=== PATIENT | male | born 1955 ===

== ENCOUNTER 2016-12-21 03:11 | Inpatient (IN) | payer MEDICARE, MEDICAID ==
[2016-12-21 03:12] VITALS: BMI 35.9
[2016-12-21] MEDS ORDERED: Aspirin 325 mg EC Tablets PO STA (03:47)
--- NOTE | 2016-12-21 03:47 | C.PDOC ---
History Of Present Illness Patient presents to the ED with complaints of left shoulder pain that radiates to his chest. Patient notes an ulcer to the left heel and denies any fever or chills. Time Seen by Provider: 12/21/16 03:46 Chief Complaint (Nursing): Chest Pain History Per: Patient History/Exam Limitations: no limitations Onset/Duration Of Symptoms: Hrs Current Symptoms Are (Timing): Still Present Severity: Moderate Pain Scale Rating Of: 4 Quality: "Pain" Associated Symptoms: denies: Nausea, Dyspnea, Diaphoresis, Syncope Modifying Factors: None Exacerbating Factors: None Alleviating Factors: None Recent travel outside of the [place]: No Additional History Per: Patient Past Medical History Reviewed: Historical Data, Nursing Documentation, Vital Signs Vital Signs: Last Vital Signs Temp 98.9 F 12/21/16 03:31 Pulse 85 12/21/16 04:08 Resp 20 12/21/16 03:31 BP 111/77 12/21/16 03:31 Pulse Ox 96 12/21/16 04:55 - Medical History PMH: Asthma, CHF, Diabetes, HTN, Hypercholesterolemia, Peripheral Edema Surgical History: CABG (08/30/12) - [facility] Procedures CONTRAST AORTOGRAM (11/16/13) CORONAR ARTERIOGR-2 CATH (11/16/13) LT HEART ANGIOCARDIOGRAM (11/16/13) RT/LEFT HEART CARD CATH (11/16/13) Family History: States: Unknown Family Hx - Social History Hx Tobacco Use: No Hx Alcohol Use: Yes Hx Substance Use: No - Immunization History Hx Tetanus Toxoid Vaccination: No Hx Influenza Vaccination: Yes Hx Pneumococcal Vaccination: No Review Of Systems Constitutional: Negative for: Fever, Chills Cardiovascular: Positive for: Chest Pain. Negative for: Palpitations Respiratory: Negative for: Cough, Shortness of Breath Gastrointestinal: Negative for: Nausea, Vomiting, Abdominal Pain, Diarrhea Musculoskeletal: Positive for: Shoulder Pain (left shoulder pain that radiates to chest) Physical Exam - Physical Exam Appears: Non-toxic, No Acute Distress Skin: Warm, Dry, Other (diffuse vitiligo ) Eye(s): bilateral: Normal Inspection Oral Mucosa: Moist Neck: Supple Chest: Symmetrical, No Deformity Cardiovascular: Rhythm Regular Respiratory: No Rales, No Rhonchi, No Wheezing Gastrointestinal/Abdominal: Soft, No Tenderness, No Distention, No Guarding, No Rebound Extremity: Normal ROM, No Tenderness, Other (left heel ulcer; 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 ) Extremity: Left: Other (healing ulcer), Bilateral: Atraumatic Pulses: Left Dorsalis Pedis: Normal, Right Dorsalis Pedis: Normal Neurological/Psych: Oriented x3, Other (patient speaking in complete sentences ) Gait: With Assistance ED Course And Treatment - Laboratory Results Result Diagrams: 12/21/16 03:54 12/21/16 04:35 ECG: Interpreted By Me, Viewed By Me ECG Rhythm: Sinus Rhythm (85), Nonspecific Changes O2 Sat by Pulse Oximetry: 96 (room air ) Pulse Ox Interpretation: Normal - Radiology CXR: Interpreted by Me, Viewed By Me Disposition Discussed With Dr.: Sukumar Ann Comment: accepted the pt on his service and took over the care at 6:15 AM Doctor Will See Patient In The: Hospital Counseled Patient/Family Regarding: Studies Performed, Diagnosis - Disposition Disposition: HOME/ ROUTINE Disposition Time: 03:46 Condition: FAIR - POA Present On Arrival: Poor Glycemic Control, Pressure Ulcer - Clinical Impression Clinical Impression: Diabetic ulcer of foot associated with type 1 diabetes mellitus, limited to breakdown of skin, Chest pain - Scribe Statement The provider has reviewed the documentation as recorded by the Scribe Justyna Lam All medical record entries made by the Scribe were at my direction and personally dictated by me. I have reviewed the chart and agree that the record accurately reflects my personal performance of the history, physical exam, medical decision making, and the department course for this patient. I have also personally directed, reviewed, and agree with the discharge instructions and disposition. Decision To Admit - Pt Status Changed To: Hospital Disposition Of: Observation - . Bed Request Type: Telemetry Admitting Physician: Sukumar Ann Patient Diagnosis: Diabetic ulcer of foot associated with type 1 diabetes mellitus, limited to breakdown of skin, Chest pain
[2016-12-21 03:58] LABS: BASO # 0.1 K/uL (0.0-0.2); BASO % 1.1 % (0.0-2.0); EOS # 0.4 K/uL (0.0-0.7); HEMOGLOBIN 10.9 g/dL (12.0-18.0); LYMPH # 2.1 K/uL (1.0-4.3); LYMPH % 20.4 % (20.0-40.0); MEAN CELL VOLUME 83.2 fL (80.0-94.0); MEAN CORPUSCULAR HEMOGLOBIN 27.1 pg (27.0-31.0); MEAN CORPUSCULAR HGB CONC 32.5 g/dL (33.0-37.0); MEAN PLATELET VOLUME 8.3 fL (7.2-11.7); MONO # 0.8 K/uL (0.0-0.8); MONO % 8.1 % (0.0-10.0); NEUT # 6.7 K/uL (1.8-7.0); NEUT % 66.4 % (50.0-75.0); RBC 4.03 Mil/uL (4.40-5.90); RED CELL DISTRIBUTION WIDTH 15.1 % (11.5-14.5); WHITE BLOOD COUNT 10.1 K/uL (4.8-10.8)
[2016-12-21 04:08] LABS: INR 0.9; PROTHROMBIN TIME 10.5 SECONDS (9.7-12.2)
[2016-12-21 04:49] LABS: ALBUMIN 3.1 g/dL (3.5-5.0)
[2016-12-21 04:52] LABS: AST/SGOT 17 U/L (17-59); GFR AFRICAN-AMERICAN > 60; GFR NON-AFRICAN AMERICAN > 60
[2016-12-21 04:53] LABS: ALT/SGPT 27 U/L (21-72); BLOOD UREA NITROGEN 19 mg/dL (9-20); CALCIUM 8.1 mg/dl (8.6-10.4); LIPASE 109 U/L (23-300)
[2016-12-21] MEDS ORDERED: Home Med 1 UNIT (Ventolin Hfa 90 Mcg/Actuation (8 G) 1 PUFF) INH PRN (06:26)
[2016-12-21 06:57] LABS: HDL CHOLESTEROL 31.9 mg/dL (30-70)
[2016-12-21] MEDS ORDERED: Albuterol HFA 90 mcg/actuation (8 g) INH PRN (07:29)
[2016-12-21] MEDS ORDERED: (Novolog) Insulin Aspart, Recombinant 100 u/ml 10 ml vial SC SCH (07:30)
[2016-12-21] MEDS ORDERED: Metoprolol Succinate 50 mg XL Tab PO SCH (10:00)
[2016-12-21] MEDS ORDERED: Multivitamin With Minerals Tab PO SCH (10:00)
[2016-12-21] MEDS ORDERED: (Lantus) Insulin Glargine, Recombinant SC SCH ×2 (10:00→22:00)
--- NOTE | 2016-12-21 10:17 | RAD ---
PROCEDURE: CHEST RADIOGRAPH, 1 VIEW HISTORY: chest pain COMPARISON: Comparison chest 05/19/15 FINDINGS: LUNGS: At PLEURA: No pneumothorax or pleural fluid seen. CARDIOVASCULAR: Sternotomy wires and CABG clips. . Cardiomegaly. OSSEOUS STRUCTURES: No significant abnormalities. VISUALIZED UPPER ABDOMEN: Normal. OTHER FINDINGS: None. IMPRESSION: Poor inspiration with low lung volumes, crowded bronchovascular markings and mild bibasilar atelectasis. .
[2016-12-21] MEDS: (Lantus) Insulin Glargine, Recombinant SC SCH ×2 (11:27→22:17)
[2016-12-21] MEDS: Multivitamin With Minerals Tab PO SCH (11:29)
[2016-12-21 12:07] LABS: CK-MB 1.29 ng/mL (0.0-3.38)
[2016-12-21] MEDS: (Novolog) Insulin Aspart, Recombinant 100 u/ml 10 ml vial SC SCH ×3 (12:34→22:04)
[2016-12-21] MEDS: cefTRIAXone IV 1 gm in Dextros 50 ML IVPB SCH (12:36)
--- NOTE | 2016-12-21 14:21 | CP.PCM.CON ---
History of Present Illness - History of Present Illness History of Present Illness: chest pains.leg ians,ulcer on lt foot for few months,non heaing.pains are precordial non exertional.sob +. Review of Systems - Constitutional Constitutional: absent: Chills, Fever - EENT Eyes: Blurred Vision Ears: absent: Decreased Hearing - Cardiovascular Cardiovascular: Chest Pain, Lightheadedness. absent: Pedal Edema - Respiratory Respiratory: absent: Cough - Gastrointestinal Gastrointestinal: absent: Abdominal Pain - Genitourinary Genitourinary: Urinary Frequency - Musculoskeletal Musculoskeletal: Arthralgias - Neurological Neurological: Dizziness (frequent fall) Past Patient History - Infectious Disease Hx of Infectious Diseases: None (cad,cabg 4 yrs ago,st promise,?re cath in 3 yrs ago.) - Tetanus Immunizations Tetanus Immunization: Unknown - Past Medical History & Family History Past Medical History?: Yes - Past Social History Smoking Status: Never Smoked - CARDIAC Hx Congestive Heart Failure: Yes Hx Hypercholesterolemia: Yes Hx Hypertension: Yes Hx Peripheral Edema: Yes - PULMONARY Hx Asthma: Yes - NEUROLOGICAL Hx Transient Ischemic Attacks (TIA): No - HEENT Hx HEENT Problems: No - RENAL Hx Chronic Kidney Disease: No - ENDOCRINE/METABOLIC Hx Endocrine Disorders: Yes Hx Diabetes Mellitus Type 1: Yes - HEMATOLOGICAL/ONCOLOGICAL Hx Blood Transfusions: No Hx Blood Transfusion Reaction: No - INTEGUMENTARY Hx Dermatological Problems: No - MUSCULOSKELETAL/RHEUMATOLOGICAL Hx Falls: No - GASTROINTESTINAL Hx Gastrointestinal Disorders: No - GENITOURINARY/GYNECOLOGICAL Hx Genitourinary Disorders: Yes Hx Prostate Problems: Yes - PSYCHIATRIC Hx Substance Use: No - SURGICAL HISTORY Hx Coronary Artery Bypass Graft: Yes (08/30/12) - ANESTHESIA Hx Anesthesia: Yes Hx Anesthesia Reactions: No Hx Malignant Hyperthermia: No Meds Allergies/Adverse Reactions: Allergies Allergy/AdvReac Type Severity Reaction Status Date / Time No Known Allergies Allergy Verified 08/02/16 11:33 - Medications Medications: Current Medications Albuterol (Ventolin Hfa 90 Mcg/Actuation (8 G)) 1 puff INH RQ4 PRN PRN Reason: Shortness of Breath Aspirin (Ecotrin) 81 mg PO DAILY [facility] Last Admin: 12/21/16 11:26 Dose: Not Given Enalapril Maleate (Vasotec) 5 mg PO DAILY [facility] Last Admin: 12/21/16 11:29 Dose: Not Given Furosemide (Lasix) 40 mg PO BID [facility] Ceftriaxone Sodium (Rocephin Iv 1 Gm Duplex) 50 mls @ 100 mls/hr IVPB DAILY [facility] Last Admin: 12/21/16 12:36 Dose: 100 mls/hr Insulin Aspart (Novolog) 0 unit SC ACHS [facility] PRN Reason: Protocol Last Admin: 12/21/16 12:34 Dose: 5 unit Insulin Glargine (Lantus) 20 unit SC HS [facility] Insulin Glargine (Lantus) 40 unit SC QAM [facility] Last Admin: 12/21/16 11:27 Dose: Not Given Metoprolol Succinate (Toprol Xl) 100 mg PO DAILY [facility] Multivitamins/Minerals (Therapeutic-M Tab) 1 tab PO DAILY [facility] Last Admin: 12/21/16 11:29 Dose: Not Given Rosuvastatin Calcium (Crestor) 10 mg PO HS [facility] Tamsulosin HCl (Flomax) 0.4 mg PO BID [facility] Last Admin: 12/21/16 11:27 Dose: Not Given Thiamine HCl (Vitamin B1 Tab) 100 mg PO DAILY [facility] Last Admin: 12/21/16 11:30 Dose: Not Given Physical Exam - Constitutional Appears: No Acute Distress - Eye Exam Eye Exam: Normal appearance - ENT Exam ENT Exam: Mucous Membranes Moist - Neck Exam Neck exam: Positive for: Normal Inspection - Respiratory Exam Respiratory Exam: Clear to Auscultation Bilateral - Cardiovascular Exam Cardiovascular Exam: REGULAR RHYTHM, Systolic Murmur - GI/Abdominal Exam GI & Abdominal Exam: Soft - Extremities Exam Extremities exam: Negative for: pedal edema - Neurological Exam Neurological exam: Alert, Oriented x3 Results - Vital Signs Recent Vital Signs: Last Vital Signs Temp 97.4 F L 12/21/16 11:31 Pulse 101 H 12/21/16 11:31 Resp 18 12/21/16 11:31 BP 151/76 H 12/21/16 11:31 Pulse Ox 97 12/21/16 11:31 - Labs Result Diagrams: 12/21/16 03:54 12/21/16 04:35 Labs: Laboratory Results - last 24 hr 12/21/16 12/21/16 12/21/16 06:40 06:45 07:17 POC Glucose (mg/dL) 358 H Hemoglobin A1c 11.0 H D Total Creatine Kinase CK-MB (Mass) Troponin I, Quant Triglycerides 174.6 H Cholesterol 181.1 LDL Cholesterol Direct 119 HDL Cholesterol 31.9 12/21/16 12/21/16 11:28 11:41 POC Glucose (mg/dL) 387 H Hemoglobin A1c Total Creatine Kinase 45 L CK-MB (Mass) 1.29 Troponin I, Quant < 0.0120 Triglycerides Cholesterol LDL Cholesterol Direct HDL Cholesterol Assessment & Plan - Assessment and Plan (Free Text) Assessment: atypical chest pains in pt with dm,cad,cabg.hba1c is 11.0. needs medical rx,control of risk factors. [facility] echo.pl get previous record. thanks labs,ht,wt vital all noted.
[2016-12-21 16:48] VITALS: RESP 20
[2016-12-21 17:58] LABS: CK-MB 1.34 ng/mL (0.0-3.38)
--- NOTE | 2016-12-21 21:53 | CP.PCM.HP ---
History of Present Illness - History of Present Illness History of Present Illness: CC: chest pains.leg Pains,ulcer on lt foot for few months,non heaing.pains are precordial non exertional.sob +. HPI: Elderly hispaic male with h/o CAD few years ago, complaint with dirt medication and follow up came in with non healing ulcer on left foot and chest pain in left upper chest wall radiating to left shoulder area worse with movement, denies any diaphoresis Present on Admission - Present on Admission Any Indicators Present on Admission: Yes Review of Systems - Review of Systems Systems not reviewed;Unavailable: Unstable Vital Signs - Constitutional Constitutional: Fatigue, Lethargy - EENT Ears: absent: As Per HPI, Decreased Hearing, Ear Discharge, Ear Pain, Tinnitus, Abnormal Hearing, Disequilibrium, Dizziness, Other Nose/Mouth/Throat: absent: As Per HPI, Epistaxis, Nasal Congestion, Nasal Discharge, Nasal Obstruction, Nasal Trauma, Nose Pain, Post Nasal Drip, Sinus Pain, Sinus Pressure, Bleeding Gums, Change in Voice, Dental Pain, Dry Mouth, Dysphagia, Halitosis, Hoarsness, Lip Swelling, Mouth Lesions, Mouth Pain, Odynophagia, Sore Throat, Throat Swelling, Tongue Swelling, Facial Pain, Neck Pain, Neck Mass, Other - Cardiovascular Cardiovascular: Chest Pain, Pain Radiating to Arm/Neck/Jaw, Leg Ulcers - Respiratory Respiratory: absent: As Per HPI, Cough, Dyspnea, Hemoptysis, Dyspnea on Exertion , Wheezing, Snoring, Stridor, Pain on Inspiration, Chest Congestion, Excessive Mucous Production, Change in Mucous Color, Pain with Coughing, Other - Gastrointestinal Gastrointestinal: absent: As Per HPI, Abdominal Pain, Belching, Bloating, Change in Bowel Habits, Change in Stool Character, Coffee Ground Emesis, Constipation, Cramping, Diarrhea, Dyspepsia, Dysphagia, Early Satiety, Excessive Flatus, Fecal Incontinence, Heartburn, Hematemesis, Hematochezia, Loose Stools, Melena, Nausea, Odynophagia, Temesmus, Vomiting, Other - Genitourinary Genitourinary: absent: As Per HPI, Change in Urinary Stream, Difficulty Urinating, Dysuria, Flank Pain, Hematuria, Pyuria, Nocturia, Urinary Incontinence, Urinary Frequency, Urinary Hesitance, Urinary Urgency, Voiding Freq/Small Amts, Freq UTI, Hx Renal/Bladder Calculi, Hx /Renal Surgery, Bladder Distension, Other - Musculoskeletal Musculoskeletal: absent: As Per HPI, Abnormal Gait, Arthralgias, Atrophy, Back Pain, Deformity, Joint Swelling, Limited Range of Motion, Loss of Height, Muscle Cramps, Muscle Weakness, Myalgias, Neck Pain, Numbness, Radiating Pain into Limb, Stiffness, Tingling, Other - Integumentary Integumentary: absent: As Per HPI, Acne, Alopecia, Bleeding Lesions, Change in Hair, Change in Nails, Change in Pigmentation, Changing Lesions, Dry Skin, Erythema, Furuncle, Hirsutism, Lesions, New Lesions, Non-Healing Lesions, Photosensitivity, Pruritus, Rash, Skin Pain, Skin Ulcer, Sores, Striae, Swelling , Unusual Bruising, Wounds, Jaundice, Other Past Patient History - Infectious Disease Hx of Infectious Diseases: None (cad,cabg 4 yrs ago,st promise,?re cath in 3 yrs ago.) - Tetanus Immunizations Tetanus Immunization: Unknown - Past Medical History & Family History Past Medical History?: Yes - Past Social History Smoking Status: Never Smoked - CARDIAC Hx Congestive Heart Failure: Yes Hx Hypercholesterolemia: Yes Hx Hypertension: Yes Hx Peripheral Edema: Yes - PULMONARY Hx Asthma: Yes - NEUROLOGICAL Hx Transient Ischemic Attacks (TIA): No - HEENT Hx HEENT Problems: No - RENAL Hx Chronic Kidney Disease: No - ENDOCRINE/METABOLIC Hx Endocrine Disorders: Yes Hx Diabetes Mellitus Type 1: Yes - HEMATOLOGICAL/ONCOLOGICAL Hx Blood Transfusions: No Hx Blood Transfusion Reaction: No - INTEGUMENTARY Hx Dermatological Problems: No - MUSCULOSKELETAL/RHEUMATOLOGICAL Hx Falls: No - GASTROINTESTINAL Hx Gastrointestinal Disorders: No - GENITOURINARY/GYNECOLOGICAL Hx Genitourinary Disorders: Yes Hx Prostate Problems: Yes - PSYCHIATRIC Hx Substance Use: No - SURGICAL HISTORY Hx Coronary Artery Bypass Graft: Yes (08/30/12) - ANESTHESIA Hx Anesthesia: Yes Hx Anesthesia Reactions: No Hx Malignant Hyperthermia: No Meds Allergies/Adverse Reactions: Allergies Allergy/AdvReac Type Severity Reaction Status Date / Time No Known Allergies Allergy Verified 08/02/16 11:33 Physical Exam - Constitutional Appears: No Acute Distress, Chronically Ill - Head Exam Head Exam: ATRAUMATIC, NORMAL INSPECTION, NORMOCEPHALIC - Eye Exam Eye Exam: EOMI, Normal appearance, PERRL Pupil Exam: NORMAL ACCOMODATION, PERRL - ENT Exam ENT Exam: Mucous Membranes Moist, Normal Exam - Cardiovascular Exam Cardiovascular Exam: REGULAR RHYTHM - GI/Abdominal Exam GI & Abdominal Exam: Normal Bowel Sounds, Soft. absent: Tenderness - Rectal Exam Rectal Exam: Deferred Results - Vital Signs Recent Vital Signs: Last Vital Signs Temp 97.8 F 12/21/16 16:00 Pulse 79 12/21/16 16:00 Resp 20 12/21/16 16:00 BP 123/76 12/21/16 18:24 Pulse Ox 98 12/21/16 16:00 - Labs Result Diagrams: 12/21/16 03:54 12/21/16 04:35 Labs: Laboratory Results - last 24 hr 12/21/16 12/21/16 12/21/16 06:40 06:45 07:17 POC Glucose (mg/dL) 358 H Hemoglobin A1c 11.0 H D Total Creatine Kinase CK-MB (Mass) Troponin I, Quant Triglycerides 174.6 H Cholesterol 181.1 LDL Cholesterol Direct 119 HDL Cholesterol 31.9 12/21/16 12/21/16 12/21/16 11:28 11:41 17:03 POC Glucose (mg/dL) 387 H 232 H Hemoglobin A1c Total Creatine Kinase 45 L CK-MB (Mass) 1.29 Troponin I, Quant < 0.0120 Triglycerides Cholesterol LDL Cholesterol Direct HDL Cholesterol 12/21/16 12/21/16 17:33 21:29 POC Glucose (mg/dL) 277 H Hemoglobin A1c Total Creatine Kinase 46 L CK-MB (Mass) 1.34 Troponin I, Quant < 0.0120 Triglycerides Cholesterol LDL Cholesterol Direct HDL Cholesterol Assessment & Plan (1) Chest pain Status: Acute (2) Diabetic ulcer of foot associated with type 1 diabetes mellitus, limited to breakdown of skin Status: Acute
[2016-12-22 00:38] LABS: CK-MB 1.38 ng/mL (0.0-3.38)
[2016-12-22] MEDS: (Novolog) Insulin Aspart, Recombinant 100 u/ml 10 ml vial SC SCH ×4 (08:37→22:08)
[2016-12-22] MEDS: cefTRIAXone IV 1 gm in Dextros 50 ML IVPB SCH (09:46)
[2016-12-22] MEDS: Multivitamin With Minerals Tab PO SCH (09:49)
[2016-12-22] MEDS: Metoprolol Succinate 100 mg XL Tab PO SCH (09:49)
[2016-12-22] MEDS: (Lantus) Insulin Glargine, Recombinant SC SCH ×2 (11:21→22:13)
[2016-12-22] MEDS: Acetaminophen-Codeine 300/30 mg Tab PO PRN (16:40)
--- NOTE | 2016-12-22 21:35 | CARD ---
APPROVED REPORT EKG Measurement Heart [id number] <Conclusion> Normal sinus rhythm T wave abnormality, consider lateral ischemia Abnormal ECG
--- NOTE | 2016-12-22 22:51 | CP.PCM.PN ---
Subjective - Date & Time of Evaluation Date of Evaluation: 12/22/16 Time of Evaluation: 19:20 - Subjective Subjective: Today he got complicated by rapid atrial fibbrillation, placed on cardizem drip , now pt is back in sinus rythm denies any chest pain Objective - Vital Signs/Intake and Output Vital Signs (last 24 hours): Temp Pulse Resp BP Pulse Ox 98.1 F 78 20 105/53 L 99 12/22/16 16:00 12/22/16 22:17 12/22/16 22:17 12/22/16 22:17 12/22/16 16:00 Intake and Output: 12/22/16 12/23/16 18:59 06:59 Intake Total 500 320 Output Total 250 Balance 500 70 - Medications Medications: Current Medications Acetaminophen (Tylenol 325mg Tab) 650 mg PO Q6 PRN PRN Reason: Pain, moderate (4-7) Acetaminophen/Codeine Phosphate (Tylenol/Codeine 300 Mg/30 Mg) 2 ea PO Q4 PRN PRN Reason: Pain, severe (8-10) Last Admin: 12/22/16 16:40 Dose: 2 ea Albuterol (Ventolin Hfa 90 Mcg/Actuation (8 G)) 1 puff INH RQ4 PRN PRN Reason: Shortness of Breath Aspirin (Ecotrin) 81 mg PO DAILY [facility] Last Admin: 12/22/16 09:47 Dose: 81 mg Enalapril Maleate (Vasotec) 5 mg PO DAILY [facility] Last Admin: 12/22/16 09:49 Dose: 5 mg Furosemide (Lasix) 40 mg PO DAILY [facility] Ceftriaxone Sodium (Rocephin Iv 1 Gm Duplex) 50 mls @ 100 mls/hr IVPB DAILY [facility] Last Admin: 12/22/16 09:46 Dose: 100 mls/hr Insulin Aspart (Novolog) 0 unit SC ACHS [facility] PRN Reason: Protocol Last Admin: 12/22/16 22:08 Dose: Not Given Insulin Glargine (Lantus) 20 unit SC HS [facility] Last Admin: 12/22/16 22:13 Dose: 20 u Insulin Glargine (Lantus) 40 unit SC QAM [facility] Last Admin: 12/22/16 11:21 Dose: 40 unit Metoprolol Succinate (Toprol Xl) 100 mg PO DAILY [facility] Last Admin: 12/22/16 09:49 Dose: 100 mg Multivitamins/Minerals (Therapeutic-M Tab) 1 tab PO DAILY [facility] Last Admin: 12/22/16 09:49 Dose: 1 tab Rosuvastatin Calcium (Crestor) 10 mg PO HS [facility] Last Admin: 12/22/16 22:13 Dose: 10 mg Tamsulosin HCl (Flomax) 0.4 mg PO BID [facility] Last Admin: 12/22/16 17:52 Dose: 0.4 mg Thiamine HCl (Vitamin B1 Tab) 100 mg PO DAILY [facility] Last Admin: 12/22/16 09:49 Dose: 100 mg Tramadol HCl (Ultram) 50 mg PO TID PRN PRN Reason: Pain, severe (8-10) - Labs Labs: PT 10.5 SECONDS (9.7-12.2) 12/21/16 03:54 INR 0.9 12/21/16 03:54 APTT 34 SECONDS (21-34) 12/21/16 03:54 - Constitutional Appears: No Acute Distress - Head Exam Head Exam: ATRAUMATIC, NORMAL INSPECTION, NORMOCEPHALIC - Eye Exam Eye Exam: EOMI, Normal appearance, PERRL Pupil Exam: NORMAL ACCOMODATION, PERRL - ENT Exam ENT Exam: Mucous Membranes Moist - Respiratory Exam Respiratory Exam: Clear to Ausculation Bilateral, NORMAL BREATHING PATTERN - Cardiovascular Exam Cardiovascular Exam: Irregular Rhythm, +S1, +S2, Murmur Additional comments: 2/6 ESM - GI/Abdominal Exam GI & Abdominal Exam: Soft, Normal Bowel Sounds. absent: Tenderness Assessment and Plan (1) Chest pain Status: Acute (2) Diabetic ulcer of foot associated with type 1 diabetes mellitus, limited to breakdown of skin Status: Acute (3) Atrial fibrillation Status: Acute
--- NOTE | 2016-12-22 23:38 | CARD ---
APPROVED REPORT EXAM: Two-dimensional and M-mode echocardiogram with Doppler and color Doppler. Other Information Quality : Technically LimitedRhythm : NSR INDICATION Chest Pain RISK FACTORS Hyperlipidemia Diabetes M-Mode DIMENSIONS RVDd1.67 (2.1-3.2cm)Left Atrium (MM)3.47 (2.5-4.0cm) IVSd1.46 (0.7-1.1cm)Aortic Root2.98 (2.2-3.7cm) LVDd4.16 (4.0-5.6cm)Aortic Cusp Exc.2.01 (1.5-2.0cm) PWd1.18 (0.7-1.1cm)FS (%) 42 % LVDs2.43 (2.0-3.8cm)LVEF (%)73 (>50%) Mitral Valve MV E Urhkbncz19.1cm/sMV A Vcrcofcm296.9cm/sE/A ratio0.7 TDI E/Lateral E'0.0E/Medial E'0.0 LEFT VENTRICLE There is mild asymmetric left ventricular hypertrophy. Left ventricle systolic function is normal with Ejection Fraction of >70%. There is normal LV segmental wall motion. Transmitral Doppler flow pattern is abnormal.Grade I-abnormal relaxation pattern. No left ventricle thrombus noted on this study. RIGHT VENTRICLE The right ventricle is normal size. The right ventricular systolic function is normal. ATRIA The left atrium size is normal. The right atrium size is normal. AORTIC VALVE The aortic valve is mildly sclerotic. The aortic valve is trileaflet. No aortic regurgitation is present. There is no aortic valvular stenosis. There is no aortic valvular vegetation. MITRAL VALVE Mitral annular calcification is mild to moderate. There is no evidence of mitral valve prolapse. There is no mitral valve stenosis. Mitral regurgitation is mild. TRICUSPID VALVE The tricuspid valve is normal in structure. No tricuspid regurgitation. There is no tricuspid valve prolapse or vegetation. There is no tricuspid valve stenosis. PULMONIC VALVE The pulmonic valve is not well visualized. There is no pulmonic valvular regurgitation. GREAT VESSELS The aortic root is normal in size. Due to poor image quality, the IVC could not be assessed. PERICARDIAL EFFUSION There is no pericardial effusion. There is no pleural effusion. <Conclusion> There is mild asymmetric left ventricular hypertrophy. Left ventricle systolic function is normal with Ejection Fraction of >70%. Transmitral Doppler flow pattern is abnormal.Grade I-abnormal relaxation pattern. The right ventricle is normal size. The right ventricular systolic function is normal. The left atrium size is normal. The right atrium size is normal. Mitral regurgitation is mild.
[2016-12-23] MEDS: Acetaminophen-Codeine 300/30 mg Tab PO PRN ×2 (04:55→18:06)
[2016-12-23] MEDS: (Novolog) Insulin Aspart, Recombinant 100 u/ml 10 ml vial SC SCH ×4 (08:38→21:11)
[2016-12-23] MEDS: cefTRIAXone IV 1 gm in Dextros 50 ML IVPB SCH (09:16)
[2016-12-23] MEDS: Multivitamin With Minerals Tab PO SCH (09:17)
[2016-12-23] MEDS: (Lantus) Insulin Glargine, Recombinant SC SCH ×2 (09:18→21:19)
[2016-12-23] MEDS: Metoprolol Succinate 100 mg XL Tab PO SCH (09:18)
--- NOTE | 2016-12-23 13:33 | CP.PCM.PN ---
Subjective - Date & Time of Evaluation Date of Evaluation: 12/23/16 Time of Evaluation: 08:15 - Subjective Subjective: Pt is having intractable shoulder pain, neck pain, h/o bypass in past, difficulty lifting left arm Objective - Vital Signs/Intake and Output Vital Signs (last 24 hours): Temp Pulse Resp BP Pulse Ox 98.3 F 79 20 103/62 96 12/23/16 09:15 12/23/16 09:15 12/23/16 09:15 12/23/16 09:15 12/23/16 09:15 - Medications Medications: Current Medications Acetaminophen (Tylenol 325mg Tab) 650 mg PO Q6 PRN PRN Reason: Pain, moderate (4-7) Acetaminophen/Codeine Phosphate (Tylenol/Codeine 300 Mg/30 Mg) 2 ea PO Q4 PRN PRN Reason: Pain, severe (8-10) Last Admin: 12/23/16 04:55 Dose: 2 ea Albuterol (Ventolin Hfa 90 Mcg/Actuation (8 G)) 1 puff INH RQ4 PRN PRN Reason: Shortness of Breath Aspirin (Ecotrin) 81 mg PO DAILY [facility] Last Admin: 12/23/16 09:17 Dose: 81 mg Enalapril Maleate (Vasotec) 5 mg PO DAILY [facility] Last Admin: 12/23/16 09:17 Dose: Not Given Furosemide (Lasix) 40 mg PO DAILY [facility] Last Admin: 12/23/16 09:18 Dose: Not Given Ceftriaxone Sodium (Rocephin Iv 1 Gm Duplex) 50 mls @ 100 mls/hr IVPB DAILY [facility] Last Admin: 12/23/16 09:16 Dose: 100 mls/hr Insulin Aspart (Novolog) 0 unit SC ACHS [facility] PRN Reason: Protocol Last Admin: 12/23/16 13:02 Dose: 4 unit Insulin Glargine (Lantus) 20 unit SC HS [facility] Last Admin: 12/22/16 22:13 Dose: 20 u Insulin Glargine (Lantus) 40 unit SC QAM [facility] Last Admin: 12/23/16 09:18 Dose: 40 unit Metoprolol Succinate (Toprol Xl) 100 mg PO DAILY [facility] Last Admin: 12/23/16 09:18 Dose: Not Given Multivitamins/Minerals (Therapeutic-M Tab) 1 tab PO DAILY [facility] Last Admin: 12/23/16 09:17 Dose: 1 tab Rosuvastatin Calcium (Crestor) 10 mg PO HS [facility] Last Admin: 12/22/16 22:13 Dose: 10 mg Tamsulosin HCl (Flomax) 0.4 mg PO BID [facility] Last Admin: 12/23/16 09:16 Dose: 0.4 mg Thiamine HCl (Vitamin B1 Tab) 100 mg PO DAILY [facility] Last Admin: 12/23/16 09:17 Dose: 100 mg Tramadol HCl (Ultram) 50 mg PO TID PRN PRN Reason: Pain, severe (8-10) - Labs Labs: PT 10.5 SECONDS (9.7-12.2) 12/21/16 03:54 INR 0.9 12/21/16 03:54 APTT 34 SECONDS (21-34) 12/21/16 03:54 - Constitutional Appears: No Acute Distress - Head Exam Head Exam: ATRAUMATIC, NORMAL INSPECTION, NORMOCEPHALIC - Eye Exam Eye Exam: EOMI, Normal appearance, PERRL Pupil Exam: NORMAL ACCOMODATION, PERRL - Respiratory Exam Respiratory Exam: Clear to Ausculation Bilateral, NORMAL BREATHING PATTERN - Cardiovascular Exam Cardiovascular Exam: REGULAR RHYTHM, +S1, +S2. absent: Murmur - Extremities Exam Extremities Exam: Joint Swelling, Tenderness. absent: Calf Tenderness, Full ROM , Normal Capillary Refill, Normal Inspection, Pedal Edema Assessment and Plan (1) Chest pain Status: Acute (2) Diabetic ulcer of foot associated with type 1 diabetes mellitus, limited to breakdown of skin Status: Acute (3) Atrial fibrillation Status: Acute
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
--- NOTE | 2016-12-23 14:55 | CP.PCM.PN ---
Subjective - Date & Time of Evaluation Date of Evaluation: 12/23/16 Time of Evaluation: 10:20 - Subjective Subjective: Pt seen by orthopedic too, still c/o shoulder pain and neck pain Objective - Vital Signs/Intake and Output Vital Signs (last 24 hours): Temp Pulse Resp BP Pulse Ox 98.3 F 79 20 103/62 96 12/23/16 09:15 12/23/16 09:15 12/23/16 09:15 12/23/16 09:15 12/23/16 09:15 - Medications Medications: Current Medications Acetaminophen (Tylenol 325mg Tab) 650 mg PO Q6 PRN PRN Reason: Pain, moderate (4-7) Acetaminophen/Codeine Phosphate (Tylenol/Codeine 300 Mg/30 Mg) 2 ea PO Q4 PRN PRN Reason: Pain, severe (8-10) Last Admin: 12/23/16 04:55 Dose: 2 ea Albuterol (Ventolin Hfa 90 Mcg/Actuation (8 G)) 1 puff INH RQ4 PRN PRN Reason: Shortness of Breath Aspirin (Ecotrin) 81 mg PO DAILY [facility] Last Admin: 12/23/16 09:17 Dose: 81 mg Enalapril Maleate (Vasotec) 5 mg PO DAILY [facility] Last Admin: 12/23/16 09:17 Dose: Not Given Furosemide (Lasix) 40 mg PO DAILY [facility] Last Admin: 12/23/16 09:18 Dose: Not Given Ceftriaxone Sodium (Rocephin Iv 1 Gm Duplex) 50 mls @ 100 mls/hr IVPB DAILY [facility] Last Admin: 12/23/16 09:16 Dose: 100 mls/hr Insulin Aspart (Novolog) 0 unit SC ACHS [facility] PRN Reason: Protocol Last Admin: 12/23/16 13:02 Dose: 4 unit Insulin Glargine (Lantus) 20 unit SC HS [facility] Last Admin: 12/22/16 22:13 Dose: 20 u Insulin Glargine (Lantus) 40 unit SC QAM [facility] Last Admin: 12/23/16 09:18 Dose: 40 unit Metoprolol Succinate (Toprol Xl) 100 mg PO DAILY [facility] Last Admin: 12/23/16 09:18 Dose: Not Given Multivitamins/Minerals (Therapeutic-M Tab) 1 tab PO DAILY [facility] Last Admin: 12/23/16 09:17 Dose: 1 tab Rosuvastatin Calcium (Crestor) 10 mg PO HS [facility] Last Admin: 12/22/16 22:13 Dose: 10 mg Tamsulosin HCl (Flomax) 0.4 mg PO BID [facility] Last Admin: 12/23/16 09:16 Dose: 0.4 mg Thiamine HCl (Vitamin B1 Tab) 100 mg PO DAILY [facility] Last Admin: 12/23/16 09:17 Dose: 100 mg Tramadol HCl (Ultram) 50 mg PO TID PRN PRN Reason: Pain, severe (8-10) - Labs Labs: PT 10.5 SECONDS (9.7-12.2) 12/21/16 03:54 INR 0.9 12/21/16 03:54 APTT 34 SECONDS (21-34) 12/21/16 03:54 - Constitutional Appears: Well - Neck Exam Additional comments: Generalized TTP over spinous processes and left upper trapezius Full ROM of neck, but complains of left sided neck pain with full forward and especially lateral flexion - Extremities Exam Additional comments: Shoulder exam: swelling (? mild swelling), tenderness (to lateral shoulder to elbow, generalized, not limited to shoulder joint, tenderness to posterior shoulder up to neck). absent: abrasion, crepitus, deformity, dislocation, ecchymosis, erythema, full ROM (no active ROM left shoulder, guards and does not allow passive ROM ), laceration, tenderness over AC joint, normal inspection Assessment and Plan (1) Chest pain Status: Acute (2) Diabetic ulcer of foot associated with type 1 diabetes mellitus, limited to breakdown of skin Status: Acute (3) Atrial fibrillation Status: Acute
--- NOTE | 2016-12-23 15:21 | RAD ---
PROCEDURE: Cervical Spine Radiographs. HISTORY: Pain. COMPARISON: None. FINDINGS: BONES: Pickle spine straightening noted. No fracture. Dens Intact. DISC SPACES: Normal. SOFT TISSUES: Normal. No prevertebral soft tissue swelling. OTHER FINDINGS: None IMPRESSION: Cervical spine straightening. Otherwise unremarkable
--- NOTE | 2016-12-23 15:23 | RAD ---
PROCEDURE: Radiographs of the Left Shoulder HISTORY: left shoulder pain COMPARISON: No prior. FINDINGS: BONES: No fracture JOINTS: Glenohumeral and acromioclavicular minimal osteoarthritis. SOFT TISSUES: Left very few moral soft tissue calcification consistent with calcific tendinopathy and/or calcific bursitis -the largest calcification here is 6 mm OTHER FINDINGS: None. IMPRESSION: Left calcific bursitis and/or calcific rotator cuff tendinopathy. No fracture dislocation.
[2016-12-24] MEDS: (Novolog) Insulin Aspart, Recombinant 100 u/ml 10 ml vial SC SCH ×3 (07:30→16:42)
[2016-12-24] MEDS: Multivitamin With Minerals Tab PO SCH (09:13)
[2016-12-24] MEDS: Metoprolol Succinate 100 mg XL Tab PO SCH (09:13)
--- NOTE | 2016-12-24 09:31 | CP.PCM.PN ---
Subjective - Date & Time of Evaluation Date of Evaluation: 12/24/16 Time of Evaluation: 09:43 - Subjective Subjective: Patient refusing tests. States he had MRI last month, advised patient this is a different MRI, and that his symptoms have only been present for 6 days and that he needs new tests now. Agrees to doppler and MRI. No change in left arm pain. Still unable to lift his arm. No new complaints of pain today. Denies numbness/tingling. Denies CP/SOB/dizziness/n/v/fever/chills. Review of Systems - Review of Systems All systems: reviewed and no additional remarkable complaints except - Constitutional Additional comments: denies - Cardiovascular Cardiovascular: As Per HPI - Respiratory Respiratory: As Per HPI - Gastrointestinal Gastrointestinal: As Per HPI - Genitourinary Genitourinary: UNREMARKABLE - Musculoskeletal Musculoskeletal: As Par HPI - Integumentary Additional comments: no change, impetigo - Neurological Neurological: As Per HPI - Hematologic/Lymphatic Hematologic: UNREMARKABLE Objective - Vital Signs/Intake and Output Vital Signs (last 24 hours): Temp Pulse Resp BP Pulse Ox 98.1 F 98 H 20 120/70 96 12/24/16 07:00 12/24/16 07:00 12/24/16 07:00 12/24/16 09:13 12/24/16 07:00 Intake and Output: 12/24/16 12/24/16 06:59 18:59 Intake Total 400 Balance 400 - Medications Medications: Current Medications Acetaminophen (Tylenol 325mg Tab) 650 mg PO Q6 PRN PRN Reason: Pain, moderate (4-7) Acetaminophen/Codeine Phosphate (Tylenol/Codeine 300 Mg/30 Mg) 2 ea PO Q4 PRN PRN Reason: Pain, severe (8-10) Last Admin: 12/23/16 18:06 Dose: 2 ea Albuterol (Ventolin Hfa 90 Mcg/Actuation (8 G)) 1 puff INH RQ4 PRN PRN Reason: Shortness of Breath Aspirin (Ecotrin) 81 mg PO DAILY [facility] Last Admin: 12/24/16 09:13 Dose: 81 mg Enalapril Maleate (Vasotec) 5 mg PO DAILY [facility] Last Admin: 12/24/16 09:13 Dose: 5 mg Furosemide (Lasix) 40 mg PO DAILY [facility] Last Admin: 12/24/16 09:12 Dose: 40 mg Ceftriaxone Sodium (Rocephin Iv 1 Gm Duplex) 50 mls @ 100 mls/hr IVPB DAILY [facility] Last Admin: 12/23/16 09:16 Dose: 100 mls/hr Insulin Aspart (Novolog) 0 unit SC ACHS [facility] PRN Reason: Protocol Last Admin: 12/23/16 21:11 Dose: Not Given Insulin Glargine (Lantus) 20 unit SC HS [facility] Last Admin: 12/23/16 21:19 Dose: 20 u Insulin Glargine (Lantus) 40 unit SC QAM [facility] Last Admin: 12/23/16 09:18 Dose: 40 unit Metoprolol Succinate (Toprol Xl) 100 mg PO DAILY [facility] Last Admin: 12/24/16 09:13 Dose: 100 mg Multivitamins/Minerals (Therapeutic-M Tab) 1 tab PO DAILY [facility] Last Admin: 12/24/16 09:13 Dose: 1 tab Rosuvastatin Calcium (Crestor) 10 mg PO HS [facility] Last Admin: 12/23/16 21:19 Dose: 10 mg Tamsulosin HCl (Flomax) 0.4 mg PO BID [facility] Last Admin: 12/24/16 09:13 Dose: 0.4 mg Thiamine HCl (Vitamin B1 Tab) 100 mg PO DAILY [facility] Last Admin: 12/24/16 09:13 Dose: 100 mg Tramadol HCl (Ultram) 50 mg PO TID PRN PRN Reason: Pain, severe (8-10) Last Admin: 12/24/16 03:19 Dose: 50 mg - Labs Labs: PT 10.5 SECONDS (9.7-12.2) 12/21/16 03:54 INR 0.9 12/21/16 03:54 APTT 34 SECONDS (21-34) 12/21/16 03:54 - Constitutional Appears: Well, No Acute Distress - Head Exam Head Exam: ATRAUMATIC Additional comments: sitting on EOB in NAD - Neck Exam Neck Exam: Full ROM, Normal Inspection, Tenderness Additional comments: pain with full flexion, lateral flexion to left increased pain - Respiratory Exam Respiratory Exam: NORMAL BREATHING PATTERN - Cardiovascular Exam Additional comments: +radial pulse - Extremities Exam Extremities Exam: Normal Inspection, Tenderness Additional comments: sensation intact to LUE C5-T2, rad/ulnar/ med, ax Generalized TTP to left upper arm - Back Exam Back Exam: NORMAL INSPECTION, paraspinal tenderness Additional comments: generalized paraspinal tenderness. 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 Jose, agrees with above Status: Acute (2) Shoulder pain, left Assessment & Plan: xrays show calcific tendinitis vs bursitis, no dislocation consider atraumatic RC tear will f/u MRI C spine and consider MRI shoulder dopplers r/o DVT d/w Dr. Jose, agrees with above Status: Acute Radiology Interpretation - Radiology Interpretation #2 Interpretation: Patient Name / ID : SRUTHI Jacome / [id number] Exam Date : 12/23/2016 14:24:44 ( Approved ) Study Comment : Sex / Age : M / 61Y Creator : Paula Williamson V. Dictator : Paula Williamson V. Computer Analyst : Rehab Therapy Manager : Paula Williamson V. Approver2 : Report Date : 12/23/2016 15:15:43 My Comment : PROCEDURE: Cervical Spine Radiographs. HISTORY: Pain. COMPARISON: None. FINDINGS: BONES: Pickle spine straightening noted. No fracture. Dens Intact. DISC SPACES: Normal. SOFT TISSUES: Normal. No prevertebral soft tissue swelling. OTHER FINDINGS: None IMPRESSION: Cervical spine straightening. Otherwise unremarkable - Radiology Interpretation #3 Interpretation: atient Name / ID : SRUTHI Jacome / [id number] Exam Date : 12/23/2016 14:24:44 ( Addendum_Approved ) Study Comment : Sex / Age : M / 61Y Creator : Paula Williamson V. Dictator : Paula Williamson V. Computer Analyst : Rehab Therapy Manager : Paula Williamson V. Approver2 : Report Date : 12/23/2016 15:17:18 My Comment : ADDENDUM: Additional views were requested by the referring physician. No dislocation is suggested on these views. The other findings still hold. No history of trauma provided [ Addendum Report Added by Paula Williamson V. at 12/23/2016 16: 08:22 ] PROCEDURE: Radiographs of the Left Shoulder HISTORY: left shoulder pain COMPARISON: No prior. FINDINGS: BONES: No fracture JOINTS: Glenohumeral and acromioclavicular minimal osteoarthritis. SOFT TISSUES: Left very few moral soft tissue calcification consistent with calcific tendinopathy and/or calcific bursitis -the largest calcification here is 6 mm OTHER FINDINGS: None. IMPRESSION: Left calcific bursitis and/or calcific rotator cuff tendinopathy. No fracture dislocation.
[2016-12-24] MEDS: (Lantus) Insulin Glargine, Recombinant SC SCH (10:00)
[2016-12-24] MEDS: cefTRIAXone IV 1 gm in Dextros 50 ML IVPB SCH (10:03)
--- NOTE | 2016-12-24 14:26 | MRI ---
PROCEDURE: MRI of the cervical spine dated 12/24/2026 HISTORY: Neck pain. Left shoulder pain and weakness COMPARISON: No prior TECHNIQUE: Multiecho multiplanar sequences were performed through the cervical spine without the use of intravenous contrast. . FINDINGS: Current study reveals no acute compression fractures no retropulsed fragments. Vertebral bodies exhibit normal stature. There is mild straightening of the normal cervical lordosis however vertebral bodies otherwise exhibit normal alignment. Facets normally aligned. . At the C2-C3 level, there is disc desiccation. Disc space height maintained. No disc herniation nor significant disc bulge. The overall central bony canal and exit foramina are adequate. At the C3-C4 level, there is also disc desiccation. Disc space height maintained. Small central and bilateral disc bulge indents the ventral surface of the thecal sac nearly reaching but not significantly deform the ventral surface of cord. Central canal and exit foramina are also adequate. Note is made of a small linear shaped focus of increased T2 signal transversely crossing the spinal cord on axial 3D Fiesta weighted sequence likely representing artifact. . Facets are slightly prominent. Minimal degenerative squaring of the uncovertebral joints. Central canal and exit foramina are adequate. At the C4-C5 level, there is minor disc space narrowing. Disc desiccation. Small broad-based asymmetric disc bulge slightly larger on the left than right and contiguous with mildly overgrown uncovertebral joints. Changes result in mild flattening of the ventral surface of thecal sac and minimal flattening the cord more so on the left side. Overall central canal does appear quite the flow. Exit foramina are also adequate. At the C5-C6 level, there is disc desiccation. Small central and bilateral disc bulge indents the ventral surface of thecal sac and spinal cord is well. Central canal appears adequate. Minor degenerative squaring of the uncovertebral joints. Facets slightly hypertrophic. Exit foramina are adequate on the right and marginal to adequate on the left. At the C6-C7 level, there is mild age related disc desiccation. Disc space height maintained. No disc herniations with the the the joints of the mild degenerative squaring. Facets are slightly overgrown. Central canal and exit foramina adequate. At the C7-T1 level, there is mild left parasagittal focal disc bulge ridge complex that does result in mild flattening of the left anterolateral border of thecal sac with questionable minor flattening of the left anterolateral border of the cord. Central canal appears adequate measured at midline. . At least T1-T2 level, there is a small left parasagittal disc ridge complex that indents the ventral surface of the thecal sac without canal compromise and cord compression. . No definitive intrinsic signal changes seen within the visualized spinal cord. Cervicomedullary junction unremarkable. Impression: No evidence of acute fractures. Minor multilevel degenerative spondylosis most notably affecting C4-C5 and C5-C6 levels as described.
[2016-12-24 16:50] VITALS: BP 117/76; PULSE 76; TEMP 98; O2SAT 97
--- NOTE | 2016-12-24 17:47 | CP.PCM.PN ---
Subjective - Date & Time of Evaluation Date of Evaluation: 12/24/16 Time of Evaluation: 13:00 - Subjective Subjective: Pt seen and examine dtoday, still c/o left shoulder pain, denies any chest pain , palpitations, dizzines No overnight events reported by RN Objective - Vital Signs/Intake and Output Vital Signs (last 24 hours): Temp Pulse Resp BP Pulse Ox 98.0 F 76 20 117/76 97 12/24/16 15:14 12/24/16 15:14 12/24/16 15:14 12/24/16 15:14 12/24/16 15:14 Intake and Output: 12/24/16 12/24/16 06:59 18:59 Intake Total 400 650 Balance 400 650 - Labs Labs: PT 10.5 SECONDS (9.7-12.2) 12/21/16 03:54 INR 0.9 12/21/16 03:54 APTT 34 SECONDS (21-34) 12/21/16 03:54 - Constitutional Appears: No Acute Distress - ENT Exam ENT Exam: Mucous Membranes Moist - Respiratory Exam Respiratory Exam: Clear to Ausculation Bilateral, NORMAL BREATHING PATTERN - Neurological Exam Neurological Exam: Alert, Awake, Oriented x3 Assessment and Plan - Assessment and Plan (Free Text) Assessment: A/P 61 YR OLD MALE ADMITTED FOR CHEST PAIN CARDIAC ENZYME - NEGATIVE , SEEN BY DR. ALB[facility]- No evidence of acute fractures. Minor multilevel degenerative spondylosis most notably affecting C4-C5 and C5-C6 levels as described. shoulder x- ray -Left calcific bursitis and/or calcific rotator cuff tendinopathy. No fracture dislocation. D/W with Dr. ann, stable for discharge home today and f/u with Dr. Ann office in next week discharge plan discussed with patient , who understands and agrees with plan Pt instructed to returns to ED if symptoms returns or any concerning symptoms
--- NOTE | 2016-12-25 00:31 | CP.PCM.DIS ---
Provider - Provider Date of Admission: 12/23/16 10:08 Attending physician: Sukumar Ann MD Time Spent in preparation of Discharge (in minutes): 43 Diagnosis - Discharge Diagnosis (1) Chest pain Status: Acute (2) Diabetic ulcer of foot associated with type 1 diabetes mellitus, limited to breakdown of skin Status: Acute (3) Atrial fibrillation Status: Acute Hospital Course - Lab Results Lab Results: Most Recent Lab Values WBC 10.1 K/uL (4.8-10.8) 12/21/16 03:54 RBC 4.03 Mil/uL (4.40-5.90) L 12/21/16 03:54 Hgb 10.9 g/dL (12.0-18.0) L 12/21/16 03:54 Hct 33.5 % (35.0-51.0) L 12/21/16 03:54 MCV 83.2 fL (80.0-94.0) 12/21/16 03:54 MCH 27.1 pg (27.0-31.0) 12/21/16 03:54 MCHC 32.5 g/dL (33.0-37.0) L 12/21/16 03:54 RDW 15.1 % (11.5-14.5) H 12/21/16 03:54 Plt Count 301 K/uL (130-400) 12/21/16 03:54 MPV 8.3 fL (7.2-11.7) 12/21/16 03:54 Neut % (Auto) 66.4 % (50.0-75.0) 12/21/16 03:54 Lymph % (Auto) 20.4 % (20.0-40.0) 12/21/16 03:54 Pacific % (Auto) 8.1 % (0.0-10.0) 12/21/16 03:54 Eos % (Auto) 4.0 % (0.0-4.0) 12/21/16 03:54 Baso % (Auto) 1.1 % (0.0-2.0) 12/21/16 03:54 Neut # 6.7 K/uL (1.8-7.0) 12/21/16 03:54 Lymph # 2.1 K/uL (1.0-4.3) 12/21/16 03:54 Pacific # 0.8 K/uL (0.0-0.8) 12/21/16 03:54 Eos # 0.4 K/uL (0.0-0.7) 12/21/16 03:54 Baso # 0.1 K/uL (0.0-0.2) 12/21/16 03:54 PT 10.5 SECONDS (9.7-12.2) 12/21/16 03:54 INR 0.9 12/21/16 03:54 APTT 34 SECONDS (21-34) 12/21/16 03:54 Sodium 132 mmol/L (132-148) 12/21/16 04:35 Potassium 5.2 mmol/L (3.6-5.2) 12/21/16 04:35 Chloride 99 mmol/L (98-107) 12/21/16 04:35 Carbon Dioxide 26 mmol/L (22-30) 12/21/16 04:35 Anion Gap 12 (10-20) 12/21/16 04:35 BUN 19 mg/dL (9-20) 12/21/16 04:35 Creatinine 1.0 MG/DL (0.8-1.5) 12/21/16 04:35 Est GFR ( Amer) > 60 12/21/16 04:35 Est GFR (Non-Af Amer) > 60 12/21/16 04:35 POC Glucose (mg/dL) 267 mg/dL (65-110) H 12/24/16 16:17 Random Glucose 379 mg/dL (75-110) H 12/21/16 04:35 Hemoglobin A1c 11.0 % (4.2-6.5) H D 12/21/16 06:45 Calcium 8.1 mg/dl (8.6-10.4) L 12/21/16 04:35 Total Bilirubin 0.4 mg/dL (0.2-1.3) 12/21/16 04:35 AST 17 U/L (17-59) 12/21/16 04:35 ALT 27 U/L (21-72) 12/21/16 04:35 Alkaline Phosphatase 155 U/L (38-126) H D 12/21/16 04:35 Total Creatine Kinase 46 U/L (55-170) L 12/22/16 00:01 CK-MB (Mass) 1.38 ng/mL (0.0-3.38) 12/22/16 00:01 Troponin I < 0.0120 ng/mL (0.00-0.120) 12/21/16 04:35 Troponin I, Quant < 0.0120 ng/mL (0.00-0.120) 12/22/16 00:01 Total Protein 6.3 g/dL (6.3-8.3) 12/21/16 04:35 Albumin 3.1 g/dL (3.5-5.0) L 12/21/16 04:35 Globulin 3.2 gm/dL (2.2-3.9) 12/21/16 04:35 Albumin/Globulin Ratio 1.0 (1.0-2.1) 12/21/16 04:35 Triglycerides 174.6 mg/dL (0-149) H 12/21/16 06:40 Cholesterol 181.1 mg/dL (0-199) 12/21/16 06:40 LDL Cholesterol Direct 119 mg/dL (0-129) 12/21/16 06:40 HDL Cholesterol 31.9 mg/dL (30-70) 12/21/16 06:40 Lipase 109 U/L (23-300) 12/21/16 04:35 - Hospital Course Hospital Course: pt seen and examined, left shoulder pain decreased MRI NEG xrays show calcific tendinitis vs bursitis, no dislocation consider atraumatic RC tear Discharge pt home\ out pateint follow up Discharge Exam - Head Exam Head Exam: ATRAUMATIC - Eye Exam Eye Exam: EOMI, Normal appearance, PERRL Pupil Exam: NORMAL ACCOMODATION, PERRL - ENT Exam ENT Exam: Mucous Membranes Moist - Respiratory Exam Respiratory Exam: Clear to PA & Lateral, NORMAL BREATHING PATTERN - Cardiovascular Exam Cardiovascular Exam: REGULAR RHYTHM, +S2 - GI/Abdominal Exam GI & Abdominal Exam: Normal Bowel Sounds - Rectal Exam Rectal Exam: Deferred Discharge Plan - Discharge Medications Prescriptions: Lidocaine 5% [Lidoderm] 1 ea TD DAILY #10 patch traMADol [Ultram] 50 mg PO TID PRN #15 tab PRN Reason: Pain, Severe (8-10) - Follow Up Plan Condition: FAIR Disposition: HOME/ ROUTINE Instructions: Lidocaine (On the skin), Tramadol (By mouth), Heart Failure (DC) , Chest Pain (DC), Heart Healthy Diet (DC), Diabetic Foot Care (DC), Basic Carbohydrate Counting (DC), Meal Planning with the Plate Method (DC), Meal Planning with Diabetes Exchanges (DC) Additional Instructions: f/u with Dr. Ann office next tue.- Continue medication as per Med. REc. Referrals: Sukumar Ann MD [Staff Provider] -
--- NOTE | 2016-12-27 10:49 | VASCLAB ---
PROCEDURE: Lower Extremity Venous Duplex Exam. HISTORY: left shoulder pain, swelling PRIORS: None. TECHNIQUE: Bilateral common femoral, femoral, popliteal and posterior tibial, peroneal and great saphenous veins were evaluated. Flow was assessed with color Doppler, compressibility, assessment of phasic flow and augmentation response. Report prepared by Armando Olivo, JAN, RVT FINDINGS: RIGHT: 1. Common Femoral Vein: 1.1. Compressibility - Fully compressible: Thrombus - None : Flow - Phasic: Augmentation -Normal: Reflux - None. 2. Femoral Vein: 2.1. Compressibility - Fully compressible: Thrombus - None : Flow - Phasic: Augmentation -Normal: Reflux - None. 3. Popliteal Vein: 3.1. Compressibility - Fully compressible: Thrombus - None : Flow - Phasic: Augmentation -Normal: Reflux - None. 4. Posterior Tibial Vein: 4.1. Compressibility - Fully compressible: Thrombus - None: Flow - Phasic: Augmentation -Normal: Reflux - None. 5. Peroneal Vein: 5.1. Compressibility - Fully compressible: Thrombus - None: Flow - Phasic: Augmentation -Normal: Reflux - None. 6. Great Saphenous Vein: 6.1. Compressibility - Fully compressible: Thrombus - None: Flow - Phasic: Augmentation - Normal: Reflux - None. LEFT: 1. Common Femoral Vein: 1.1. Compressibility - Fully compressible: Thrombus - None: Flow - Phasic: Augmentation -Normal: Reflux - None. 2. Femoral Vein: 2.1. Compressibility - Fully compressible: Thrombus - None: Flow - Phasic: Augmentation -Normal: Reflux - None. 3. Popliteal Vein: 3.1. Compressibility - Fully compressible: Thrombus - None : Flow - Phasic: Augmentation -Normal: Reflux - None. 4. Posterior Tibial Vein: 4.1. Compressibility - Fully compressible: Thrombus - None: Flow - Phasic: Augmentation -Normal: Reflux - None. 5. Peroneal Vein: 5.1. Compressibility - Fully compressible: Thrombus - None: Flow - Phasic: Augmentation -Normal: Reflux - None. 6. Great Saphenous Vein: 6.1. Compressibility - Fully compressible: Thrombus - None: Flow - Phasic: Augmentation - Normal: Reflux - None. OTHER FINDINGS: Right: Anechoic non vascularlized mass noted behind right knee. Left: None significant. IMPRESSION: Right: No evidence of deep or superficial vein thrombosis of the right lower extremity. Normal valve function noted of the right side. Left: No evidence of deep or superficial vein thrombosis of the left lower extremity. Normal valve function noted of the left side.
--- NOTE | 2016-12-27 12:55 | CARD ---
APPROVED REPORT EKG Measurement Heart [id number] <Conclusion> Normal sinus rhythm T wave abnormality, consider lateral ischemia Abnormal ECG
== END 2016-12-24 17:35 | disposition home or self-care (01) | DRG 313 ==
LOC: C.ER 03:11 → C.9E 06:13 → UNDOADMIN 06:34 → C.9E 06:34 → C.6T 08:19 → OBSVTOIN 12-23 10:08 → C.6T 12-23 12:49
PROVIDERS: ADMIT Internal Medicine; ATTEND Internal Medicine
DX: R07.2 Precordial pain (principal); I25.10 Atherosclerotic heart disease of native coronary artery without angina pectoris; I11.0 Hypertensive heart disease with heart failure; E10.621 Type 1 diabetes mellitus with foot ulcer; Z95.1 Presence of aortocoronary bypass graft; E78.00 Pure hypercholesterolemia, unspecified; J45.909 Unspecified asthma, uncomplicated; M25.512 Pain in left shoulder; L01.00 Impetigo, unspecified; M54.2 Cervicalgia

== ENCOUNTER 2017-10-06 09:41 | Emergency (ER) | payer MEDICARE, MEDICAID ==
[2017-10-06 09:42] VITALS: BMI 35.9
[2017-10-06 10:34] LABS: BASO # 0.1 K/uL (0.0-0.2); BASO % 0.4 % (0.0-2.0); EOS # 0.4 K/uL (0.0-0.7); EOS % 3.1 % (0.0-4.0); HEMOGLOBIN 9.3 g/dL (12.0-18.0); LYMPH # 1.7 K/uL (1.0-4.3); LYMPH % 12.3 % (20.0-40.0); MEAN CORPUSCULAR HEMOGLOBIN 24.1 pg (27.0-31.0); MEAN CORPUSCULAR HGB CONC 32.5 g/dL (33.0-37.0); MEAN PLATELET VOLUME 8.2 fL (7.2-11.7); MONO # 1.4 K/uL (0.0-0.8); MONO % 9.8 % (0.0-10.0); NEUT # 10.3 K/uL (1.8-7.0); NEUT % 74.4 % (50.0-75.0); RBC 3.86 Mil/uL (4.40-5.90); RED CELL DISTRIBUTION WIDTH 18.4 % (11.5-14.5); WHITE BLOOD COUNT 13.9 K/uL (4.8-10.8)
[2017-10-06 10:41] LABS: INR 1.1; PROTHROMBIN TIME 12.6 SECONDS (9.7-12.2)
[2017-10-06] MEDS ORDERED: Albuterol-Ipratrop 3 mg / 0.5 (3 ml) UD INH STA (10:41)
[2017-10-06] MEDS ORDERED: Albuterol-Ipratrop 3 mg / 0.5 (3 ml) UD ONE (10:59)
[2017-10-06 11:02] LABS: ALB/GLOB RATIO 0.9 (1.0-2.1); ALBUMIN 3.3 g/dL (3.5-5.0); ALT/SGPT 11 U/L (21-72); AST/SGOT 17 U/L (17-59); BLOOD UREA NITROGEN 36 mg/dL (9-20); CALCIUM 8.4 mg/dl (8.6-10.4); GFR AFRICAN-AMERICAN > 60; GFR NON-AFRICAN AMERICAN 52
[2017-10-06 11:11] LABS: B-TYPE NATRIURETIC PEPTIDE 92.2 pg/mL (0-900); CK-MB 1.16 ng/mL (0.0-3.38)
[2017-10-06] MEDS ORDERED: Iodixanol 320 MG/ML 100 ML BOTTLE IV ONE (12:23)
--- NOTE | 2017-10-06 12:25 | C.PDOC ---
History Of Present Illness 62 y/o male with history of Asthma and HTN presents to ED with c/o sob and non productive persistent cough. Patient states that he coughs so much becomes lightheaded and "passes out". Patient denies chest pain, fever, abdominal pain, n/v/d or any other complaints at this time. Time Seen by Provider: 10/06/17 09:55 Chief Complaint (Nursing): Shortness Of Breath History Per: Patient History/Exam Limitations: no limitations Onset/Duration Of Symptoms: Days Current Symptoms Are (Timing): Still Present Initiating Event: Upper Respiratory Illness Past Medical History Reviewed: Historical Data, Nursing Documentation, Vital Signs Vital Signs: Last Vital Signs Temp 99.3 F 10/06/17 13:40 Pulse 94 H 10/06/17 13:40 Resp 20 10/06/17 13:40 BP 111/60 10/06/17 13:40 Pulse Ox 96 10/06/17 14:30 - Medical History PMH: Asthma, CHF, Diabetes, HTN, Hypercholesterolemia, Peripheral Edema Surgical History: CABG (08/30/12) - [facility] Procedures CONTRAST AORTOGRAM (11/16/13) CORONAR ARTERIOGR-2 CATH (11/16/13) LT HEART ANGIOCARDIOGRAM (11/16/13) RT/LEFT HEART CARD CATH (11/16/13) Family History: States: No Known Family Hx - Social History Hx Tobacco Use: No Hx Alcohol Use: Yes Hx Substance Use: No - Immunization History Hx Tetanus Toxoid Vaccination: No Hx Influenza Vaccination: Yes Hx Pneumococcal Vaccination: No Review Of Systems Except As Marked, All Systems Reviewed And Found Negative. Respiratory: Positive for: Cough, Shortness of Breath Physical Exam - Physical Exam Appears: Non-toxic, Other (Anxious, speaking in full sentences) Skin: Warm, Dry, No Rash Head: Atraumatic, Normacephalic Eye(s): bilateral: Normal Inspection Oral Mucosa: Moist Neck: Normal ROM, Supple Cardiovascular: Rhythm Regular, Other (Tachycardic ) Respiratory: Normal Breath Sounds, No Rales, No Rhonchi, No Wheezing Gastrointestinal/Abdominal: Soft, No Tenderness, No Guarding, No Rebound Extremity: Capillary Refill (<2 seconds), No Deformity, Other (Trace pitting edema) Pulses: Left Dorsalis Pedis: Normal, Right Dorsalis Pedis: Normal ED Course And Treatment - Laboratory Results Result Diagrams: 10/06/17 10:30 10/06/17 10:30 O2 Sat by Pulse Oximetry: 96 (RA) Pulse Ox Interpretation: Normal - CT Scan/US CTA CHEST Other Rad Studies (CT/US): Read By Radiologist, Radiology Report Reviewed CT/US Interpretation: Accession No. : [id number]. Patient Name / ID : SRUTHI FAUST / [id number]. Exam Date : 10/06/2017 12:52:51 ( Approved ). Study Comment : Sex / Age : M / 62Y. Creator : Francois Tamayo. Dictator : Looper Fixer : Car Painter : Murtaza Tobias MD. Approver2 : Report Date : 10/06/2017 13:01:07. My Comment : . PROCEDURE: CTA chest with contrast (Pulmonary Angiogram). HISTORY: SOB, R.O PE. COMPARISON: Comparison made with chest radiograph obtained earlier same day. TECHNIQUE: Axial computed tomography images were obtained of the chest in the pulmonary arterial phase of enhancement. Coronal and sagittal reformatted images were created and reviewed. Intravenous contrast dose: 100 cc Visipaque 320. Radiation dose: Total exam DLP = 556.94 mGy-cm. This CT exam was performed using one or more of the following dose reduction techniques: Automated exposure control, adjustment of the mA and/or kV according to patient size, and/ or use of iterative reconstruction technique. FINDINGS: PULMONARY ARTERIES: The visualized pulmonary trunk, right and left main, lobar, segmental and proximal subsegmental branches of the pulmonary arteries are relatively well opacified with no definitive filling defects seen to suggest acute central pulmonary embolus. Pulmonary trunk measures approximately 2.2 cm. Heart size is within. AORTA: Three-vessel arch. Ascending thoracic aorta measures approximately 2.8 cm. Descending thoracic aorta measures approximately 2.2 cm. No evidence of aortic aneurysm or dissection. Mild atherosclerotic plaque seen along the thoracic aorta. LUNGS: No focal consolidation. Mild ground-glass hazy ground-glass appearance seen in the lower lung darden possibly representing air trapping. Clinical correlation recommended. . No evidence of parenchymal masses however note made of a small approximately 3 mm subpleural nodule superior aspect right lower lobe bordering the fissure. Small linear/ nodular area of scarring posterior superior segment right lower lobe extending to the pleural surface. There is an approximately 6 mm nodular opacity posterior segment left upper lobe bordering the fissure. PLEURAL SPACES: Unremarkable. No effusion or pneumothorax. HEART: Status post sternotomy and CABG surgery. Heart size is within range of normal. No significant pericardial effusion. LYMPH NODES: There is mildly enlarged right paratracheal lymph node measures approximately 2.2 cm in greatest dimension however contains an eccentric focus of fat and is therefore nonspecific. Several additional small nonspecific mediastinal lymph nodes are also present. Small of right hilar lymph node measuring approximately 9 mm. There is also a small 11.3 mm left hilar lymph node. BONES, CHEST WALL: Minor multilevel degenerative spondylosis of the thoracic spine. No acute compression fractures no retropulsed fragments. OTHER FINDINGS: There is a small hiatal hernia. The pancreas appears slightly atrophic and fatty replaced. IMPRESSION: No evidence of acute central pulmonary embolus. Mildly enlarged right paratracheal lymph node. Small 3 mm subpleural nodule right lower lobe bordering the major fissure Progress Note: Blood work, CXR, ECG, CTA ordered. Neb treatment administered Disposition Counseled Patient/Family Regarding: Studies Performed, Diagnosis, Need For Followup, Rx Given - Disposition Referrals: Flo Wheeler, SEBASTIAN, EMPLOYEE PLACEMENT SPECIALIST [Advanced Practice Nurse] - Disposition: HOME/ ROUTINE Disposition Time: 14:35 Condition: STABLE Additional Instructions: FOLLOW UP WITH YOUR DOCTOR/CLINIC IN 1-2 DAYS USE MEDICATIONS DIRECTED RETURN TO EMERGENCY ROOM IF SYMPTOMS WORSEN SEGUIMIENTO CON VILLA MDICO / CLNICA EN 1-2 MODI USE MEDICAMENTOS SEGN LO INDICADO REGRESE AL MELI DE EMERGENCIA SI LOS SNTOMAS EMPEORAN Prescriptions: Albuterol HFA [Ventolin HFA 90 mcg/actuation (8 g)] 0.09 mg IH Q4 PRN #1 puff PRN Reason: Wheezing Bacitracin OINT 1 applic TOP BID #1 tube Benzonatate [Tessalon Perles] 100 mg PO BID PRN #15 sgl PRN Reason: Cough predniSONE [predniSONE Tab] 40 mg PO DAILY #6 tab Instructions: Asthma, Adult (DC) Forms: [facility] (Mauritian) Print Language: PALESTINIAN - Clinical Impression Clinical Impression: Asthma, Dermatitis, Upper respiratory disease - Scribe Statement The provider has reviewed the documentation as recorded by the Daryaibnevin Carrero All medical record entries made by the Daryaibnevin were at my direction and personally dictated by me. I have reviewed the chart and agree that the record accurately reflects my personal performance of the history, physical exam, medical decision making, and the department course for this patient. I have also personally directed, reviewed, and agree with the discharge instructions and disposition.
--- NOTE | 2017-10-06 12:45 | RAD ---
Chest x-ray single frontal view History: Shortness of breath. Comparison: 12/21/2016 Findings: Mild venous congestion. Patchy increased markings at the left lung base. Nodular opacities at the lung bases may represent confluence of shadows with ribs and vessels. Status post median sternotomy and CABG. Enlarged ectatic aorta. Cardiomegaly. Degenerative changes in the spine and shoulders. Calcific tendinopathy of the bilateral proximal humeri. Impression: Mild venous congestion. Patchy increased markings at the left lung base. Nodular opacities at the lung bases may represent confluence of shadows with ribs and vessels. Status post median sternotomy and CABG. Enlarged ectatic aorta. Cardiomegaly. Degenerative changes in the spine and shoulders. Calcific tendinopathy of the bilateral proximal humeri.
--- NOTE | 2017-10-06 13:39 | CT ---
PROCEDURE: CTA chest with contrast (Pulmonary Angiogram) HISTORY: SOB, R.O PE. COMPARISON: Comparison made with chest radiograph obtained earlier same day. TECHNIQUE: Axial computed tomography images were obtained of the chest in the pulmonary arterial phase of enhancement. Coronal and sagittal reformatted images were created and reviewed. Intravenous contrast dose: 100 cc Visipaque 320. Radiation dose: Total exam DLP = 556.94 mGy-cm. This CT exam was performed using one or more of the following dose reduction techniques: Automated exposure control, adjustment of the mA and/or kV according to patient size, and/or use of iterative reconstruction technique. FINDINGS: PULMONARY ARTERIES: The visualized pulmonary trunk, right and left main, lobar, segmental and proximal subsegmental branches of the pulmonary arteries are relatively well opacified with no definitive filling defects seen to suggest acute central pulmonary embolus. Pulmonary trunk measures approximately 2.2 cm. Heart size is within. AORTA: Three-vessel arch. Ascending thoracic aorta measures approximately 2.8 cm. Descending thoracic aorta measures approximately 2.2 cm. No evidence of aortic aneurysm or dissection. Mild atherosclerotic plaque seen along the thoracic aorta. LUNGS: No focal consolidation. Mild ground-glass hazy ground-glass appearance seen in the lower lung darden possibly representing air trapping. Clinical correlation recommended. . No evidence of parenchymal masses however note made of a small approximately 3 mm subpleural nodule superior aspect right lower lobe bordering the fissure. Small linear/ nodular area of scarring posterior superior segment right lower lobe extending to the pleural surface. There is an approximately 6 mm nodular opacity posterior segment left upper lobe bordering the fissure. PLEURAL SPACES: Unremarkable. No effusion or pneumothorax. HEART: Status post sternotomy and CABG surgery. Heart size is within range of normal. No significant pericardial effusion. LYMPH NODES: There is mildly enlarged right paratracheal lymph node measures approximately 2.2 cm in greatest dimension however contains an eccentric focus of fat and is therefore nonspecific. Several additional small nonspecific mediastinal lymph nodes are also present. Small of right hilar lymph node measuring approximately 9 mm. There is also a small 11.3 mm left hilar lymph node BONES, CHEST WALL: Minor multilevel degenerative spondylosis of the thoracic spine. No acute compression fractures no retropulsed fragments. OTHER FINDINGS: There is a small hiatal hernia. The pancreas appears slightly atrophic and fatty replaced. IMPRESSION: No evidence of acute central pulmonary embolus. Mildly enlarged right paratracheal lymph node. Small 3 mm subpleural nodule right lower lobe bordering the major fissure
[2017-10-06 13:40] VITALS: BP 111/60; PULSE 94; RESP 20; TEMP 99.3
[2017-10-06 14:30] VITALS: O2SAT 96
== END 2017-10-06 15:06 | disposition home or self-care (01) ==
LOC: C.ER 09:41
DX: J45.909 Unspecified asthma, uncomplicated (principal); L30.9 Dermatitis, unspecified; J39.9 Disease of upper respiratory tract, unspecified; E11.9 Type 2 diabetes mellitus without complications; E78.00 Pure hypercholesterolemia, unspecified; I50.9 Heart failure, unspecified; I10 Essential (primary) hypertension
CPT/HCPCS: 71045; 71275; 80053; 82550; 82553; 83880; 84484; 85025; 85610; 85730; 99285; Q9967

== ENCOUNTER 2018-05-28 03:43 | Emergency (ER) | payer MEDICARE, MEDICAID ==
[2018-05-28 03:44] VITALS: BMI 35.9
[2018-05-28 04:21] VITALS: BP 150/79; PULSE 88; RESP 18; TEMP 98; O2SAT 100
--- NOTE | 2018-05-28 04:56 | C.PDOC ---
History Of Present Illness 63 year old male with PMHx of chronic foot pain, ulcer presents to the ED c/o right foot pain. Patient states he is seen by podiatry twice a week, patient states he ran out of percocet. Patient states Remote Sensing Analyst will not refill his prescription patient was told to follow up with PMD for pain management. Patient states pain tonight worsened. Patient denies fever, rash, redness to extremity, injury, fall, trauma, weakness, numbness. Time Seen by Provider: 05/28/18 04:22 Chief Complaint (Nursing): Lower Extremity Problem/Injury History Per: Patient History/Exam Limitations: no limitations Onset/Duration Of Symptoms: Days Current Symptoms Are (Timing): Still Present Severity: Mild Recent travel outside of the [place]: No Additional History Per: Patient - Ankle/Foot Description Of Injury: Other Past Medical History Reviewed: Historical Data, Nursing Documentation, Vital Signs Vital Signs: Last Vital Signs Temp 98.0 F 05/28/18 04:16 Pulse 88 05/28/18 04:16 Resp 18 05/28/18 04:16 BP 150/79 05/28/18 04:16 Pulse Ox 100 05/28/18 04:16 - Medical History PMH: Asthma, CHF, Diabetes, HTN, Hypercholesterolemia, Peripheral Edema Denies: Chronic Kidney Disease, TIA Surgical History: CABG (08/30/12) - [facility] Procedures CONTRAST AORTOGRAM (11/16/13) CORONAR ARTERIOGR-2 CATH (11/16/13) LT HEART ANGIOCARDIOGRAM (11/16/13) RT/LEFT HEART CARD CATH (11/16/13) Family History: States: Unknown Family Hx - Social History Hx Tobacco Use: No Hx Alcohol Use: Yes Hx Substance Use: No - Immunization History Hx Tetanus Toxoid Vaccination: No Hx Influenza Vaccination: No Hx Pneumococcal Vaccination: No Review Of Systems Constitutional: Negative for: Fever, Chills Cardiovascular: Negative for: Chest Pain, Palpitations Respiratory: Negative for: Shortness of Breath Gastrointestinal: Negative for: Nausea, Vomiting, Abdominal Pain Musculoskeletal: Positive for: Foot Pain Skin: Negative for: Rash Neurological: Negative for: Weakness, Numbness, Headache Physical Exam - Physical Exam Appears: Non-toxic, No Acute Distress Skin: Normal Color, Warm, Dry Head: Atraumatic, Normacephalic Eye(s): bilateral: Normal Inspection Oral Mucosa: Moist Neck: Normal ROM, Supple Chest: Symmetrical Cardiovascular: Rhythm Regular Respiratory: Normal Breath Sounds, No Rales, No Rhonchi, No Wheezing Gastrointestinal/Abdominal: Soft, No Tenderness, No Guarding, No Rebound Extremity: Normal ROM, No Tenderness, Capillary Refill (< 2 seconds), Swelling (chronic swelling right foot, no erythema. Compression stockings in place no discoloration of toes) Extremity: Bilateral: Normal Color And Temperature Neurological/Psych: Oriented x3, Normal Speech, Normal Cognition, Normal Sensation (both feet) Gait: With Assistance (cane) ED Course And Treatment O2 Sat by Pulse Oximetry: 100 (ON RA) Pulse Ox Interpretation: Normal Progress Note: Plan: - Tylenol 975 mg PO. Patient was informed that percocet cannot be refilled in the ED. Patient refused tramadol, was advised to follow up with PMD for pain management and tylenol PO advised. Disposition Counseled Patient/Family Regarding: Diagnosis, Need For Followup - Disposition Referrals: Lyndon Wheeler DPM [Staff Provider] - Disposition: HOME/ ROUTINE Disposition Time: 04:53 Condition: STABLE Additional Instructions: Keep leg elevated Take tylenol as directed' Follwo up with tobacco roller or PMD Return to ER if worse Prescriptions: Acetaminophen [Tylenol] 650 mg PO Q4 #60 capsule Instructions: Chronic Pain (DC) Forms: [facility] (Yoruba) Print Language: WOLOF - Clinical Impression Clinical Impression: Chronic pain in left foot - PA / MEDICAL RECORD LIBRARIAN / Resident Statement MD/DO has reviewed & agrees with the documentation as recorded. - Scribe Statement The provider has reviewed the documentation as recorded by the Scribnevin Jones All medical record entries made by the Daryaibnevin were at my direction and personally dictated by me. I have reviewed the chart and agree that the record accurately reflects my personal performance of the history, physical exam, medical decision making, and the department course for this patient. I have also personally directed, reviewed, and agree with the discharge instructions and disposition.
== END 2018-05-28 05:06 | disposition home or self-care (01) ==
LOC: C.ER 03:43
DX: G89.29 Other chronic pain (principal); M79.671 Pain in right foot

== ENCOUNTER 2018-09-25 00:21 | Inpatient (IN) | payer MEDICARE, MEDICAID ==
[~2018-09-25 00:21] MED LIST: Calcium Gluconate 4.65 mEq/10 ml Inj ONE; Sodium Bicarbonate (8.4%) 50 Meq Syringe ONE
[2018-09-25 00:22] VITALS: BMI 35.9
[2018-09-25] MEDS ORDERED: EPINEPHrine 1 mg/ml (1:1000) Inj IV ONE ×5 (00:23→01:20)
[2018-09-25] MEDS ORDERED: Sodium Chloride 0.9% 1,000 ML IV ONE ×3 (00:25→01:30)
[2018-09-25] MEDS ORDERED: Sodium Bicarbonate (8.4%) 50 Meq Syringe IVP ONE (00:51)
[2018-09-25] MEDS ORDERED: Calcium Gluconate 4.65 mEq/10 ml Inj IVP ONE ×3 (00:52→08:00)
[2018-09-25] MEDS ORDERED: (Novolin R) Insulin Human Regular 100 units/ml vial IVP ONE (00:57)
[2018-09-25 01:00] LABS: VENOUS BLOOD GAS PCO2 84 mmHg (40-60); VENOUS BLOOD GAS PO2 82 mm/Hg (30-55); VENOUS BLOOD PH < 6.80 (7.32-7.43)
[2018-09-25] MEDS ORDERED: (Novolin R) Insulin Human Regular 100 units/ml vial ONE (01:01)
[2018-09-25 01:04] LABS: ARTERIAL BLOOD GAS HCO3 21.1 mmol/L (21-28); ARTERIAL BLOOD GAS HEMOGLOBIN 8.3 g/dL (11.7-17.4); ARTERIAL BLOOD GAS O2 SAT 99.4 % (95-98); ARTERIAL BLOOD GAS PCO2 86 mm/Hg (35-45); ARTERIAL BLOOD GAS PH 7.08 (7.35-7.45); ARTERIAL BLOOD GAS PO2 206 mm/Hg (80-100); ARTERIAL BLOOD GAS TCO2 28.1 mmol/L (22-28)
[2018-09-25 01:12] LABS: BASO % 0.2 % (0.0-2.0); EOS # 0.1 K/uL (0.0-0.7); EOS % 0.3 % (0.0-4.0); LYMPH # 2.5 K/uL (1.0-4.3); LYMPH % 11.8 % (20.0-40.0); MEAN CORPUSCULAR HEMOGLOBIN 26.6 pg (27.0-31.0); MEAN CORPUSCULAR HGB CONC 29.3 g/dL (33.0-37.0); MEAN PLATELET VOLUME 8.3 fL (7.2-11.7); MONO # 0.6 K/uL (0.0-0.8); MONO % 2.6 % (0.0-10.0); NEUT # 18.1 K/uL (1.8-7.0); NEUT % 85.1 % (50.0-75.0); RBC 3.48 Mil/uL (4.40-5.90); RED CELL DISTRIBUTION WIDTH 15.9 % (11.5-14.5); WHITE BLOOD COUNT 21.3 K/uL (4.8-10.8)
[2018-09-25 01:14] LABS: HEMOGLOBIN 9.3 g/dL (12.0-18.0)
[2018-09-25 01:15] LABS: ALB/GLOB RATIO 1.2 (1.0-2.1); ALBUMIN 3.1 g/dL (3.5-5.0); CALCIUM 7.8 mg/dl (8.6-10.4)
[2018-09-25 01:18] LABS: TROPONIN I 2.26 ng/mL (0.00-0.120)
[2018-09-25] MEDS ORDERED: Piperacillin/Tazobact 3.375 gm 100 ML IVPB STA (01:24)
--- NOTE | 2018-09-25 01:36 | CP.PCM.CON ---
History of Present Illness - History of Present Illness History of Present Illness: CCM 63 yo male with hx HTN /DM /CKD /NH /CAD /CABG/Asthma /HLD/ foot Ulcer?Peripheral Edema had cardiac arrest at home. Pt found asystolic by EMS and intubated. CPR /ACLS on and off until ED where CPR continued. Pt started on levophed in ED. Treated for hyperkalemia. Pt unresponisve and unable to give hx. ROS- as noted All- NKDA Social- no tob/ etoh/ drugs meds- reviewed FH- Unknown Intubated, Unresponisve Pupils sluggish Neck- no jvd Lungs- bilat coarse bs. few scattered crackles Heart-rr abd- Obese, distended, bs+, no tenderness elicited Ext- bilat LE edema Neuro- unresponsive Labs,ekg-reviewed A&P s/p Cardiac Arrest Encephalopathy Shock +trop DANUTA on ?CKD Hyperkalemia CAD /CABG Hx HTN DM Hx A-fib Foot Ulcer HLD Admit to ICU Optimize vent support titrate pressors Maintain optimal lytes f/u labs /CE/lactate Emperic Ab Targeted Temperature management DVT & GI prophylaxis Cardiology eval ECHO Past Patient History - Infectious Disease Hx of Infectious Diseases: None - Tetanus Immunizations Tetanus Immunization: Unknown - Past Medical History & Family History Past Medical History?: Yes - Past Social History Smoking Status: Never Smoked - CARDIAC Hx Congestive Heart Failure: Yes Hx Hypercholesterolemia: Yes Hx Hypertension: Yes Hx Peripheral Edema: Yes - PULMONARY Hx Asthma: Yes - NEUROLOGICAL Hx Transient Ischemic Attacks (TIA): No - HEENT Hx HEENT Problems: No - RENAL Hx Chronic Kidney Disease: No - ENDOCRINE/METABOLIC Hx Diabetes Mellitus Type 2: Yes - HEMATOLOGICAL/ONCOLOGICAL Hx Blood Transfusions: No Hx Blood Transfusion Reaction: No - INTEGUMENTARY Hx Dermatological Problems: Yes Other/Comment: left foot ulcer - MUSCULOSKELETAL/RHEUMATOLOGICAL Hx Falls: No - GASTROINTESTINAL Hx Gastrointestinal Disorders: No - GENITOURINARY/GYNECOLOGICAL Hx Genitourinary Disorders: Yes Hx Prostate Problems: Yes - PSYCHIATRIC Hx Psychophysiologic Disorder: No Hx Substance Use: No - SURGICAL HISTORY Hx Surgeries: Yes Hx Coronary Artery Bypass Graft: Yes (08/30/12) - ANESTHESIA Hx Anesthesia: Yes Hx Anesthesia Reactions: No Hx Malignant Hyperthermia: No Meds Allergies/Adverse Reactions: Allergies Allergy/AdvReac Type Severity Reaction Status Date / Time No Known Allergies Allergy Verified 09/25/18 00:37 - Medications Medications: Current Medications Piperacillin Sod/Tazobactam Sod (Zosyn 3.375 In Ns 100ml) 100 mls @ 200 mls/hr IVPB STAT STA; Protocol Stop: 09/25/18 01:53 Vancomycin HCl 1 gm/ Sodium (Chloride) 250 mls @ 166.7 mls/hr IVPB Q24H FIORDALIZA; Protocol Results - Labs Result Diagrams: 09/25/18 00:47 09/25/18 00:47 Labs: Laboratory Results - last 24 hr 09/25/18 09/25/18 09/25/18 00:47 00:47 00:47 WBC 21.3 H D RBC 3.48 L Hgb 9.3 L Hct 31.7 L MCV 91.0 D MCH 26.6 L MCHC 29.3 L RDW 15.9 H Plt Count 306 MPV 8.3 Neut % (Auto) 85.1 H Lymph % (Auto) 11.8 L [place] % (Auto) 2.6 Eos % (Auto) 0.3 Baso % (Auto) 0.2 Neut # (Auto) 18.1 H Lymph # (Auto) 2.5 [place] # (Auto) 0.6 Eos # (Auto) 0.1 Baso # (Auto) 0.0 APTT 59 H Puncture Site pCO2 pO2 HCO3 ABG pH ABG Total CO2 ABG O2 Saturation ABG Base Excess ABG Hemoglobin ABG Carboxyhemoglobin POC ABG HHb (Measured) ABG Methemoglobin Seth Test VBG pH VBG pCO2 VBG O2 Sat (Calc) VBG Potassium Hgb O2 Saturation Glucose Lactate Crit Value Called To Crit Value Called By Crit Value Read Back Blood Gas Notified Time Sodium 134 Potassium 6.2 H* D Chloride 104 Carbon Dioxide 10 L* D Anion Gap 26 H BUN 41 H Creatinine 2.6 H Est GFR ( Amer) 30 Est GFR (Non-Af Amer) 25 Random Glucose 617 H* D Calcium 7.8 L Total Bilirubin 0.3 AST 1218 H ALT 1214 H Alkaline Phosphatase 126 D Troponin I 2.2600 H* NT-Pro-B Natriuret Pep 2630 H Total Protein 5.6 L Albumin 3.1 L Globulin 2.5 Albumin/Globulin Ratio 1.2 Venous Blood Potassium 09/25/18 09/25/18 00:50 00:55 WBC RBC Hgb Hct MCV MCH MCHC RDW Plt Count MPV Neut % (Auto) Lymph % (Auto) [place] % (Auto) Eos % (Auto) Baso % (Auto) Neut # (Auto) Lymph # (Auto) [place] # (Auto) Eos # (Auto) Baso # (Auto) APTT Puncture Site Na pCO2 86 H* pO2 82 H 206 H HCO3 21.1 ABG pH 7.08 L* ABG Total CO2 28.1 H ABG O2 Saturation 99.4 H ABG Base Excess -4.9 L ABG Hemoglobin 8.3 L ABG Carboxyhemoglobin 2.3 H POC ABG HHb (Measured) 0.6 ABG Methemoglobin 1.2 Seth Test Na VBG pH < 6.80 L* VBG pCO2 84 H* VBG O2 Sat (Calc) 89.5 H VBG Potassium 5.8 H Hgb O2 Saturation 95.9 Glucose 615 H* Lactate 11.8 H* Crit Value Called To Dr. selena walters Crit Value Called By cayden Johnson rcp Crit Value Read Back Y Y Blood Gas Notified Time 100 105 Sodium 135.0 Potassium Chloride 100.0 Carbon Dioxide Anion Gap BUN Creatinine Est GFR ( Amer) Est GFR (Non-Af Amer) Random Glucose Calcium Total Bilirubin AST ALT Alkaline Phosphatase Troponin I NT-Pro-B Natriuret Pep Total Protein Albumin Globulin Albumin/Globulin Ratio Venous Blood Potassium 5.8 H Assessment & Plan (1) Cardiac arrest Status: Acute (2) Encephalopathy Status: Acute (3) Shock Status: Acute (4) Acute renal insufficiency Status: Acute
[2018-09-25] MEDS ORDERED: Piperacillin/Tazobact 3.375 gm 100 ML IVPB ONE (01:52)
[2018-09-25 02:06] LABS: SPERM URINE RARE /hpf; SQUAMOUS EPITHIAL < 1 /hpf (0-5); URINE BILIRUBIN NEGATIVE (NEGATIVE); URINE BLOOD NEGATIVE (NEGATIVE); URINE CLARITY Hazy (Clear); URINE COLOR Yellow (YELLOW); URINE GLUCOSE (UA) 3+ mg/dL (Normal); URINE LEUKOCYTE ESTERASE NEG Leu/uL (Negative); URINE PROTEIN 2+ mg/dL (NEGATIVE); URINE UROBILINOGEN NORMAL mg/dL (0.2-1.0)
[2018-09-25 02:14] LABS: BARBITURATES, UR NEGATIVE (NEGATIVE); BENZODIAZEPINES, UR NEGATIVE (NEGATIVE); PHENCYCLIDINE, UR NEGATIVE (NEGATIVE)
[2018-09-25 02:41] LABS: OPIATES, UR POSITIVE (NEGATIVE)
[2018-09-25] MEDS ORDERED: Insulin Human Regular 100 UNIT in Sodium Chloride 0.9% 99 ML IV SCH (03:15)
--- NOTE | 2018-09-25 03:15 | CP.PCM.HP ---
<Tika Sinclair - Last Filed: 09/25/18 05:35> History of Present Illness - History of Present Illness History of Present Illness: cc: "AMS" Mr. Rikki Malik is a morbidly obese 63yo male with a PMH of CAD s/p CABG, HTN, DM, CKD, HLD, asthma was BIBA for witnessed cardiac arrest at home. He was discharged from the [facility] ED earlier today for neck pain and SOB. Within 1 hour of arriving home, his and son-in-law noticed an abrupt change in mental status and saw the patient go apneic. Patient was found asystolic by EMS and intubated. CPR/ACLS multiple times en route to ED where it was continued. Patient started on Levophed and treated for hyperkalemia in ED. Patient remains unresponsive and is unable to give history. PMH: CAD s/p CABG, HTN, HLD, DM, CKD, asthma Med: per MAR All: NKDA PSxHx: CABG in 2012 s/p AL in 2011, L toe amputation 2/2 diabetic foot ulcer FamHx: unknown SocHx: denies ever tobacco, illicit drug use. Quit alcohol after AL 6+ year ago PMD: Dr. Wheeler Cardio: Dr. Robbie Lubin Full Code Present on Admission - Present on Admission Any Indicators Present on Admission: No Review of Systems - Review of Systems Systems not reviewed;Unavailable: Intubated Past Patient History - Infectious Disease Hx of Infectious Diseases: None - Tetanus Immunizations Tetanus Immunization: Unknown - Past Medical History & Family History Past Medical History?: Yes - Past Social History Smoking Status: Never Smoked Alcohol: None Drugs: Denies Home Situation {Lives}: With Family - CARDIAC Hx Congestive Heart Failure: Yes Hx Hypercholesterolemia: Yes Hx Hypertension: Yes Hx Peripheral Edema: Yes - PULMONARY Hx Asthma: Yes - NEUROLOGICAL Hx Transient Ischemic Attacks (TIA): No - HEENT Hx HEENT Problems: No - RENAL Hx Chronic Kidney Disease: No - ENDOCRINE/METABOLIC Hx Diabetes Mellitus Type 2: Yes - HEMATOLOGICAL/ONCOLOGICAL Hx Blood Transfusions: No Hx Blood Transfusion Reaction: No - INTEGUMENTARY Hx Dermatological Problems: Yes Other/Comment: left foot ulcer - MUSCULOSKELETAL/RHEUMATOLOGICAL Hx Falls: No - GASTROINTESTINAL Hx Gastrointestinal Disorders: No - GENITOURINARY/GYNECOLOGICAL Hx Genitourinary Disorders: Yes Hx Prostate Problems: Yes - PSYCHIATRIC Hx Psychophysiologic Disorder: No Hx Substance Use: No - SURGICAL HISTORY Hx Surgeries: Yes Hx Coronary Artery Bypass Graft: Yes (08/30/12) - ANESTHESIA Hx Anesthesia: Yes Hx Anesthesia Reactions: No Hx Malignant Hyperthermia: No Meds Allergies/Adverse Reactions: Allergies Allergy/AdvReac Type Severity Reaction Status Date / Time No Known Allergies Allergy Verified 09/25/18 00:37 Physical Exam - Constitutional Appears: In Acute Distress - Head Exam Head Exam: ATRAUMATIC, NORMOCEPHALIC - Eye Exam Eye Exam: PERRL Additional comments: sluggish - ENT Exam ENT Exam: Mucous Membranes Dry Additional comments: OG tube in place for decompression - Respiratory Exam Additional comments: intubated - Cardiovascular Exam Cardiovascular Exam: Tachycardia, +S1, +S2. absent: JVD - GI/Abdominal Exam GI & Abdominal Exam: Distended, Normal Bowel Sounds Additional comments: morbidly obese - Extremities Exam Extremities exam: Positive for: pedal edema Additional comments: L 5th toe amputated - Neurological Exam Additional comments: intubated and unresponsive - Skin Skin Exam: Dry Additional comments: cool to touch Results - Vital Signs Recent Vital Signs: Last Vital Signs Temp Pulse 91 H 09/25/18 01:59 Resp 24 09/25/18 01:59 BP 95/50 L 09/25/18 01:59 Pulse Ox 99 09/25/18 01:59 - Labs Result Diagrams: 09/25/18 00:47 09/25/18 00:47 Labs: Laboratory Results - last 24 hr 09/25/18 09/25/18 09/25/18 00:47 00:47 00:47 WBC 21.3 H D RBC 3.48 L Hgb 9.3 L Hct 31.7 L MCV 91.0 D MCH 26.6 L MCHC 29.3 L RDW 15.9 H Plt Count 306 MPV 8.3 Neut % (Auto) 85.1 H Lymph % (Auto) 11.8 L Branch % (Auto) 2.6 Eos % (Auto) 0.3 Baso % (Auto) 0.2 Neut # (Auto) 18.1 H Lymph # (Auto) 2.5 Branch # (Auto) 0.6 Eos # (Auto) 0.1 Baso # (Auto) 0.0 APTT 59 H Puncture Site pCO2 pO2 HCO3 ABG pH ABG Total CO2 ABG O2 Saturation ABG Base Excess ABG Hemoglobin ABG Carboxyhemoglobin POC ABG HHb (Measured) ABG Methemoglobin Seth Test VBG pH VBG pCO2 VBG O2 Sat (Calc) VBG Potassium Hgb O2 Saturation Glucose Lactate Crit Value Called To Crit Value Called By Crit Value Read Back Blood Gas Notified Time Sodium 134 Potassium 6.2 H* D Chloride 104 Carbon Dioxide 10 L* D Anion Gap 26 H BUN 41 H Creatinine 2.6 H Est GFR ( Amer) 30 Est GFR (Non-Af Amer) 25 POC Glucose (mg/dL) Random Glucose 617 H* D Calcium 7.8 L Total Bilirubin 0.3 AST 1218 H ALT 1214 H Alkaline Phosphatase 126 D Troponin I 2.2600 H* NT-Pro-B Natriuret Pep 2630 H Total Protein 5.6 L Albumin 3.1 L Globulin 2.5 Albumin/Globulin Ratio 1.2 Venous Blood Potassium Urine Color Urine Clarity Urine pH Ur Specific [place] Urine Protein Urine Glucose (UA) Urine Ketones Urine Blood Urine Nitrate Urine Bilirubin Urine Urobilinogen Ur Leukocyte Esterase Urine WBC (Auto) Urine RBC (Auto) Ur Squamous Epith Cells Urine Sperm (Auto) Urine Opiates Screen Urine Methadone Screen Ur Barbiturates Screen Ur Phencyclidine Scrn Ur Amphetamines Screen U Benzodiazepines Scrn U Oth Cocaine Metabols U Cannabinoids Screen 09/25/18 09/25/18 09/25/18 00:50 00:55 01:47 WBC RBC Hgb Hct MCV MCH MCHC RDW Plt Count MPV Neut % (Auto) Lymph % (Auto) Branch % (Auto) Eos % (Auto) Baso % (Auto) Neut # (Auto) Lymph # (Auto) Branch # (Auto) Eos # (Auto) Baso # (Auto) APTT Puncture Site Na pCO2 86 H* pO2 82 H 206 H HCO3 21.1 ABG pH 7.08 L* ABG Total CO2 28.1 H ABG O2 Saturation 99.4 H ABG Base Excess -4.9 L ABG Hemoglobin 8.3 L ABG Carboxyhemoglobin 2.3 H POC ABG HHb (Measured) 0.6 ABG Methemoglobin 1.2 Seth Test Na VBG pH < 6.80 L* VBG pCO2 84 H* VBG O2 Sat (Calc) 89.5 H VBG Potassium 5.8 H Hgb O2 Saturation 95.9 Glucose 615 H* Lactate 11.8 H* Crit Value Called To Dr. rené merritt Crit Value Called By cayden Johnson rcp Crit Value Read Back Y Y Blood Gas Notified Time 100 105 Sodium 135.0 Potassium Chloride 100.0 Carbon Dioxide Anion Gap BUN Creatinine Est GFR ( Amer) Est GFR (Non-Af Amer) POC Glucose (mg/dL) Random Glucose Calcium Total Bilirubin AST ALT Alkaline Phosphatase Troponin I NT-Pro-B Natriuret Pep Total Protein Albumin Globulin Albumin/Globulin Ratio Venous Blood Potassium 5.8 H Urine Color Yellow Urine Clarity Hazy Urine pH 5.0 Ur Specific [place] 1.012 Urine Protein 2+ H Urine Glucose (UA) 3+ H Urine Ketones Negative Urine Blood Negative Urine Nitrate Negative Urine Bilirubin Negative Urine Urobilinogen Normal Ur Leukocyte Esterase Neg Urine WBC (Auto) 1 Urine RBC (Auto) 1 Ur Squamous Epith Cells < 1 Urine Sperm (Auto) Rare H Urine Opiates Screen Urine Methadone Screen Ur Barbiturates Screen Ur Phencyclidine Scrn Ur Amphetamines Screen U Benzodiazepines Scrn U Oth Cocaine Metabols U Cannabinoids Screen 09/25/18 09/25/18 01:47 01:56 WBC RBC Hgb Hct MCV MCH MCHC RDW Plt Count MPV Neut % (Auto) Lymph % (Auto) Branch % (Auto) Eos % (Auto) Baso % (Auto) Neut # (Auto) Lymph # (Auto) Branch # (Auto) Eos # (Auto) Baso # (Auto) APTT Puncture Site pCO2 pO2 HCO3 ABG pH ABG Total CO2 ABG O2 Saturation ABG Base Excess ABG Hemoglobin ABG Carboxyhemoglobin POC ABG HHb (Measured) ABG Methemoglobin Seth Test VBG pH VBG pCO2 VBG O2 Sat (Calc) VBG Potassium Hgb O2 Saturation Glucose Lactate Crit Value Called To Crit Value Called By Crit Value Read Back Blood Gas Notified Time Sodium Potassium Chloride Carbon Dioxide Anion Gap BUN Creatinine Est GFR ( Amer) Est GFR (Non-Af Amer) POC Glucose (mg/dL) > 500 H* Random Glucose Calcium Total Bilirubin AST ALT Alkaline Phosphatase Troponin I NT-Pro-B Natriuret Pep Total Protein Albumin Globulin Albumin/Globulin Ratio Venous Blood Potassium Urine Color Urine Clarity Urine pH Ur Specific [place] Urine Protein Urine Glucose (UA) Urine Ketones Urine Blood Urine Nitrate Urine Bilirubin Urine Urobilinogen Ur Leukocyte Esterase Urine WBC (Auto) Urine RBC (Auto) Ur Squamous Epith Cells Urine Sperm (Auto) Urine Opiates Screen Positive H Urine Methadone Screen Negative Ur Barbiturates Screen Negative Ur Phencyclidine Scrn Negative Ur Amphetamines Screen Negative U Benzodiazepines Scrn Negative U Oth Cocaine Metabols Negative U Cannabinoids Screen Negative Assessment & Plan - Assessment and Plan (Free Text) Assessment: 63yo M PMH CAD s/p CABG, HTN, HLD, DM, asthma s/p cardiac arrest admitted to the ICU for hyperkalemia and shock. Plan: s/p Cardiac Arrest Patient remains unresponsive after ROSC CT Head without contrast (09/25): pending read. prelim - diffuse brain edema and loss of grady-white matter differentiation, probable diffuse hypoxic/ischemic brain insult CXR, repeat CXR - optimize vent support - titrate pressors - replete electrolytes prn d/w Dr. René Sinclair PGY-1 - Date & Time Date: 09/25/18 Time: 01:15 <Bryan Merritt P - Last Filed: 09/25/18 07:07> Results - Vital Signs Recent Vital Signs: Last Vital Signs Temp Pulse 91 H 09/25/18 01:59 Resp 24 09/25/18 01:59 BP 95/50 L 09/25/18 01:59 Pulse Ox 100 09/25/18 03:16 - Labs Result Diagrams: 09/25/18 05:44 09/25/18 05:44 Labs: Laboratory Results - last 24 hr 09/25/18 09/25/18 09/25/18 00:47 00:47 00:47 WBC 21.3 H D RBC 3.48 L Hgb 9.3 L Hct 31.7 L MCV 91.0 D MCH 26.6 L MCHC 29.3 L RDW 15.9 H Plt Count 306 MPV 8.3 Neut % (Auto) 85.1 H Lymph % (Auto) 11.8 L Branch % (Auto) 2.6 Eos % (Auto) 0.3 Baso % (Auto) 0.2 Neut # (Auto) 18.1 H Lymph # (Auto) 2.5 Branch # (Auto) 0.6 Eos # (Auto) 0.1 Baso # (Auto) 0.0 APTT 59 H Puncture Site pCO2 pO2 HCO3 ABG pH ABG Total CO2 ABG O2 Saturation ABG Base Excess ABG Hemoglobin ABG Carboxyhemoglobin POC ABG HHb (Measured) ABG Methemoglobin Seth Test ABG Potassium VBG pH VBG pCO2 VBG O2 Sat (Calc) VBG Potassium A-a O2 Difference Respiratory Index Hgb O2 Saturation Glucose Lactate Vent Mode Mechanical Rate FiO2 Tidal Volume PEEP Crit Value Called To Crit Value Called By Crit Value Read Back Blood Gas Notified Time Sodium 134 Potassium 6.2 H* D Chloride 104 Carbon Dioxide 10 L* D Anion Gap 26 H BUN 41 H Creatinine 2.6 H Est GFR ( Amer) 30 Est GFR (Non-Af Amer) 25 POC Glucose (mg/dL) Random Glucose 617 H* D Lactic Acid Calcium 7.8 L Phosphorus Magnesium Total Bilirubin 0.3 Direct Bilirubin AST 1218 H ALT 1214 H Alkaline Phosphatase 126 D Total Creatine Kinase CK-MB (Mass) Troponin I 2.2600 H* NT-Pro-B Natriuret Pep 2630 H Total Protein 5.6 L Albumin 3.1 L Globulin 2.5 Albumin/Globulin Ratio 1.2 Arterial Blood Potassium Venous Blood Potassium Urine Color Urine Clarity Urine pH Ur Specific [place] Urine Protein Urine Glucose (UA) Urine Ketones Urine Blood Urine Nitrate Urine Bilirubin Urine Urobilinogen Ur Leukocyte Esterase Urine WBC (Auto) Urine RBC (Auto) Ur Squamous Epith Cells Urine Sperm (Auto) Urine Opiates Screen Urine Methadone Screen Ur Barbiturates Screen Ur Phencyclidine Scrn Ur Amphetamines Screen U Benzodiazepines Scrn U Oth Cocaine Metabols U Cannabinoids Screen 09/25/18 09/25/18 09/25/18 00:50 00:55 01:47 WBC RBC Hgb Hct MCV MCH MCHC RDW Plt Count MPV Neut % (Auto) Lymph % (Auto) Branch % (Auto) Eos % (Auto) Baso % (Auto) Neut # (Auto) Lymph # (Auto) Branch # (Auto) Eos # (Auto) Baso # (Auto) APTT Puncture Site Na pCO2 86 H* pO2 82 H 206 H HCO3 21.1 ABG pH 7.08 L* ABG Total CO2 28.1 H ABG O2 Saturation 99.4 H ABG Base Excess -4.9 L ABG Hemoglobin 8.3 L ABG Carboxyhemoglobin 2.3 H POC ABG HHb (Measured) 0.6 ABG Methemoglobin 1.2 Seth Test Na ABG Potassium VBG pH < 6.80 L* VBG pCO2 84 H* VBG O2 Sat (Calc) 89.5 H VBG Potassium 5.8 H A-a O2 Difference Respiratory Index Hgb O2 Saturation 95.9 Glucose 615 H* Lactate 11.8 H* Vent Mode Mechanical Rate FiO2 Tidal Volume PEEP Crit Value Called To Dr. rené merritt Crit Value Called By cayden Johnson rcp Crit Value Read Back Y Y Blood Gas Notified Time 100 105 Sodium 135.0 Potassium Chloride 100.0 Carbon Dioxide Anion Gap BUN Creatinine Est GFR ( Amer) Est GFR (Non-Af Amer) POC Glucose (mg/dL) Random Glucose Lactic Acid Calcium Phosphorus Magnesium Total Bilirubin Direct Bilirubin AST ALT Alkaline Phosphatase Total Creatine Kinase CK-MB (Mass) Troponin I NT-Pro-B Natriuret Pep Total Protein Albumin Globulin Albumin/Globulin Ratio Arterial Blood Potassium Venous Blood Potassium 5.8 H Urine Color Yellow Urine Clarity Hazy Urine pH 5.0 Ur Specific [place] 1.012 Urine Protein 2+ H Urine Glucose (UA) 3+ H Urine Ketones Negative Urine Blood Negative Urine Nitrate Negative Urine Bilirubin Negative Urine Urobilinogen Normal Ur Leukocyte Esterase Neg Urine WBC (Auto) 1 Urine RBC (Auto) 1 Ur Squamous Epith Cells < 1 Urine Sperm (Auto) Rare H Urine Opiates Screen Urine Methadone Screen Ur Barbiturates Screen Ur Phencyclidine Scrn Ur Amphetamines Screen U Benzodiazepines Scrn U Oth Cocaine Metabols U Cannabinoids Screen 09/25/18 09/25/18 09/25/18 01:47 01:56 05:44 WBC 17.9 H RBC 3.36 L Hgb 9.1 L Hct 29.2 L MCV 86.8 D MCH 27.0 MCHC 31.1 L RDW 15.7 H Plt Count 291 MPV 8.3 Neut % (Auto) 95.8 H Lymph % (Auto) 2.4 L Branch % (Auto) 1.6 Eos % (Auto) 0.1 Baso % (Auto) 0.1 Neut # (Auto) 17.2 H Lymph # (Auto) 0.4 L Branch # (Auto) 0.3 Eos # (Auto) 0.0 Baso # (Auto) 0.0 APTT Puncture Site pCO2 pO2 HCO3 ABG pH ABG Total CO2 ABG O2 Saturation ABG Base Excess ABG Hemoglobin ABG Carboxyhemoglobin POC ABG HHb (Measured) ABG Methemoglobin Seth Test ABG Potassium VBG pH VBG pCO2 VBG O2 Sat (Calc) VBG Potassium A-a O2 Difference Respiratory Index Hgb O2 Saturation Glucose Lactate Vent Mode Mechanical Rate FiO2 Tidal Volume PEEP Crit Value Called To Crit Value Called By Crit Value Read Back Blood Gas Notified Time Sodium Potassium Chloride Carbon Dioxide Anion Gap BUN Creatinine Est GFR ( Amer) Est GFR (Non-Af Amer) POC Glucose (mg/dL) > 500 H* Random Glucose Lactic Acid Calcium Phosphorus Magnesium Total Bilirubin Direct Bilirubin AST ALT Alkaline Phosphatase Total Creatine Kinase CK-MB (Mass) Troponin I NT-Pro-B Natriuret Pep Total Protein Albumin Globulin Albumin/Globulin Ratio Arterial Blood Potassium Venous Blood Potassium Urine Color Urine Clarity Urine pH Ur Specific [place] Urine Protein Urine Glucose (UA) Urine Ketones Urine Blood Urine Nitrate Urine Bilirubin Urine Urobilinogen Ur Leukocyte Esterase Urine WBC (Auto) Urine RBC (Auto) Ur Squamous Epith Cells Urine Sperm (Auto) Urine Opiates Screen Positive H Urine Methadone Screen Negative Ur Barbiturates Screen Negative Ur Phencyclidine Scrn Negative Ur Amphetamines Screen Negative U Benzodiazepines Scrn Negative U Oth Cocaine Metabols Negative U Cannabinoids Screen Negative 09/25/18 09/25/18 09/25/18 05:44 05:49 05:49 WBC RBC Hgb Hct MCV MCH MCHC RDW Plt Count MPV Neut % (Auto) Lymph % (Auto) Branch % (Auto) Eos % (Auto) Baso % (Auto) Neut # (Auto) Lymph # (Auto) Branch # (Auto) Eos # (Auto) Baso # (Auto) APTT Puncture Site pCO2 pO2 HCO3 ABG pH ABG Total CO2 ABG O2 Saturation ABG Base Excess ABG Hemoglobin ABG Carboxyhemoglobin POC ABG HHb (Measured) ABG Methemoglobin Seth Test ABG Potassium VBG pH VBG pCO2 VBG O2 Sat (Calc) VBG Potassium A-a O2 Difference Respiratory Index Hgb O2 Saturation Glucose Lactate Vent Mode Mechanical Rate FiO2 Tidal Volume PEEP Crit Value Called To Crit Value Called By Crit Value Read Back Blood Gas Notified Time Sodium 132 Potassium 7.2 H* Chloride 105 Carbon Dioxide 16 L Anion Gap 18 BUN 47 H Creatinine 2.7 H Est GFR ( Amer) 29 Est GFR (Non-Af Amer) 24 POC Glucose (mg/dL) Random Glucose 592 H* Lactic Acid 6.2 H* Calcium 7.2 L Phosphorus 5.1 H Magnesium 1.9 Total Bilirubin 0.7 Direct Bilirubin 0.7 H AST 1579 H ALT 1552 H Alkaline Phosphatase 198 H D Total Creatine Kinase 739 H CK-MB (Mass) 49.9 H Troponin I 64.7000 H* NT-Pro-B Natriuret Pep Total Protein 5.2 L Albumin 2.8 L Globulin 2.3 Albumin/Globulin Ratio 1.2 Arterial Blood Potassium Venous Blood Potassium Urine Color Urine Clarity Urine pH Ur Specific [place] Urine Protein Urine Glucose (UA) Urine Ketones Urine Blood Urine Nitrate Urine Bilirubin Urine Urobilinogen Ur Leukocyte Esterase Urine WBC (Auto) Urine RBC (Auto) Ur Squamous Epith Cells Urine Sperm (Auto) Urine Opiates Screen Urine Methadone Screen Ur Barbiturates Screen Ur Phencyclidine Scrn Ur Amphetamines Screen U Benzodiazepines Scrn U Oth Cocaine Metabols U Cannabinoids Screen 09/25/18 05:55 WBC RBC Hgb Hct MCV MCH MCHC RDW Plt Count MPV Neut % (Auto) Lymph % (Auto) Branch % (Auto) Eos % (Auto) Baso % (Auto) Neut # (Auto) Lymph # (Auto) Branch # (Auto) Eos # (Auto) Baso # (Auto) APTT Puncture Site Rr pCO2 28 L pO2 221 H HCO3 14.5 L ABG pH 7.25 L ABG Total CO2 13.2 L ABG O2 Saturation 98.9 H ABG Base Excess -13.4 L ABG Hemoglobin ABG Carboxyhemoglobin POC ABG HHb (Measured) ABG Methemoglobin Seth Test Pos ABG Potassium 6.5 H* VBG pH VBG pCO2 VBG O2 Sat (Calc) VBG Potassium A-a O2 Difference 457.0 Respiratory Index 2.1 Hgb O2 Saturation Glucose 591 H* Lactate 5.3 H* Vent Mode Prvc Mechanical Rate 26 FiO2 100.0 Tidal Volume 500 PEEP 5 Crit Value Called To Johanna coats/rn Crit Value Called By Kevin barnes/rt Crit Value Read Back Y Blood Gas Notified Time 610 Sodium 133.0 Potassium Chloride 103.0 Carbon Dioxide Anion Gap BUN Creatinine Est GFR ( Amer) Est GFR (Non-Af Amer) POC Glucose (mg/dL) Random Glucose Lactic Acid Calcium Phosphorus Magnesium Total Bilirubin Direct Bilirubin AST ALT Alkaline Phosphatase Total Creatine Kinase CK-MB (Mass) Troponin I NT-Pro-B Natriuret Pep Total Protein Albumin Globulin Albumin/Globulin Ratio Arterial Blood Potassium 6.5 H* Venous Blood Potassium Urine Color Urine Clarity Urine pH Ur Specific [place] Urine Protein Urine Glucose (UA) Urine Ketones Urine Blood Urine Nitrate Urine Bilirubin Urine Urobilinogen Ur Leukocyte Esterase Urine WBC (Auto) Urine RBC (Auto) Ur Squamous Epith Cells Urine Sperm (Auto) Urine Opiates Screen Urine Methadone Screen Ur Barbiturates Screen Ur Phencyclidine Scrn Ur Amphetamines Screen U Benzodiazepines Scrn U Oth Cocaine Metabols U Cannabinoids Screen Attending/Attestation - Attestation I have personally seen and examined this patient.: Yes I have fully participated in the care of the patient.: Yes I have reviewed all pertinent clinical information: Yes Notes (Text): 09/25/18 07:04 Witnessed cardiac arrest, multiple arrest in ER, early signs of anoxic brain injury on the head CT H/o CABG H/o DM, uncontrolled glucose Acidosis form cardiac arrest morbidly obese Plan Therapeutic hypothermia Supportive care poor prognosis as anoxic changes noticed on the CT Admitted to ICU, see orders for detail.
[2018-09-25 05:53] LABS: BASO % 0.1 % (0.0-2.0); EOS % 0.1 % (0.0-4.0); HEMOGLOBIN 9.1 g/dL (12.0-18.0); LYMPH # 0.4 K/uL (1.0-4.3); LYMPH % 2.4 % (20.0-40.0); MEAN CELL VOLUME 86.8 fL (80.0-94.0); MEAN CORPUSCULAR HGB CONC 31.1 g/dL (33.0-37.0); MEAN PLATELET VOLUME 8.3 fL (7.2-11.7); MONO # 0.3 K/uL (0.0-0.8); MONO % 1.6 % (0.0-10.0); NEUT # 17.2 K/uL (1.8-7.0); NEUT % 95.8 % (50.0-75.0); PLATELET COUNT 291 K/uL (130-400); RBC 3.36 Mil/uL (4.40-5.90); RED CELL DISTRIBUTION WIDTH 15.7 % (11.5-14.5); WHITE BLOOD COUNT 17.9 K/uL (4.8-10.8)
[2018-09-25 06:05] LABS: ABG ALLEN TEST POS; ARTERIAL BLOOD GAS HCO3 14.5 mmol/L (21-28); ARTERIAL BLOOD GAS O2 SAT 98.9 % (95-98); ARTERIAL BLOOD GAS PCO2 28 mm/Hg (35-45); ARTERIAL BLOOD GAS PH 7.25 (7.35-7.45); ARTERIAL BLOOD GAS PO2 221 mm/Hg (80-100); ARTERIAL BLOOD GAS TCO2 13.2 mmol/L (22-28)
[2018-09-25 06:22] LABS: TROPONIN I 64.7 ng/mL (0.00-0.120)
[2018-09-25 06:23] LABS: ALB/GLOB RATIO 1.2 (1.0-2.1); ALBUMIN 2.8 g/dL (3.5-5.0); CALCIUM 7.2 mg/dl (8.6-10.4); CK-MB 49.9 ng/mL (0.0-3.38)
[2018-09-25] MEDS ORDERED: Albuterol 0.083% Inhal Sol (2.5 mg/3 mL) UD INH STA (06:37)
--- NOTE | 2018-09-25 06:42 | PCM.PROC ---
Procedures Attestation:: I certify that I have explained the specified Operation(s) or Procedure(s), risks, benefits and reasonable alternatives to the Patient and/or other person responsible. The opportunity was given to ask questions and all questions answered - Central Line Placement Triple Lumen Catheter Aseptic technique was employed throughout the procedure: Full sterile barriers (mask, hair cover, sterile gown, sterile gloves), Chloraprep Antiseptic: 30 second prep for IJ or SC sites CVP Time Out Performed: Yes Pt. Placed on Pulse Ox Monitor: Yes Central Line Prep: Chlorhexidine-Alcohol Combination Central Line Lumen Inserted: triple Central Line Length: 20 cm Post Procedure: Sutured in Place Secured by: Suture Post procedure dressing: Clear vapor permeable, Chlorhexidine disc (Biopatch) Post Procedure X-Ray: Yes Patient Tolerated Procedure: Well, No Complications Immediate Complications: None
--- NOTE | 2018-09-25 07:49 | C.PDOC ---
History Of Present Illness 63-year-old male is brought to the ED by EMS with family for evaluation s/p cardiac arrest. As per EMS, the cardiac arrest was witnessed by patient's family, who stated that he "wasn't feeling well." Upon EMS arrival, patient was found to be in PEA and ALS protocol was initiated by paramedics. ROSC was obtained in field. Upon ED arrival, patient went back into cardiac arrest. ACS protocol initiated, ROSC obtained. Post-resuscitative care initiated. Additional information limited secondary to patient's critical condition. Chief Complaint (Nursing): Cardiac Arrest History Per: EMS, Family Arrest Witnessed By: Family Treatment Initiated Prior To MD Arrival: Yes: ACLS Medication Initiation - Initial Findings Mentation: Unresponsive Past Medical History Reviewed: Historical Data, Nursing Documentation, Vital Signs Vital Signs: Last Vital Signs Temp Pulse 91 H 09/25/18 01:59 Resp 24 09/25/18 01:59 BP 95/50 L 09/25/18 01:59 Pulse Ox 100 09/25/18 03:16 - Medical History PMH: Asthma, CHF, Diabetes, HTN, Hypercholesterolemia, Peripheral Edema Denies: Chronic Kidney Disease, TIA Surgical History: CABG (08/30/12) - [facility] CONTRAST AORTOGRAM (11/16/13) CORONAR ARTERIOGR-2 CATH (11/16/13) LT HEART ANGIOCARDIOGRAM (11/16/13) RT/LEFT HEART CARD CATH (11/16/13) Family History: States: Unknown Family Hx - Social History Hx Tobacco Use: No Hx Alcohol Use: No Hx Substance Use: No - Immunization History Hx Tetanus Toxoid Vaccination: No Hx Influenza Vaccination: No Hx Pneumococcal Vaccination: No Review Of Systems Review Of Systems: ROS cannot be obtained secondary to pt's inabilty to answer questions. Physical Exam - Physical Exam Appears: Non-toxic, In Acute Distress, Other (unresponsive, ET tube in place ) Skin: Warm, Dry, Cyanotic Head: Atraumatic, Normacephalic Oral Mucosa: Moist Neck: Supple Chest: Symmetrical, No Deformity Cardiovascular: Rhythm Regular, No Murmur Respiratory: Other (coarse breath sounds bilaterally with mechanical ventilation) Gastrointestinal/Abdominal: Distention Neurological/Psych: Other (unresponsive ) ED Course And Treatment - Laboratory Results Result Diagrams: 09/27/18 05:54 09/27/18 05:52 Lab Results: Puncture Site Rr 09/25/18 05:55 pCO2 28 mm/Hg (35-45) L 09/25/18 05:55 pO2 221 mm/Hg (80-100) H 09/25/18 05:55 HCO3 14.5 mmol/L (21-28) L 09/25/18 05:55 ABG pH 7.25 (7.35-7.45) L 09/25/18 05:55 ABG Total CO2 13.2 mmol/L (22-28) L 09/25/18 05:55 ABG O2 Saturation 98.9 % (95-98) H 09/25/18 05:55 ABG Base Excess -13.4 mmol/L (-2.0-3.0) L 09/25/18 05:55 ABG Hemoglobin 8.3 g/dL (11.7-17.4) L 09/25/18 00:55 ABG Carboxyhemoglobin 2.3 % (0.5-1.5) H 09/25/18 00:55 POC ABG HHb (Measured) 0.6 % (0.0-5.0) 09/25/18 00:55 ABG Methemoglobin 1.2 % (0.0-3.0) 09/25/18 00:55 Seth Test Pos 09/25/18 05:55 ABG Potassium 6.5 mmol/L (3.6-5.2) H* 09/25/18 05:55 VBG pH < 6.80 (7.32-7.43) L* 09/25/18 00:50 VBG pCO2 84 mmHg (40-60) H* 09/25/18 00:50 VBG O2 Sat (Calc) 89.5 % (40-65) H 09/25/18 00:50 VBG Potassium 5.8 mmol/L (3.6-5.2) H 09/25/18 00:50 A-a O2 Difference 457.0 mm/Hg 09/25/18 05:55 Respiratory Index 2.1 09/25/18 05:55 Hgb O2 Saturation 95.9 % (95.0-98.0) 09/25/18 00:55 Sodium 133.0 mmol/l (132-148) 09/25/18 05:55 Chloride 103.0 mmol/L (98-107) 09/25/18 05:55 Glucose 591 mg/dl (75-110) H* 09/25/18 05:55 Lactate 5.3 mmol/L (0.7-2.1) H* 09/25/18 05:55 Vent Mode Prvc 09/25/18 05:55 Mechanical Rate 26 09/25/18 05:55 FiO2 100.0 % 09/25/18 05:55 Tidal Volume 500 09/25/18 05:55 PEEP 5 09/25/18 05:55 Crit Value Called To Johanna coats/rn 09/25/18 05:55 Crit Value Called By Kevin barnes/rt 09/25/18 05:55 Crit Value Read Back Y 09/25/18 05:55 Blood Gas Notified Time 610 09/25/18 05:55 APTT 59 SECONDS (21-34) H 09/25/18 00:47 Troponin I 64.7000 ng/mL (0.00-0.120) H* 09/25/18 05:44 NT-Pro-B Natriuret Pep 2630 pg/mL (0-900) H 09/25/18 00:47 Total Bilirubin 0.7 mg/dL (0.2-1.3) 09/25/18 05:44 Direct Bilirubin 0.7 mg/dL (0.0-0.4) H 09/25/18 05:49 AST 1579 U/L (17-59) H 09/25/18 05:44 ALT 1552 U/L (21-72) H 09/25/18 05:44 Alkaline Phosphatase 198 U/L (38-126) H D 09/25/18 05:44 Total Protein 5.2 g/dL (6.3-8.3) L 09/25/18 05:44 Albumin 2.8 g/dL (3.5-5.0) L 09/25/18 05:44 Globulin 2.3 gm/dL (2.2-3.9) 09/25/18 05:44 Albumin/Globulin Ratio 1.2 (1.0-2.1) 09/25/18 05:44 Urine Color Yellow (YELLOW) 09/25/18 01:47 Urine Clarity Hazy (Clear) 09/25/18 01:47 Urine pH 5.0 (5.0-8.0) 09/25/18 01:47 Ur Specific [place] 1.012 (1.003-1.030) 09/25/18 01:47 Urine Protein 2+ mg/dL (NEGATIVE) H 09/25/18 01:47 Urine Glucose (UA) 3+ mg/dL (Normal) H 09/25/18 01:47 Urine Ketones Negative mg/dL (NEGATIVE) 09/25/18 01:47 Urine Blood Negative (NEGATIVE) 09/25/18 01:47 Urine Nitrate Negative (NEGATIVE) 09/25/18 01:47 Urine Bilirubin Negative (NEGATIVE) 09/25/18 01:47 Urine Urobilinogen Normal mg/dL (0.2-1.0) 09/25/18 01:47 Ur Leukocyte Esterase Neg Neymar/uL (Negative) 09/25/18 01:47 Urine WBC (Auto) 1 /hpf (0-5) 09/25/18 01:47 Urine RBC (Auto) 1 /hpf (0-3) 09/25/18 01:47 Ur Squamous Epith Cells < 1 /hpf (0-5) 09/25/18 01:47 Urine Sperm (Auto) Rare /hpf (NONE) H 09/25/18 01:47 O2 Sat by Pulse Oximetry: 100 Medical Decision Making Medical Decision Making: Bloodwork, urinalysis, EKG, CXR ordered. Epinephrine IV, Novolin IV, Sodium Bicarbonate IV, Kayexalate PO, and IV Fluids ordered. Case discussed with Dr. Cancino (ICU), who accepts the patient. Case discussed with Dr. Merritt (Hospitalist), who accepts the patient. Disposition - Disposition Disposition: HOSPITALIZED Disposition Time: 01:15 Condition: CRITICAL - Clinical Impression Clinical Impression: Cardiac arrest Critical Care Time - Critical Care Note Total Time (in mins): 120 Documented critical care: time excludes all time spent performing seperately billable procedures. - Scribe Statement The provider has reviewed the documentation as recorded by the Scribe (Jess Lubin) Provider Attestation: All medical record entries made by the Scribe were at my direction and personall y dictated by me. I have reviewed the chart and agree that the record accurately reflects my personal performance of the history, physical exam, medical decision making, and the department course for this patient. I have also personally directed, reviewed, and agree with the discharge instructions and disposition.
[2018-09-25] MEDS: Piperacillin/Tazobact 3.375 GM in Sodium Chloride 100 ML IVPB SCH ×3 (07:59→23:14)
[2018-09-25 08:18] LABS: BANDS 5 % (0-2); LYMPHOCYTE 3 % (20-40); NEUTROPHIL 92 % (50-75); TOTAL CELLS COUNTED 100
[2018-09-25 08:19] LABS: ANISOCYTOSIS SLIGHT; BURR CELLS SLIGHT; HYPOCHROMIC SLIGHT; LARGE PLATELETS PRESENT; PLATELET ESTIMATE NORMAL (NORMAL); POIKILOCYTOSIS SLIGHT
[2018-09-25] MEDS ORDERED: Glucagon Recombinant 1 mg Inj IM PRN (09:13)
[2018-09-25] MEDS ORDERED: Dextrose 50% SYRINGE Inj (50 ml) IV PRN (09:13)
[2018-09-25] MEDS ORDERED: Sodium Chloride 0.9% 1,000 ML IV SCH (09:15)
[2018-09-25] MEDS: Insulin Human Regular 100 UNIT in Sodium Chloride 0.9% 99 ML IV SCH ×2 (09:30→17:15)
--- NOTE | 2018-09-25 10:31 | CP.PCM.CON ---
History of Present Illness - History of Present Illness History of Present Illness: Mr. Rikki Malik is a morbidly obese 63yo male with a PMH of CAD s/p CABG, HTN, DM, CKD, HLD, asthma whose family called EMS for witnessed cardiac arrest at home. He was discharged from the [place] ED earlier today for neck pain and SOB. Within 1 hour of arriving home, his and son-in-law noticed an abrupt change in mental status and saw the patient go apneic. Patient was found asystolic by EMS and intubated. CPR/ACLS multiple times en route to ED where it was continued. Patient started on Levophed and treated for hyperkalemia in ED. Patient remains unresponsive and is unable to give history. s/p recent LE angiogram for left LE PVD last week. PMH: CAD s/p CABG, HTN, HLD, DM, CKD, asthma Med: per AUG All: NKDA PSxHx: CABG in 2012 s/p TN in 2011, L toe amputation 2/2 diabetic foot ulcer FamHx: unknown, no CKD SocHx: denies ever tobacco, illicit drug use. Quit alcohol after TN 6+ year ago PMD: Dr. Wheeler Cardio: Dr. Robbie Lubin Full Code Review of Systems - Review of Systems Systems not reviewed;Unavailable: Altered Mental Status, Intubated Past Patient History - Infectious Disease Hx of Infectious Diseases: None - Tetanus Immunizations Tetanus Immunization: Unknown - Past Medical History & Family History Past Medical History?: Yes Past Family History: Reviewed and not pertinent - Past Social History Smoking Status: Never Smoked Chewing Tobacco Use: No Cigar Use: No Alcohol: None Drugs: Denies Home Situation {Lives}: With Family - CARDIAC Hx Congestive Heart Failure: Yes Hx Hypercholesterolemia: Yes Hx Hypertension: Yes Hx Peripheral Edema: Yes - PULMONARY Hx Asthma: Yes - NEUROLOGICAL Hx Transient Ischemic Attacks (TIA): No - HEENT Hx HEENT Problems: No - RENAL Hx Chronic Kidney Disease: No - ENDOCRINE/METABOLIC Hx Diabetes Mellitus Type 2: Yes - HEMATOLOGICAL/ONCOLOGICAL Hx Blood Transfusions: No Hx Blood Transfusion Reaction: No - INTEGUMENTARY Hx Dermatological Problems: Yes Other/Comment: left foot ulcer - MUSCULOSKELETAL/RHEUMATOLOGICAL Hx Falls: No - GASTROINTESTINAL Hx Gastrointestinal Disorders: No - GENITOURINARY/GYNECOLOGICAL Hx Genitourinary Disorders: Yes Hx Prostate Problems: Yes - PSYCHIATRIC Hx Substance Use: No - SURGICAL HISTORY Hx Coronary Artery Bypass Graft: Yes (08/30/12) - ANESTHESIA Hx Anesthesia: Yes Hx Anesthesia Reactions: No Hx Malignant Hyperthermia: No Meds Allergies/Adverse Reactions: Allergies Allergy/AdvReac Type Severity Reaction Status Date / Time No Known Allergies Allergy Verified 09/25/18 00:37 - Medications Medications: Current Medications Albuterol Sulfate (Albuterol 0.083% Inhal Alicia (2.5 Mg/3 Ml) Ud) 2.5 mg INH RQ6 FIORDALIZA Dextrose (Dextrose 50% Inj) 0 ml IV STAT PRN; Protocol PRN Reason: Hypoglycemia Protocol Dextrose (Glutose 15) 0 gm PO ONCE PRN; Protocol PRN Reason: Hypoglycemia Protocol Famotidine (Pepcid) 20 mg IVP DAILY [facility] Last Admin: 09/25/18 09:48 Dose: 20 mg Glucagon (Glucagen Diagnostic Kit) 0 mg IM STAT PRN; Protocol PRN Reason: Hypoglycemia Protocol Heparin Sodium (Porcine) (Heparin) 5,000 units SC Q8 FIORDALIZA Last Admin: 09/25/18 06:08 Dose: 5,000 units Vancomycin HCl 1 gm/ Sodium (Chloride) 250 mls @ 166.7 mls/hr IVPB Q24H FIORDALIZA; Protocol Last Admin: 09/25/18 04:00 Dose: 166.7 mls/hr Norepinephrine Bitartrate 8 mg (/ Sodium Chloride) 258 mls @ 7.74 mls/hr IV .Q24H PRN; Protocol PRN Reason: TITRATE PER MD ORDER Last Titration: 09/25/18 07:00 Dose: 0 mcg/min, 0 mls/hr Piperacillin Sod/Tazobactam (Sod 3.375 gm/ Sodium Chloride) 100 mls @ 200 mls/hr IVPB Q8H FIORDALIZA; Protocol Last Admin: 09/25/18 07:59 Dose: 200 mls/hr Insulin Human Regular 100 unit (/ Sodium Chloride) 100 mls @ 5 mls/hr IV .Q20H FIORDALIZA; Protocol Sodium Chloride (Sodium Chloride 0.9%) 1,000 mls @ 200 mls/hr IV .Q5H FIORDALIZA Stop: 09/25/18 14:14 Last Admin: 09/25/18 09:15 Dose: 200 mls/hr Sodium Chloride 1,000 ml/ IV (SUPPLIES) 1,000 mls @ 9,695.55 mls/hr IV ONCE ONE Stop: 09/25/18 13:21 Dextrose (Dextrose 5% In Water 1000 Ml) 1,000 mls @ 0 mls/hr IV .Q0M PRN; Protocol PRN Reason: Hypoglycemia Protocol Heparin Sodium/Sodium Chloride (Heparin 96568 Units/250ml 1/2 Normal Saline) 25,000 units in 250 mls @ 15.513 mls/hr IV .Q16H7M PRN; Protocol PRN Reason: PROTOCOL Insulin Human Regular (Novolin R) 0 unit SC Q4 FIORDALIZA; Protocol Rosuvastatin Calcium (Crestor) 20 mg PO HS FIORDALIZA Physical Exam - Constitutional Appears: In Acute Distress, Chronically Ill - Head Exam Head Exam: ATRAUMATIC, NORMAL INSPECTION - Neck Exam Neck exam: Positive for: Normal Inspection. Negative for: Tenderness - Respiratory Exam Respiratory Exam: Rhonchi, Respiratory Distress - Cardiovascular Exam Cardiovascular Exam: REGULAR RHYTHM, +S1 - GI/Abdominal Exam GI & Abdominal Exam: Distended, Soft - Extremities Exam Extremities exam: Positive for: pedal edema - Neurological Exam Neurological exam: Altered - Skin Skin Exam: Dry, Warm Results - Vital Signs Recent Vital Signs: Last Vital Signs Temp 90.0 F L 09/25/18 09:30 Pulse 75 09/25/18 09:30 Resp 7 L 09/25/18 09:30 BP 155/85 H 09/25/18 09:27 Pulse Ox 98 09/25/18 09:30 - Labs Result Diagrams: 09/25/18 05:44 09/25/18 05:44 Labs: Laboratory Results - last 24 hr 09/25/18 09/25/18 09/25/18 00:39 00:47 00:47 WBC 21.3 H D RBC 3.48 L Hgb 9.3 L Hct 31.7 L MCV 91.0 D MCH 26.6 L MCHC 29.3 L RDW 15.9 H Plt Count 306 MPV 8.3 Neut % (Auto) 85.1 H Lymph % (Auto) 11.8 L [place] % (Auto) 2.6 Eos % (Auto) 0.3 Baso % (Auto) 0.2 Neut # (Auto) 18.1 H Lymph # (Auto) 2.5 [place] # (Auto) 0.6 Eos # (Auto) 0.1 Baso # (Auto) 0.0 Neutrophils % (Manual) Band Neutrophils % Lymphocytes % (Manual) Monocytes % (Manual) Platelet Estimate Large Platelets Hypochromasia (manual) Poikilocytosis (manual Anisocytosis (manual) [place] Cells APTT 59 H Puncture Site pCO2 pO2 HCO3 ABG pH ABG Total CO2 ABG O2 Saturation ABG Base Excess ABG Hemoglobin ABG Carboxyhemoglobin POC ABG HHb (Measured) ABG Methemoglobin Seth Test ABG Potassium VBG pH VBG pCO2 VBG O2 Sat (Calc) VBG Potassium A-a O2 Difference Respiratory Index Hgb O2 Saturation Glucose Lactate Vent Mode Mechanical Rate FiO2 Tidal Volume PEEP Crit Value Called To Crit Value Called By Crit Value Read Back Blood Gas Notified Time Sodium Potassium Chloride Carbon Dioxide Anion Gap BUN Creatinine Est GFR ( Amer) Est GFR (Non-Af Amer) POC Glucose (mg/dL) > 500 H* Random Glucose Lactic Acid Calcium Phosphorus Magnesium Total Bilirubin Direct Bilirubin AST ALT Alkaline Phosphatase Total Creatine Kinase CK-MB (Mass) Troponin I NT-Pro-B Natriuret Pep Total Protein Albumin Globulin Albumin/Globulin Ratio Arterial Blood Potassium Venous Blood Potassium Urine Color Urine Clarity Urine pH Ur Specific [place] Urine Protein Urine Glucose (UA) Urine Ketones Urine Blood Urine Nitrate Urine Bilirubin Urine Urobilinogen Ur Leukocyte Esterase Urine WBC (Auto) Urine RBC (Auto) Ur Squamous Epith Cells Urine Sperm (Auto) Urine Opiates Screen Urine Methadone Screen Ur Barbiturates Screen Ur Phencyclidine Scrn Ur Amphetamines Screen U Benzodiazepines Scrn U Oth Cocaine Metabols U Cannabinoids Screen 09/25/18 09/25/18 09/25/18 00:47 00:50 00:55 WBC RBC Hgb Hct MCV MCH MCHC RDW Plt Count MPV Neut % (Auto) Lymph % (Auto) [place] % (Auto) Eos % (Auto) Baso % (Auto) Neut # (Auto) Lymph # (Auto) [place] # (Auto) Eos # (Auto) Baso # (Auto) Neutrophils % (Manual) Band Neutrophils % Lymphocytes % (Manual) Monocytes % (Manual) Platelet Estimate Large Platelets Hypochromasia (manual) Poikilocytosis (manual Anisocytosis (manual) [place] Cells APTT Puncture Site Na pCO2 86 H* pO2 82 H 206 H HCO3 21.1 ABG pH 7.08 L* ABG Total CO2 28.1 H ABG O2 Saturation 99.4 H ABG Base Excess -4.9 L ABG Hemoglobin 8.3 L ABG Carboxyhemoglobin 2.3 H POC ABG HHb (Measured) 0.6 ABG Methemoglobin 1.2 Seth Test Na ABG Potassium VBG pH < 6.80 L* VBG pCO2 84 H* VBG O2 Sat (Calc) 89.5 H VBG Potassium 5.8 H A-a O2 Difference Respiratory Index Hgb O2 Saturation 95.9 Glucose 615 H* Lactate 11.8 H* Vent Mode Mechanical Rate FiO2 Tidal Volume PEEP Crit Value Called To Dr. selena walters Crit Value Called By cayden Johnson rcp Crit Value Read Back Y Y Blood Gas Notified Time 100 105 Sodium 134 135.0 Potassium 6.2 H* D Chloride 104 100.0 Carbon Dioxide 10 L* D Anion Gap 26 H BUN 41 H Creatinine 2.6 H Est GFR ( Amer) 30 Est GFR (Non-Af Amer) 25 POC Glucose (mg/dL) Random Glucose 617 H* D Lactic Acid Calcium 7.8 L Phosphorus Magnesium Total Bilirubin 0.3 Direct Bilirubin AST 1218 H ALT 1214 H Alkaline Phosphatase 126 D Total Creatine Kinase CK-MB (Mass) Troponin I 2.2600 H* NT-Pro-B Natriuret Pep 2630 H Total Protein 5.6 L Albumin 3.1 L Globulin 2.5 Albumin/Globulin Ratio 1.2 Arterial Blood Potassium Venous Blood Potassium 5.8 H Urine Color Urine Clarity Urine pH Ur Specific [place] Urine Protein Urine Glucose (UA) Urine Ketones Urine Blood Urine Nitrate Urine Bilirubin Urine Urobilinogen Ur Leukocyte Esterase Urine WBC (Auto) Urine RBC (Auto) Ur Squamous Epith Cells Urine Sperm (Auto) Urine Opiates Screen Urine Methadone Screen Ur Barbiturates Screen Ur Phencyclidine Scrn Ur Amphetamines Screen U Benzodiazepines Scrn U Oth Cocaine Metabols U Cannabinoids Screen 09/25/18 09/25/18 09/25/18 01:47 01:47 01:56 WBC RBC Hgb Hct MCV MCH MCHC RDW Plt Count MPV Neut % (Auto) Lymph % (Auto) [place] % (Auto) Eos % (Auto) Baso % (Auto) Neut # (Auto) Lymph # (Auto) [place] # (Auto) Eos # (Auto) Baso # (Auto) Neutrophils % (Manual) Band Neutrophils % Lymphocytes % (Manual) Monocytes % (Manual) Platelet Estimate Large Platelets Hypochromasia (manual) Poikilocytosis (manual Anisocytosis (manual) [place] Cells APTT Puncture Site pCO2 pO2 HCO3 ABG pH ABG Total CO2 ABG O2 Saturation ABG Base Excess ABG Hemoglobin ABG Carboxyhemoglobin POC ABG HHb (Measured) ABG Methemoglobin Seth Test ABG Potassium VBG pH VBG pCO2 VBG O2 Sat (Calc) VBG Potassium A-a O2 Difference Respiratory Index Hgb O2 Saturation Glucose Lactate Vent Mode Mechanical Rate FiO2 Tidal Volume PEEP Crit Value Called To Crit Value Called By Crit Value Read Back Blood Gas Notified Time Sodium Potassium Chloride Carbon Dioxide Anion Gap BUN Creatinine Est GFR ( Amer) Est GFR (Non-Af Amer) POC Glucose (mg/dL) > 500 H* Random Glucose Lactic Acid Calcium Phosphorus Magnesium Total Bilirubin Direct Bilirubin AST ALT Alkaline Phosphatase Total Creatine Kinase CK-MB (Mass) Troponin I NT-Pro-B Natriuret Pep Total Protein Albumin Globulin Albumin/Globulin Ratio Arterial Blood Potassium Venous Blood Potassium Urine Color Yellow Urine Clarity Hazy Urine pH 5.0 Ur Specific [place] 1.012 Urine Protein 2+ H Urine Glucose (UA) 3+ H Urine Ketones Negative Urine Blood Negative Urine Nitrate Negative Urine Bilirubin Negative Urine Urobilinogen Normal Ur Leukocyte Esterase Neg Urine WBC (Auto) 1 Urine RBC (Auto) 1 Ur Squamous Epith Cells < 1 Urine Sperm (Auto) Rare H Urine Opiates Screen Positive H Urine Methadone Screen Negative Ur Barbiturates Screen Negative Ur Phencyclidine Scrn Negative Ur Amphetamines Screen Negative U Benzodiazepines Scrn Negative U Oth Cocaine Metabols Negative U Cannabinoids Screen Negative 09/25/18 09/25/18 09/25/18 05:44 05:44 05:49 WBC 17.9 H RBC 3.36 L Hgb 9.1 L Hct 29.2 L MCV 86.8 D MCH 27.0 MCHC 31.1 L RDW 15.7 H Plt Count 291 MPV 8.3 Neut % (Auto) 95.8 H Lymph % (Auto) 2.4 L [place] % (Auto) 1.6 Eos % (Auto) 0.1 Baso % (Auto) 0.1 Neut # (Auto) 17.2 H Lymph # (Auto) 0.4 L [place] # (Auto) 0.3 Eos # (Auto) 0.0 Baso # (Auto) 0.0 Neutrophils % (Manual) 92 H Band Neutrophils % 5 H Lymphocytes % (Manual) 3 L Monocytes % (Manual) TEST NOT PERFORMED Platelet Estimate Normal Large Platelets Present Hypochromasia (manual) Slight Poikilocytosis (manual Slight Anisocytosis (manual) Slight [place] Cells Slight APTT Puncture Site pCO2 pO2 HCO3 ABG pH ABG Total CO2 ABG O2 Saturation ABG Base Excess ABG Hemoglobin ABG Carboxyhemoglobin POC ABG HHb (Measured) ABG Methemoglobin Seth Test ABG Potassium VBG pH VBG pCO2 VBG O2 Sat (Calc) VBG Potassium A-a O2 Difference Respiratory Index Hgb O2 Saturation Glucose Lactate Vent Mode Mechanical Rate FiO2 Tidal Volume PEEP Crit Value Called To Crit Value Called By Crit Value Read Back Blood Gas Notified Time Sodium 132 Potassium 7.2 H* Chloride 105 Carbon Dioxide 16 L Anion Gap 18 BUN 47 H Creatinine 2.7 H Est GFR ( Amer) 29 Est GFR (Non-Af Amer) 24 POC Glucose (mg/dL) Random Glucose 592 H* Lactic Acid 6.2 H* Calcium 7.2 L Phosphorus 5.1 H Magnesium 1.9 Total Bilirubin 0.7 Direct Bilirubin AST 1579 H ALT 1552 H Alkaline Phosphatase 198 H D Total Creatine Kinase 739 H CK-MB (Mass) 49.9 H Troponin I 64.7000 H* NT-Pro-B Natriuret Pep Total Protein 5.2 L Albumin 2.8 L Globulin 2.3 Albumin/Globulin Ratio 1.2 Arterial Blood Potassium Venous Blood Potassium Urine Color Urine Clarity Urine pH Ur Specific [place] Urine Protein Urine Glucose (UA) Urine Ketones Urine Blood Urine Nitrate Urine Bilirubin Urine Urobilinogen Ur Leukocyte Esterase Urine WBC (Auto) Urine RBC (Auto) Ur Squamous Epith Cells Urine Sperm (Auto) Urine Opiates Screen Urine Methadone Screen Ur Barbiturates Screen Ur Phencyclidine Scrn Ur Amphetamines Screen U Benzodiazepines Scrn U Oth Cocaine Metabols U Cannabinoids Screen 09/25/18 09/25/18 05:49 05:55 WBC RBC Hgb Hct MCV MCH MCHC RDW Plt Count MPV Neut % (Auto) Lymph % (Auto) [place] % (Auto) Eos % (Auto) Baso % (Auto) Neut # (Auto) Lymph # (Auto) [place] # (Auto) Eos # (Auto) Baso # (Auto) Neutrophils % (Manual) Band Neutrophils % Lymphocytes % (Manual) Monocytes % (Manual) Platelet Estimate Large Platelets Hypochromasia (manual) Poikilocytosis (manual Anisocytosis (manual) [place] Cells APTT Puncture Site Rr pCO2 28 L pO2 221 H HCO3 14.5 L ABG pH 7.25 L ABG Total CO2 13.2 L ABG O2 Saturation 98.9 H ABG Base Excess -13.4 L ABG Hemoglobin ABG Carboxyhemoglobin POC ABG HHb (Measured) ABG Methemoglobin Seth Test Pos ABG Potassium 6.5 H* VBG pH VBG pCO2 VBG O2 Sat (Calc) VBG Potassium A-a O2 Difference 457.0 Respiratory Index 2.1 Hgb O2 Saturation Glucose 591 H* Lactate 5.3 H* Vent Mode Prvc Mechanical Rate 26 FiO2 100.0 Tidal Volume 500 PEEP 5 Crit Value Called To Johanna coats/rn Crit Value Called By Kevin barnes/rt Crit Value Read Back Y Blood Gas Notified Time 610 Sodium 133.0 Potassium Chloride 103.0 Carbon Dioxide Anion Gap BUN Creatinine Est GFR ( Amer) Est GFR (Non-Af Amer) POC Glucose (mg/dL) Random Glucose Lactic Acid Calcium Phosphorus Magnesium Total Bilirubin Direct Bilirubin 0.7 H AST ALT Alkaline Phosphatase Total Creatine Kinase CK-MB (Mass) Troponin I NT-Pro-B Natriuret Pep Total Protein Albumin Globulin Albumin/Globulin Ratio Arterial Blood Potassium 6.5 H* Venous Blood Potassium Urine Color Urine Clarity Urine pH Ur Specific [place] Urine Protein Urine Glucose (UA) Urine Ketones Urine Blood Urine Nitrate Urine Bilirubin Urine Urobilinogen Ur Leukocyte Esterase Urine WBC (Auto) Urine RBC (Auto) Ur Squamous Epith Cells Urine Sperm (Auto) Urine Opiates Screen Urine Methadone Screen Ur Barbiturates Screen Ur Phencyclidine Scrn Ur Amphetamines Screen U Benzodiazepines Scrn U Oth Cocaine Metabols U Cannabinoids Screen Assessment & Plan (1) DANUTA (acute kidney injury) Status: Acute (2) Hyperkalemia Status: Acute (3) Metabolic acidosis Status: Acute (4) Coma Status: Acute (5) Cardiac arrest Status: Acute (6) Uncontrolled diabetes mellitus Status: Acute (7) Fluid overload Status: Acute (8) CAD (coronary artery disease) Status: Acute - Assessment and Plan (Free Text) Plan: Control hyperkalemia- BS control first with insulin Hyperkalemia protocol Add bicarb for K control on IV fluids- UO now increased - to continue as per ICU Add IV lasix if BP stable and UO decreases Discussed need for dialysis with daughter- agrees if necessary
[2018-09-25 11:06] LABS: ABG ALLEN TEST PO; ARTERIAL BLOOD GAS HCO3 18.2 mmol/L (21-28); ARTERIAL BLOOD GAS PCO2 28 mm/Hg (35-45); ARTERIAL BLOOD GAS PH 7.35 (7.35-7.45); ARTERIAL BLOOD GAS PO2 98 mm/Hg (80-100); ARTERIAL BLOOD GAS TCO2 16.4 mmol/L (22-28)
[2018-09-25 11:28] LABS: BASO % 0.2 % (0.0-2.0); EOS % 0.1 % (0.0-4.0); HEMOGLOBIN 8.8 g/dL (12.0-18.0); LYMPH # 0.4 K/uL (1.0-4.3); LYMPH % 2.4 % (20.0-40.0); MEAN CORPUSCULAR HEMOGLOBIN 26.5 pg (27.0-31.0); MEAN CORPUSCULAR HGB CONC 31.5 g/dL (33.0-37.0); MEAN PLATELET VOLUME 8.1 fL (7.2-11.7); MONO # 0.7 K/uL (0.0-0.8); MONO % 3.7 % (0.0-10.0); NEUT # 17.4 K/uL (1.8-7.0); NEUT % 93.6 % (50.0-75.0); PLATELET COUNT 262 K/uL (130-400); RBC 3.32 Mil/uL (4.40-5.90); RED CELL DISTRIBUTION WIDTH 15.8 % (11.5-14.5); WHITE BLOOD COUNT 18.6 K/uL (4.8-10.8)
[2018-09-25 11:31] LABS: MEAN CELL VOLUME 84.1 fL (80.0-94.0)
[2018-09-25] MEDS: Heparin25000 units/250ml 1/2NS 25,000 UNITS/250 ML BAG IV PRN (11:44)
[2018-09-25 11:49] LABS: ALBUMIN 2.7 g/dL (3.5-5.0); CALCIUM 7.6 mg/dl (8.6-10.4)
[2018-09-25 11:50] LABS: ALB/GLOB RATIO 1.2 (1.0-2.1)
[2018-09-25] MEDS ORDERED: (Novolin R) Insulin Human Regular 100 units/ml vial SC SCH (12:00)
--- NOTE | 2018-09-25 13:22 | RAD ---
Date of service: 09/25/2018 HISTORY: cardiac arrest COMPARISON: 10/06/2017. FINDINGS: LUNGS: No active pulmonary disease. PLEURA: No significant pleural effusion identified, no pneumothorax apparent. CARDIOVASCULAR: No atherosclerotic calcification present No radiographic findings to suggest acute or significant cardiovascular disease. Incidental Finding(s): Postoperative changes related to sternotomy. OSSEOUS STRUCTURES: No significant abnormalities. VISUALIZED UPPER ABDOMEN: Normal. OTHER FINDINGS: Stable, satisfactory position ventilatory, nasogastric apparatus. IMPRESSION: Satisfactory position support apparatus. Cardiomegaly without acute cardiopulmonary abnormalities.
--- NOTE | 2018-09-25 13:23 | RAD ---
Date of service: 09/25/2018 HISTORY: TLC INSERTION COMPARISON: Multiple serial examinations preceding the most recent study: September 25, 2018. At 01:11. FINDINGS: LUNGS: No change PLEURA: No significant pleural effusion identified, no pneumothorax apparent. CARDIOVASCULAR: No atherosclerotic calcification present Venous access catheter in satisfactory position. OSSEOUS STRUCTURES: No significant abnormalities. VISUALIZED UPPER ABDOMEN: Normal. OTHER FINDINGS: None. IMPRESSION: Satisfactory position of recently placed triple-lumen catheter. No pneumothorax following catheter placement. No interval change in endotracheal tube or nasogastric tube position.
[2018-09-25 13:34] LABS: BANDS 5 % (0-2); LYMPHOCYTE 6 % (20-40); MONOCYTE 3 % (0-10); NEUTROPHIL 86 % (50-75); PLATELET ESTIMATE NORMAL (NORMAL); TOTAL CELLS COUNTED 100
[2018-09-25 13:35] LABS: ANISOCYTOSIS SLIGHT; BURR CELLS SLIGHT; HYPOCHROMIC SLIGHT; POIKILOCYTOSIS SLIGHT; TARGET CELLS SLIGHT
--- NOTE | 2018-09-25 13:46 | CT ---
Date of service: 09/25/2018 PROCEDURE: CT HEAD WITHOUT CONTRAST. HISTORY: s/p cardiac arrest COMPARISON: Unenhanced head CT 11/17/2012. TECHNIQUE: Axial computed tomography images were obtained through the head/brain without intravenous contrast. Radiation dose: Total exam DLP = 1360.4 mGy-cm. This CT exam was performed using one or more of the following dose reduction techniques: Automated exposure control, adjustment of the mA and/or kV according to patient size, and/or use of iterative reconstruction technique. FINDINGS: HEMORRHAGE: No intracranial hemorrhage. BRAIN: There is a prominent loss of corticomedullary differentiation with lucency at the bilateral basal ganglia. Diminishing volumes of sulcation indicate diffuse cerebral edema and there is mild loss of volume throughout the ventricular system in very mildly at the cisterns, compatible with the same. 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 Other etiologies significantly less likely given clinical history of cardiac arrest. Clinically correlate further. VENTRICLES: As above. CALVARIUM: Unremarkable. PARANASAL SINUSES: Unremarkable as visualized. No significant inflammatory changes. MASTOID AIR CELLS: Unremarkable as visualized. No inflammatory changes. OTHER FINDINGS: Likely endotracheal and orogastric tubes identified within the oral cavity and pharynx. IMPRESSION: Interval pattern most compatible with an os thickened cephalopathy. Further clinical correlation advised. No intracranial hemorrhage. Basilar cisterns remain patent though slightly diminished in volume. Concordant preliminary report from Prisca, 09/25/2018, 3:33 a.m..
[2018-09-25] MEDS: Albuterol 0.083% Inhal Sol (2.5 mg/3 mL) UD INH SCH (13:58)
--- NOTE | 2018-09-25 14:33 | CP.PCM.CON ---
History of Present Illness - History of Present Illness History of Present Illness: Neurology consult dictated. Chart reviewed. In brief, Mr Brandt is a 63 yr old male who coded en route to the hospital and has been unresponsive since admission to the hospital. There has not been any clinical seizure activity noted. Neuro exam is indicative for anoxia. Dr. martina Yuen Past Patient History - Infectious Disease Hx of Infectious Diseases: None - Tetanus Immunizations Tetanus Immunization: Unknown - Past Medical History & Family History Past Medical History?: Yes Past Family History: Reviewed and not pertinent - Past Social History Smoking Status: Never Smoked Chewing Tobacco Use: No Cigar Use: No Alcohol: None Drugs: Denies Home Situation {Lives}: With Family - CARDIAC Hx Congestive Heart Failure: Yes Hx Hypercholesterolemia: Yes Hx Hypertension: Yes Hx Peripheral Edema: Yes - PULMONARY Hx Asthma: Yes - NEUROLOGICAL Hx Transient Ischemic Attacks (TIA): No - HEENT Hx HEENT Problems: No - RENAL Hx Chronic Kidney Disease: No - ENDOCRINE/METABOLIC Hx Diabetes Mellitus Type 2: Yes - HEMATOLOGICAL/ONCOLOGICAL Hx Blood Transfusions: No Hx Blood Transfusion Reaction: No - INTEGUMENTARY Hx Dermatological Problems: Yes Other/Comment: left foot ulcer - MUSCULOSKELETAL/RHEUMATOLOGICAL Hx Falls: No - GASTROINTESTINAL Hx Gastrointestinal Disorders: No - GENITOURINARY/GYNECOLOGICAL Hx Genitourinary Disorders: Yes Hx Prostate Problems: Yes - PSYCHIATRIC Hx Substance Use: No - SURGICAL HISTORY Hx Coronary Artery Bypass Graft: Yes (08/30/12) - ANESTHESIA Hx Anesthesia: Yes Hx Anesthesia Reactions: No Hx Malignant Hyperthermia: No Meds Allergies/Adverse Reactions: Allergies Allergy/AdvReac Type Severity Reaction Status Date / Time No Known Allergies Allergy Verified 09/25/18 00:37 - Medications Medications: Current Medications Albuterol Sulfate (Albuterol 0.083% Inhal Alicia (2.5 Mg/3 Ml) Ud) 2.5 mg INH RQ6 [facility] Last Admin: 09/25/18 13:58 Dose: Not Given Dextrose (Dextrose 50% Inj) 0 ml IV STAT PRN; Protocol PRN Reason: Hypoglycemia Protocol Dextrose (Glutose 15) 0 gm PO ONCE PRN; Protocol PRN Reason: Hypoglycemia Protocol Famotidine (Pepcid) 20 mg IVP DAILY [facility] Last Admin: 09/25/18 09:48 Dose: 20 mg Glucagon (Glucagen Diagnostic Kit) 0 mg IM STAT PRN; Protocol PRN Reason: Hypoglycemia Protocol Vancomycin HCl 1 gm/ Sodium (Chloride) 250 mls @ 166.7 mls/hr IVPB Q24H [facility]; Protocol Last Admin: 09/25/18 04:00 Dose: 166.7 mls/hr Norepinephrine Bitartrate 8 mg (/ Sodium Chloride) 258 mls @ 7.74 mls/hr IV .Q 24H PRN; Protocol PRN Reason: TITRATE PER MD ORDER Last Titration: 09/25/18 07:00 Dose: 0 mcg/min, 0 mls/hr Piperacillin Sod/Tazobactam (Sod 3.375 gm/ Sodium Chloride) 100 mls @ 200 mls/hr IVPB Q8H [facility]; Protocol Last Admin: 09/25/18 07:59 Dose: 200 mls/hr Insulin Human Regular 100 unit (/ Sodium Chloride) 100 mls @ 5 mls/hr IV .Q20H [facility]; Protocol Last Admin: 09/25/18 09:30 Dose: 12 units/hr, 12 mls/hr Sodium Chloride 1,000 ml/ IV (SUPPLIES) 1,000 mls @ 75 mls/hr IV ONCE ONE Stop: 09/26/18 02:34 Heparin Sodium/Sodium Chloride (Heparin 29398 Units/250ml 1/2 Normal Saline) 25,000 units in 250 mls @ 15.513 mls/hr IV .Q16H7M PRN; Protocol PRN Reason: PROTOCOL Last Admin: 09/25/18 11:44 Dose: 12 units/kg/hr, 15.513 mls/hr Rosuvastatin Calcium (Crestor) 20 mg PO HS [facility] Results - Vital Signs Recent Vital Signs: Last Vital Signs Temp 90.7 F L 09/25/18 14:00 Pulse 65 09/25/18 14:00 Resp 20 09/25/18 14:00 BP 155/83 H 09/25/18 14:01 Pulse Ox 99 09/25/18 14:00 - Labs Result Diagrams: 09/25/18 11:15 09/25/18 11:15 Labs: Laboratory Results - last 24 hr 09/25/18 09/25/18 09/25/18 00:39 00:47 00:47 WBC 21.3 H D RBC 3.48 L Hgb 9.3 L Hct 31.7 L MCV 91.0 D MCH 26.6 L MCHC 29.3 L RDW 15.9 H Plt Count 306 MPV 8.3 Neut % (Auto) 85.1 H Lymph % (Auto) 11.8 L Evangeline % (Auto) 2.6 Eos % (Auto) 0.3 Baso % (Auto) 0.2 Neut # (Auto) 18.1 H Lymph # (Auto) 2.5 Evangeline # (Auto) 0.6 Eos # (Auto) 0.1 Baso # (Auto) 0.0 Neutrophils % (Manual) Band Neutrophils % Lymphocytes % (Manual) Monocytes % (Manual) Platelet Estimate Large Platelets Hypochromasia (manual) Poikilocytosis (manual Anisocytosis (manual) Target Cells [place] Cells APTT 59 H Puncture Site pCO2 pO2 HCO3 ABG pH ABG Total CO2 ABG O2 Saturation ABG Base Excess ABG Hemoglobin ABG Carboxyhemoglobin POC ABG HHb (Measured) ABG Methemoglobin Seth Test ABG Potassium VBG pH VBG pCO2 VBG O2 Sat (Calc) VBG Potassium A-a O2 Difference Respiratory Index Hgb O2 Saturation Glucose Lactate Vent Mode Mechanical Rate FiO2 Tidal Volume PEEP Crit Value Called To Crit Value Called By Crit Value Read Back Blood Gas Notified Time Sodium Potassium Chloride Carbon Dioxide Anion Gap BUN Creatinine Est GFR ( Amer) Est GFR (Non-Af Amer) POC Glucose (mg/dL) > 500 H* Random Glucose Lactic Acid Calcium Phosphorus Magnesium Total Bilirubin Direct Bilirubin AST ALT Alkaline Phosphatase Total Creatine Kinase CK-MB (Mass) Troponin I NT-Pro-B Natriuret Pep Total Protein Albumin Globulin Albumin/Globulin Ratio Arterial Blood Potassium Venous Blood Potassium Urine Color Urine Clarity Urine pH Ur Specific [place] Urine Protein Urine Glucose (UA) Urine Ketones Urine Blood Urine Nitrate Urine Bilirubin Urine Urobilinogen Ur Leukocyte Esterase Urine WBC (Auto) Urine RBC (Auto) Ur Squamous Epith Cells Urine Sperm (Auto) Urine Osmolality Ur Random Sodium Ur Random Potassium Urine Opiates Screen Urine Methadone Screen Ur Barbiturates Screen Ur Phencyclidine Scrn Ur Amphetamines Screen U Benzodiazepines Scrn U Oth Cocaine Metabols U Cannabinoids Screen 09/25/18 09/25/18 09/25/18 00:47 00:50 00:55 WBC RBC Hgb Hct MCV MCH MCHC RDW Plt Count MPV Neut % (Auto) Lymph % (Auto) Evangeline % (Auto) Eos % (Auto) Baso % (Auto) Neut # (Auto) Lymph # (Auto) Evangeline # (Auto) Eos # (Auto) Baso # (Auto) Neutrophils % (Manual) Band Neutrophils % Lymphocytes % (Manual) Monocytes % (Manual) Platelet Estimate Large Platelets Hypochromasia (manual) Poikilocytosis (manual Anisocytosis (manual) Target Cells Victoria Cells APTT Puncture Site Na pCO2 86 H* pO2 82 H 206 H HCO3 21.1 ABG pH 7.08 L* ABG Total CO2 28.1 H ABG O2 Saturation 99.4 H ABG Base Excess -4.9 L ABG Hemoglobin 8.3 L ABG Carboxyhemoglobin 2.3 H POC ABG HHb (Measured) 0.6 ABG Methemoglobin 1.2 Seth Test Na ABG Potassium VBG pH < 6.80 L* VBG pCO2 84 H* VBG O2 Sat (Calc) 89.5 H VBG Potassium 5.8 H A-a O2 Difference Respiratory Index Hgb O2 Saturation 95.9 Glucose 615 H* Lactate 11.8 H* Vent Mode Mechanical Rate FiO2 Tidal Volume PEEP Crit Value Called To Dr. selena walters Crit Value Called By cayden Johnson rcp Crit Value Read Back Y Y Blood Gas Notified Time 100 105 Sodium 134 135.0 Potassium 6.2 H* D Chloride 104 100.0 Carbon Dioxide 10 L* D Anion Gap 26 H BUN 41 H Creatinine 2.6 H Est GFR ( Amer) 30 Est GFR (Non-Af Amer) 25 POC Glucose (mg/dL) Random Glucose 617 H* D Lactic Acid Calcium 7.8 L Phosphorus Magnesium Total Bilirubin 0.3 Direct Bilirubin AST 1218 H ALT 1214 H Alkaline Phosphatase 126 D Total Creatine Kinase CK-MB (Mass) Troponin I 2.2600 H* NT-Pro-B Natriuret Pep 2630 H Total Protein 5.6 L Albumin 3.1 L Globulin 2.5 Albumin/Globulin Ratio 1.2 Arterial Blood Potassium Venous Blood Potassium 5.8 H Urine Color Urine Clarity Urine pH Ur Specific [place] Urine Protein Urine Glucose (UA) Urine Ketones Urine Blood Urine Nitrate Urine Bilirubin Urine Urobilinogen Ur Leukocyte Esterase Urine WBC (Auto) Urine RBC (Auto) Ur Squamous Epith Cells Urine Sperm (Auto) Urine Osmolality Ur Random Sodium Ur Random Potassium Urine Opiates Screen Urine Methadone Screen Ur Barbiturates Screen Ur Phencyclidine Scrn Ur Amphetamines Screen U Benzodiazepines Scrn U Oth Cocaine Metabols U Cannabinoids Screen 09/25/18 09/25/18 09/25/18 01:47 01:47 01:56 WBC RBC Hgb Hct MCV MCH MCHC RDW Plt Count MPV Neut % (Auto) Lymph % (Auto) Evangeline % (Auto) Eos % (Auto) Baso % (Auto) Neut # (Auto) Lymph # (Auto) Evangeline # (Auto) Eos # (Auto) Baso # (Auto) Neutrophils % (Manual) Band Neutrophils % Lymphocytes % (Manual) Monocytes % (Manual) Platelet Estimate Large Platelets Hypochromasia (manual) Poikilocytosis (manual Anisocytosis (manual) Target Cells [place] Cells APTT Puncture Site pCO2 pO2 HCO3 ABG pH ABG Total CO2 ABG O2 Saturation ABG Base Excess ABG Hemoglobin ABG Carboxyhemoglobin POC ABG HHb (Measured) ABG Methemoglobin Seth Test ABG Potassium VBG pH VBG pCO2 VBG O2 Sat (Calc) VBG Potassium A-a O2 Difference Respiratory Index Hgb O2 Saturation Glucose Lactate Vent Mode Mechanical Rate FiO2 Tidal Volume PEEP Crit Value Called To Crit Value Called By Crit Value Read Back Blood Gas Notified Time Sodium Potassium Chloride Carbon Dioxide Anion Gap BUN Creatinine Est GFR ( Amer) Est GFR (Non-Af Amer) POC Glucose (mg/dL) > 500 H* Random Glucose Lactic Acid Calcium Phosphorus Magnesium Total Bilirubin Direct Bilirubin AST ALT Alkaline Phosphatase Total Creatine Kinase CK-MB (Mass) Troponin I NT-Pro-B Natriuret Pep Total Protein Albumin Globulin Albumin/Globulin Ratio Arterial Blood Potassium Venous Blood Potassium Urine Color Yellow Urine Clarity Hazy Urine pH 5.0 Ur Specific [place] 1.012 Urine Protein 2+ H Urine Glucose (UA) 3+ H Urine Ketones Negative Urine Blood Negative Urine Nitrate Negative Urine Bilirubin Negative Urine Urobilinogen Normal Ur Leukocyte Esterase Neg Urine WBC (Auto) 1 Urine RBC (Auto) 1 Ur Squamous Epith Cells < 1 Urine Sperm (Auto) Rare H Urine Osmolality Ur Random Sodium Ur Random Potassium Urine Opiates Screen Positive H Urine Methadone Screen Negative Ur Barbiturates Screen Negative Ur Phencyclidine Scrn Negative Ur Amphetamines Screen Negative U Benzodiazepines Scrn Negative U Oth Cocaine Metabols Negative U Cannabinoids Screen Negative 0409/25/18 09/25/18 05:44 05:44 05:49 WBC 17.9 H RBC 3.36 L Hgb 9.1 L Hct 29.2 L MCV 86.8 D MCH 27.0 MCHC 31.1 L RDW 15.7 H Plt Count 291 MPV 8.3 Neut % (Auto) 95.8 H Lymph % (Auto) 2.4 L Evangeline % (Auto) 1.6 Eos % (Auto) 0.1 Baso % (Auto) 0.1 Neut # (Auto) 17.2 H Lymph # (Auto) 0.4 L Evangeline # (Auto) 0.3 Eos # (Auto) 0.0 Baso # (Auto) 0.0 Neutrophils % (Manual) 92 H Band Neutrophils % 5 H Lymphocytes % (Manual) 3 L Monocytes % (Manual) TEST NOT PERFORMED Platelet Estimate Normal Large Platelets Present Hypochromasia (manual) Slight Poikilocytosis (manual Slight Anisocytosis (manual) Slight Target Cells [place] Cells Slight APTT Puncture Site pCO2 pO2 HCO3 ABG pH ABG Total CO2 ABG O2 Saturation ABG Base Excess ABG Hemoglobin ABG Carboxyhemoglobin POC ABG HHb (Measured) ABG Methemoglobin Seth Test ABG Potassium VBG pH VBG pCO2 VBG O2 Sat (Calc) VBG Potassium A-a O2 Difference Respiratory Index Hgb O2 Saturation Glucose Lactate Vent Mode Mechanical Rate FiO2 Tidal Volume PEEP Crit Value Called To Crit Value Called By Crit Value Read Back Blood Gas Notified Time Sodium 132 Potassium 7.2 H* Chloride 105 Carbon Dioxide 16 L Anion Gap 18 BUN 47 H Creatinine 2.7 H Est GFR ( Amer) 29 Est GFR (Non-Af Amer) 24 POC Glucose (mg/dL) Random Glucose 592 H* Lactic Acid 6.2 H* Calcium 7.2 L Phosphorus 5.1 H Magnesium 1.9 Total Bilirubin 0.7 Direct Bilirubin AST 1579 H ALT 1552 H Alkaline Phosphatase 198 H D Total Creatine Kinase 739 H CK-MB (Mass) 49.9 H Troponin I 64.7000 H* NT-Pro-B Natriuret Pep Total Protein 5.2 L Albumin 2.8 L Globulin 2.3 Albumin/Globulin Ratio 1.2 Arterial Blood Potassium Venous Blood Potassium Urine Color Urine Clarity Urine pH Ur Specific [place] Urine Protein Urine Glucose (UA) Urine Ketones Urine Blood Urine Nitrate Urine Bilirubin Urine Urobilinogen Ur Leukocyte Esterase Urine WBC (Auto) Urine RBC (Auto) Ur Squamous Epith Cells Urine Sperm (Auto) Urine Osmolality Ur Random Sodium Ur Random Potassium Urine Opiates Screen Urine Methadone Screen Ur Barbiturates Screen Ur Phencyclidine Scrn Ur Amphetamines Screen U Benzodiazepines Scrn U Oth Cocaine Metabols U Cannabinoids Screen 09/25/18 09/25/18 09/25/18 05:49 05:55 10:52 WBC RBC Hgb Hct MCV MCH MCHC RDW Plt Count MPV Neut % (Auto) Lymph % (Auto) Evangeline % (Auto) Eos % (Auto) Baso % (Auto) Neut # (Auto) Lymph # (Auto) Evangeline # (Auto) Eos # (Auto) Baso # (Auto) Neutrophils % (Manual) Band Neutrophils % Lymphocytes % (Manual) Monocytes % (Manual) Platelet Estimate Large Platelets Hypochromasia (manual) Poikilocytosis (manual Anisocytosis (manual) Target Cells Victoria Cells APTT Puncture Site Rr Rra pCO2 28 L 28 L pO2 221 H 98 HCO3 14.5 L 18.2 L ABG pH 7.25 L 7.35 ABG Total CO2 13.2 L 16.4 L ABG O2 Saturation 98.9 H 99.0 H ABG Base Excess -13.4 L -8.6 L ABG Hemoglobin ABG Carboxyhemoglobin POC ABG HHb (Measured) ABG Methemoglobin Seth Test Pos Po ABG Potassium 6.5 H* 4.1 VBG pH VBG pCO2 VBG O2 Sat (Calc) VBG Potassium A-a O2 Difference 457.0 366.0 Respiratory Index 2.1 3.7 Hgb O2 Saturation Glucose 591 H* 548 H* Lactate 5.3 H* 3.0 H Vent Mode Prvc Prvc Mechanical Rate 26 20 FiO2 100.0 70.0 Tidal Volume 500 500 PEEP 5 5 Crit Value Called To Johanna coats/rn Crit Value Called By Kevin barnes/rt Sebastian morrissey,brake reliner Crit Value Read Back Y Y Blood Gas Notified Time 610 1110 Sodium 133.0 135.0 Potassium Chloride 103.0 105.0 Carbon Dioxide Anion Gap BUN Creatinine Est GFR ( Amer) Est GFR (Non-Af Amer) POC Glucose (mg/dL) Random Glucose Lactic Acid Calcium Phosphorus Magnesium Total Bilirubin Direct Bilirubin 0.7 H AST ALT Alkaline Phosphatase Total Creatine Kinase CK-MB (Mass) Troponin I NT-Pro-B Natriuret Pep Total Protein Albumin Globulin Albumin/Globulin Ratio Arterial Blood Potassium 6.5 H* 4.1 Venous Blood Potassium Urine Color Urine Clarity Urine pH Ur Specific [place] Urine Protein Urine Glucose (UA) Urine Ketones Urine Blood Urine Nitrate Urine Bilirubin Urine Urobilinogen Ur Leukocyte Esterase Urine WBC (Auto) Urine RBC (Auto) Ur Squamous Epith Cells Urine Sperm (Auto) Urine Osmolality Ur Random Sodium Ur Random Potassium Urine Opiates Screen Urine Methadone Screen Ur Barbiturates Screen Ur Phencyclidine Scrn Ur Amphetamines Screen U Benzodiazepines Scrn U Oth Cocaine Metabols U Cannabinoids Screen 09/25/18 09/25/18 09/25/18 11:15 11:15 11:15 WBC 18.6 H RBC 3.32 L Hgb 8.8 L Hct 28.0 L MCV 84.1 D MCH 26.5 L MCHC 31.5 L RDW 15.8 H Plt Count 262 MPV 8.1 Neut % (Auto) 93.6 H Lymph % (Auto) 2.4 L Evangeline % (Auto) 3.7 Eos % (Auto) 0.1 Baso % (Auto) 0.2 Neut # (Auto) 17.4 H Lymph # (Auto) 0.4 L Evangeline # (Auto) 0.7 Eos # (Auto) 0.0 Baso # (Auto) 0.0 Neutrophils % (Manual) 86 H Band Neutrophils % 5 H Lymphocytes % (Manual) 6 L Monocytes % (Manual) 3 Platelet Estimate Normal Large Platelets Hypochromasia (manual) Slight Poikilocytosis (manual Slight Anisocytosis (manual) Slight Target Cells Slight [place]ma Cells Slight APTT Puncture Site pCO2 pO2 HCO3 ABG pH ABG Total CO2 ABG O2 Saturation ABG Base Excess ABG Hemoglobin ABG Carboxyhemoglobin POC ABG HHb (Measured) ABG Methemoglobin Seth Test ABG Potassium VBG pH VBG pCO2 VBG O2 Sat (Calc) VBG Potassium A-a O2 Difference Respiratory Index Hgb O2 Saturation Glucose Lactate Vent Mode Mechanical Rate FiO2 Tidal Volume PEEP Crit Value Called To Crit Value Called By Crit Value Read Back Blood Gas Notified Time Sodium 132 Potassium 4.2 Chloride 105 Carbon Dioxide 20 L Anion Gap 12 BUN 50 H Creatinine 2.8 H Est GFR ( Amer) 28 Est GFR (Non-Af Amer) 23 POC Glucose (mg/dL) Random Glucose 527 H* Lactic Acid 3.1 H Calcium 7.6 L Phosphorus 1.5 L Magnesium 1.9 Total Bilirubin 0.5 Direct Bilirubin AST 1489 H ALT 1380 H Alkaline Phosphatase 170 H Total Creatine Kinase CK-MB (Mass) Troponin I 174.0000 H* NT-Pro-B Natriuret Pep Total Protein 4.9 L Albumin 2.7 L Globulin 2.2 Albumin/Globulin Ratio 1.2 Arterial Blood Potassium Venous Blood Potassium Urine Color Urine Clarity Urine pH Ur Specific [place] Urine Protein Urine Glucose (UA) Urine Ketones Urine Blood Urine Nitrate Urine Bilirubin Urine Urobilinogen Ur Leukocyte Esterase Urine WBC (Auto) Urine RBC (Auto) Ur Squamous Epith Cells Urine Sperm (Auto) Urine Osmolality Ur Random Sodium Ur Random Potassium Urine Opiates Screen Urine Methadone Screen Ur Barbiturates Screen Ur Phencyclidine Scrn Ur Amphetamines Screen U Benzodiazepines Scrn U Oth Cocaine Metabols U Cannabinoids Screen 09/25/18 13:50 WBC RBC Hgb Hct MCV MCH MCHC RDW Plt Count MPV Neut % (Auto) Lymph % (Auto) Evangeline % (Auto) Eos % (Auto) Baso % (Auto) Neut # (Auto) Lymph # (Auto) Evangeline # (Auto) Eos # (Auto) Baso # (Auto) Neutrophils % (Manual) Band Neutrophils % Lymphocytes % (Manual) Monocytes % (Manual) Platelet Estimate Large Platelets Hypochromasia (manual) Poikilocytosis (manual Anisocytosis (manual) Target Cells [place] Cells APTT Puncture Site pCO2 pO2 HCO3 ABG pH ABG Total CO2 ABG O2 Saturation ABG Base Excess ABG Hemoglobin ABG Carboxyhemoglobin POC ABG HHb (Measured) ABG Methemoglobin Seth Test ABG Potassium VBG pH VBG pCO2 VBG O2 Sat (Calc) VBG Potassium A-a O2 Difference Respiratory Index Hgb O2 Saturation Glucose Lactate Vent Mode Mechanical Rate FiO2 Tidal Volume PEEP Crit Value Called To Crit Value Called By Crit Value Read Back Blood Gas Notified Time Sodium Potassium Chloride Carbon Dioxide Anion Gap BUN Creatinine Est GFR ( Amer) Est GFR (Non-Af Amer) POC Glucose (mg/dL) Random Glucose Lactic Acid Calcium Phosphorus Magnesium Total Bilirubin Direct Bilirubin AST ALT Alkaline Phosphatase Total Creatine Kinase CK-MB (Mass) Troponin I NT-Pro-B Natriuret Pep Total Protein Albumin Globulin Albumin/Globulin Ratio Arterial Blood Potassium Venous Blood Potassium Urine Color Urine Clarity Urine pH Ur Specific [place] Urine Protein Urine Glucose (UA) Urine Ketones Urine Blood Urine Nitrate Urine Bilirubin Urine Urobilinogen Ur Leukocyte Esterase Urine WBC (Auto) Urine RBC (Auto) Ur Squamous Epith Cells Urine Sperm (Auto) Urine Osmolality 220 L Ur Random Sodium 65 Ur Random Potassium 10.5 Urine Opiates Screen Urine Methadone Screen Ur Barbiturates Screen Ur Phencyclidine Scrn Ur Amphetamines Screen U Benzodiazepines Scrn U Oth Cocaine Metabols U Cannabinoids Screen
[2018-09-25] MEDS ORDERED: Magnesium Sulfate 1 gm in D5W 1 GM/100 ML BAG IVPB ONE (15:29)
[2018-09-25] MEDS ORDERED: Potassium Phosphate 15 MMOLE in Sodium Chloride 0.9% 250 ML IV ONE (16:30)
--- NOTE | 2018-09-25 17:45 | CARD ---
APPROVED REPORT Date of service: 09/25/2018 EXAM: Two-dimensional and M-mode echocardiogram with Doppler and color Doppler. Other Information Quality : Technically LimitedRhythm : Technically limited study due to body habitus. INDICATION Acute SD Peripheral Edema Cardiac Disease: CAD Congestive Heart Failure asthma Surgery/Intervention CABG: Date: 2012 RISK FACTORS Hypertension Hyperlipidemia Diabetes 2D DIMENSIONS IVSd1.1 (0.7-1.1cm)LVDd4.2 (3.9-5.9cm) PWd1.4 (0.7-1.1cm)LA [id number] (18-58mL) LVDs3.3 (2.5-4.0cm)FS (%) 22.4 % LVEF (%)45.5 (>50%)LVEF (Howard's)46 % M-Mode DIMENSIONS RVDd1.70 (2.1-3.2cm)Left Atrium (MM)3.29 (2.5-4.0cm) IVSd1.84 (0.7-1.1cm)Aortic Root3.10 (2.2-3.7cm) LVDd4.50 (4.0-5.6cm)Aortic Cusp Exc.1.98 (1.5-2.0cm) PWd1.48 (0.7-1.1cm)FS (%) 16 % LVDs3.80 (2.0-3.8cm)LVEF (%)40 (>50%) Mitral Valve MV E Xicpopal579.2cm/sMV A Ocotovzw188.6cm/sE/A ratio0.8 TDI Lateral E' Peak V3.77cm/sMedial E' Peak V4.16cm/sE/Lateral E'29.0 E/Medial E'26.3 Tricuspid Valve TR Peak [id number]/sTR Peak Gr.[id number] LEFT VENTRICLE The left ventricle is normal size. There is borderline to mild concentric left ventricular hypertrophy. The systolic function is mildly to moderately impaired. Septal hypokinesis Transmitral Doppler flow pattern is Grade I-abnormal relaxation pattern. No left ventricle thrombus noted on this study. RIGHT VENTRICLE The right ventricle is normal size. There is normal right ventricular wall thickness. Systolic function is mildly reduced. ATRIA The left atrium size is normal. The right atrium size is normal. AORTIC VALVE The aortic valve is normal in structure. No aortic regurgitation is present. There is no aortic valvular stenosis. MITRAL VALVE The mitral valve is normal in structure. There is no mitral valve stenosis. Mitral regurgitation is mild. TRICUSPID VALVE There is mild tricuspid regurgitation. There is mild pulmonary hypertension. PULMONIC VALVE There is trace to mild pulmonic valvular regurgitation. GREAT VESSELS The aortic root is normal in size. <Conclusion> There is borderline to mild concentric left ventricular hypertrophy. The systolic function is mildly to moderately impaired. Septal hypokinesis Transmitral Doppler flow pattern is Grade I-abnormal relaxation pattern. Mitral regurgitation is mild. There is mild tricuspid regurgitation. There is mild pulmonary hypertension.
[2018-09-25 18:39] LABS: BASO % 0.2 % (0.0-2.0); HEMOGLOBIN 9.2 g/dL (12.0-18.0); LYMPH # 0.6 K/uL (1.0-4.3); LYMPH % 3.1 % (20.0-40.0); MEAN CELL VOLUME 83.1 fL (80.0-94.0); MEAN CORPUSCULAR HEMOGLOBIN 26.7 pg (27.0-31.0); MEAN CORPUSCULAR HGB CONC 32.1 g/dL (33.0-37.0); MEAN PLATELET VOLUME 8.1 fL (7.2-11.7); MONO # 0.8 K/uL (0.0-0.8); MONO % 4.6 % (0.0-10.0); NEUT # 16.7 K/uL (1.8-7.0); NEUT % 92.1 % (50.0-75.0); PLATELET COUNT 267 K/uL (130-400); RBC 3.47 Mil/uL (4.40-5.90); RED CELL DISTRIBUTION WIDTH 15.6 % (11.5-14.5); WHITE BLOOD COUNT 18.1 K/uL (4.8-10.8)
[2018-09-25 19:03] LABS: INR 1.3; PROTHROMBIN TIME 14.7 SECONDS (9.7-12.2)
--- NOTE | 2018-09-25 19:54 | CP.CCUPN ---
CCU Subjective - Physician Review Subjective (Free Text): Pt seen and exmained this am. Intubated. Comatose. GCS3. Code Freeze in process. Critical Care Time Spent (in minutes): 35 CCU Objective - Vital Signs / Intake & Output Vital Signs (Last 4 hours): Vital Signs Temp Pulse Resp BP Pulse Ox 09/25/18 10:50 89.8 F L 69 0 L 99 09/25/18 10:42 89.8 F L 67 0 L 150/87 97 09/25/18 10:40 89.8 F L 68 19 99 09/25/18 10:30 89.8 F L 67 17 99 09/25/18 10:27 89.8 F L 67 17 152/89 H 97 09/25/18 10:20 89.8 F L 68 10 L 99 09/25/18 10:12 89.8 F L 68 20 153/90 H 97 09/25/18 10:10 89.8 F L 68 20 99 09/25/18 10:00 89.8 F L 69 20 98 09/25/18 09:57 89.8 F L 70 19 150/94 H 97 09/25/18 09:50 90.0 F L 71 20 98 09/25/18 09:42 90.0 F L 72 17 149/92 H 97 09/25/18 09:40 90.0 F L 73 20 99 09/25/18 09:30 90.0 F L 75 7 L 98 09/25/18 09:27 90.0 F L 77 20 155/85 H 97 09/25/18 09:20 89.8 F L 81 20 98 09/25/18 09:12 89.6 F L 83 26 H 160/89 H 97 09/25/18 09:10 89.4 F L 82 26 H 98 09/25/18 09:00 72.0 F L 81 7 L 98 09/25/18 08:57 71.6 F L 80 11 L 165/92 H 98 09/25/18 08:50 74.7 F L 79 17 100 09/25/18 08:42 84.4 F L 78 19 162/96 H 100 09/25/18 08:41 89.1 F L 79 22 100 09/25/18 08:40 89.1 F L 79 26 H 100 09/25/18 08:30 89.1 F L 78 26 H 100 09/25/18 08:27 89.1 F L 77 26 H 162/93 H 100 09/25/18 08:20 89.1 F L 75 26 H 100 09/25/18 08:12 88.9 F L 71 26 H 148/88 100 09/25/18 08:10 88.9 F L 71 26 H 100 09/25/18 08:00 89.1 F L 69 26 H 09/25/18 07:57 89.1 F L 69 26 H 147/88 09/25/18 07:55 100 09/25/18 07:50 89.1 F L 67 26 H 100 09/25/18 07:42 89.2 F L 67 26 H 142/86 09/25/18 07:40 89.2 F L 66 26 H 100 09/25/18 07:30 89.4 F L 65 26 H 100 09/25/18 07:27 89.6 F L 64 26 H 141/84 100 Intake and Output (Last 8hrs): Intake & Output 09/24/18 09/25/18 09/25/18 22:59 06:59 14:59 Intake Total 346.5 840 Output Total 10 200 Balance 336.5 640 Weight 285 lb Intake: IV 3.5 200 Intake, IV Amount 343 540 Right Distal Port 32 40 Internal Jugular Right Medial Port 61 0 Internal Jugular Right Proximal Port 250 500 Internal Jugular Other 100 Output: Urine 10 200 Urethral ([place]) 10 200 Other: Voiding Method Indwelling Catheter # Bowel Movements 1 - Physical Exam Physical Exam Limitations: Positive for: Altered Mental Status Pupils: Positive for: Sluggish Extroacular Muscles: Negative for: Gaze Palsy Mouth: Positive for: Dry Respiratory/Chest: Positive for: Rales (BL bases). Negative for: Accessory Muscle Use Cardiovascular: Positive for: Regular Rate and Rhythm. Negative for: Murmurs Abdomen: Positive for: Distention. Negative for: Guarding Upper Extremity: Positive for: Normal Inspection Lower Extremity: Positive for: Edema (+! BL) Neurological: Negative for: GCS=15, CN II-XII Intact Skin: Positive for: Warm Psychiatric: Negative for: Alert (GCS 3) - Medications Active Medications: Active Medications Generic Name Dose Route Start Last Admin Trade Name Freq PRN Reason Stop Dose Admin Albuterol Sulfate 2.5 mg 09/25/18 14:00 Albuterol 0.083% Inhal Alicia (2.5 Mg/3 Ml) Ud INH RQ6 FIORDALIZA Dextrose 0 ml 09/25/18 09:13 Dextrose 50% Inj IV STAT PRN Hypoglycemia Protocol Protocol Dextrose 0 gm 09/25/18 09:13 Glutose 15 PO ONCE PRN Hypoglycemia Protocol Protocol Famotidine 20 mg 09/25/18 10:00 09/25/18 09:48 Pepcid IVP 20 mg DAILY FIORDALIZA Administration Glucagon 0 mg 09/25/18 09:13 Glucagen Diagnostic Kit IM STAT PRN Hypoglycemia Protocol Protocol Vancomycin HCl 1 gm/ Sodium 250 mls @ 166.7 mls/hr 09/25/18 01:30 09/25/18 04:00 Chloride IVPB 166.7 mls/hr Q24H FIORDALIZA Administration Protocol Norepinephrine Bitartrate 8 mg 258 mls @ 7.74 mls/hr 09/25/18 01:00 09/25/18 07:00 / Sodium Chloride IV 0 mcg/min .Q24H PRN 0 mls/hr TITRATE PER MD ORDER Titration Protocol 4 MCG/MIN Piperacillin Sod/Tazobactam 100 mls @ 200 mls/hr 09/25/18 08:00 09/25/18 07:59 Sod 3.375 gm/ Sodium Chloride IVPB 200 mls/hr Q8H FIORDALIZA Administration Protocol Insulin Human Regular 100 unit 100 mls @ 5 mls/hr 09/25/18 09:08 / Sodium Chloride IV .Q20H FIORDALIZA Protocol 5 UNITS/HR Sodium Chloride 1,000 mls @ 200 mls/hr 09/25/18 09:15 09/25/18 09:15 Sodium Chloride 0.9% IV 09/25/18 14:14 200 mls/hr .Q5H FIORDALIZA Administration Sodium Chloride 1,000 ml/ IV 1,000 mls @ 75 mls/hr 09/25/18 13:15 SUPPLIES IV 09/26/18 02:34 ONCE ONE Dextrose 1,000 mls @ 0 mls/hr 09/25/18 09:13 Dextrose 5% In Water 1000 Ml IV .Q0M PRN Hypoglycemia Protocol Protocol Per Protocol Heparin Sodium/Sodium Chloride 25,000 units in 250 mls @ 15.513 mls/hr 09/25/18 09:19 Heparin 63029 Units/250ml 1/2 Normal Saline IV .Q16H7M PRN PROTOCOL Protocol 12 UNITS/KG/HR Rosuvastatin Calcium 20 mg 09/25/18 22:00 Crestor PO HS FIORDALIZA - Patient Studies Lab Studies: Lab Studies 09/25/18 09/25/18 09/25/18 Range/Units 10:52 05:55 05:49 WBC (4.8-10.8) K/uL RBC (4.40-5.90) Mil/uL Hgb (12.0-18.0) g/dL Hct (35.0-51.0) % MCV (80.0-94.0) fL MCH (27.0-31.0) pg MCHC (33.0-37.0) g/dL RDW (11.5-14.5) % Plt Count (130-400) K/uL MPV (7.2-11.7) fL Neut % (Auto) (50.0-75.0) % Lymph % (Auto) (20.0-40.0) % [place] % (Auto) (0.0-10.0) % Eos % (Auto) (0.0-4.0) % Baso % (Auto) (0.0-2.0) % Neut # (Auto) (1.8-7.0) K/uL Lymph # (Auto) (1.0-4.3) K/uL [place] # (Auto) (0.0-0.8) K/uL Eos # (Auto) (0.0-0.7) K/uL Baso # (Auto) (0.0-0.2) K/uL Neutrophils % (Manual) (50-75) % Band Neutrophils % (0-2) % Lymphocytes % (Manual) (20-40) % Monocytes % (Manual) Platelet Estimate (NORMAL) Large Platelets Hypochromasia (manual) Poikilocytosis (manual Anisocytosis (manual) [place] Cells APTT (21-34) SECONDS Puncture Site Rra Rr pCO2 28 L 28 L (35-45) mm/Hg pO2 98 221 H (30-55) mm/Hg HCO3 18.2 L 14.5 L (21-28) mmol/L ABG pH 7.35 7.25 L (7.35-7.45) ABG Total CO2 16.4 L 13.2 L (22-28) mmol/L ABG O2 Saturation 99.0 H 98.9 H (95-98) % ABG Base Excess -8.6 L -13.4 L (-2.0-3.0) mmol/L ABG Hemoglobin (11.7-17.4) g/dL ABG Carboxyhemoglobin (0.5-1.5) % POC ABG HHb (Measured) (0.0-5.0) % ABG Methemoglobin (0.0-3.0) % Seth Test Po Pos ABG Potassium 4.1 6.5 H* (3.6-5.2) mmol/L VBG pH (7.32-7.43) VBG pCO2 (40-60) mmHg VBG O2 Sat (Calc) (40-65) % VBG Potassium (3.6-5.2) mmol/L A-a O2 Difference 366.0 457.0 mm/Hg Respiratory Index 3.7 2.1 Hgb O2 Saturation (95.0-98.0) % Glucose 548 H* 591 H* (75-110) mg/dl Lactate 3.0 H 5.3 H* (0.7-2.1) mmol/L Vent Mode Prvc Prvc Mechanical Rate 20 26 FiO2 70.0 100.0 % Tidal Volume 500 500 PEEP 5 5 Crit Value Called To Dr.natrajan Johanna coats/rn Crit Value Called By Sebastian morrissey,pamella barnes/rt Crit Value Read Back Y Y Blood Gas Notified Time 1110 610 Sodium 135.0 133.0 (132-148) mmol/L Potassium (3.6-5.2) mmol/L Chloride 105.0 103.0 (98-107) mmol/L Carbon Dioxide (22-30) mmol/L Anion Gap (10-20) BUN (9-20) mg/dL Creatinine (0.8-1.5) mg/dL Est GFR ( Amer) Est GFR (Non-Af Amer) POC Glucose (mg/dL) (65-110) mg/dL Random Glucose (75-110) mg/dL Lactic Acid (0.7-2.1) mmol/L Calcium (8.6-10.4) mg/dl Phosphorus (2.5-4.5) mg/dL Magnesium (1.6-2.3) mg/dL Total Bilirubin (0.2-1.3) mg/dL Direct Bilirubin 0.7 H (0.0-0.4) mg/dL AST (17-59) U/L ALT (21-72) U/L Alkaline Phosphatase (38-126) U/L Total Creatine Kinase (55-170) U/L CK-MB (Mass) (0.0-3.38) ng/mL Troponin I (0.00-0.120) ng/mL NT-Pro-B Natriuret Pep (0-900) pg/mL Total Protein (6.3-8.3) g/dL Albumin (3.5-5.0) g/dL Globulin (2.2-3.9) gm/dL Albumin/Globulin Ratio (1.0-2.1) Arterial Blood Potassium 4.1 6.5 H* (3.6-5.2) mmol/L Venous Blood Potassium (3.6-5.2) mmol/L Urine Color (YELLOW) Urine Clarity (Clear) Urine pH (5.0-8.0) Ur Specific [place] (1.003-1.030) Urine Protein (NEGATIVE) mg/dL Urine Glucose (UA) (Normal) mg/dL Urine Ketones (NEGATIVE) mg/dL Urine Blood (NEGATIVE) Urine Nitrate (NEGATIVE) Urine Bilirubin (NEGATIVE) Urine Urobilinogen (0.2-1.0) mg/dL Ur Leukocyte Esterase (Negative) Neymar/uL Urine WBC (Auto) (0-5) /hpf Urine RBC (Auto) (0-3) /hpf Ur Squamous Epith Cells (0-5) /hpf Urine Sperm (Auto) (NONE) /hpf Urine Opiates Screen (NEGATIVE) Urine Methadone Screen (NEGATIVE) Ur Barbiturates Screen (NEGATIVE) Ur Phencyclidine Scrn (NEGATIVE) Ur Amphetamines Screen (NEGATIVE) U Benzodiazepines Scrn (NEGATIVE) U Oth Cocaine Metabols (NEGATIVE) U Cannabinoids Screen (NEGATIVE) 09/25/18 09/25/18 09/25/18 Range/Units 05:49 05:44 05:44 WBC 17.9 H (4.8-10.8) K/uL RBC 3.36 L (4.40-5.90) Mil/uL Hgb 9.1 L (12.0-18.0) g/dL Hct 29.2 L (35.0-51.0) % MCV 86.8 D (80.0-94.0) fL MCH 27.0 (27.0-31.0) pg MCHC 31.1 L (33.0-37.0) g/dL RDW 15.7 H (11.5-14.5) % Plt Count 291 (130-400) K/uL MPV 8.3 (7.2-11.7) fL Neut % (Auto) 95.8 H (50.0-75.0) % Lymph % (Auto) 2.4 L (20.0-40.0) % [place] % (Auto) 1.6 (0.0-10.0) % Eos % (Auto) 0.1 (0.0-4.0) % Baso % (Auto) 0.1 (0.0-2.0) % Neut # (Auto) 17.2 H (1.8-7.0) K/uL Lymph # (Auto) 0.4 L (1.0-4.3) K/uL [place] # (Auto) 0.3 (0.0-0.8) K/uL Eos # (Auto) 0.0 (0.0-0.7) K/uL Baso # (Auto) 0.0 (0.0-0.2) K/uL Neutrophils % (Manual) 92 H (50-75) % Band Neutrophils % 5 H (0-2) % Lymphocytes % (Manual) 3 L (20-40) % Monocytes % (Manual) TEST NOT PERFORMED Platelet Estimate Normal (NORMAL) Large Platelets Present Hypochromasia (manual) Slight Poikilocytosis (manual Slight Anisocytosis (manual) Slight [place] Cells Slight APTT (21-34) SECONDS Puncture Site pCO2 (35-45) mm/Hg pO2 (30-55) mm/Hg HCO3 (21-28) mmol/L ABG pH (7.35-7.45) ABG Total CO2 (22-28) mmol/L ABG O2 Saturation (95-98) % ABG Base Excess (-2.0-3.0) mmol/L ABG Hemoglobin (11.7-17.4) g/dL ABG Carboxyhemoglobin (0.5-1.5) % POC ABG HHb (Measured) (0.0-5.0) % ABG Methemoglobin (0.0-3.0) % Seth Test ABG Potassium (3.6-5.2) mmol/L VBG pH (7.32-7.43) VBG pCO2 (40-60) mmHg VBG O2 Sat (Calc) (40-65) % VBG Potassium (3.6-5.2) mmol/L A-a O2 Difference mm/Hg Respiratory Index Hgb O2 Saturation (95.0-98.0) % Glucose (75-110) mg/dl Lactate (0.7-2.1) mmol/L Vent Mode Mechanical Rate FiO2 % Tidal Volume PEEP Crit Value Called To Crit Value Called By Crit Value Read Back Blood Gas Notified Time Sodium 132 (132-148) mmol/L Potassium 7.2 H* (3.6-5.2) mmol/L Chloride 105 (98-107) mmol/L Carbon Dioxide 16 L (22-30) mmol/L Anion Gap 18 (10-20) BUN 47 H (9-20) mg/dL Creatinine 2.7 H (0.8-1.5) mg/dL Est GFR ( Amer) 29 Est GFR (Non-Af Amer) 24 POC Glucose (mg/dL) (65-110) mg/dL Random Glucose 592 H* (75-110) mg/dL Lactic Acid 6.2 H* (0.7-2.1) mmol/L Calcium 7.2 L (8.6-10.4) mg/dl Phosphorus 5.1 H (2.5-4.5) mg/dL Magnesium 1.9 (1.6-2.3) mg/dL Total Bilirubin 0.7 (0.2-1.3) mg/dL Direct Bilirubin (0.0-0.4) mg/dL AST 1579 H (17-59) U/L ALT 1552 H (21-72) U/L Alkaline Phosphatase 198 H D (38-126) U/L Total Creatine Kinase 739 H (55-170) U/L CK-MB (Mass) 49.9 H (0.0-3.38) ng/mL Troponin I 64.7000 H* (0.00-0.120) ng/mL NT-Pro-B Natriuret Pep (0-900) pg/mL Total Protein 5.2 L (6.3-8.3) g/dL Albumin 2.8 L (3.5-5.0) g/dL Globulin 2.3 (2.2-3.9) gm/dL Albumin/Globulin Ratio 1.2 (1.0-2.1) Arterial Blood Potassium (3.6-5.2) mmol/L Venous Blood Potassium (3.6-5.2) mmol/L Urine Color (YELLOW) Urine Clarity (Clear) Urine pH (5.0-8.0) Ur Specific [place] (1.003-1.030) Urine Protein (NEGATIVE) mg/dL Urine Glucose (UA) (Normal) mg/dL Urine Ketones (NEGATIVE) mg/dL Urine Blood (NEGATIVE) Urine Nitrate (NEGATIVE) Urine Bilirubin (NEGATIVE) Urine Urobilinogen (0.2-1.0) mg/dL Ur Leukocyte Esterase (Negative) [place]ymar/uL Urine WBC (Auto) (0-5) /hpf Urine RBC (Auto) (0-3) /hpf Ur Squamous Epith Cells (0-5) /hpf Urine Sperm (Auto) (NONE) /hpf Urine Opiates Screen (NEGATIVE) Urine Methadone Screen (NEGATIVE) Ur Barbiturates Screen (NEGATIVE) Ur Phencyclidine Scrn (NEGATIVE) Ur Amphetamines Screen (NEGATIVE) U Benzodiazepines Scrn (NEGATIVE) U Oth Cocaine Metabols (NEGATIVE) U Cannabinoids Screen (NEGATIVE) 09/25/18 09/25/18 09/25/18 Range/Units 01:56 01:47 01:47 WBC (4.8-10.8) K/uL RBC (4.40-5.90) Mil/uL Hgb (12.0-18.0) g/dL Hct (35.0-51.0) % MCV (80.0-94.0) fL MCH (27.0-31.0) pg MCHC (33.0-37.0) g/dL RDW (11.5-14.5) % Plt Count (130-400) K/uL MPV (7.2-11.7) fL Neut % (Auto) (50.0-75.0) % Lymph % (Auto) (20.0-40.0) % [place] % (Auto) (0.0-10.0) % Eos % (Auto) (0.0-4.0) % Baso % (Auto) (0.0-2.0) % Neut # (Auto) (1.8-7.0) K/uL Lymph # (Auto) (1.0-4.3) K/uL [place] # (Auto) (0.0-0.8) K/uL Eos # (Auto) (0.0-0.7) K/uL Baso # (Auto) (0.0-0.2) K/uL Neutrophils % (Manual) (50-75) % Band Neutrophils % (0-2) % Lymphocytes % (Manual) (20-40) % Monocytes % (Manual) Platelet Estimate (NORMAL) Large Platelets Hypochromasia (manual) Poikilocytosis (manual Anisocytosis (manual) [place] Cells APTT (21-34) SECONDS Puncture Site pCO2 (35-45) mm/Hg pO2 (30-55) mm/Hg HCO3 (21-28) mmol/L ABG pH (7.35-7.45) ABG Total CO2 (22-28) mmol/L ABG O2 Saturation (95-98) % ABG Base Excess (-2.0-3.0) mmol/L ABG Hemoglobin (11.7-17.4) g/dL ABG Carboxyhemoglobin (0.5-1.5) % POC ABG HHb (Measured) (0.0-5.0) % ABG Methemoglobin (0.0-3.0) % Seth Test ABG Potassium (3.6-5.2) mmol/L VBG pH (7.32-7.43) VBG pCO2 (40-60) mmHg VBG O2 Sat (Calc) (40-65) % VBG Potassium (3.6-5.2) mmol/L A-a O2 Difference mm/Hg Respiratory Index Hgb O2 Saturation (95.0-98.0) % Glucose (75-110) mg/dl Lactate (0.7-2.1) mmol/L Vent Mode Mechanical Rate FiO2 % Tidal Volume PEEP Crit Value Called To Crit Value Called By Crit Value Read Back Blood Gas Notified Time Sodium (132-148) mmol/L Potassium (3.6-5.2) mmol/L Chloride (98-107) mmol/L Carbon Dioxide (22-30) mmol/L Anion Gap (10-20) BUN (9-20) mg/dL Creatinine (0.8-1.5) mg/dL Est GFR ( Amer) Est GFR (Non-Af Amer) POC Glucose (mg/dL) > 500 H* (65-110) mg/dL Random Glucose (75-110) mg/dL Lactic Acid (0.7-2.1) mmol/L Calcium (8.6-10.4) mg/dl Phosphorus (2.5-4.5) mg/dL Magnesium (1.6-2.3) mg/dL Total Bilirubin (0.2-1.3) mg/dL Direct Bilirubin (0.0-0.4) mg/dL AST (17-59) U/L ALT (21-72) U/L Alkaline Phosphatase (38-126) U/L Total Creatine Kinase (55-170) U/L CK-MB (Mass) (0.0-3.38) ng/mL Troponin I (0.00-0.120) ng/mL NT-Pro-B Natriuret Pep (0-900) pg/mL Total Protein (6.3-8.3) g/dL Albumin (3.5-5.0) g/dL Globulin (2.2-3.9) gm/dL Albumin/Globulin Ratio (1.0-2.1) Arterial Blood Potassium (3.6-5.2) mmol/L Venous Blood Potassium (3.6-5.2) mmol/L Urine Color Yellow (YELLOW) Urine Clarity Hazy (Clear) Urine pH 5.0 (5.0-8.0) Ur Specific [place] 1.012 (1.003-1.030) Urine Protein 2+ H (NEGATIVE) mg/dL Urine Glucose (UA) 3+ H (Normal) mg/dL Urine Ketones Negative (NEGATIVE) mg/dL Urine Blood Negative (NEGATIVE) Urine Nitrate Negative (NEGATIVE) Urine Bilirubin Negative (NEGATIVE) Urine Urobilinogen Normal (0.2-1.0) mg/dL Ur Leukocyte Esterase Neg (Negative) Neymar/uL Urine WBC (Auto) 1 (0-5) /hpf Urine RBC (Auto) 1 (0-3) /hpf Ur Squamous Epith Cells < 1 (0-5) /hpf Urine Sperm (Auto) Rare H (NONE) /hpf Urine Opiates Screen Positive H (NEGATIVE) Urine Methadone Screen Negative (NEGATIVE) Ur Barbiturates Screen Negative (NEGATIVE) Ur Phencyclidine Scrn Negative (NEGATIVE) Ur Amphetamines Screen Negative (NEGATIVE) U Benzodiazepines Scrn Negative (NEGATIVE) U Oth Cocaine Metabols Negative (NEGATIVE) U Cannabinoids Screen Negative (NEGATIVE) 09/25/18 09/25/18 09/25/18 Range/Units 00:55 00:50 00:47 WBC (4.8-10.8) K/uL RBC (4.40-5.90) Mil/uL Hgb (12.0-18.0) g/dL Hct (35.0-51.0) % MCV (80.0-94.0) fL MCH (27.0-31.0) pg MCHC (33.0-37.0) g/dL RDW (11.5-14.5) % Plt Count (130-400) K/uL MPV (7.2-11.7) fL Neut % (Auto) (50.0-75.0) % Lymph % (Auto) (20.0-40.0) % [place] % (Auto) (0.0-10.0) % Eos % (Auto) (0.0-4.0) % Baso % (Auto) (0.0-2.0) % Neut # (Auto) (1.8-7.0) K/uL Lymph # (Auto) (1.0-4.3) K/uL [place] # (Auto) (0.0-0.8) K/uL Eos # (Auto) (0.0-0.7) K/uL Baso # (Auto) (0.0-0.2) K/uL Neutrophils % (Manual) (50-75) % Band Neutrophils % (0-2) % Lymphocytes % (Manual) (20-40) % Monocytes % (Manual) Platelet Estimate (NORMAL) Large Platelets Hypochromasia (manual) Poikilocytosis (manual Anisocytosis (manual) [place] Cells APTT (21-34) SECONDS Puncture Site Na pCO2 86 H* (35-45) mm/Hg pO2 206 H 82 H (30-55) mm/Hg HCO3 21.1 (21-28) mmol/L ABG pH 7.08 L* (7.35-7.45) ABG Total CO2 28.1 H (22-28) mmol/L ABG O2 Saturation 99.4 H (95-98) % ABG Base Excess -4.9 L (-2.0-3.0) mmol/L ABG Hemoglobin 8.3 L (11.7-17.4) g/dL ABG Carboxyhemoglobin 2.3 H (0.5-1.5) % POC ABG HHb (Measured) 0.6 (0.0-5.0) % ABG Methemoglobin 1.2 (0.0-3.0) % Seth Test Na ABG Potassium (3.6-5.2) mmol/L VBG pH < 6.80 L* (7.32-7.43) VBG pCO2 84 H* (40-60) mmHg VBG O2 Sat (Calc) 89.5 H (40-65) % VBG Potassium 5.8 H (3.6-5.2) mmol/L A-a O2 Difference mm/Hg Respiratory Index Hgb O2 Saturation 95.9 (95.0-98.0) % Glucose 615 H* (75-110) mg/dl Lactate 11.8 H* (0.7-2.1) mmol/L Vent Mode Mechanical Rate FiO2 % Tidal Volume PEEP Crit Value Called To Randolph walters Crit Value Called By cayden Johnson rcp Crit Value Read Back Y Y Blood Gas Notified Time 105 100 Sodium 135.0 134 (132-148) mmol/L Potassium 6.2 H* D (3.6-5.2) mmol/L Chloride 100.0 104 (98-107) mmol/L Carbon Dioxide 10 L* D (22-30) mmol/L Anion Gap 26 H (10-20) BUN 41 H (9-20) mg/dL Creatinine 2.6 H (0.8-1.5) mg/dL Est GFR ( Amer) 30 Est GFR (Non-Af Amer) 25 POC Glucose (mg/dL) (65-110) mg/dL Random Glucose 617 H* D (75-110) mg/dL Lactic Acid (0.7-2.1) mmol/L Calcium 7.8 L (8.6-10.4) mg/dl Phosphorus (2.5-4.5) mg/dL Magnesium (1.6-2.3) mg/dL Total Bilirubin 0.3 (0.2-1.3) mg/dL Direct Bilirubin (0.0-0.4) mg/dL AST 1218 H (17-59) U/L ALT 1214 H (21-72) U/L Alkaline Phosphatase 126 D (38-126) U/L Total Creatine Kinase (55-170) U/L CK-MB (Mass) (0.0-3.38) ng/mL Troponin I 2.2600 H* (0.00-0.120) ng/mL NT-Pro-B Natriuret Pep 2630 H (0-900) pg/mL Total Protein 5.6 L (6.3-8.3) g/dL Albumin 3.1 L (3.5-5.0) g/dL Globulin 2.5 (2.2-3.9) gm/dL Albumin/Globulin Ratio 1.2 (1.0-2.1) Arterial Blood Potassium (3.6-5.2) mmol/L Venous Blood Potassium 5.8 H (3.6-5.2) mmol/L Urine Color (YELLOW) Urine Clarity (Clear) Urine pH (5.0-8.0) Ur Specific [place] (1.003-1.030) Urine Protein (NEGATIVE) mg/dL Urine Glucose (UA) (Normal) mg/dL Urine Ketones (NEGATIVE) mg/dL Urine Blood (NEGATIVE) Urine Nitrate (NEGATIVE) Urine Bilirubin (NEGATIVE) Urine Urobilinogen (0.2-1.0) mg/dL Ur Leukocyte Esterase (Negative) Neymar/uL Urine WBC (Auto) (0-5) /hpf Urine RBC (Auto) (0-3) /hpf Ur Squamous Epith Cells (0-5) /hpf Urine Sperm (Auto) (NONE) /hpf Urine Opiates Screen (NEGATIVE) Urine Methadone Screen (NEGATIVE) Ur Barbiturates Screen (NEGATIVE) Ur Phencyclidine Scrn (NEGATIVE) Ur Amphetamines Screen (NEGATIVE) U Benzodiazepines Scrn (NEGATIVE) U Oth Cocaine Metabols (NEGATIVE) U Cannabinoids Screen (NEGATIVE) 09/25/18 09/25/18 09/25/18 Range/Units 00:47 00:47 00:39 WBC 21.3 H D (4.8-10.8) K/uL RBC 3.48 L (4.40-5.90) Mil/uL Hgb 9.3 L (12.0-18.0) g/dL Hct 31.7 L (35.0-51.0) % MCV 91.0 D (80.0-94.0) fL MCH 26.6 L (27.0-31.0) pg MCHC 29.3 L (33.0-37.0) g/dL RDW 15.9 H (11.5-14.5) % Plt Count 306 (130-400) K/uL MPV 8.3 (7.2-11.7) fL Neut % (Auto) 85.1 H (50.0-75.0) % Lymph % (Auto) 11.8 L (20.0-40.0) % [place] % (Auto) 2.6 (0.0-10.0) % Eos % (Auto) 0.3 (0.0-4.0) % Baso % (Auto) 0.2 (0.0-2.0) % Neut # (Auto) 18.1 H (1.8-7.0) K/uL Lymph # (Auto) 2.5 (1.0-4.3) K/uL [place] # (Auto) 0.6 (0.0-0.8) K/uL Eos # (Auto) 0.1 (0.0-0.7) K/uL Baso # (Auto) 0.0 (0.0-0.2) K/uL Neutrophils % (Manual) (50-75) % Band Neutrophils % (0-2) % Lymphocytes % (Manual) (20-40) % Monocytes % (Manual) Platelet Estimate (NORMAL) Large Platelets Hypochromasia (manual) Poikilocytosis (manual Anisocytosis (manual) [place] Cells APTT 59 H (21-34) SECONDS Puncture Site pCO2 (35-45) mm/Hg pO2 (30-55) mm/Hg HCO3 (21-28) mmol/L ABG pH (7.35-7.45) ABG Total CO2 (22-28) mmol/L ABG O2 Saturation (95-98) % ABG Base Excess (-2.0-3.0) mmol/L ABG Hemoglobin (11.7-17.4) g/dL ABG Carboxyhemoglobin (0.5-1.5) % POC ABG HHb (Measured) (0.0-5.0) % ABG Methemoglobin (0.0-3.0) % Seth Test ABG Potassium (3.6-5.2) mmol/L VBG pH (7.32-7.43) VBG pCO2 (40-60) mmHg VBG O2 Sat (Calc) (40-65) % VBG Potassium (3.6-5.2) mmol/L A-a O2 Difference mm/Hg Respiratory Index Hgb O2 Saturation (95.0-98.0) % Glucose (75-110) mg/dl Lactate (0.7-2.1) mmol/L Vent Mode Mechanical Rate FiO2 % Tidal Volume PEEP Crit Value Called To Crit Value Called By Crit Value Read Back Blood Gas Notified Time Sodium (132-148) mmol/L Potassium (3.6-5.2) mmol/L Chloride (98-107) mmol/L Carbon Dioxide (22-30) mmol/L Anion Gap (10-20) BUN (9-20) mg/dL Creatinine (0.8-1.5) mg/dL Est GFR ( Amer) Est GFR (Non-Af Amer) POC Glucose (mg/dL) > 500 H* (65-110) mg/dL Random Glucose (75-110) mg/dL Lactic Acid (0.7-2.1) mmol/L Calcium (8.6-10.4) mg/dl Phosphorus (2.5-4.5) mg/dL Magnesium (1.6-2.3) mg/dL Total Bilirubin (0.2-1.3) mg/dL Direct Bilirubin (0.0-0.4) mg/dL AST (17-59) U/L ALT (21-72) U/L Alkaline Phosphatase (38-126) U/L Total Creatine Kinase (55-170) U/L CK-MB (Mass) (0.0-3.38) ng/mL Troponin I (0.00-0.120) ng/mL NT-Pro-B Natriuret Pep (0-900) pg/mL Total Protein (6.3-8.3) g/dL Albumin (3.5-5.0) g/dL Globulin (2.2-3.9) gm/dL Albumin/Globulin Ratio (1.0-2.1) Arterial Blood Potassium (3.6-5.2) mmol/L Venous Blood Potassium (3.6-5.2) mmol/L Urine Color (YELLOW) Urine Clarity (Clear) Urine pH (5.0-8.0) Ur Specific [place] (1.003-1.030) Urine Protein (NEGATIVE) mg/dL Urine Glucose (UA) (Normal) mg/dL Urine Ketones (NEGATIVE) mg/dL Urine Blood (NEGATIVE) Urine Nitrate (NEGATIVE) Urine Bilirubin (NEGATIVE) Urine Urobilinogen (0.2-1.0) mg/dL Ur Leukocyte Esterase (Negative) [place]/uL Urine WBC (Auto) (0-5) /hpf Urine RBC (Auto) (0-3) /hpf Ur Squamous Epith Cells (0-5) /hpf Urine Sperm (Auto) (NONE) /hpf Urine Opiates Screen (NEGATIVE) Urine Methadone Screen (NEGATIVE) Ur Barbiturates Screen (NEGATIVE) Ur Phencyclidine Scrn (NEGATIVE) Ur Amphetamines Screen (NEGATIVE) U Benzodiazepines Scrn (NEGATIVE) U Oth Cocaine Metabols (NEGATIVE) U Cannabinoids Screen (NEGATIVE) Laboratory Results - last 24 hr 09/25/18 09/25/18 09/25/18 00:39 00:47 00:47 WBC 21.3 H D RBC 3.48 L Hgb 9.3 L Hct 31.7 L MCV 91.0 D MCH 26.6 L MCHC 29.3 L RDW 15.9 H Plt Count 306 MPV 8.3 Neut % (Auto) 85.1 H Lymph % (Auto) 11.8 L [place] % (Auto) 2.6 Eos % (Auto) 0.3 Baso % (Auto) 0.2 Neut # (Auto) 18.1 H Lymph # (Auto) 2.5 [place] # (Auto) 0.6 Eos # (Auto) 0.1 Baso # (Auto) 0.0 Neutrophils % (Manual) Band Neutrophils % Lymphocytes % (Manual) Monocytes % (Manual) Platelet Estimate Large Platelets Hypochromasia (manual) Poikilocytosis (manual Anisocytosis (manual) [place] Cells APTT 59 H Puncture Site pCO2 pO2 HCO3 ABG pH ABG Total CO2 ABG O2 Saturation ABG Base Excess ABG Hemoglobin ABG Carboxyhemoglobin POC ABG HHb (Measured) ABG Methemoglobin Seth Test ABG Potassium VBG pH VBG pCO2 VBG O2 Sat (Calc) VBG Potassium A-a O2 Difference Respiratory Index Hgb O2 Saturation Glucose Lactate Vent Mode Mechanical Rate FiO2 Tidal Volume PEEP Crit Value Called To Crit Value Called By Crit Value Read Back Blood Gas Notified Time Sodium Potassium Chloride Carbon Dioxide Anion Gap BUN Creatinine Est GFR ( Amer) Est GFR (Non-Af Amer) POC Glucose (mg/dL) > 500 H* Random Glucose Lactic Acid Calcium Phosphorus Magnesium Total Bilirubin Direct Bilirubin AST ALT Alkaline Phosphatase Total Creatine Kinase CK-MB (Mass) Troponin I NT-Pro-B Natriuret Pep Total Protein Albumin Globulin Albumin/Globulin Ratio Arterial Blood Potassium Venous Blood Potassium Urine Color Urine Clarity Urine pH Ur Specific [place] Urine Protein Urine Glucose (UA) Urine Ketones Urine Blood Urine Nitrate Urine Bilirubin Urine Urobilinogen Ur Leukocyte Esterase Urine WBC (Auto) Urine RBC (Auto) Ur Squamous Epith Cells Urine Sperm (Auto) Urine Opiates Screen Urine Methadone Screen Ur Barbiturates Screen Ur Phencyclidine Scrn Ur Amphetamines Screen U Benzodiazepines Scrn U Oth Cocaine Metabols U Cannabinoids Screen 09/25/18 09/25/18 09/25/18 00:47 00:50 00:55 WBC RBC Hgb Hct MCV MCH MCHC RDW Plt Count MPV Neut % (Auto) Lymph % (Auto) [place] % (Auto) Eos % (Auto) Baso % (Auto) Neut # (Auto) Lymph # (Auto) [place] # (Auto) Eos # (Auto) Baso # (Auto) Neutrophils % (Manual) Band Neutrophils % Lymphocytes % (Manual) Monocytes % (Manual) Platelet Estimate Large Platelets Hypochromasia (manual) Poikilocytosis (manual Anisocytosis (manual) [place] Cells APTT Puncture Site Na pCO2 86 H* pO2 82 H 206 H HCO3 21.1 ABG pH 7.08 L* ABG Total CO2 28.1 H ABG O2 Saturation 99.4 H ABG Base Excess -4.9 L ABG Hemoglobin 8.3 L ABG Carboxyhemoglobin 2.3 H POC ABG HHb (Measured) 0.6 ABG Methemoglobin 1.2 Seth Test Na ABG Potassium VBG pH < 6.80 L* VBG pCO2 84 H* VBG O2 Sat (Calc) 89.5 H VBG Potassium 5.8 H A-a O2 Difference Respiratory Index Hgb O2 Saturation 95.9 Glucose 615 H* Lactate 11.8 H* Vent Mode Mechanical Rate FiO2 Tidal Volume PEEP Crit Value Called To Dr. selena walters Crit Value Called By cayden Johnson rcp Crit Value Read Back Y Y Blood Gas Notified Time 100 105 Sodium 134 135.0 Potassium 6.2 H* D Chloride 104 100.0 Carbon Dioxide 10 L* D Anion Gap 26 H BUN 41 H Creatinine 2.6 H Est GFR ( Amer) 30 Est GFR (Non-Af Amer) 25 POC Glucose (mg/dL) Random Glucose 617 H* D Lactic Acid Calcium 7.8 L Phosphorus Magnesium Total Bilirubin 0.3 Direct Bilirubin AST 1218 H ALT 1214 H Alkaline Phosphatase 126 D Total Creatine Kinase CK-MB (Mass) Troponin I 2.2600 H* NT-Pro-B Natriuret Pep 2630 H Total Protein 5.6 L Albumin 3.1 L Globulin 2.5 Albumin/Globulin Ratio 1.2 Arterial Blood Potassium Venous Blood Potassium 5.8 H Urine Color Urine Clarity Urine pH Ur Specific [place] Urine Protein Urine Glucose (UA) Urine Ketones Urine Blood Urine Nitrate Urine Bilirubin Urine Urobilinogen Ur Leukocyte Esterase Urine WBC (Auto) Urine RBC (Auto) Ur Squamous Epith Cells Urine Sperm (Auto) Urine Opiates Screen Urine Methadone Screen Ur Barbiturates Screen Ur Phencyclidine Scrn Ur Amphetamines Screen U Benzodiazepines Scrn U Oth Cocaine Metabols U Cannabinoids Screen 09/25/18 09/25/18 09/25/18 01:47 01:47 01:56 WBC RBC Hgb Hct MCV MCH MCHC RDW Plt Count MPV Neut % (Auto) Lymph % (Auto) [place] % (Auto) Eos % (Auto) Baso % (Auto) Neut # (Auto) Lymph # (Auto) [place] # (Auto) Eos # (Auto) Baso # (Auto) Neutrophils % (Manual) Band Neutrophils % Lymphocytes % (Manual) Monocytes % (Manual) Platelet Estimate Large Platelets Hypochromasia (manual) Poikilocytosis (manual Anisocytosis (manual) [place] Cells APTT Puncture Site pCO2 pO2 HCO3 ABG pH ABG Total CO2 ABG O2 Saturation ABG Base Excess ABG Hemoglobin ABG Carboxyhemoglobin POC ABG HHb (Measured) ABG Methemoglobin Seth Test ABG Potassium VBG pH VBG pCO2 VBG O2 Sat (Calc) VBG Potassium A-a O2 Difference Respiratory Index Hgb O2 Saturation Glucose Lactate Vent Mode Mechanical Rate FiO2 Tidal Volume PEEP Crit Value Called To Crit Value Called By Crit Value Read Back Blood Gas Notified Time Sodium Potassium Chloride Carbon Dioxide Anion Gap BUN Creatinine Est GFR ( Amer) Est GFR (Non-Af Amer) POC Glucose (mg/dL) > 500 H* Random Glucose Lactic Acid Calcium Phosphorus Magnesium Total Bilirubin Direct Bilirubin AST ALT Alkaline Phosphatase Total Creatine Kinase CK-MB (Mass) Troponin I NT-Pro-B Natriuret Pep Total Protein Albumin Globulin Albumin/Globulin Ratio Arterial Blood Potassium Venous Blood Potassium Urine Color Yellow Urine Clarity Hazy Urine pH 5.0 Ur Specific [place] 1.012 Urine Protein 2+ H Urine Glucose (UA) 3+ H Urine Ketones Negative Urine Blood Negative Urine Nitrate Negative Urine Bilirubin Negative Urine Urobilinogen Normal Ur Leukocyte Esterase Neg Urine WBC (Auto) 1 Urine RBC (Auto) 1 Ur Squamous Epith Cells < 1 Urine Sperm (Auto) Rare H Urine Opiates Screen Positive H Urine Methadone Screen Negative Ur Barbiturates Screen Negative Ur Phencyclidine Scrn Negative Ur Amphetamines Screen Negative U Benzodiazepines Scrn Negative U Oth Cocaine Metabols Negative U Cannabinoids Screen Negative 09/25/18 09/25/18 09/25/18 05:44 05:44 05:49 WBC 17.9 H RBC 3.36 L Hgb 9.1 L Hct 29.2 L MCV 86.8 D MCH 27.0 MCHC 31.1 L RDW 15.7 H Plt Count 291 MPV 8.3 Neut % (Auto) 95.8 H Lymph % (Auto) 2.4 L [place] % (Auto) 1.6 Eos % (Auto) 0.1 Baso % (Auto) 0.1 Neut # (Auto) 17.2 H Lymph # (Auto) 0.4 L [place] # (Auto) 0.3 Eos # (Auto) 0.0 Baso # (Auto) 0.0 Neutrophils % (Manual) 92 H Band Neutrophils % 5 H Lymphocytes % (Manual) 3 L Monocytes % (Manual) TEST NOT PERFORMED Platelet Estimate Normal Large Platelets Present Hypochromasia (manual) Slight Poikilocytosis (manual Slight Anisocytosis (manual) Slight [place] Cells Slight APTT Puncture Site pCO2 pO2 HCO3 ABG pH ABG Total CO2 ABG O2 Saturation ABG Base Excess ABG Hemoglobin ABG Carboxyhemoglobin POC ABG HHb (Measured) ABG Methemoglobin Seth Test ABG Potassium VBG pH VBG pCO2 VBG O2 Sat (Calc) VBG Potassium A-a O2 Difference Respiratory Index Hgb O2 Saturation Glucose Lactate Vent Mode Mechanical Rate FiO2 Tidal Volume PEEP Crit Value Called To Crit Value Called By Crit Value Read Back Blood Gas Notified Time Sodium 132 Potassium 7.2 H* Chloride 105 Carbon Dioxide 16 L Anion Gap 18 BUN 47 H Creatinine 2.7 H Est GFR ( Amer) 29 Est GFR (Non-Af Amer) 24 POC Glucose (mg/dL) Random Glucose 592 H* Lactic Acid 6.2 H* Calcium 7.2 L Phosphorus 5.1 H Magnesium 1.9 Total Bilirubin 0.7 Direct Bilirubin AST 1579 H ALT 1552 H Alkaline Phosphatase 198 H D Total Creatine Kinase 739 H CK-MB (Mass) 49.9 H Troponin I 64.7000 H* NT-Pro-B Natriuret Pep Total Protein 5.2 L Albumin 2.8 L Globulin 2.3 Albumin/Globulin Ratio 1.2 Arterial Blood Potassium Venous Blood Potassium Urine Color Urine Clarity Urine pH Ur Specific [place] Urine Protein Urine Glucose (UA) Urine Ketones Urine Blood Urine Nitrate Urine Bilirubin Urine Urobilinogen Ur Leukocyte Esterase Urine WBC (Auto) Urine RBC (Auto) Ur Squamous Epith Cells Urine Sperm (Auto) Urine Opiates Screen Urine Methadone Screen Ur Barbiturates Screen Ur Phencyclidine Scrn Ur Amphetamines Screen U Benzodiazepines Scrn U Oth Cocaine Metabols U Cannabinoids Screen 09/25/18 09/25/18 09/25/18 05:49 05:55 10:52 WBC RBC Hgb Hct MCV MCH MCHC RDW Plt Count MPV Neut % (Auto) Lymph % (Auto) [place] % (Auto) Eos % (Auto) Baso % (Auto) Neut # (Auto) Lymph # (Auto) [place] # (Auto) Eos # (Auto) Baso # (Auto) Neutrophils % (Manual) Band Neutrophils % Lymphocytes % (Manual) Monocytes % (Manual) Platelet Estimate Large Platelets Hypochromasia (manual) Poikilocytosis (manual Anisocytosis (manual) [place] Cells APTT Puncture Site Rr Rra pCO2 28 L 28 L pO2 221 H 98 HCO3 14.5 L 18.2 L ABG pH 7.25 L 7.35 ABG Total CO2 13.2 L 16.4 L ABG O2 Saturation 98.9 H 99.0 H ABG Base Excess -13.4 L -8.6 L ABG Hemoglobin ABG Carboxyhemoglobin POC ABG HHb (Measured) ABG Methemoglobin Seth Test Pos Po ABG Potassium 6.5 H* 4.1 VBG pH VBG pCO2 VBG O2 Sat (Calc) VBG Potassium A-a O2 Difference 457.0 366.0 Respiratory Index 2.1 3.7 Hgb O2 Saturation Glucose 591 H* 548 H* Lactate 5.3 H* 3.0 H Vent Mode Prvc Prvc Mechanical Rate 26 20 FiO2 100.0 70.0 Tidal Volume 500 500 PEEP 5 5 Crit Value Called To Johanna coats/rn Crit Value Called By Kevin barnes/rt Sebastian morrissey,tobacco wetter Crit Value Read Back Y Y Blood Gas Notified Time 610 1110 Sodium 133.0 135.0 Potassium Chloride 103.0 105.0 Carbon Dioxide Anion Gap BUN Creatinine Est GFR ( Amer) Est GFR (Non-Af Amer) POC Glucose (mg/dL) Random Glucose Lactic Acid Calcium Phosphorus Magnesium Total Bilirubin Direct Bilirubin 0.7 H AST ALT Alkaline Phosphatase Total Creatine Kinase CK-MB (Mass) Troponin I NT-Pro-B Natriuret Pep Total Protein Albumin Globulin Albumin/Globulin Ratio Arterial Blood Potassium 6.5 H* 4.1 Venous Blood Potassium Urine Color Urine Clarity Urine pH Ur Specific [place] Urine Protein Urine Glucose (UA) Urine Ketones Urine Blood Urine Nitrate Urine Bilirubin Urine Urobilinogen Ur Leukocyte Esterase Urine WBC (Auto) Urine RBC (Auto) Ur Squamous Epith Cells Urine Sperm (Auto) Urine Opiates Screen Urine Methadone Screen Ur Barbiturates Screen Ur Phencyclidine Scrn Ur Amphetamines Screen U Benzodiazepines Scrn U Oth Cocaine Metabols U Cannabinoids Screen EKG/Cardiology Studies: Cardiology / EKG Studies 09/25/18 00:45 EKG [ELECTROCARDIOGRAM] Stat Comment: Mode Of Transportation: Reason For Exam: cardiac arrest 09/25/18 03:30 EKG [ELECTROCARDIOGRAM] DAILY Comment: Mode Of Transportation: PORTABLE Reason For Exam: mi 09/27/18 01:45 ELECTROCARDIOGRAM DAILY Comment: Mode Of Transportation: PORTABLE Reason For Exam: mi 09/28/18 01:45 ELECTROCARDIOGRAM DAILY Comment: Mode Of Transportation: PORTABLE Reason For Exam: mi Fingerstick Blood Sugar Results: 500 Critical Care Progress Note - Nutrition Nutrition: Nutrition Category Date Time Status NPO Diet [DIET] Diets 09/25/18 Breakfast Active Assessment/Plan - Assessment and Plan (Free Text) Assessment: Pt is a 63 y/o male with hx of CAD s/p CABG in 2012, HTN, DM, HLD, and recently discharge from [place] ED for unclear reason (LE Vascular procedure/study?) admitted to ICU s/p cardiac arrest in ED. Prior to ED arrival, pt was noted to be unresponsive by family and he was found by EMS to be in PEA. Resuscitation via ACLS protocol was initiated and pt was intubated on the field. ROSC was achieved but on arrival to ED, pt had cardiac arrest for which CPR was initiated and he received 5 xEpi, Calcium Gluconate x3, Kayexalate x1, Bicarb x1, and 3L of NS. ROSC was achieved and pt is now on admitted to the ICU, on mechanical ventilation and currently undergoing therapeutic hypothermia. Latest Head CT shows anoxic changes. Neuro: - Unresponsive - GCS 3 - Head CT: Diffuse Caba matter, loss of caba-white matter, hypoxic/ischemic insult - Neurology, Dr. Callaway - F/u Video EEG Cardio: - S/P Cardiac Arrest - Code Freeze; Therapeutic Hypothermia, Target temp 32-34C, Labs q4 hours - Hemodynamically stable; levophed discontinued - Troponinemia 2>64>174. EKG ST Depression V5-V6. NSTEMI vs sequel post cardiac arrest/CPR - CXray; Cardiomegaly - Cardiology Consulted - ASA 325mg, Heparin ggt - F/U Echo Pulm: - Intubated on mechanical ventilation on 09/24; PRVC mode, FIO2 70 - AM ABG shows improvement in Acid- Base status; Primary Metabolic Acidosis w/ compensatory - pH7.35, pCO2 28, HCO3 18.2 GI: - NPO - Consider tube feeds if pt remains intubated Renal - DANUTA, etiology unknown. - Crea 2.8, BUN 50 - Renal US ordered - Ulytes and Urine osmols sent - Net I/O: 110cc - Maintain UO >0.55cc/kg/hr - K: 6.3 >7.2 >4.2 - Mag 1.9 - Phos 1.5 Endocrine - DKA on presentation: BG 617, HCO3 10, AG 22 - Insulin ggt - BMP q4hr - Monitor K. Now normal but as per hypothermia protocol, will only replete if <3 during cooling phase due to potential rebound during rewarming phase - Accucheck q4 hours - F/U Serum B-OH. Ketones negative in urine ID - Afberile on presentation - WBC trending down 21>17> 18.6, Bands 5 - Lactic acidosis resolved 11.8>5>3 - Vanco and Zosyn initiated for empiric coverage - Vanco currently held, pending random vanco tomorrow in light of DANUTA - F/U Bcx, Ucx Heme/Onc - Hg 8.8 - Platelets 262 - PTT 59 on Heparin drip. Will adjust as per protocol - Venous Duplex of LE BL ordered Line: Left IJ triple lumen placed on 09/25/17 Code Status: Full Next of Kin: , Phoebe Brandt, Discussed with Dr. Tacho Celeste, PGY2
[2018-09-25] MEDS ORDERED: Rosuvastatin Calcium 2.5 mg Tab PO SCH (22:00)
[2018-09-25 23:12] LABS: PLATELET ESTIMATE NORMAL (NORMAL)
[2018-09-25 23:13] LABS: BANDS 9 % (0-2); LYMPHOCYTE 4 % (20-40); MONOCYTE 5 % (0-10); NEUTROPHIL 82 % (50-75); TOTAL CELLS COUNTED 100
[2018-09-25 23:14] LABS: ANISOCYTOSIS SLIGHT; HYPERSEGMENTATION PRESENT; HYPOCHROMIC SLIGHT; POIKILOCYTOSIS SLIGHT; SMUDGE CELLS PRESENT; SPHEROCYTES SLIGHT
[2018-09-25 23:15] LABS: LARGE PLATELETS PRESENT
--- NOTE | 2018-09-26 00:52 | CON ---
DATE: 09/25/2018 Neurology consult called by Dr. Loco. HISTORY OF PRESENT ILLNESS: Mr. René Malik is a morbidly obese 63-year-old male who was discharged [place] ED earlier today for neck pain and shortness of breath. Within one hour arriving at home, his noticed an abrupt change in mental status and saw the patient go apneic and unresponsive. EMS was called. He was immediately asystolic and intubated. He was on CPR ED was continued. The patient was started on Levophed and admitted to ICU. Review of systems is not possible due to the patient's Raegan Coma level of 3. PAST MEDICAL HISTORY: CAD status post CABG, hypertension, hyperlipidemia, diabetes, COPD, asthma. PAST SURGICAL HISTORY: CABG in 2014, status post MD 2011; left toe amputation, diabetic foot ulcer. SOCIAL HISTORY: No tobacco, illicit drug use, quit alcohol after an MD six years ago. The patient is a full code. 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 Pupils are not reactive to light. They are 2 mm. He does not withdraw to pain. He is intubated but not sedated. Reflexes are +1 in upper and lower limbs bilaterally. The patient has spontaneous movement. LABORATORY DATA: As follows: White count 18.6, hemoglobin 8.8, hematocrit 28, platelets 262. Chemistry: The only abnormal thing in the chemistry is BUN and creatinine which is 15 and 2.8, glucose 527, troponin is 174. Urine is positive for protein, glucose and osmolality. Toxicology positive for opioids. 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 I am not finding any brainstem reflex present at this point. RECOMMENDATIONS: EEG for 2 to 24 hours. Prognosis is very poor. Thank you for this interesting consultation. Billie Callaway MD
[2018-09-26] MEDS: Albuterol 0.083% Inhal Sol (2.5 mg/3 mL) UD INH SCH ×4 (02:08→20:47)
[2018-09-26 05:55] LABS: ABG ALLEN TEST POS; ARTERIAL BLOOD GAS HCO3 19.5 mmol/L (21-28); ARTERIAL BLOOD GAS HEMOGLOBIN 10.3 g/dL (11.7-17.4); ARTERIAL BLOOD GAS O2 SAT 99.2 % (95-98); ARTERIAL BLOOD GAS PCO2 24 mm/Hg (35-45); ARTERIAL BLOOD GAS PH 7.43 (7.35-7.45); ARTERIAL BLOOD GAS PO2 199 mm/Hg (80-100); ARTERIAL BLOOD GAS TCO2 16.6 mmol/L (22-28)
[2018-09-26] MEDS: Insulin Human Regular 100 UNIT in Sodium Chloride 0.9% 99 ML IV SCH ×2 (06:00→15:30)
[2018-09-26 06:03] LABS: EOS % 0.1 % (0.0-4.0); HEMOGLOBIN 9.6 g/dL (12.0-18.0); LYMPH # 1.2 K/uL (1.0-4.3); LYMPH % 6.8 % (20.0-40.0); MEAN CELL VOLUME 82.9 fL (80.0-94.0); MEAN CORPUSCULAR HEMOGLOBIN 27.5 pg (27.0-31.0); MEAN CORPUSCULAR HGB CONC 33.2 g/dL (33.0-37.0); MEAN PLATELET VOLUME 8.4 fL (7.2-11.7); MONO # 0.8 K/uL (0.0-0.8); MONO % 4.8 % (0.0-10.0); NEUT # 14.8 K/uL (1.8-7.0); NEUT % 88.3 % (50.0-75.0); PLATELET COUNT 286 K/uL (130-400); RBC 3.49 Mil/uL (4.40-5.90); RED CELL DISTRIBUTION WIDTH 15.8 % (11.5-14.5); WHITE BLOOD COUNT 16.8 K/uL (4.8-10.8)
[2018-09-26 06:57] LABS: ALB/GLOB RATIO 1.2 (1.0-2.1); ALBUMIN 2.9 g/dL (3.5-5.0); CALCIUM 7.9 mg/dl (8.6-10.4)
[2018-09-26] MEDS: Piperacillin/Tazobact 3.375 GM in Sodium Chloride 100 ML IVPB SCH (07:43)
--- NOTE | 2018-09-26 08:11 | CP.PCM.PN ---
Subjective - Date & Time of Evaluation Date of Evaluation: 09/26/18 Time of Evaluation: 08:10 - Subjective Subjective: output 2110 bp stable hypothermic bun 55,creatinine 3.3 k normal glucose better intubated on cooling blanket no response to pain no sedation ROS unable to obtain.unresponsive Objective - Vital Signs/Intake and Output Vital Signs (last 24 hours): Temp Pulse Resp BP Pulse Ox 92.5 F L 69 20 167/97 H 99 09/26/18 07:00 09/26/18 05:00 09/26/18 07:00 09/26/18 07:00 09/25/18 21:00 Intake and Output: 09/26/18 09/26/18 06:59 18:59 Intake Total 1260.1 77 Output Total 1110 60 Balance 150.1 17 - Medications Medications: Current Medications Albuterol Sulfate (Albuterol 0.083% Inhal Alicia (2.5 Mg/3 Ml) Ud) 2.5 mg INH RQ6 FIORDALIZA Last Admin: 09/26/18 02:08 Dose: 2.5 mg Aspirin (Aspirin Chewable) 81 mg PO DAILY [facility] Dextrose (Dextrose 50% Inj) 0 ml IV STAT PRN; Protocol PRN Reason: Hypoglycemia Protocol Dextrose (Glutose 15) 0 gm PO ONCE PRN; Protocol PRN Reason: Hypoglycemia Protocol Famotidine (Pepcid) 20 mg IVP DAILY [facility] Last Admin: 09/25/18 09:48 Dose: 20 mg Glucagon (Glucagen Diagnostic Kit) 0 mg IM STAT PRN; Protocol PRN Reason: Hypoglycemia Protocol Vancomycin HCl 1 gm/ Sodium (Chloride) 250 mls @ 166.7 mls/hr IVPB Q24H FIORDALIZA; Protocol Last Admin: 09/25/18 04:00 Dose: 166.7 mls/hr Norepinephrine Bitartrate 8 mg (/ Sodium Chloride) 258 mls @ 7.74 mls/hr IV .Q24H PRN; Protocol PRN Reason: TITRATE PER MD ORDER Last Titration: 09/25/18 07:00 Dose: 0 mcg/min, 0 mls/hr Insulin Human Regular 100 unit (/ Sodium Chloride) 100 mls @ 5 mls/hr IV .Q20H FIORDALIZA; Protocol Last Titration: 09/26/18 06:19 Dose: 2 units/hr, 2 mls/hr Heparin Sodium/Sodium Chloride (Heparin 73524 Units/250ml 1/2 Normal Saline) 25,000 units in 250 mls @ 15.513 mls/hr IV .Q16H7M PRN; Protocol PRN Reason: PROTOCOL Last Titration: 09/26/18 04:00 Dose: 6.03 units/kg/hr, 7.795 mls/hr Piperacillin Sod/Tazobactam Sod (Zosyn 2.25 Gm Iv Premix) 2.25 gm in 50 mls @ 100 mls/hr IVPB Q8H FIORDALIZA; Protocol Rosuvastatin Calcium (Crestor) 10 mg PO HS FIORDALIZA - Labs Labs: 09/26/18 05:52 09/26/18 05:52 PT 14.7 SECONDS (9.7-12.2) H 09/25/18 18:00 INR 1.3 09/25/18 18:00 APTT 144 SECONDS (21-34) H* 09/26/18 02:50 - Constitutional Appears: No Acute Distress - Head Exam Additional comments: obese,intubated - Respiratory Exam Respiratory Exam: Clear to Ausculation Bilateral - Cardiovascular Exam Cardiovascular Exam: REGULAR RHYTHM - GI/Abdominal Exam GI & Abdominal Exam: Soft. absent: Distended Additional comments: obese - Exam Additional comments: chu in place - Neurological Exam Additional comments: coma - Psychiatric Exam Additional comments: 1-2+ leg edema Assessment and Plan (1) DANUTA (acute kidney injury) Status: Acute (2) CAD (coronary artery disease) Status: Acute (3) Cardiac arrest Status: Acute (4) Coma Status: Acute (5) Metabolic acidosis Status: Acute (6) Uncontrolled diabetes mellitus Status: Acute (7) Acute coronary syndrome Status: Acute - Assessment and Plan (Free Text) Plan: change iv's to bicarb await renal ultrasound check urine chems case discussed with icu team
[2018-09-26] MEDS: Piperacill/Tazo 2.25gm in Dex 2.25 GM/50 ML BAG IVPB SCH ×3 (08:15→23:47)
[2018-09-26 08:21] LABS: ANISOCYTOSIS SLIGHT; BANDS 3 % (0-2); BURR CELLS SLIGHT; HYPOCHROMIC SLIGHT; LYMPHOCYTE 6 % (20-40); MONOCYTE 6 % (0-10); NEUTROPHIL 85 % (50-75); PLATELET ESTIMATE NORMAL (NORMAL); POIKILOCYTOSIS SLIGHT; TOTAL CELLS COUNTED 100
[2018-09-26] MEDS ORDERED: Sodium Bicarbonate 8.4% 75 MEQ in Sodium Chloride 0.45% 925 ML IV SCH (08:30)
[2018-09-26 10:30] LABS: CREATININE, RANDOM URINE 18.6 mg/dL
--- NOTE | 2018-09-26 10:53 | RAD ---
Date of service: 09/26/2018 HISTORY: ETT COMPARISON: 09/25/2018 TECHNIQUE: 1 view obtained. FINDINGS: LUNGS: Examination limited due to overlying cooling blanket and resulting radiopaque artifact. In addition, there is a cardiac monitoring device obscuring the left lung base. No infiltrate identified. PLEURA: No significant pleural effusion identified, no pneumothorax apparent. CARDIOVASCULAR: No aortic atherosclerotic calcification present. ETT, and left IJ central venous catheter are unchanged. Sternotomy wires noted. Status post CABG. No pulmonary vascular congestion. OSSEOUS STRUCTURES: No significant abnormalities. VISUALIZED UPPER ABDOMEN: Normal. OTHER FINDINGS: None. IMPRESSION: Limited examination. No acute infiltrate.
--- NOTE | 2018-09-26 11:04 | US ---
Date of service: 09/25/2018 PROCEDURE: Ultrasound of the Kidneys HISTORY: DANUTA COMPARISON: None available. TECHNIQUE: Sonogram of the kidneys. FINDINGS: RIGHT KIDNEY: Measures: 10.2 x 6.1 x 4.9 cm. No hydronephrosis or obstructing calculus identified. LEFT KIDNEY: Measures: 11.2 x 5.8 x 5.7 cm. No hydronephrosis or obstructing calculus identified. OTHER FINDINGS: Barreto catheter within decompressed urinary bladder. IMPRESSION: No hydronephrosis or obstructing calculus identified. Barreto catheter within decompressed urinary bladder. Preliminary impression was provided by [facility].
--- NOTE | 2018-09-26 11:37 | CP.CCUPN ---
<Marshal Gale - Last Filed: 09/26/18 11:27> CCU Subjective - Physician Review Events Since Last Encounter (Free Text): 09/26/18 11:38 Patient seen and examined at bedside. S/p cardiac arrest. Patient intubated, no acute changes from overnight. CCU Objective - Vital Signs / Intake & Output Vital Signs (Last 4 hours): Vital Signs Temp Resp BP 09/26/18 11:00 93.7 F L 20 149/83 09/26/18 10:30 93.4 F L 20 150/85 09/26/18 10:00 94 F L 20 141/79 09/26/18 09:30 93.5 F L 20 133/73 09/26/18 08:30 93 F L 20 149/90 09/26/18 08:00 93.2 F L 20 153/94 H 09/26/18 07:30 93.3 F L 20 156/90 H Intake and Output (Last 8hrs): Intake & Output 09/25/18 09/26/18 09/26/18 22:59 06:59 14:59 Intake Total 1002.7 858.4 580.7 Output Total 780 730 310 Balance 222.7 128.4 270.7 Intake: IV 175 171 2 Intake, IV Amount 827.7 687.4 578.7 Left Antecubital 23.2 46.4 0 Right Antecubital 0 0 31.2 Right Distal Port 62 16 18 Internal Jugular Right Medial Port 77.5 0 0 Internal Jugular Right Proximal Port 665 625 529.5 Internal Jugular Output: Urine 780 730 310 Urethral ([place]) 780 730 310 - Physical Exam Head: Positive for: Atraumatic, Normocephalic Pupils: Positive for: Sluggish Extroacular Muscles: Negative for: Gaze Palsy Mouth: Positive for: Dry Respiratory/Chest: Positive for: Rales (BL bases). Negative for: Accessory Muscle Use Cardiovascular: Positive for: Regular Rate and Rhythm. Negative for: Murmurs Abdomen: Positive for: Distention. Negative for: Guarding Upper Extremity: Positive for: Normal Inspection Lower Extremity: Positive for: Edema (+! BL) Neurological: Negative for: GCS=15, CN II-XII Intact Skin: Positive for: Warm Psychiatric: Negative for: Alert (GCS 3) - Medications Active Medications: Active Medications Generic Name Dose Route Start Last Admin Trade Name Freq PRN Reason Stop Dose Admin Albuterol Sulfate 2.5 mg 09/25/18 14:00 09/26/18 08:30 Albuterol 0.083% Inhal Alicia (2.5 Mg/3 Ml) Ud INH 2.5 mg RQ6 FIORDALIZA Administration Aspirin 81 mg 09/26/18 10:00 09/26/18 09:23 Aspirin Chewable PO 81 mg DAILY FIORDALIZA Administration Dextrose 0 ml 09/25/18 09:13 Dextrose 50% Inj IV STAT PRN Hypoglycemia Protocol Protocol Dextrose 0 gm 09/25/18 09:13 Glutose 15 PO ONCE PRN Hypoglycemia Protocol Protocol Famotidine 20 mg 09/25/18 10:00 09/26/18 09:23 Pepcid IVP 20 mg DAILY FIORDALIZA Administration Glucagon 0 mg 09/25/18 09:13 Glucagen Diagnostic Kit IM STAT PRN Hypoglycemia Protocol Protocol Insulin Human Regular 100 unit 100 mls @ 5 mls/hr 09/25/18 09:08 09/26/18 08:00 / Sodium Chloride IV 4 units/hr .Q20H FIORDALIZA 4 mls/hr Titration Protocol 5 UNITS/HR Heparin Sodium/Sodium Chloride 25,000 units in 250 mls @ 15.513 mls/hr 09/25/18 09:19 09/26/18 04:00 Heparin 49740 Units/250ml 1/2 Normal Saline IV 6.03 units/kg/hr .Q16H7M PRN 7.795 mls/hr PROTOCOL Titration Protocol 12 UNITS/KG/HR Piperacillin Sod/Tazobactam Sod 2.25 gm in 50 mls @ 100 mls/hr 09/26/18 08:00 09/26/18 08:15 Zosyn 2.25 Gm Iv Premix IVPB Not Given Q8H FIORDALIZA Protocol Vancomycin HCl 1 gm/ Sodium 250 mls @ 166.7 mls/hr 09/26/18 10:15 09/26/18 11:07 Chloride IVPB 09/26/18 11:44 166.7 mls/hr STAT STA Administration Protocol Sodium Chloride 1,000 mls @ 100 mls/hr 09/26/18 10:45 Sodium Chloride 0.9% IV .Q10H FIORDALIZA Rosuvastatin Calcium 10 mg 09/26/18 22:00 Crestor PO HS FIORDALIZA - Patient Studies Lab Studies: Microbiology Studies 09/25/18 06:51 MRSA Culture (Admit) - Final Nose MRSA NOT DETECTED 09/25/18 01:47 Urine Culture - Final Urine Random No Growth (<1,000 CFU/ML) 09/25/18 06:42 Blood Culture - Preliminary Blood NO GROWTH AFTER 24 HOURS 09/25/18 06:41 Blood Culture - Preliminary Blood NO GROWTH AFTER 24 HOURS Lab Studies 09/26/18 09/26/18 09/26/18 Range/Units 10:04 10:04 05:52 WBC (4.8-10.8) K/uL RBC (4.40-5.90) Mil/uL Hgb (12.0-18.0) g/dL Hct (35.0-51.0) % MCV (80.0-94.0) fL MCH (27.0-31.0) pg MCHC (33.0-37.0) g/dL RDW (11.5-14.5) % Plt Count (130-400) K/uL MPV (7.2-11.7) fL Neut % (Auto) (50.0-75.0) % Lymph % (Auto) (20.0-40.0) % Taylor % (Auto) (0.0-10.0) % Eos % (Auto) (0.0-4.0) % Baso % (Auto) (0.0-2.0) % Neut # (Auto) (1.8-7.0) K/uL Lymph # (Auto) (1.0-4.3) K/uL Taylor # (Auto) (0.0-0.8) K/uL Eos # (Auto) (0.0-0.7) K/uL Baso # (Auto) (0.0-0.2) K/uL Neutrophils % (Manual) (50-75) % Band Neutrophils % (0-2) % Lymphocytes % (Manual) (20-40) % Monocytes % (Manual) (0-10) % Hypersegmented Polys Smudge Cells Platelet Estimate (NORMAL) Large Platelets Hypochromasia (manual) Poikilocytosis (manual Anisocytosis (manual) Spherocytes Target Cells Cushing Cells PT (9.7-12.2) SECONDS INR APTT 64 H D (21-34) SECONDS Puncture Site pCO2 (35-45) mm/Hg pO2 (80-100) mm/Hg HCO3 (21-28) mmol/L ABG pH (7.35-7.45) ABG Total CO2 (22-28) mmol/L ABG O2 Saturation (95-98) % ABG Base Excess (-2.0-3.0) mmol/L ABG Hemoglobin (11.7-17.4) g/dL ABG Carboxyhemoglobin (0.5-1.5) % POC ABG HHb (Measured) (0.0-5.0) % ABG Methemoglobin (0.0-3.0) % Seth Test A-a O2 Difference mm/Hg Respiratory Index Hgb O2 Saturation (95.0-98.0) % Vent Mode Mechanical Rate FiO2 % Tidal Volume PEEP Sodium 137 (132-148) mmol/L Potassium 4.9 (3.6-5.2) mmol/L Chloride 109 H (98-107) mmol/L Carbon Dioxide 19 L (22-30) mmol/L Anion Gap 13 (10-20) BUN 55 H (9-20) mg/dL Creatinine 3.3 H (0.8-1.5) mg/dL Est GFR ( Amer) 23 Est GFR (Non-Af Amer) 19 Random Glucose 166 H D (75-110) mg/dL Lactic Acid (0.7-2.1) mmol/L Calcium 7.9 L (8.6-10.4) mg/dl Phosphorus 2.4 L (2.5-4.5) mg/dL Magnesium 2.0 (1.6-2.3) mg/dL Total Bilirubin 0.5 (0.2-1.3) mg/dL AST 953 H D (17-59) U/L ALT 1250 H (21-72) U/L Alkaline Phosphatase 163 H (38-126) U/L Total Creatine Kinase (55-170) U/L CK-MB (Mass) (0.0-3.38) ng/mL Troponin I 158.0000 H* (0.00-0.120) ng/mL Total Protein 5.4 L (6.3-8.3) g/dL Albumin 2.9 L (3.5-5.0) g/dL Globulin 2.5 (2.2-3.9) gm/dL Albumin/Globulin Ratio 1.2 (1.0-2.1) Urine Osmolality (300-1000) mosm/kg Ur Random Creatinine 18.6 mg/dL U Random Total Protein 51.0 H (0.0-12.0) mg/dL Ur Random Sodium 55 mmol/L Ur Random Potassium mmol/L Random Vancomycin ug/mL 09/26/18 09/26/18 09/26/18 Range/Units 05:52 05:52 05:21 WBC 16.8 H (4.8-10.8) K/uL RBC 3.49 L (4.40-5.90) Mil/uL Hgb 9.6 L (12.0-18.0) g/dL Hct 28.9 L (35.0-51.0) % MCV 82.9 (80.0-94.0) fL MCH 27.5 (27.0-31.0) pg MCHC 33.2 (33.0-37.0) g/dL RDW 15.8 H (11.5-14.5) % Plt Count 286 (130-400) K/uL MPV 8.4 (7.2-11.7) fL Neut % (Auto) 88.3 H (50.0-75.0) % Lymph % (Auto) 6.8 L (20.0-40.0) % Taylor % (Auto) 4.8 (0.0-10.0) % Eos % (Auto) 0.1 (0.0-4.0) % Baso % (Auto) 0.0 (0.0-2.0) % Neut # (Auto) 14.8 H (1.8-7.0) K/uL Lymph # (Auto) 1.2 (1.0-4.3) K/uL Taylor # (Auto) 0.8 (0.0-0.8) K/uL Eos # (Auto) 0.0 (0.0-0.7) K/uL Baso # (Auto) 0.0 (0.0-0.2) K/uL Neutrophils % (Manual) 85 H (50-75) % Band Neutrophils % 3 H (0-2) % Lymphocytes % (Manual) 6 L (20-40) % Monocytes % (Manual) 6 (0-10) % Hypersegmented Polys Smudge Cells Platelet Estimate Normal (NORMAL) Large Platelets Hypochromasia (manual) Slight Poikilocytosis (manual Slight Anisocytosis (manual) Slight Spherocytes Target Cells Zulema Cells Slight PT (9.7-12.2) SECONDS INR APTT (21-34) SECONDS Puncture Site Rr pCO2 24 L (35-45) mm/Hg pO2 199 H (80-100) mm/Hg HCO3 19.5 L (21-28) mmol/L ABG pH 7.43 (7.35-7.45) ABG Total CO2 16.6 L (22-28) mmol/L ABG O2 Saturation 99.2 H (95-98) % ABG Base Excess -7.0 L (-2.0-3.0) mmol/L ABG Hemoglobin 10.3 L (11.7-17.4) g/dL ABG Carboxyhemoglobin 0.9 (0.5-1.5) % POC ABG HHb (Measured) 0.8 (0.0-5.0) % ABG Methemoglobin 0.7 (0.0-3.0) % Seth Test Pos A-a O2 Difference 270.0 mm/Hg Respiratory Index 1.4 Hgb O2 Saturation 97.5 (95.0-98.0) % Vent Mode Prvc Mechanical Rate 20 FiO2 70.0 % Tidal Volume 500 PEEP 5 Sodium (132-148) mmol/L Potassium (3.6-5.2) mmol/L Chloride (98-107) mmol/L Carbon Dioxide (22-30) mmol/L Anion Gap (10-20) BUN (9-20) mg/dL Creatinine (0.8-1.5) mg/dL Est GFR ( Amer) Est GFR (Non-Af Amer) Random Glucose (75-110) mg/dL Lactic Acid (0.7-2.1) mmol/L Calcium (8.6-10.4) mg/dl Phosphorus (2.5-4.5) mg/dL Magnesium (1.6-2.3) mg/dL Total Bilirubin (0.2-1.3) mg/dL AST (17-59) U/L ALT (21-72) U/L Alkaline Phosphatase (38-126) U/L Total Creatine Kinase (55-170) U/L CK-MB (Mass) (0.0-3.38) ng/mL Troponin I (0.00-0.120) ng/mL Total Protein (6.3-8.3) g/dL Albumin (3.5-5.0) g/dL Globulin (2.2-3.9) gm/dL Albumin/Globulin Ratio (1.0-2.1) Urine Osmolality (300-1000) mosm/kg Ur Random Creatinine mg/dL U Random Total Protein (0.0-12.0) mg/dL Ur Random Sodium mmol/L Ur Random Potassium mmol/L Random Vancomycin 8.8 ug/mL 09/26/18 09/25/18 09/25/18 Range/Units 02:50 18:00 18:00 WBC 18.1 H (4.8-10.8) K/uL RBC 3.47 L (4.40-5.90) Mil/uL Hgb 9.2 L (12.0-18.0) g/dL Hct 28.8 L (35.0-51.0) % MCV 83.1 (80.0-94.0) fL MCH 26.7 L (27.0-31.0) pg MCHC 32.1 L (33.0-37.0) g/dL RDW 15.6 H (11.5-14.5) % Plt Count 267 (130-400) K/uL MPV 8.1 (7.2-11.7) fL Neut % (Auto) 92.1 H (50.0-75.0) % Lymph % (Auto) 3.1 L (20.0-40.0) % Taylor % (Auto) 4.6 (0.0-10.0) % Eos % (Auto) 0.0 (0.0-4.0) % Baso % (Auto) 0.2 (0.0-2.0) % Neut # (Auto) 16.7 H (1.8-7.0) K/uL Lymph # (Auto) 0.6 L (1.0-4.3) K/uL Taylor # (Auto) 0.8 (0.0-0.8) K/uL Eos # (Auto) 0.0 (0.0-0.7) K/uL Baso # (Auto) 0.0 (0.0-0.2) K/uL Neutrophils % (Manual) 82 H (50-75) % Band Neutrophils % 9 H (0-2) % Lymphocytes % (Manual) 4 L (20-40) % Monocytes % (Manual) 5 (0-10) % Hypersegmented Polys Present Smudge Cells Present Platelet Estimate Normal (NORMAL) Large Platelets Present Hypochromasia (manual) Slight Poikilocytosis (manual Slight Anisocytosis (manual) Slight Spherocytes Slight Target Cells Cushing Cells PT 14.7 H (9.7-12.2) SECONDS INR 1.3 APTT 144 H* 150 H* D (21-34) SECONDS Puncture Site pCO2 (35-45) mm/Hg pO2 (80-100) mm/Hg HCO3 (21-28) mmol/L ABG pH (7.35-7.45) ABG Total CO2 (22-28) mmol/L ABG O2 Saturation (95-98) % ABG Base Excess (-2.0-3.0) mmol/L ABG Hemoglobin (11.7-17.4) g/dL ABG Carboxyhemoglobin (0.5-1.5) % POC ABG HHb (Measured) (0.0-5.0) % ABG Methemoglobin (0.0-3.0) % Seth Test A-a O2 Difference mm/Hg Respiratory Index Hgb O2 Saturation (95.0-98.0) % Vent Mode Mechanical Rate FiO2 % Tidal Volume PEEP Sodium (132-148) mmol/L Potassium (3.6-5.2) mmol/L Chloride (98-107) mmol/L Carbon Dioxide (22-30) mmol/L Anion Gap (10-20) BUN (9-20) mg/dL Creatinine (0.8-1.5) mg/dL Est GFR ( Amer) Est GFR (Non-Af Amer) Random Glucose (75-110) mg/dL Lactic Acid (0.7-2.1) mmol/L Calcium (8.6-10.4) mg/dl Phosphorus (2.5-4.5) mg/dL Magnesium (1.6-2.3) mg/dL Total Bilirubin (0.2-1.3) mg/dL AST (17-59) U/L ALT (21-72) U/L Alkaline Phosphatase (38-126) U/L Total Creatine Kinase (55-170) U/L CK-MB (Mass) (0.0-3.38) ng/mL Troponin I (0.00-0.120) ng/mL Total Protein (6.3-8.3) g/dL Albumin (3.5-5.0) g/dL Globulin (2.2-3.9) gm/dL Albumin/Globulin Ratio (1.0-2.1) Urine Osmolality (300-1000) mosm/kg Ur Random Creatinine mg/dL U Random Total Protein (0.0-12.0) mg/dL Ur Random Sodium mmol/L Ur Random Potassium mmol/L Random Vancomycin ug/mL 09/25/18 09/25/18 09/25/18 Range/Units 18:00 13:50 11:15 WBC (4.8-10.8) K/uL RBC (4.40-5.90) Mil/uL Hgb (12.0-18.0) g/dL Hct (35.0-51.0) % MCV (80.0-94.0) fL MCH (27.0-31.0) pg MCHC (33.0-37.0) g/dL RDW (11.5-14.5) % Plt Count (130-400) K/uL MPV (7.2-11.7) fL Neut % (Auto) (50.0-75.0) % Lymph % (Auto) (20.0-40.0) % Taylor % (Auto) (0.0-10.0) % Eos % (Auto) (0.0-4.0) % Baso % (Auto) (0.0-2.0) % Neut # (Auto) (1.8-7.0) K/uL Lymph # (Auto) (1.0-4.3) K/uL Taylor # (Auto) (0.0-0.8) K/uL Eos # (Auto) (0.0-0.7) K/uL Baso # (Auto) (0.0-0.2) K/uL Neutrophils % (Manual) (50-75) % Band Neutrophils % (0-2) % Lymphocytes % (Manual) (20-40) % Monocytes % (Manual) (0-10) % Hypersegmented Polys Smudge Cells Platelet Estimate (NORMAL) Large Platelets Hypochromasia (manual) Poikilocytosis (manual Anisocytosis (manual) Spherocytes Target Cells Cushing Cells PT (9.7-12.2) SECONDS INR APTT (21-34) SECONDS Puncture Site pCO2 (35-45) mm/Hg pO2 (80-100) mm/Hg HCO3 (21-28) mmol/L ABG pH (7.35-7.45) ABG Total CO2 (22-28) mmol/L ABG O2 Saturation (95-98) % ABG Base Excess (-2.0-3.0) mmol/L ABG Hemoglobin (11.7-17.4) g/dL ABG Carboxyhemoglobin (0.5-1.5) % POC ABG HHb (Measured) (0.0-5.0) % ABG Methemoglobin (0.0-3.0) % Seth Test A-a O2 Difference mm/Hg Respiratory Index Hgb O2 Saturation (95.0-98.0) % Vent Mode Mechanical Rate FiO2 % Tidal Volume PEEP Sodium 135 132 (132-148) mmol/L Potassium 3.9 4.2 (3.6-5.2) mmol/L Chloride 109 H 105 (98-107) mmol/L Carbon Dioxide 19 L 20 L (22-30) mmol/L Anion Gap 11 12 (10-20) BUN 55 H 50 H (9-20) mg/dL Creatinine 3.0 H 2.8 H (0.8-1.5) mg/dL Est GFR ( Amer) 26 28 Est GFR (Non-Af Amer) 21 23 Random Glucose 336 H D 527 H* (75-110) mg/dL Lactic Acid (0.7-2.1) mmol/L Calcium 8.0 L 7.6 L (8.6-10.4) mg/dl Phosphorus 1.6 L 1.5 L (2.5-4.5) mg/dL Magnesium 2.2 1.9 (1.6-2.3) mg/dL Total Bilirubin 0.5 (0.2-1.3) mg/dL AST 1489 H (17-59) U/L ALT 1380 H (21-72) U/L Alkaline Phosphatase 170 H (38-126) U/L Total Creatine Kinase 1137 H (55-170) U/L CK-MB (Mass) 142 H (0.0-3.38) ng/mL Troponin I 221.0000 H* 174.0000 H* (0.00-0.120) ng/mL Total Protein 4.9 L (6.3-8.3) g/dL Albumin 2.7 L (3.5-5.0) g/dL Globulin 2.2 (2.2-3.9) gm/dL Albumin/Globulin Ratio 1.2 (1.0-2.1) Urine Osmolality 220 L (300-1000) mosm/kg Ur Random Creatinine mg/dL U Random Total Protein (0.0-12.0) mg/dL Ur Random Sodium 65 mmol/L Ur Random Potassium 10.5 mmol/L Random Vancomycin ug/mL 09/25/18 09/25/18 Range/Units 11:15 11:15 WBC 18.6 H (4.8-10.8) K/uL RBC 3.32 L (4.40-5.90) Mil/uL Hgb 8.8 L (12.0-18.0) g/dL Hct 28.0 L (35.0-51.0) % MCV 84.1 D (80.0-94.0) fL MCH 26.5 L (27.0-31.0) pg MCHC 31.5 L (33.0-37.0) g/dL RDW 15.8 H (11.5-14.5) % Plt Count 262 (130-400) K/uL MPV 8.1 (7.2-11.7) fL Neut % (Auto) 93.6 H (50.0-75.0) % Lymph % (Auto) 2.4 L (20.0-40.0) % Taylor % (Auto) 3.7 (0.0-10.0) % Eos % (Auto) 0.1 (0.0-4.0) % Baso % (Auto) 0.2 (0.0-2.0) % Neut # (Auto) 17.4 H (1.8-7.0) K/uL Lymph # (Auto) 0.4 L (1.0-4.3) K/uL Taylor # (Auto) 0.7 (0.0-0.8) K/uL Eos # (Auto) 0.0 (0.0-0.7) K/uL Baso # (Auto) 0.0 (0.0-0.2) K/uL Neutrophils % (Manual) 86 H (50-75) % Band Neutrophils % 5 H (0-2) % Lymphocytes % (Manual) 6 L (20-40) % Monocytes % (Manual) 3 (0-10) % Hypersegmented Polys Smudge Cells Platelet Estimate Normal (NORMAL) Large Platelets Hypochromasia (manual) Slight Poikilocytosis (manual Slight Anisocytosis (manual) Slight Spherocytes Target Cells Slight Cushing Cells Slight PT (9.7-12.2) SECONDS INR APTT (21-34) SECONDS Puncture Site pCO2 (35-45) mm/Hg pO2 (80-100) mm/Hg HCO3 (21-28) mmol/L ABG pH (7.35-7.45) ABG Total CO2 (22-28) mmol/L ABG O2 Saturation (95-98) % ABG Base Excess (-2.0-3.0) mmol/L ABG Hemoglobin (11.7-17.4) g/dL ABG Carboxyhemoglobin (0.5-1.5) % POC ABG HHb (Measured) (0.0-5.0) % ABG Methemoglobin (0.0-3.0) % Seth Test A-a O2 Difference mm/Hg Respiratory Index Hgb O2 Saturation (95.0-98.0) % Vent Mode Mechanical Rate FiO2 % Tidal Volume PEEP Sodium (132-148) mmol/L Potassium (3.6-5.2) mmol/L Chloride (98-107) mmol/L Carbon Dioxide (22-30) mmol/L Anion Gap (10-20) BUN (9-20) mg/dL Creatinine (0.8-1.5) mg/dL Est GFR ( Amer) Est GFR (Non-Af Amer) Random Glucose (75-110) mg/dL Lactic Acid 3.1 H (0.7-2.1) mmol/L Calcium (8.6-10.4) mg/dl Phosphorus (2.5-4.5) mg/dL Magnesium (1.6-2.3) mg/dL Total Bilirubin (0.2-1.3) mg/dL AST (17-59) U/L ALT (21-72) U/L Alkaline Phosphatase (38-126) U/L Total Creatine Kinase (55-170) U/L CK-MB (Mass) (0.0-3.38) ng/mL Troponin I (0.00-0.120) ng/mL Total Protein (6.3-8.3) g/dL Albumin (3.5-5.0) g/dL Globulin (2.2-3.9) gm/dL Albumin/Globulin Ratio (1.0-2.1) Urine Osmolality (300-1000) mosm/kg Ur Random Creatinine mg/dL U Random Total Protein (0.0-12.0) mg/dL Ur Random Sodium mmol/L Ur Random Potassium mmol/L Random Vancomycin ug/mL Laboratory Results - last 24 hr 09/25/18 09/25/18 09/25/18 11:15 11:15 11:15 WBC 18.6 H RBC 3.32 L Hgb 8.8 L Hct 28.0 L MCV 84.1 D MCH 26.5 L MCHC 31.5 L RDW 15.8 H Plt Count 262 MPV 8.1 Neut % (Auto) 93.6 H Lymph % (Auto) 2.4 L Taylor % (Auto) 3.7 Eos % (Auto) 0.1 Baso % (Auto) 0.2 Neut # (Auto) 17.4 H Lymph # (Auto) 0.4 L Taylor # (Auto) 0.7 Eos # (Auto) 0.0 Baso # (Auto) 0.0 Neutrophils % (Manual) 86 H Band Neutrophils % 5 H Lymphocytes % (Manual) 6 L Monocytes % (Manual) 3 Hypersegmented Polys Smudge Cells Platelet Estimate Normal Large Platelets Hypochromasia (manual) Slight Poikilocytosis (manual Slight Anisocytosis (manual) Slight Spherocytes Target Cells Slight Zulema Cells Slight PT INR APTT Puncture Site pCO2 pO2 HCO3 ABG pH ABG Total CO2 ABG O2 Saturation ABG Base Excess ABG Hemoglobin ABG Carboxyhemoglobin POC ABG HHb (Measured) ABG Methemoglobin Seth Test A-a O2 Difference Respiratory Index Hgb O2 Saturation Vent Mode Mechanical Rate FiO2 Tidal Volume PEEP Sodium 132 Potassium 4.2 Chloride 105 Carbon Dioxide 20 L Anion Gap 12 BUN 50 H Creatinine 2.8 H Est GFR ( Amer) 28 Est GFR (Non-Af Amer) 23 Random Glucose 527 H* Lactic Acid 3.1 H Calcium 7.6 L Phosphorus 1.5 L Magnesium 1.9 Total Bilirubin 0.5 AST 1489 H ALT 1380 H Alkaline Phosphatase 170 H Total Creatine Kinase CK-MB (Mass) Troponin I 174.0000 H* Total Protein 4.9 L Albumin 2.7 L Globulin 2.2 Albumin/Globulin Ratio 1.2 Urine Osmolality Ur Random Creatinine U Random Total Protein Ur Random Sodium Ur Random Potassium Random Vancomycin 09/25/18 09/25/18 09/25/18 13:50 18:00 18:00 WBC 18.1 H RBC 3.47 L Hgb 9.2 L Hct 28.8 L MCV 83.1 MCH 26.7 L MCHC 32.1 L RDW 15.6 H Plt Count 267 MPV 8.1 Neut % (Auto) 92.1 H Lymph % (Auto) 3.1 L Taylor % (Auto) 4.6 Eos % (Auto) 0.0 Baso % (Auto) 0.2 Neut # (Auto) 16.7 H Lymph # (Auto) 0.6 L Taylor # (Auto) 0.8 Eos # (Auto) 0.0 Baso # (Auto) 0.0 Neutrophils % (Manual) 82 H Band Neutrophils % 9 H Lymphocytes % (Manual) 4 L Monocytes % (Manual) 5 Hypersegmented Polys Present Smudge Cells Present Platelet Estimate Normal Large Platelets Present Hypochromasia (manual) Slight Poikilocytosis (manual Slight Anisocytosis (manual) Slight Spherocytes Slight Target Cells Cushing Cells PT INR APTT Puncture Site pCO2 pO2 HCO3 ABG pH ABG Total CO2 ABG O2 Saturation ABG Base Excess ABG Hemoglobin ABG Carboxyhemoglobin POC ABG HHb (Measured) ABG Methemoglobin Seth Test A-a O2 Difference Respiratory Index Hgb O2 Saturation Vent Mode Mechanical Rate FiO2 Tidal Volume PEEP Sodium 135 Potassium 3.9 Chloride 109 H Carbon Dioxide 19 L Anion Gap 11 BUN 55 H Creatinine 3.0 H Est GFR ( Amer) 26 Est GFR (Non-Af Amer) 21 Random Glucose 336 H D Lactic Acid Calcium 8.0 L Phosphorus 1.6 L Magnesium 2.2 Total Bilirubin AST ALT Alkaline Phosphatase Total Creatine Kinase 1137 H CK-MB (Mass) 142 H Troponin I 221.0000 H* Total Protein Albumin Globulin Albumin/Globulin Ratio Urine Osmolality 220 L Ur Random Creatinine U Random Total Protein Ur Random Sodium 65 Ur Random Potassium 10.5 Random Vancomycin 09/25/18 09/26/18 09/26/18 18:00 02:50 05:21 WBC RBC Hgb Hct MCV MCH MCHC RDW Plt Count MPV Neut % (Auto) Lymph % (Auto) Taylor % (Auto) Eos % (Auto) Baso % (Auto) Neut # (Auto) Lymph # (Auto) Taylor # (Auto) Eos # (Auto) Baso # (Auto) Neutrophils % (Manual) Band Neutrophils % Lymphocytes % (Manual) Monocytes % (Manual) Hypersegmented Polys Smudge Cells Platelet Estimate Large Platelets Hypochromasia (manual) Poikilocytosis (manual Anisocytosis (manual) Spherocytes Target Cells Cushing Cells PT 14.7 H INR 1.3 APTT 150 H* D 144 H* Puncture Site Rr pCO2 24 L pO2 199 H HCO3 19.5 L ABG pH 7.43 ABG Total CO2 16.6 L ABG O2 Saturation 99.2 H ABG Base Excess -7.0 L ABG Hemoglobin 10.3 L ABG Carboxyhemoglobin 0.9 POC ABG HHb (Measured) 0.8 ABG Methemoglobin 0.7 Seth Test Pos A-a O2 Difference 270.0 Respiratory Index 1.4 Hgb O2 Saturation 97.5 Vent Mode Prvc Mechanical Rate 20 FiO2 70.0 Tidal Volume 500 PEEP 5 Sodium Potassium Chloride Carbon Dioxide Anion Gap BUN Creatinine Est GFR ( Amer) Est GFR (Non-Af Amer) Random Glucose Lactic Acid Calcium Phosphorus Magnesium Total Bilirubin AST ALT Alkaline Phosphatase Total Creatine Kinase CK-MB (Mass) Troponin I Total Protein Albumin Globulin Albumin/Globulin Ratio Urine Osmolality Ur Random Creatinine U Random Total Protein Ur Random Sodium Ur Random Potassium Random Vancomycin 09/26/18 09/26/18 09/26/18 05:52 05:52 05:52 WBC 16.8 H RBC 3.49 L Hgb 9.6 L Hct 28.9 L MCV 82.9 MCH 27.5 MCHC 33.2 RDW 15.8 H Plt Count 286 MPV 8.4 Neut % (Auto) 88.3 H Lymph % (Auto) 6.8 L Taylor % (Auto) 4.8 Eos % (Auto) 0.1 Baso % (Auto) 0.0 Neut # (Auto) 14.8 H Lymph # (Auto) 1.2 Taylor # (Auto) 0.8 Eos # (Auto) 0.0 Baso # (Auto) 0.0 Neutrophils % (Manual) 85 H Band Neutrophils % 3 H Lymphocytes % (Manual) 6 L Monocytes % (Manual) 6 Hypersegmented Polys Smudge Cells Platelet Estimate Normal Large Platelets Hypochromasia (manual) Slight Poikilocytosis (manual Slight Anisocytosis (manual) Slight Spherocytes Target Cells Zulema Cells Slight PT INR APTT Puncture Site pCO2 pO2 HCO3 ABG pH ABG Total CO2 ABG O2 Saturation ABG Base Excess ABG Hemoglobin ABG Carboxyhemoglobin POC ABG HHb (Measured) ABG Methemoglobin Seth Test A-a O2 Difference Respiratory Index Hgb O2 Saturation Vent Mode Mechanical Rate FiO2 Tidal Volume PEEP Sodium 137 Potassium 4.9 Chloride 109 H Carbon Dioxide 19 L Anion Gap 13 BUN 55 H Creatinine 3.3 H Est GFR ( Amer) 23 Est GFR (Non-Af Amer) 19 Random Glucose 166 H D Lactic Acid Calcium 7.9 L Phosphorus 2.4 L Magnesium 2.0 Total Bilirubin 0.5 AST 953 H D ALT 1250 H Alkaline Phosphatase 163 H Total Creatine Kinase CK-MB (Mass) Troponin I 158.0000 H* Total Protein 5.4 L Albumin 2.9 L Globulin 2.5 Albumin/Globulin Ratio 1.2 Urine Osmolality Ur Random Creatinine U Random Total Protein Ur Random Sodium Ur Random Potassium Random Vancomycin 8.8 09/26/18 09/26/18 10:04 10:04 WBC RBC Hgb Hct MCV MCH MCHC RDW Plt Count MPV Neut % (Auto) Lymph % (Auto) Taylor % (Auto) Eos % (Auto) Baso % (Auto) Neut # (Auto) Lymph # (Auto) Taylor # (Auto) Eos # (Auto) Baso # (Auto) Neutrophils % (Manual) Band Neutrophils % Lymphocytes % (Manual) Monocytes % (Manual) Hypersegmented Polys Smudge Cells Platelet Estimate Large Platelets Hypochromasia (manual) Poikilocytosis (manual Anisocytosis (manual) Spherocytes Target Cells Cushing Cells PT INR APTT 64 H D Puncture Site pCO2 pO2 HCO3 ABG pH ABG Total CO2 ABG O2 Saturation ABG Base Excess ABG Hemoglobin ABG Carboxyhemoglobin POC ABG HHb (Measured) ABG Methemoglobin Seth Test A-a O2 Difference Respiratory Index Hgb O2 Saturation Vent Mode Mechanical Rate FiO2 Tidal Volume PEEP Sodium Potassium Chloride Carbon Dioxide Anion Gap BUN Creatinine Est GFR ( Amer) Est GFR (Non-Af Amer) Random Glucose Lactic Acid Calcium Phosphorus Magnesium Total Bilirubin AST ALT Alkaline Phosphatase Total Creatine Kinase CK-MB (Mass) Troponin I Total Protein Albumin Globulin Albumin/Globulin Ratio Urine Osmolality Ur Random Creatinine 18.6 U Random Total Protein 51.0 H Ur Random Sodium 55 Ur Random Potassium Random Vancomycin Radiology Impressions: Radiology Impressions Chest X-Ray 09/25/18 00:46 IMPRESSION: Satisfactory position support apparatus. Cardiomegaly without acute cardiopulmonary abnormalities. Head CT 09/25/18 01:56 IMPRESSION: Interval pattern most compatible with an os thickened cephalopathy. Further clinical correlation advised. No intracranial hemorrhage. Basilar cisterns remain patent though slightly diminished in volume. Concordant preliminary report from [facility], 09/25/2018, 3:33 a.m.. Chest X-Ray 09/25/18 03:03 IMPRESSION: Satisfactory position of recently placed triple-lumen catheter. No pneumothorax following catheter placement. No interval change in endotracheal tube or nasogastric tube position. Bladder Ultrasound 09/25/18 13:02 IMPRESSION: No hydronephrosis or obstructing calculus identified. Abrreto catheter within decompressed urinary bladder. Preliminary impression was provided by MATT Garcia. Chest X-Ray 09/26/18 06:00 IMPRESSION: Limited examination. No acute infiltrate. EKG/Cardiology Studies: Cardiology / EKG Studies 09/26/18 06:02 EKG [ELECTROCARDIOGRAM] Routine Comment: Mode Of Transportation: Reason For Exam: OR 09/27/18 01:45 ELECTROCARDIOGRAM DAILY Comment: Mode Of Transportation: PORTABLE Reason For Exam: wi 09/28/18 01:45 ELECTROCARDIOGRAM DAILY Comment: Mode Of Transportation: PORTABLE Reason For Exam: wi Fingerstick Blood Sugar Results: 202 Review of Systems - Review of Systems All systems: reviewed and no additional remarkable complaints except Critical Care Progress Note - Nutrition Nutrition: Nutrition Category Date Time Status NPO Diet [DIET] Diets 09/25/18 Breakfast Active Assessment/Plan - Assessment and Plan (Free Text) Assessment: Pt is a 63 y/o male with hx of CAD s/p CABG in 2012, HTN, DM, HLD, and recently discharge from [facility] for unclear reason (LE Vascular procedure/study?) admitted to ICU s/p cardiac arrest in ED. Prior to ED arrival, pt was noted to be unresponsive by family and he was found by EMS to be in PEA. Resuscitation via ACLS protocol was initiated and pt was intubated on the field. ROSC was achieved but on arrival to ED, pt had cardiac arrest for which CPR was initiated and he received 5 xEpi, Calcium Gluconate x3, Kayexalate x1, Bicarb x1, and 3L of NS. ROSC was achieved and pt is now on admitted to the ICU, on mechanical ventilation and currently undergoing therapeutic hypothermia. Latest Head CT shows anoxic changes. Neuro: - Unresponsive - GCS 3 - Head CT: Diffuse Caba matter, loss of caba-white matter, hypoxic/ischemic insult - Neurology, Dr. Callaway - F/u Video EEG Cardio: - S/P Cardiac Arrest - Code Freeze; Therapeutic Hypothermia, Target temp 32-34C, Labs q4 hours - Hemodynamically stable; levophed discontinued - Troponinemia 2>64>174>221>158. EKG ST Depression V5-V6. NSTEMI vs sequel post cardiac arrest/CPR - CXray; Cardiomegaly - Cardiology Consulted - ASA 325mg, Heparin ggt - Echo 09/26 - Mild to mod systolic dysfunction Pulm: - Intubated on mechanical ventilation on 09/24; PRVC mode, FIO2 70 - AM ABG shows improvement in Acid- Base status; Primary Metabolic Acidosis w/ compensatory - pH7.35, pCO2 28, HCO3 18.2 GI: - NPO - Consider tube feeds if pt remains intubated Renal - DANUTA, etiology unknown. - Crea 3.3, BUN 55 - Renal US ordered - Ulytes and Urine osmols sent - Net I/O: 110cc - Maintain UO >0.55cc/kg/hr - K: 6.3 >7.2 >4.2 - Mag 1.9 - Phos 1.5 Endocrine - DKA on presentation: BG 617, HCO3 10, AG 22 - Insulin ggt - BMP q4hr - Monitor K. Now normal but as per hypothermia protocol, will only replete if <3 during cooling phase due to potential rebound during rewarming phase - Accucheck q4 hours - F/U Serum B-OH. Ketones negative in urine ID - Afberile on presentation - WBC trending down 21>17> 18.6, Bands 5 - Lactic acidosis resolved 11.8>5>3 - Vanco and Zosyn initiated for empiric coverage - Vanco currently held, pending random vanco tomorrow in light of DANUTA - F/U Bcx, Ucx Heme/Onc - Hg 8.8 - Platelets 262 - PTT 59 on Heparin drip. Will adjust as per protocol - Venous Duplex of LE BL ordered Line: Left IJ triple lumen placed on 09/25/17 Code Status: Full Next of Kin: , Phoebe Brandt, Discussed with Dr. Tacho Gale, PGY1 <Pierre Castro S - Last Filed: 09/26/18 18:01> CCU Subjective - Physician Review Critical Care Time Spent (in minutes): 45 CCU Objective - Vital Signs / Intake & Output Vital Signs (Last 4 hours): Vital Signs Temp Pulse Resp BP 09/26/18 17:30 95.9 F L 107 H 20 123/68 09/26/18 17:00 95.3 F L 103 H 20 119/66 09/26/18 16:30 95.5 F L 101 H 20 118/64 09/26/18 16:00 95.8 F L 104 H 20 112/66 09/26/18 15:00 94.8 F L 104 H 20 126/69 09/26/18 14:30 94.9 F L 98 H 20 140/77 Intake and Output (Last 8hrs): Intake & Output 09/26/18 09/26/18 09/26/18 06:59 14:59 22:59 Intake Total 858.4 1116.1 376.4 Output Total 730 480 100 Balance 128.4 636.1 276.4 Intake: IV 171 69 35 Intake, IV Amount 687.4 947.1 341.4 Left Antecubital 46.4 0 Right Antecubital 0 54.6 23.4 Right Distal Port 16 30 18 Internal Jugular Right Medial Port 0 0 Internal Jugular Right Proximal Port 625 862.5 300 Internal Jugular Other 100 Output: Urine 730 480 100 Urethral (Barreto) 730 480 100 - Medications Active Medications: Active Medications Generic Name Dose Route Start Last Admin Trade Name Freq PRN Reason Stop Dose Admin Albuterol Sulfate 2.5 mg 09/25/18 14:00 09/26/18 13:30 Albuterol 0.083% Inhal Alicia (2.5 Mg/3 Ml) Ud INH 2.5 mg RQ6 FIORDALIZA Administration Aspirin 81 mg 09/26/18 10:00 09/26/18 09:23 Aspirin Chewable PO 81 mg DAILY FIORDALIZA Administration Clopidogrel Bisulfate 75 mg 09/27/18 10:00 Plavix PO DAILY FIORDALIZA Dextrose 0 ml 09/25/18 09:13 Dextrose 50% Inj IV STAT PRN Hypoglycemia Protocol Protocol Dextrose 0 gm 09/25/18 09:13 Glutose 15 PO ONCE PRN Hypoglycemia Protocol Protocol Famotidine 20 mg 09/25/18 10:00 09/26/18 09:23 Pepcid IVP 20 mg DAILY FIORDALIZA Administration Glucagon 0 mg 09/25/18 09:13 Glucagen Diagnostic Kit IM STAT PRN Hypoglycemia Protocol Protocol Insulin Human Regular 100 unit 100 mls @ 5 mls/hr 09/25/18 09:08 09/26/18 15:30 / Sodium Chloride IV 6 units/hr .Q20H FIORDALIZA 6 mls/hr Administration Protocol 5 UNITS/HR Heparin Sodium/Sodium Chloride 25,000 units in 250 mls @ 15.513 mls/hr 09/25/18 09:19 09/26/18 12:36 Heparin 72092 Units/250ml 1/2 Normal Saline IV 6.03 units/kg/hr .Q16H7M PRN 7.795 mls/hr PROTOCOL Administration Protocol 12 UNITS/KG/HR Piperacillin Sod/Tazobactam Sod 2.25 gm in 50 mls @ 100 mls/hr 09/26/18 08:00 09/26/18 15:27 Zosyn 2.25 Gm Iv Premix IVPB 100 mls/hr Q8H FIORDALIZA Administration Protocol Sodium Chloride 1,000 mls @ 100 mls/hr 09/26/18 10:45 09/26/18 14:16 Sodium Chloride 0.9% IV 100 mls/hr .Q10H FIORDALIZA Administration Lactic Acid 0 gm 09/26/18 18:00 09/26/18 17:27 Lac-Hydrin 12% Lotion (225 G) EXT 1 applic BID FIORDALIZA Administration Metoprolol Tartrate 12.5 mg 09/26/18 17:00 09/26/18 17:27 Lopressor PO 12.5 mg BIDCC FIORDALIZA Administration Rosuvastatin Calcium 10 mg 09/26/18 22:00 Crestor PO HS FIORDALIZA - Patient Studies Lab Studies: Microbiology Studies 09/25/18 06:51 MRSA Culture (Admit) - Final Nose MRSA NOT DETECTED 09/25/18 01:47 Urine Culture - Final Urine Random No Growth (<1,000 CFU/ML) 09/25/18 06:42 Blood Culture - Preliminary Blood NO GROWTH AFTER 24 HOURS 09/25/18 06:41 Blood Culture - Preliminary Blood NO GROWTH AFTER 24 HOURS Lab Studies 09/26/18 09/26/18 09/26/18 Range/Units 17:05 15:58 15:53 WBC (4.8-10.8) K/uL RBC (4.40-5.90) Mil/uL Hgb (12.0-18.0) g/dL Hct (35.0-51.0) % MCV (80.0-94.0) fL MCH (27.0-31.0) pg MCHC (33.0-37.0) g/dL RDW (11.5-14.5) % Plt Count (130-400) K/uL MPV (7.2-11.7) fL Neut % (Auto) (50.0-75.0) % Lymph % (Auto) (20.0-40.0) % Taylor % (Auto) (0.0-10.0) % Eos % (Auto) (0.0-4.0) % Baso % (Auto) (0.0-2.0) % Neut # (Auto) (1.8-7.0) K/uL Lymph # (Auto) (1.0-4.3) K/uL Taylor # (Auto) (0.0-0.8) K/uL Eos # (Auto) (0.0-0.7) K/uL Baso # (Auto) (0.0-0.2) K/uL Neutrophils % (Manual) (50-75) % Band Neutrophils % (0-2) % Lymphocytes % (Manual) (20-40) % Monocytes % (Manual) (0-10) % Hypersegmented Polys Smudge Cells Platelet Estimate (NORMAL) Large Platelets Hypochromasia (manual) Poikilocytosis (manual Anisocytosis (manual) Spherocytes Cushing Cells PT (9.7-12.2) SECONDS INR APTT 58 H D (21-34) SECONDS Puncture Site pCO2 (35-45) mm/Hg pO2 (80-100) mm/Hg HCO3 (21-28) mmol/L ABG pH (7.35-7.45) ABG Total CO2 (22-28) mmol/L ABG O2 Saturation (95-98) % ABG Base Excess (-2.0-3.0) mmol/L ABG Hemoglobin (11.7-17.4) g/dL ABG Carboxyhemoglobin (0.5-1.5) % POC ABG HHb (Measured) (0.0-5.0) % ABG Methemoglobin (0.0-3.0) % Seth Test A-a O2 Difference mm/Hg Respiratory Index Hgb O2 Saturation (95.0-98.0) % Vent Mode Mechanical Rate FiO2 % Tidal Volume PEEP Sodium (132-148) mmol/L Potassium (3.6-5.2) mmol/L Chloride (98-107) mmol/L Carbon Dioxide (22-30) mmol/L Anion Gap (10-20) BUN (9-20) mg/dL Creatinine (0.8-1.5) mg/dL Est GFR ( Amer) Est GFR (Non-Af Amer) POC Glucose (mg/dL) 259 H 254 H (65-110) mg/dL Random Glucose (75-110) mg/dL Calcium (8.6-10.4) mg/dl Phosphorus (2.5-4.5) mg/dL Magnesium (1.6-2.3) mg/dL Total Bilirubin (0.2-1.3) mg/dL AST (17-59) U/L ALT (21-72) U/L Alkaline Phosphatase (38-126) U/L Total Creatine Kinase (55-170) U/L CK-MB (Mass) (0.0-3.38) ng/mL Troponin I (0.00-0.120) ng/mL Total Protein (6.3-8.3) g/dL Albumin (3.5-5.0) g/dL Globulin (2.2-3.9) gm/dL Albumin/Globulin Ratio (1.0-2.1) Ur Random Creatinine mg/dL U Random Total Protein (0.0-12.0) mg/dL Ur Random Sodium mmol/L Random Vancomycin ug/mL 09/26/18 09/26/18 09/26/18 Range/Units 15:03 14:04 12:58 WBC (4.8-10.8) K/uL RBC (4.40-5.90) Mil/uL Hgb (12.0-18.0) g/dL Hct (35.0-51.0) % MCV (80.0-94.0) fL MCH (27.0-31.0) pg MCHC (33.0-37.0) g/dL RDW (11.5-14.5) % Plt Count (130-400) K/uL MPV (7.2-11.7) fL Neut % (Auto) (50.0-75.0) % Lymph % (Auto) (20.0-40.0) % Taylor % (Auto) (0.0-10.0) % Eos % (Auto) (0.0-4.0) % Baso % (Auto) (0.0-2.0) % Neut # (Auto) (1.8-7.0) K/uL Lymph # (Auto) (1.0-4.3) K/uL Taylor # (Auto) (0.0-0.8) K/uL Eos # (Auto) (0.0-0.7) K/uL Baso # (Auto) (0.0-0.2) K/uL Neutrophils % (Manual) (50-75) % Band Neutrophils % (0-2) % Lymphocytes % (Manual) (20-40) % Monocytes % (Manual) (0-10) % Hypersegmented Polys Smudge Cells Platelet Estimate (NORMAL) Large Platelets Hypochromasia (manual) Poikilocytosis (manual Anisocytosis (manual) Spherocytes Zulema Cells PT (9.7-12.2) SECONDS INR APTT (21-34) SECONDS Puncture Site pCO2 (35-45) mm/Hg pO2 (80-100) mm/Hg HCO3 (21-28) mmol/L ABG pH (7.35-7.45) ABG Total CO2 (22-28) mmol/L ABG O2 Saturation (95-98) % ABG Base Excess (-2.0-3.0) mmol/L ABG Hemoglobin (11.7-17.4) g/dL ABG Carboxyhemoglobin (0.5-1.5) % POC ABG HHb (Measured) (0.0-5.0) % ABG Methemoglobin (0.0-3.0) % Seth Test A-a O2 Difference mm/Hg Respiratory Index Hgb O2 Saturation (95.0-98.0) % Vent Mode Mechanical Rate FiO2 % Tidal Volume PEEP Sodium (132-148) mmol/L Potassium (3.6-5.2) mmol/L Chloride (98-107) mmol/L Carbon Dioxide (22-30) mmol/L Anion Gap (10-20) BUN (9-20) mg/dL Creatinine (0.8-1.5) mg/dL Est GFR ( Amer) Est GFR (Non-Af Amer) POC Glucose (mg/dL) 252 H 225 H 238 H (65-110) mg/dL Random Glucose (75-110) mg/dL Calcium (8.6-10.4) mg/dl Phosphorus (2.5-4.5) mg/dL Magnesium (1.6-2.3) mg/dL Total Bilirubin (0.2-1.3) mg/dL AST (17-59) U/L ALT (21-72) U/L Alkaline Phosphatase (38-126) U/L Total Creatine Kinase (55-170) U/L CK-MB (Mass) (0.0-3.38) ng/mL Troponin I (0.00-0.120) ng/mL Total Protein (6.3-8.3) g/dL Albumin (3.5-5.0) g/dL Globulin (2.2-3.9) gm/dL Albumin/Globulin Ratio (1.0-2.1) Ur Random Creatinine mg/dL U Random Total Protein (0.0-12.0) mg/dL Ur Random Sodium mmol/L Random Vancomycin ug/mL 09/26/18 09/26/18 09/26/18 Range/Units 11:59 11:25 11:25 WBC 19.4 H (4.8-10.8) K/uL RBC 3.31 L (4.40-5.90) Mil/uL Hgb 8.8 L (12.0-18.0) g/dL Hct 26.9 L (35.0-51.0) % MCV 81.2 (80.0-94.0) fL MCH 26.5 L (27.0-31.0) pg MCHC 32.6 L (33.0-37.0) g/dL RDW 15.8 H (11.5-14.5) % Plt Count 277 (130-400) K/uL MPV 8.0 (7.2-11.7) fL Neut % (Auto) 91.5 H (50.0-75.0) % Lymph % (Auto) 2.7 L (20.0-40.0) % Taylor % (Auto) 5.7 (0.0-10.0) % Eos % (Auto) 0.0 (0.0-4.0) % Baso % (Auto) 0.1 (0.0-2.0) % Neut # (Auto) 17.7 H (1.8-7.0) K/uL Lymph # (Auto) 0.5 L (1.0-4.3) K/uL Taylor # (Auto) 1.1 H (0.0-0.8) K/uL Eos # (Auto) 0.0 (0.0-0.7) K/uL Baso # (Auto) 0.0 (0.0-0.2) K/uL Neutrophils % (Manual) (50-75) % Band Neutrophils % (0-2) % Lymphocytes % (Manual) (20-40) % Monocytes % (Manual) (0-10) % Hypersegmented Polys Smudge Cells Platelet Estimate (NORMAL) Large Platelets Hypochromasia (manual) Poikilocytosis (manual Anisocytosis (manual) Spherocytes Zulema Cells PT (9.7-12.2) SECONDS INR APTT (21-34) SECONDS Puncture Site pCO2 (35-45) mm/Hg pO2 (80-100) mm/Hg HCO3 (21-28) mmol/L ABG pH (7.35-7.45) ABG Total CO2 (22-28) mmol/L ABG O2 Saturation (95-98) % ABG Base Excess (-2.0-3.0) mmol/L ABG Hemoglobin (11.7-17.4) g/dL ABG Carboxyhemoglobin (0.5-1.5) % POC ABG HHb (Measured) (0.0-5.0) % ABG Methemoglobin (0.0-3.0) % Seth Test A-a O2 Difference mm/Hg Respiratory Index Hgb O2 Saturation (95.0-98.0) % Vent Mode Mechanical Rate FiO2 % Tidal Volume PEEP Sodium 140 (132-148) mmol/L Potassium 4.6 (3.6-5.2) mmol/L Chloride 112 H (98-107) mmol/L Carbon Dioxide 17 L (22-30) mmol/L Anion Gap 15 (10-20) BUN 58 H (9-20) mg/dL Creatinine 3.8 H (0.8-1.5) mg/dL Est GFR ( Amer) 20 Est GFR (Non-Af Amer) 16 POC Glucose (mg/dL) 234 H (65-110) mg/dL Random Glucose 231 H D (75-110) mg/dL Calcium 7.7 L (8.6-10.4) mg/dl Phosphorus 3.7 (2.5-4.5) mg/dL Magnesium 1.8 (1.6-2.3) mg/dL Total Bilirubin (0.2-1.3) mg/dL AST (17-59) U/L ALT (21-72) U/L Alkaline Phosphatase (38-126) U/L Total Creatine Kinase (55-170) U/L CK-MB (Mass) (0.0-3.38) ng/mL Troponin I (0.00-0.120) ng/mL Total Protein (6.3-8.3) g/dL Albumin (3.5-5.0) g/dL Globulin (2.2-3.9) gm/dL Albumin/Globulin Ratio (1.0-2.1) Ur Random Creatinine mg/dL U Random Total Protein (0.0-12.0) mg/dL Ur Random Sodium mmol/L Random Vancomycin ug/mL 09/26/18 09/26/1819 Range/Units 11:13 10:04 10:04 WBC (4.8-10.8) K/uL RBC (4.40-5.90) Mil/uL Hgb (12.0-18.0) g/dL Hct (35.0-51.0) % MCV (80.0-94.0) fL MCH (27.0-31.0) pg MCHC (33.0-37.0) g/dL RDW (11.5-14.5) % Plt Count (130-400) K/uL MPV (7.2-11.7) fL Neut % (Auto) (50.0-75.0) % Lymph % (Auto) (20.0-40.0) % Taylor % (Auto) (0.0-10.0) % Eos % (Auto) (0.0-4.0) % Baso % (Auto) (0.0-2.0) % Neut # (Auto) (1.8-7.0) K/uL Lymph # (Auto) (1.0-4.3) K/uL Taylor # (Auto) (0.0-0.8) K/uL Eos # (Auto) (0.0-0.7) K/uL Baso # (Auto) (0.0-0.2) K/uL Neutrophils % (Manual) (50-75) % Band Neutrophils % (0-2) % Lymphocytes % (Manual) (20-40) % Monocytes % (Manual) (0-10) % Hypersegmented Polys Smudge Cells Platelet Estimate (NORMAL) Large Platelets Hypochromasia (manual) Poikilocytosis (manual Anisocytosis (manual) Spherocytes Zulema Cells PT (9.7-12.2) SECONDS INR APTT 64 H D (21-34) SECONDS Puncture Site pCO2 (35-45) mm/Hg pO2 (80-100) mm/Hg HCO3 (21-28) mmol/L ABG pH (7.35-7.45) ABG Total CO2 (22-28) mmol/L ABG O2 Saturation (95-98) % ABG Base Excess (-2.0-3.0) mmol/L ABG Hemoglobin (11.7-17.4) g/dL ABG Carboxyhemoglobin (0.5-1.5) % POC ABG HHb (Measured) (0.0-5.0) % ABG Methemoglobin (0.0-3.0) % Seth Test A-a O2 Difference mm/Hg Respiratory Index Hgb O2 Saturation (95.0-98.0) % Vent Mode Mechanical Rate FiO2 % Tidal Volume PEEP Sodium (132-148) mmol/L Potassium (3.6-5.2) mmol/L Chloride (98-107) mmol/L Carbon Dioxide (22-30) mmol/L Anion Gap (10-20) BUN (9-20) mg/dL Creatinine (0.8-1.5) mg/dL Est GFR ( Amer) Est GFR (Non-Af Amer) POC Glucose (mg/dL) 202 H (65-110) mg/dL Random Glucose (75-110) mg/dL Calcium (8.6-10.4) mg/dl Phosphorus (2.5-4.5) mg/dL Magnesium (1.6-2.3) mg/dL Total Bilirubin (0.2-1.3) mg/dL AST (17-59) U/L ALT (21-72) U/L Alkaline Phosphatase (38-126) U/L Total Creatine Kinase (55-170) U/L CK-MB (Mass) (0.0-3.38) ng/mL Troponin I (0.00-0.120) ng/mL Total Protein (6.3-8.3) g/dL Albumin (3.5-5.0) g/dL Globulin (2.2-3.9) gm/dL Albumin/Globulin Ratio (1.0-2.1) Ur Random Creatinine 18.6 mg/dL U Random Total Protein 51.0 H (0.0-12.0) mg/dL Ur Random Sodium 55 mmol/L Random Vancomycin ug/mL 09/26/18 09/26/18 09/26/18 Range/Units 09:58 09:07 05:52 WBC (4.8-10.8) K/uL RBC (4.40-5.90) Mil/uL Hgb (12.0-18.0) g/dL Hct (35.0-51.0) % MCV (80.0-94.0) fL MCH (27.0-31.0) pg MCHC (33.0-37.0) g/dL RDW (11.5-14.5) % Plt Count (130-400) K/uL MPV (7.2-11.7) fL Neut % (Auto) (50.0-75.0) % Lymph % (Auto) (20.0-40.0) % Taylor % (Auto) (0.0-10.0) % Eos % (Auto) (0.0-4.0) % Baso % (Auto) (0.0-2.0) % Neut # (Auto) (1.8-7.0) K/uL Lymph # (Auto) (1.0-4.3) K/uL Taylor # (Auto) (0.0-0.8) K/uL Eos # (Auto) (0.0-0.7) K/uL Baso # (Auto) (0.0-0.2) K/uL Neutrophils % (Manual) (50-75) % Band Neutrophils % (0-2) % Lymphocytes % (Manual) (20-40) % Monocytes % (Manual) (0-10) % Hypersegmented Polys Smudge Cells Platelet Estimate (NORMAL) Large Platelets Hypochromasia (manual) Poikilocytosis (manual Anisocytosis (manual) Spherocytes Zulema Cells PT (9.7-12.2) SECONDS INR APTT (21-34) SECONDS Puncture Site pCO2 (35-45) mm/Hg pO2 (80-100) mm/Hg HCO3 (21-28) mmol/L ABG pH (7.35-7.45) ABG Total CO2 (22-28) mmol/L ABG O2 Saturation (95-98) % ABG Base Excess (-2.0-3.0) mmol/L ABG Hemoglobin (11.7-17.4) g/dL ABG Carboxyhemoglobin (0.5-1.5) % POC ABG HHb (Measured) (0.0-5.0) % ABG Methemoglobin (0.0-3.0) % Seth Test A-a O2 Difference mm/Hg Respiratory Index Hgb O2 Saturation (95.0-98.0) % Vent Mode Mechanical Rate FiO2 % Tidal Volume PEEP Sodium 137 (132-148) mmol/L Potassium 4.9 (3.6-5.2) mmol/L Chloride 109 H (98-107) mmol/L Carbon Dioxide 19 L (22-30) mmol/L Anion Gap 13 (10-20) BUN 55 H (9-20) mg/dL Creatinine 3.3 H (0.8-1.5) mg/dL Est GFR ( Amer) 23 Est GFR (Non-Af Amer) 19 POC Glucose (mg/dL) 250 H 213 H (65-110) mg/dL Random Glucose 166 H D (75-110) mg/dL Calcium 7.9 L (8.6-10.4) mg/dl Phosphorus 2.4 L (2.5-4.5) mg/dL Magnesium 2.0 (1.6-2.3) mg/dL Total Bilirubin 0.5 (0.2-1.3) mg/dL AST 953 H D (17-59) U/L ALT 1250 H (21-72) U/L Alkaline Phosphatase 163 H (38-126) U/L Total Creatine Kinase (55-170) U/L CK-MB (Mass) (0.0-3.38) ng/mL Troponin I 158.0000 H* (0.00-0.120) ng/mL Total Protein 5.4 L (6.3-8.3) g/dL Albumin 2.9 L (3.5-5.0) g/dL Globulin 2.5 (2.2-3.9) gm/dL Albumin/Globulin Ratio 1.2 (1.0-2.1) Ur Random Creatinine mg/dL U Random Total Protein (0.0-12.0) mg/dL Ur Random Sodium mmol/L Random Vancomycin ug/mL 09/26/18 09/26/18 09/26/18 Range/Units 05:52 05:52 05:21 WBC 16.8 H (4.8-10.8) K/uL RBC 3.49 L (4.40-5.90) Mil/uL Hgb 9.6 L (12.0-18.0) g/dL Hct 28.9 L (35.0-51.0) % MCV 82.9 (80.0-94.0) fL MCH 27.5 (27.0-31.0) pg MCHC 33.2 (33.0-37.0) g/dL RDW 15.8 H (11.5-14.5) % Plt Count 286 (130-400) K/uL MPV 8.4 (7.2-11.7) fL Neut % (Auto) 88.3 H (50.0-75.0) % Lymph % (Auto) 6.8 L (20.0-40.0) % Taylor % (Auto) 4.8 (0.0-10.0) % Eos % (Auto) 0.1 (0.0-4.0) % Baso % (Auto) 0.0 (0.0-2.0) % Neut # (Auto) 14.8 H (1.8-7.0) K/uL Lymph # (Auto) 1.2 (1.0-4.3) K/uL Taylor # (Auto) 0.8 (0.0-0.8) K/uL Eos # (Auto) 0.0 (0.0-0.7) K/uL Baso # (Auto) 0.0 (0.0-0.2) K/uL Neutrophils % (Manual) 85 H (50-75) % Band Neutrophils % 3 H (0-2) % Lymphocytes % (Manual) 6 L (20-40) % Monocytes % (Manual) 6 (0-10) % Hypersegmented Polys Smudge Cells Platelet Estimate Normal (NORMAL) Large Platelets Hypochromasia (manual) Slight Poikilocytosis (manual Slight Anisocytosis (manual) Slight Spherocytes Cushing Cells Slight PT (9.7-12.2) SECONDS INR APTT (21-34) SECONDS Puncture Site Rr pCO2 24 L (35-45) mm/Hg pO2 199 H (80-100) mm/Hg HCO3 19.5 L (21-28) mmol/L ABG pH 7.43 (7.35-7.45) ABG Total CO2 16.6 L (22-28) mmol/L ABG O2 Saturation 99.2 H (95-98) % ABG Base Excess -7.0 L (-2.0-3.0) mmol/L ABG Hemoglobin 10.3 L (11.7-17.4) g/dL ABG Carboxyhemoglobin 0.9 (0.5-1.5) % POC ABG HHb (Measured) 0.8 (0.0-5.0) % ABG Methemoglobin 0.7 (0.0-3.0) % Seth Test Pos A-a O2 Difference 270.0 mm/Hg Respiratory Index 1.4 Hgb O2 Saturation 97.5 (95.0-98.0) % Vent Mode Prvc Mechanical Rate 20 FiO2 70.0 % Tidal Volume 500 PEEP 5 Sodium (132-148) mmol/L Potassium (3.6-5.2) mmol/L Chloride (98-107) mmol/L Carbon Dioxide (22-30) mmol/L Anion Gap (10-20) BUN (9-20) mg/dL Creatinine (0.8-1.5) mg/dL Est GFR ( Amer) Est GFR (Non-Af Amer) POC Glucose (mg/dL) (65-110) mg/dL Random Glucose (75-110) mg/dL Calcium (8.6-10.4) mg/dl Phosphorus (2.5-4.5) mg/dL Magnesium (1.6-2.3) mg/dL Total Bilirubin (0.2-1.3) mg/dL AST (17-59) U/L ALT (21-72) U/L Alkaline Phosphatase (38-126) U/L Total Creatine Kinase (55-170) U/L CK-MB (Mass) (0.0-3.38) ng/mL Troponin I (0.00-0.120) ng/mL Total Protein (6.3-8.3) g/dL Albumin (3.5-5.0) g/dL Globulin (2.2-3.9) gm/dL Albumin/Globulin Ratio (1.0-2.1) Ur Random Creatinine mg/dL U Random Total Protein (0.0-12.0) mg/dL Ur Random Sodium mmol/L Random Vancomycin 8.8 ug/mL 09/26/18 09/25/18 09/25/18 Range/Units 02:50 18:00 18:00 WBC 18.1 H (4.8-10.8) K/uL RBC 3.47 L (4.40-5.90) Mil/uL Hgb 9.2 L (12.0-18.0) g/dL Hct 28.8 L (35.0-51.0) % MCV 83.1 (80.0-94.0) fL MCH 26.7 L (27.0-31.0) pg MCHC 32.1 L (33.0-37.0) g/dL RDW 15.6 H (11.5-14.5) % Plt Count 267 (130-400) K/uL MPV 8.1 (7.2-11.7) fL Neut % (Auto) 92.1 H (50.0-75.0) % Lymph % (Auto) 3.1 L (20.0-40.0) % Taylor % (Auto) 4.6 (0.0-10.0) % Eos % (Auto) 0.0 (0.0-4.0) % Baso % (Auto) 0.2 (0.0-2.0) % Neut # (Auto) 16.7 H (1.8-7.0) K/uL Lymph # (Auto) 0.6 L (1.0-4.3) K/uL Taylor # (Auto) 0.8 (0.0-0.8) K/uL Eos # (Auto) 0.0 (0.0-0.7) K/uL Baso # (Auto) 0.0 (0.0-0.2) K/uL Neutrophils % (Manual) 82 H (50-75) % Band Neutrophils % 9 H (0-2) % Lymphocytes % (Manual) 4 L (20-40) % Monocytes % (Manual) 5 (0-10) % Hypersegmented Polys Present Smudge Cells Present Platelet Estimate Normal (NORMAL) Large Platelets Present Hypochromasia (manual) Slight Poikilocytosis (manual Slight Anisocytosis (manual) Slight Spherocytes Slight Cushing Cells PT 14.7 H (9.7-12.2) SECONDS INR 1.3 APTT 144 H* 150 H* D (21-34) SECONDS Puncture Site pCO2 (35-45) mm/Hg pO2 (80-100) mm/Hg HCO3 (21-28) mmol/L ABG pH (7.35-7.45) ABG Total CO2 (22-28) mmol/L ABG O2 Saturation (95-98) % ABG Base Excess (-2.0-3.0) mmol/L ABG Hemoglobin (11.7-17.4) g/dL ABG Carboxyhemoglobin (0.5-1.5) % POC ABG HHb (Measured) (0.0-5.0) % ABG Methemoglobin (0.0-3.0) % Seth Test A-a O2 Difference mm/Hg Respiratory Index Hgb O2 Saturation (95.0-98.0) % Vent Mode Mechanical Rate FiO2 % Tidal Volume PEEP Sodium (132-148) mmol/L Potassium (3.6-5.2) mmol/L Chloride (98-107) mmol/L Carbon Dioxide (22-30) mmol/L Anion Gap (10-20) BUN (9-20) mg/dL Creatinine (0.8-1.5) mg/dL Est GFR ( Amer) Est GFR (Non-Af Amer) POC Glucose (mg/dL) (65-110) mg/dL Random Glucose (75-110) mg/dL Calcium (8.6-10.4) mg/dl Phosphorus (2.5-4.5) mg/dL Magnesium (1.6-2.3) mg/dL Total Bilirubin (0.2-1.3) mg/dL AST (17-59) U/L ALT (21-72) U/L Alkaline Phosphatase (38-126) U/L Total Creatine Kinase (55-170) U/L CK-MB (Mass) (0.0-3.38) ng/mL Troponin I (0.00-0.120) ng/mL Total Protein (6.3-8.3) g/dL Albumin (3.5-5.0) g/dL Globulin (2.2-3.9) gm/dL Albumin/Globulin Ratio (1.0-2.1) Ur Random Creatinine mg/dL U Random Total Protein (0.0-12.0) mg/dL Ur Random Sodium mmol/L Random Vancomycin ug/mL 09/25/18 Range/Units 18:00 WBC (4.8-10.8) K/uL RBC (4.40-5.90) Mil/uL Hgb (12.0-18.0) g/dL Hct (35.0-51.0) % MCV (80.0-94.0) fL MCH (27.0-31.0) pg MCHC (33.0-37.0) g/dL RDW (11.5-14.5) % Plt Count (130-400) K/uL MPV (7.2-11.7) fL Neut % (Auto) (50.0-75.0) % Lymph % (Auto) (20.0-40.0) % Taylor % (Auto) (0.0-10.0) % Eos % (Auto) (0.0-4.0) % Baso % (Auto) (0.0-2.0) % Neut # (Auto) (1.8-7.0) K/uL Lymph # (Auto) (1.0-4.3) K/uL Taylor # (Auto) (0.0-0.8) K/uL Eos # (Auto) (0.0-0.7) K/uL Baso # (Auto) (0.0-0.2) K/uL Neutrophils % (Manual) (50-75) % Band Neutrophils % (0-2) % Lymphocytes % (Manual) (20-40) % Monocytes % (Manual) (0-10) % Hypersegmented Polys Smudge Cells Platelet Estimate (NORMAL) Large Platelets Hypochromasia (manual) Poikilocytosis (manual Anisocytosis (manual) Spherocytes Zulema Cells PT (9.7-12.2) SECONDS INR APTT (21-34) SECONDS Puncture Site pCO2 (35-45) mm/Hg pO2 (80-100) mm/Hg HCO3 (21-28) mmol/L ABG pH (7.35-7.45) ABG Total CO2 (22-28) mmol/L ABG O2 Saturation (95-98) % ABG Base Excess (-2.0-3.0) mmol/L ABG Hemoglobin (11.7-17.4) g/dL ABG Carboxyhemoglobin (0.5-1.5) % POC ABG HHb (Measured) (0.0-5.0) % ABG Methemoglobin (0.0-3.0) % Seht Test A-a O2 Difference mm/Hg Respiratory Index Hgb O2 Saturation (95.0-98.0) % Vent Mode Mechanical Rate FiO2 % Tidal Volume PEEP Sodium 135 (132-148) mmol/L Potassium 3.9 (3.6-5.2) mmol/L Chloride 109 H (98-107) mmol/L Carbon Dioxide 19 L (22-30) mmol/L Anion Gap 11 (10-20) BUN 55 H (9-20) mg/dL Creatinine 3.0 H (0.8-1.5) mg/dL Est GFR ( Amer) 26 Est GFR (Non-Af Amer) 21 POC Glucose (mg/dL) (65-110) mg/dL Random Glucose 336 H D (75-110) mg/dL Calcium 8.0 L (8.6-10.4) mg/dl Phosphorus 1.6 L (2.5-4.5) mg/dL Magnesium 2.2 (1.6-2.3) mg/dL Total Bilirubin (0.2-1.3) mg/dL AST (17-59) U/L ALT (21-72) U/L Alkaline Phosphatase (38-126) U/L Total Creatine Kinase 1137 H (55-170) U/L CK-MB (Mass) 142 H (0.0-3.38) ng/mL Troponin I 221.0000 H* (0.00-0.120) ng/mL Total Protein (6.3-8.3) g/dL Albumin (3.5-5.0) g/dL Globulin (2.2-3.9) gm/dL Albumin/Globulin Ratio (1.0-2.1) Ur Random Creatinine mg/dL U Random Total Protein (0.0-12.0) mg/dL Ur Random Sodium mmol/L Random Vancomycin ug/mL Laboratory Results - last 24 hr 09/25/18 09/25/18 09/25/18 18:00 18:00 18:00 WBC 18.1 H RBC 3.47 L Hgb 9.2 L Hct 28.8 L MCV 83.1 MCH 26.7 L MCHC 32.1 L RDW 15.6 H Plt Count 267 MPV 8.1 Neut % (Auto) 92.1 H Lymph % (Auto) 3.1 L Taylor % (Auto) 4.6 Eos % (Auto) 0.0 Baso % (Auto) 0.2 Neut # (Auto) 16.7 H Lymph # (Auto) 0.6 L Taylor # (Auto) 0.8 Eos # (Auto) 0.0 Baso # (Auto) 0.0 Neutrophils % (Manual) 82 H Band Neutrophils % 9 H Lymphocytes % (Manual) 4 L Monocytes % (Manual) 5 Hypersegmented Polys Present Smudge Cells Present Platelet Estimate Normal Large Platelets Present Hypochromasia (manual) Slight Poikilocytosis (manual Slight Anisocytosis (manual) Slight Spherocytes Slight Zulema Cells PT 14.7 H INR 1.3 APTT 150 H* D Puncture Site pCO2 pO2 HCO3 ABG pH ABG Total CO2 ABG O2 Saturation ABG Base Excess ABG Hemoglobin ABG Carboxyhemoglobin POC ABG HHb (Measured) ABG Methemoglobin Seth Test A-a O2 Difference Respiratory Index Hgb O2 Saturation Vent Mode Mechanical Rate FiO2 Tidal Volume PEEP Sodium 135 Potassium 3.9 Chloride 109 H Carbon Dioxide 19 L Anion Gap 11 BUN 55 H Creatinine 3.0 H Est GFR ( Amer) 26 Est GFR (Non-Af Amer) 21 POC Glucose (mg/dL) Random Glucose 336 H D Calcium 8.0 L Phosphorus 1.6 L Magnesium 2.2 Total Bilirubin AST ALT Alkaline Phosphatase Total Creatine Kinase 1137 H CK-MB (Mass) 142 H Troponin I 221.0000 H* Total Protein Albumin Globulin Albumin/Globulin Ratio Ur Random Creatinine U Random Total Protein Ur Random Sodium Random Vancomycin 09/26/18 09/26/18 09/26/18 02:50 05:21 05:52 WBC 16.8 H RBC 3.49 L Hgb 9.6 L Hct 28.9 L MCV 82.9 MCH 27.5 MCHC 33.2 RDW 15.8 H Plt Count 286 MPV 8.4 Neut % (Auto) 88.3 H Lymph % (Auto) 6.8 L Taylor % (Auto) 4.8 Eos % (Auto) 0.1 Baso % (Auto) 0.0 Neut # (Auto) 14.8 H Lymph # (Auto) 1.2 Taylor # (Auto) 0.8 Eos # (Auto) 0.0 Baso # (Auto) 0.0 Neutrophils % (Manual) 85 H Band Neutrophils % 3 H Lymphocytes % (Manual) 6 L Monocytes % (Manual) 6 Hypersegmented Polys Smudge Cells Platelet Estimate Normal Large Platelets Hypochromasia (manual) Slight Poikilocytosis (manual Slight Anisocytosis (manual) Slight Spherocytes Zulema Cells Slight PT INR APTT 144 H* Puncture Site Rr pCO2 24 L pO2 199 H HCO3 19.5 L ABG pH 7.43 ABG Total CO2 16.6 L ABG O2 Saturation 99.2 H ABG Base Excess -7.0 L ABG Hemoglobin 10.3 L ABG Carboxyhemoglobin 0.9 POC ABG HHb (Measured) 0.8 ABG Methemoglobin 0.7 Seth Test Pos A-a O2 Difference 270.0 Respiratory Index 1.4 Hgb O2 Saturation 97.5 Vent Mode Prvc Mechanical Rate 20 FiO2 70.0 Tidal Volume 500 PEEP 5 Sodium Potassium Chloride Carbon Dioxide Anion Gap BUN Creatinine Est GFR ( Amer) Est GFR (Non-Af Amer) POC Glucose (mg/dL) Random Glucose Calcium Phosphorus Magnesium Total Bilirubin AST ALT Alkaline Phosphatase Total Creatine Kinase CK-MB (Mass) Troponin I Total Protein Albumin Globulin Albumin/Globulin Ratio Ur Random Creatinine U Random Total Protein Ur Random Sodium Random Vancomycin 09/26/18 09/26/18 09/26/18 05:52 05:52 09:07 WBC RBC Hgb Hct MCV MCH MCHC RDW Plt Count MPV Neut % (Auto) Lymph % (Auto) Taylor % (Auto) Eos % (Auto) Baso % (Auto) Neut # (Auto) Lymph # (Auto) Taylor # (Auto) Eos # (Auto) Baso # (Auto) Neutrophils % (Manual) Band Neutrophils % Lymphocytes % (Manual) Monocytes % (Manual) Hypersegmented Polys Smudge Cells Platelet Estimate Large Platelets Hypochromasia (manual) Poikilocytosis (manual Anisocytosis (manual) Spherocytes Cushing Cells PT INR APTT Puncture Site pCO2 pO2 HCO3 ABG pH ABG Total CO2 ABG O2 Saturation ABG Base Excess ABG Hemoglobin ABG Carboxyhemoglobin POC ABG HHb (Measured) ABG Methemoglobin Seth Test A-a O2 Difference Respiratory Index Hgb O2 Saturation Vent Mode Mechanical Rate FiO2 Tidal Volume PEEP Sodium 137 Potassium 4.9 Chloride 109 H Carbon Dioxide 19 L Anion Gap 13 BUN 55 H Creatinine 3.3 H Est GFR ( Amer) 23 Est GFR (Non-Af Amer) 19 POC Glucose (mg/dL) 213 H Random Glucose 166 H D Calcium 7.9 L Phosphorus 2.4 L Magnesium 2.0 Total Bilirubin 0.5 AST 953 H D ALT 1250 H Alkaline Phosphatase 163 H Total Creatine Kinase CK-MB (Mass) Troponin I 158.0000 H* Total Protein 5.4 L Albumin 2.9 L Globulin 2.5 Albumin/Globulin Ratio 1.2 Ur Random Creatinine U Random Total Protein Ur Random Sodium Random Vancomycin 8.8 09/26/18 09/26/18 09/26/18 09:58 10:04 10:04 WBC RBC Hgb Hct MCV MCH MCHC RDW Plt Count MPV Neut % (Auto) Lymph % (Auto) Taylor % (Auto) Eos % (Auto) Baso % (Auto) Neut # (Auto) Lymph # (Auto) Taylor # (Auto) Eos # (Auto) Baso # (Auto) Neutrophils % (Manual) Band Neutrophils % Lymphocytes % (Manual) Monocytes % (Manual) Hypersegmented Polys Smudge Cells Platelet Estimate Large Platelets Hypochromasia (manual) Poikilocytosis (manual Anisocytosis (manual) Spherocytes Cushing Cells PT INR APTT 64 H D Puncture Site pCO2 pO2 HCO3 ABG pH ABG Total CO2 ABG O2 Saturation ABG Base Excess ABG Hemoglobin ABG Carboxyhemoglobin POC ABG HHb (Measured) ABG Methemoglobin Seth Test A-a O2 Difference Respiratory Index Hgb O2 Saturation Vent Mode Mechanical Rate FiO2 Tidal Volume PEEP Sodium Potassium Chloride Carbon Dioxide Anion Gap BUN Creatinine Est GFR ( Amer) Est GFR (Non-Af Amer) POC Glucose (mg/dL) 250 H Random Glucose Calcium Phosphorus Magnesium Total Bilirubin AST ALT Alkaline Phosphatase Total Creatine Kinase CK-MB (Mass) Troponin I Total Protein Albumin Globulin Albumin/Globulin Ratio Ur Random Creatinine 18.6 U Random Total Protein 51.0 H Ur Random Sodium 55 Random Vancomycin 09/26/18 09/26/18 09/26/18 11:13 11:25 11:25 WBC 19.4 H RBC 3.31 L Hgb 8.8 L Hct 26.9 L MCV 81.2 MCH 26.5 L MCHC 32.6 L RDW 15.8 H Plt Count 277 MPV 8.0 Neut % (Auto) 91.5 H Lymph % (Auto) 2.7 L Taylor % (Auto) 5.7 Eos % (Auto) 0.0 Baso % (Auto) 0.1 Neut # (Auto) 17.7 H Lymph # (Auto) 0.5 L Taylor # (Auto) 1.1 H Eos # (Auto) 0.0 Baso # (Auto) 0.0 Neutrophils % (Manual) Band Neutrophils % Lymphocytes % (Manual) Monocytes % (Manual) Hypersegmented Polys Smudge Cells Platelet Estimate Large Platelets Hypochromasia (manual) Poikilocytosis (manual Anisocytosis (manual) Spherocytes Zulema Cells PT INR APTT Puncture Site pCO2 pO2 HCO3 ABG pH ABG Total CO2 ABG O2 Saturation ABG Base Excess ABG Hemoglobin ABG Carboxyhemoglobin POC ABG HHb (Measured) ABG Methemoglobin Seth Test A-a O2 Difference Respiratory Index Hgb O2 Saturation Vent Mode Mechanical Rate FiO2 Tidal Volume PEEP Sodium 140 Potassium 4.6 Chloride 112 H Carbon Dioxide 17 L Anion Gap 15 BUN 58 H Creatinine 3.8 H Est GFR ( Amer) 20 Est GFR (Non-Af Amer) 16 POC Glucose (mg/dL) 202 H Random Glucose 231 H D Calcium 7.7 L Phosphorus 3.7 Magnesium 1.8 Total Bilirubin AST ALT Alkaline Phosphatase Total Creatine Kinase CK-MB (Mass) Troponin I Total Protein Albumin Globulin Albumin/Globulin Ratio Ur Random Creatinine U Random Total Protein Ur Random Sodium Random Vancomycin 09/26/18 09/26/18 09/26/18 11:59 12:58 14:04 WBC RBC Hgb Hct MCV MCH MCHC RDW Plt Count MPV Neut % (Auto) Lymph % (Auto) Taylor % (Auto) Eos % (Auto) Baso % (Auto) Neut # (Auto) Lymph # (Auto) Taylor # (Auto) Eos # (Auto) Baso # (Auto) Neutrophils % (Manual) Band Neutrophils % Lymphocytes % (Manual) Monocytes % (Manual) Hypersegmented Polys Smudge Cells Platelet Estimate Large Platelets Hypochromasia (manual) Poikilocytosis (manual Anisocytosis (manual) Spherocytes Cushing Cells PT INR APTT Puncture Site pCO2 pO2 HCO3 ABG pH ABG Total CO2 ABG O2 Saturation ABG Base Excess ABG Hemoglobin ABG Carboxyhemoglobin POC ABG HHb (Measured) ABG Methemoglobin Seth Test A-a O2 Difference Respiratory Index Hgb O2 Saturation Vent Mode Mechanical Rate FiO2 Tidal Volume PEEP Sodium Potassium Chloride Carbon Dioxide Anion Gap BUN Creatinine Est GFR ( Amer) Est GFR (Non-Af Amer) POC Glucose (mg/dL) 234 H 238 H 225 H Random Glucose Calcium Phosphorus Magnesium Total Bilirubin AST ALT Alkaline Phosphatase Total Creatine Kinase CK-MB (Mass) Troponin I Total Protein Albumin Globulin Albumin/Globulin Ratio Ur Random Creatinine U Random Total Protein Ur Random Sodium Random Vancomycin 09/26/18 09/26/18 09/26/18 15:03 15:53 15:58 WBC RBC Hgb Hct MCV MCH MCHC RDW Plt Count MPV Neut % (Auto) Lymph % (Auto) Taylor % (Auto) Eos % (Auto) Baso % (Auto) Neut # (Auto) Lymph # (Auto) Taylor # (Auto) Eos # (Auto) Baso # (Auto) Neutrophils % (Manual) Band Neutrophils % Lymphocytes % (Manual) Monocytes % (Manual) Hypersegmented Polys Smudge Cells Platelet Estimate Large Platelets Hypochromasia (manual) Poikilocytosis (manual Anisocytosis (manual) Spherocytes Zulema Cells PT INR APTT 58 H D Puncture Site pCO2 pO2 HCO3 ABG pH ABG Total CO2 ABG O2 Saturation ABG Base Excess ABG Hemoglobin ABG Carboxyhemoglobin POC ABG HHb (Measured) ABG Methemoglobin Seth Test A-a O2 Difference Respiratory Index Hgb O2 Saturation Vent Mode Mechanical Rate FiO2 Tidal Volume PEEP Sodium Potassium Chloride Carbon Dioxide Anion Gap BUN Creatinine Est GFR ( Amer) Est GFR (Non-Af Amer) POC Glucose (mg/dL) 252 H 254 H Random Glucose Calcium Phosphorus Magnesium Total Bilirubin AST ALT Alkaline Phosphatase Total Creatine Kinase CK-MB (Mass) Troponin I Total Protein Albumin Globulin Albumin/Globulin Ratio Ur Random Creatinine U Random Total Protein Ur Random Sodium Random Vancomycin 09/26/18 17:05 WBC RBC Hgb Hct MCV MCH MCHC RDW Plt Count MPV Neut % (Auto) Lymph % (Auto) Taylor % (Auto) Eos % (Auto) Baso % (Auto) Neut # (Auto) Lymph # (Auto) Taylor # (Auto) Eos # (Auto) Baso # (Auto) Neutrophils % (Manual) Band Neutrophils % Lymphocytes % (Manual) Monocytes % (Manual) Hypersegmented Polys Smudge Cells Platelet Estimate Large Platelets Hypochromasia (manual) Poikilocytosis (manual Anisocytosis (manual) Spherocytes Zulema Cells PT INR APTT Puncture Site pCO2 pO2 HCO3 ABG pH ABG Total CO2 ABG O2 Saturation ABG Base Excess ABG Hemoglobin ABG Carboxyhemoglobin POC ABG HHb (Measured) ABG Methemoglobin Seth Test A-a O2 Difference Respiratory Index Hgb O2 Saturation Vent Mode Mechanical Rate FiO2 Tidal Volume PEEP Sodium Potassium Chloride Carbon Dioxide Anion Gap BUN Creatinine Est GFR ( Amer) Est GFR (Non-Af Amer) POC Glucose (mg/dL) 259 H Random Glucose Calcium Phosphorus Magnesium Total Bilirubin AST ALT Alkaline Phosphatase Total Creatine Kinase CK-MB (Mass) Troponin I Total Protein Albumin Globulin Albumin/Globulin Ratio Ur Random Creatinine U Random Total Protein Ur Random Sodium Random Vancomycin Radiology Impressions: Radiology Impressions Bladder Ultrasound 09/25/18 13:02 IMPRESSION: No hydronephrosis or obstructing calculus identified. Barreto catheter within decompressed urinary bladder. Preliminary impression was provided by MATT Garcia. Chest X-Ray 09/26/18 06:00 IMPRESSION: Limited examination. No acute infiltrate. EKG/Cardiology Studies: Cardiology / EKG Studies 09/26/18 06:02 EKG [ELECTROCARDIOGRAM] Routine Comment: Mode Of Transportation: Reason For Exam: OR 09/27/18 01:45 ELECTROCARDIOGRAM DAILY Comment: Mode Of Transportation: PORTABLE Reason For Exam: wi 09/28/18 01:45 ELECTROCARDIOGRAM DAILY Comment: Mode Of Transportation: PORTABLE Reason For Exam: wi Critical Care Progress Note - Nutrition Nutrition: Nutrition Category Date Time Status NPO Diet [DIET] Diets 09/25/18 Breakfast Active Attending/Attestation - Attestation I have personally seen and examined this patient.: Yes I have fully participated in the care of the patient.: Yes I have reviewed all pertinent clinical information: Yes Notes (Text): 09/26/18 18:00 Patient seen and examined in the intensive care unit. Case discussed with housestaff in the morning rounds. Status post cardiac arrest/resuscitation and now therapeutic hypothermia Patient in the rewarming stage No response to painful stimuli No gag or any corneal reflexes Seen by neurology EEG Prognosis poor
[2018-09-26] MEDS: Heparin25000 units/250ml 1/2NS 25,000 UNITS/250 ML BAG IV PRN (12:36)
[2018-09-26] MEDS ORDERED: Potassium & Sodium Phosphate PO STA (13:44)
--- NOTE | 2018-09-26 14:08 | CP.PCM.CON ---
History of Present Illness - History of Present Illness History of Present Illness: Consultation for evaluation of cardiac arrest HPI: 63-year-old male with past medical history significant for coronary artery disease status post CABG in 2012 who initially presented on Tuesday afternoon to [facility] with complaints of neck and shoulder discomfort patient was subsequently discharged her home later in the evening after arriving home few minutes later he was noticed to be unresponsive by his son who called the EMS patient apparently had successful CPR with [place] on presentation to the emergency room he had a recurrent cardiac arrest asystolic this time with [place] downtime during this whole process of multiple recurrent cardiac arrest is unknown patient remained unresponsive with a GCS of 3 and was on hypothermia protocol. He did have significant apparently positive cardiac enzymes with a troponin as high as 221 which went down to 158 echocardiogram done showed ejection fraction of 4045% with some wall motion abnormalities. Clinically he is unresponsive with a GCS of 3 initially required some pressor which was weaned off hemodynamically remained maintains his heart rate and blood pressure is in acute renal insufficiency. I had a lengthy discussion with the patient's daughter at the bedside and also spoke to his son over the phone who gave me all the relevant information apparently patient did have some peripheral procedure on Tuesday by his joint setter Dr. Robbie Lubin. The details of the procedure are unknown at this time. Review of Systems - Review of Systems Systems not reviewed;Unavailable: Acuity of Condition - Constitutional Constitutional: As Per HPI - EENT Eyes: As Per HPI Ears: As Per HPI Nose/Mouth/Throat: As Per HPI - Cardiovascular Cardiovascular: As Per HPI - Respiratory Respiratory: As Per HPI - Gastrointestinal Gastrointestinal: As Per HPI - Genitourinary Genitourinary: As Per HPI - Reproductive: Male Reproductive:Male: As Per HPI - Musculoskeletal Musculoskeletal: As Per HPI - Integumentary Integumentary: As Per HPI - Neurological Neurological: As Per HPI - Psychiatric Psychiatric: As Per HPI - Endocrine Endocrine: As Per HPI - Hematologic/Lymphatic Hematologic: As Per HPI Past Patient History - Infectious Disease Hx of Infectious Diseases: None - Tetanus Immunizations Tetanus Immunization: Unknown - Past Medical History & Family History Past Medical History?: Yes Past Family History: Reviewed and not pertinent - Past Social History Smoking Status: Never Smoked Chewing Tobacco Use: No Cigar Use: No Alcohol: None Drugs: Denies Home Situation {Lives}: With Family - CARDIAC Hx Congestive Heart Failure: Yes Hx Hypercholesterolemia: Yes Hx Hypertension: Yes Hx Peripheral Edema: Yes - PULMONARY Hx Asthma: Yes - NEUROLOGICAL Hx Transient Ischemic Attacks (TIA): No - HEENT Hx HEENT Problems: No - RENAL Hx Chronic Kidney Disease: No - ENDOCRINE/METABOLIC Hx Diabetes Mellitus Type 2: Yes - HEMATOLOGICAL/ONCOLOGICAL Hx Blood Transfusions: No Hx Blood Transfusion Reaction: No - INTEGUMENTARY Hx Dermatological Problems: Yes Other/Comment: left foot ulcer - MUSCULOSKELETAL/RHEUMATOLOGICAL Hx Falls: No - GASTROINTESTINAL Hx Gastrointestinal Disorders: No - GENITOURINARY/GYNECOLOGICAL Hx Genitourinary Disorders: Yes Hx Prostate Problems: Yes - PSYCHIATRIC Hx Substance Use: No - SURGICAL HISTORY Hx Coronary Artery Bypass Graft: Yes (08/30/12) - ANESTHESIA Hx Anesthesia: Yes Hx Anesthesia Reactions: No Hx Malignant Hyperthermia: No Meds Allergies/Adverse Reactions: Allergies Allergy/AdvReac Type Severity Reaction Status Date / Time No Known Allergies Allergy Verified 09/25/18 00:37 - Medications Medications: Current Medications Albuterol Sulfate (Albuterol 0.083% Inhal Alicia (2.5 Mg/3 Ml) Ud) 2.5 mg INH RQ6 [facility] Last Admin: 09/26/18 13:30 Dose: 2.5 mg Aspirin (Aspirin Chewable) 81 mg PO DAILY [facility] Last Admin: 09/26/18 09:23 Dose: 81 mg Dextrose (Dextrose 50% Inj) 0 ml IV STAT PRN; Protocol PRN Reason: Hypoglycemia Protocol Dextrose (Glutose 15) 0 gm PO ONCE PRN; Protocol PRN Reason: Hypoglycemia Protocol Famotidine (Pepcid) 20 mg IVP DAILY [facility] Last Admin: 09/26/18 09:23 Dose: 20 mg Glucagon (Glucagen Diagnostic Kit) 0 mg IM STAT PRN; Protocol PRN Reason: Hypoglycemia Protocol Insulin Human Regular 100 unit (/ Sodium Chloride) 100 mls @ 5 mls/hr IV .Q20H [facility]; Protocol Last Titration: 09/26/18 08:00 Dose: 4 units/hr, 4 mls/hr Heparin Sodium/Sodium Chloride (Heparin 09662 Units/250ml 1/2 Normal Saline) 25,000 units in 250 mls @ 15.513 mls/hr IV .Q16H7M PRN; Protocol PRN Reason: PROTOCOL Last Admin: 09/26/18 12:36 Dose: 6.03 units/kg/hr, 7.795 mls/hr Piperacillin Sod/Tazobactam Sod (Zosyn 2.25 Gm Iv Premix) 2.25 gm in 50 mls @ 100 mls/hr IVPB Q8H [facility]; Protocol Last Admin: 09/26/18 08:15 Dose: Not Given Sodium Chloride (Sodium Chloride 0.9%) 1,000 mls @ 100 mls/hr IV .Q10H [facility] Rosuvastatin Calcium (Crestor) 10 mg PO HS [facility] Physical Exam - Constitutional Appears: Well - Head Exam Head Exam: ATRAUMATIC, NORMAL INSPECTION, NORMOCEPHALIC - Eye Exam Pupil Exam: Fixed - ENT Exam ENT Exam: Mucous Membranes Moist, Normal Exam - Neck Exam Neck exam: Positive for: Normal Inspection - Respiratory Exam Respiratory Exam: Clear to Auscultation Bilateral, Rales, NORMAL BREATHING PATTERN - Cardiovascular Exam Cardiovascular Exam: REGULAR RHYTHM, RRR, +S1, +S2, Systolic Murmur - GI/Abdominal Exam GI & Abdominal Exam: Normal Bowel Sounds, Soft. absent: Tenderness - Extremities Exam Extremities exam: Positive for: normal inspection - Neurological Exam Neurological exam: Altered Additional comments: GCS 3 - Skin Skin Exam: Dry, Intact, Normal Color, Warm Results - Vital Signs Recent Vital Signs: Last Vital Signs Temp 95 F L 09/26/18 13:30 Pulse 69 09/26/18 05:00 Resp 20 09/26/18 13:30 BP 142/76 09/26/18 13:30 Pulse Ox 99 09/25/18 21:00 - Labs Result Diagrams: 09/27/18 05:54 09/27/18 05:52 Labs: Laboratory Results - last 24 hr 09/25/18 09/25/18 09/25/18 13:50 18:00 18:00 WBC 18.1 H RBC 3.47 L Hgb 9.2 L Hct 28.8 L MCV 83.1 MCH 26.7 L MCHC 32.1 L RDW 15.6 H Plt Count 267 MPV 8.1 Neut % (Auto) 92.1 H Lymph % (Auto) 3.1 L [place] % (Auto) 4.6 Eos % (Auto) 0.0 Baso % (Auto) 0.2 Neut # (Auto) 16.7 H Lymph # (Auto) 0.6 L [place] # (Auto) 0.8 Eos # (Auto) 0.0 Baso # (Auto) 0.0 Neutrophils % (Manual) 82 H Band Neutrophils % 9 H Lymphocytes % (Manual) 4 L Monocytes % (Manual) 5 Hypersegmented Polys Present Smudge Cells Present Platelet Estimate Normal Large Platelets Present Hypochromasia (manual) Slight Poikilocytosis (manual Slight Anisocytosis (manual) Slight Spherocytes Slight [place] Cells PT INR APTT Puncture Site pCO2 pO2 HCO3 ABG pH ABG Total CO2 ABG O2 Saturation ABG Base Excess ABG Hemoglobin ABG Carboxyhemoglobin POC ABG HHb (Measured) ABG Methemoglobin Seth Test A-a O2 Difference Respiratory Index Hgb O2 Saturation Vent Mode Mechanical Rate FiO2 Tidal Volume PEEP Sodium 135 Potassium 3.9 Chloride 109 H Carbon Dioxide 19 L Anion Gap 11 BUN 55 H Creatinine 3.0 H Est GFR ( Amer) 26 Est GFR (Non-Af Amer) 21 POC Glucose (mg/dL) Random Glucose 336 H D Calcium 8.0 L Phosphorus 1.6 L Magnesium 2.2 Total Bilirubin AST ALT Alkaline Phosphatase Total Creatine Kinase 1137 H CK-MB (Mass) 142 H Troponin I 221.0000 H* Total Protein Albumin Globulin Albumin/Globulin Ratio Urine Osmolality 220 L Ur Random Creatinine U Random Total Protein Ur Random Sodium 65 Ur Random Potassium 10.5 Random Vancomycin 09/25/18 09/26/18 09/26/18 18:00 02:50 05:21 WBC RBC Hgb Hct MCV MCH MCHC RDW Plt Count MPV Neut % (Auto) Lymph % (Auto) [place] % (Auto) Eos % (Auto) Baso % (Auto) Neut # (Auto) Lymph # (Auto) [place] # (Auto) Eos # (Auto) Baso # (Auto) Neutrophils % (Manual) Band Neutrophils % Lymphocytes % (Manual) Monocytes % (Manual) Hypersegmented Polys Smudge Cells Platelet Estimate Large Platelets Hypochromasia (manual) Poikilocytosis (manual Anisocytosis (manual) Spherocytes [place] Cells PT 14.7 H INR 1.3 APTT 150 H* D 144 H* Puncture Site Rr pCO2 24 L pO2 199 H HCO3 19.5 L ABG pH 7.43 ABG Total CO2 16.6 L ABG O2 Saturation 99.2 H ABG Base Excess -7.0 L ABG Hemoglobin 10.3 L ABG Carboxyhemoglobin 0.9 POC ABG HHb (Measured) 0.8 ABG Methemoglobin 0.7 Seth Test Pos A-a O2 Difference 270.0 Respiratory Index 1.4 Hgb O2 Saturation 97.5 Vent Mode Prvc Mechanical Rate 20 FiO2 70.0 Tidal Volume 500 PEEP 5 Sodium Potassium Chloride Carbon Dioxide Anion Gap BUN Creatinine Est GFR ( Amer) Est GFR (Non-Af Amer) POC Glucose (mg/dL) Random Glucose Calcium Phosphorus Magnesium Total Bilirubin AST ALT Alkaline Phosphatase Total Creatine Kinase CK-MB (Mass) Troponin I Total Protein Albumin Globulin Albumin/Globulin Ratio Urine Osmolality Ur Random Creatinine U Random Total Protein Ur Random Sodium Ur Random Potassium Random Vancomycin 09/26/18 09/26/18 09/26/18 05:52 05:52 05:52 WBC 16.8 H RBC 3.49 L Hgb 9.6 L Hct 28.9 L MCV 82.9 MCH 27.5 MCHC 33.2 RDW 15.8 H Plt Count 286 MPV 8.4 Neut % (Auto) 88.3 H Lymph % (Auto) 6.8 L [place] % (Auto) 4.8 Eos % (Auto) 0.1 Baso % (Auto) 0.0 Neut # (Auto) 14.8 H Lymph # (Auto) 1.2 [place] # (Auto) 0.8 Eos # (Auto) 0.0 Baso # (Auto) 0.0 Neutrophils % (Manual) 85 H Band Neutrophils % 3 H Lymphocytes % (Manual) 6 L Monocytes % (Manual) 6 Hypersegmented Polys Smudge Cells Platelet Estimate Normal Large Platelets Hypochromasia (manual) Slight Poikilocytosis (manual Slight Anisocytosis (manual) Slight Spherocytes [place] Cells Slight PT INR APTT Puncture Site pCO2 pO2 HCO3 ABG pH ABG Total CO2 ABG O2 Saturation ABG Base Excess ABG Hemoglobin ABG Carboxyhemoglobin POC ABG HHb (Measured) ABG Methemoglobin Seth Test A-a O2 Difference Respiratory Index Hgb O2 Saturation Vent Mode Mechanical Rate FiO2 Tidal Volume PEEP Sodium 137 Potassium 4.9 Chloride 109 H Carbon Dioxide 19 L Anion Gap 13 BUN 55 H Creatinine 3.3 H Est GFR ( Amer) 23 Est GFR (Non-Af Amer) 19 POC Glucose (mg/dL) Random Glucose 166 H D Calcium 7.9 L Phosphorus 2.4 L Magnesium 2.0 Total Bilirubin 0.5 AST 953 H D ALT 1250 H Alkaline Phosphatase 163 H Total Creatine Kinase CK-MB (Mass) Troponin I 158.0000 H* Total Protein 5.4 L Albumin 2.9 L Globulin 2.5 Albumin/Globulin Ratio 1.2 Urine Osmolality Ur Random Creatinine U Random Total Protein Ur Random Sodium Ur Random Potassium Random Vancomycin 8.8 09/26/18 09/26/18 09/26/18 09:07 09:58 10:04 WBC RBC Hgb Hct MCV MCH MCHC RDW Plt Count MPV Neut % (Auto) Lymph % (Auto) [place] % (Auto) Eos % (Auto) Baso % (Auto) Neut # (Auto) Lymph # (Auto) [place] # (Auto) Eos # (Auto) Baso # (Auto) Neutrophils % (Manual) Band Neutrophils % Lymphocytes % (Manual) Monocytes % (Manual) Hypersegmented Polys Smudge Cells Platelet Estimate Large Platelets Hypochromasia (manual) Poikilocytosis (manual Anisocytosis (manual) Spherocytes [place] Cells PT INR APTT Puncture Site pCO2 pO2 HCO3 ABG pH ABG Total CO2 ABG O2 Saturation ABG Base Excess ABG Hemoglobin ABG Carboxyhemoglobin POC ABG HHb (Measured) ABG Methemoglobin Seth Test A-a O2 Difference Respiratory Index Hgb O2 Saturation Vent Mode Mechanical Rate FiO2 Tidal Volume PEEP Sodium Potassium Chloride Carbon Dioxide Anion Gap BUN Creatinine Est GFR ( Amer) Est GFR (Non-Af Amer) POC Glucose (mg/dL) 213 H 250 H Random Glucose Calcium Phosphorus Magnesium Total Bilirubin AST ALT Alkaline Phosphatase Total Creatine Kinase CK-MB (Mass) Troponin I Total Protein Albumin Globulin Albumin/Globulin Ratio Urine Osmolality Ur Random Creatinine 18.6 U Random Total Protein 51.0 H Ur Random Sodium 55 Ur Random Potassium Random Vancomycin 09/26/18 09/26/18 09/26/18 10:04 11:13 11:59 WBC RBC Hgb Hct MCV MCH MCHC RDW Plt Count MPV Neut % (Auto) Lymph % (Auto) [place] % (Auto) Eos % (Auto) Baso % (Auto) Neut # (Auto) Lymph # (Auto) [place] # (Auto) Eos # (Auto) Baso # (Auto) Neutrophils % (Manual) Band Neutrophils % Lymphocytes % (Manual) Monocytes % (Manual) Hypersegmented Polys Smudge Cells Platelet Estimate Large Platelets Hypochromasia (manual) Poikilocytosis (manual Anisocytosis (manual) Spherocytes [place] Cells PT INR APTT 64 H D Puncture Site pCO2 pO2 HCO3 ABG pH ABG Total CO2 ABG O2 Saturation ABG Base Excess ABG Hemoglobin ABG Carboxyhemoglobin POC ABG HHb (Measured) ABG Methemoglobin Seth Test A-a O2 Difference Respiratory Index Hgb O2 Saturation Vent Mode Mechanical Rate FiO2 Tidal Volume PEEP Sodium Potassium Chloride Carbon Dioxide Anion Gap BUN Creatinine Est GFR ( Amer) Est GFR (Non-Af Amer) POC Glucose (mg/dL) 202 H 234 H Random Glucose Calcium Phosphorus Magnesium Total Bilirubin AST ALT Alkaline Phosphatase Total Creatine Kinase CK-MB (Mass) Troponin I Total Protein Albumin Globulin Albumin/Globulin Ratio Urine Osmolality Ur Random Creatinine U Random Total Protein Ur Random Sodium Ur Random Potassium Random Vancomycin 09/26/18 12:58 WBC RBC Hgb Hct MCV MCH MCHC RDW Plt Count MPV Neut % (Auto) Lymph % (Auto) [place] % (Auto) Eos % (Auto) Baso % (Auto) Neut # (Auto) Lymph # (Auto) [place] # (Auto) Eos # (Auto) Baso # (Auto) Neutrophils % (Manual) Band Neutrophils % Lymphocytes % (Manual) Monocytes % (Manual) Hypersegmented Polys Smudge Cells Platelet Estimate Large Platelets Hypochromasia (manual) Poikilocytosis (manual Anisocytosis (manual) Spherocytes [place] Cells PT INR APTT Puncture Site pCO2 pO2 HCO3 ABG pH ABG Total CO2 ABG O2 Saturation ABG Base Excess ABG Hemoglobin ABG Carboxyhemoglobin POC ABG HHb (Measured) ABG Methemoglobin Seth Test A-a O2 Difference Respiratory Index Hgb O2 Saturation Vent Mode Mechanical Rate FiO2 Tidal Volume PEEP Sodium Potassium Chloride Carbon Dioxide Anion Gap BUN Creatinine Est GFR ( Amer) Est GFR (Non-Af Amer) POC Glucose (mg/dL) 238 H Random Glucose Calcium Phosphorus Magnesium Total Bilirubin AST ALT Alkaline Phosphatase Total Creatine Kinase CK-MB (Mass) Troponin I Total Protein Albumin Globulin Albumin/Globulin Ratio Urine Osmolality Ur Random Creatinine U Random Total Protein Ur Random Sodium Ur Random Potassium Random Vancomycin Assessment & Plan (1) Coma Assessment and Plan: pt unresponsive on hypothermia protocol on rewarming phase of hypothermia protocol Status: Acute (2) Cardiac arrest Assessment and Plan: etiology ? ACS keep pt on IV heparin , dapt, low dose bb, statins Status: Acute (3) CAD (coronary artery disease) Status: Acute (4) DANUTA (acute kidney injury) Status: Acute (5) Encephalopathy Status: Acute (6) Metabolic acidosis Status: Acute (7) Shock Status: Acute (8) Acute coronary syndrome Status: Acute (9) Acute renal insufficiency Status: Acute
[2018-09-26] MEDS: Sodium Chloride 0.9% 1,000 ML IV SCH ×2 (14:16→22:48)
--- NOTE | 2018-09-26 14:18 | CP.PCM.PN ---
Subjective - Date & Time of Evaluation Date of Evaluation: 09/26/18 Time of Evaluation: 08:00 - Subjective Subjective: Seen and examined this morning. Patient is unresponsive Hypothermic protocol on rewarming phase Patient is orally intubated on MV support vitals afebrile,BP 167/97,sat 100%,pulse 78 Objective - Vital Signs/Intake and Output Vital Signs (last 24 hours): Temp Pulse Resp BP Pulse Ox 95 F L 69 20 142/76 99 09/26/18 13:30 09/26/18 05:00 09/26/18 13:30 09/26/18 13:30 09/25/18 21:00 Intake and Output: 09/26/18 09/26/18 06:59 18:59 Intake Total 1260.1 904.3 Output Total 1110 420 Balance 150.1 484.3 - Medications Medications: Current Medications Albuterol Sulfate (Albuterol 0.083% Inhal Alicia (2.5 Mg/3 Ml) Ud) 2.5 mg INH RQ6 [facility] Last Admin: 09/26/18 13:30 Dose: 2.5 mg Aspirin (Aspirin Chewable) 81 mg PO DAILY [facility] Last Admin: 09/26/18 09:23 Dose: 81 mg Dextrose (Dextrose 50% Inj) 0 ml IV STAT PRN; Protocol PRN Reason: Hypoglycemia Protocol Dextrose (Glutose 15) 0 gm PO ONCE PRN; Protocol PRN Reason: Hypoglycemia Protocol Famotidine (Pepcid) 20 mg IVP DAILY [facility] Last Admin: 09/26/18 09:23 Dose: 20 mg Glucagon (Glucagen Diagnostic Kit) 0 mg IM STAT PRN; Protocol PRN Reason: Hypoglycemia Protocol Insulin Human Regular 100 unit (/ Sodium Chloride) 100 mls @ 5 mls/hr IV .Q20H [facility]; Protocol Last Titration: 09/26/18 08:00 Dose: 4 units/hr, 4 mls/hr Heparin Sodium/Sodium Chloride (Heparin 29756 Units/250ml 1/2 Normal Saline) 25,000 units in 250 mls @ 15.513 mls/hr IV .Q16H7M PRN; Protocol PRN Reason: PROTOCOL Last Admin: 09/26/18 12:36 Dose: 6.03 units/kg/hr, 7.795 mls/hr Piperacillin Sod/Tazobactam Sod (Zosyn 2.25 Gm Iv Premix) 2.25 gm in 50 mls @ 100 mls/hr IVPB Q8H [facility]; Protocol Last Admin: 09/26/18 08:15 Dose: Not Given Sodium Chloride (Sodium Chloride 0.9%) 1,000 mls @ 100 mls/hr IV .Q10H [facility] Lactic Acid (Lac-Hydrin 12% Lotion (225 G)) 0 gm EXT BID [facility] Rosuvastatin Calcium (Crestor) 10 mg PO HS [facility] - Labs Labs: 09/26/18 05:52 09/26/18 05:52 PT 14.7 SECONDS (9.7-12.2) H 09/25/18 18:00 INR 1.3 09/25/18 18:00 APTT 64 SECONDS (21-34) H D 09/26/18 10:04 - Constitutional Appears: Chronically Ill, Other (intubated on MVmunresposive) - Head Exam Head Exam: NORMAL INSPECTION - Eye Exam Eye Exam: Normal appearance. absent: PERRL - ENT Exam ENT Exam: Mucous Membranes Moist - Neck Exam Neck Exam: absent: Full ROM (intubated) - Respiratory Exam Respiratory Exam: Clear to Ausculation Bilateral, NORMAL BREATHING PATTERN - Cardiovascular Exam Cardiovascular Exam: REGULAR RHYTHM - GI/Abdominal Exam GI & Abdominal Exam: Soft, Normal Bowel Sounds - Extremities Exam Extremities Exam: absent: Full ROM - Neurological Exam Neurological Exam: absent: Alert - Psychiatric Exam Psychiatric exam: absent: Normal Mood - Skin Skin Exam: Dry Assessment and Plan - Assessment and Plan (Free Text) Assessment: Mr. Rikki Malik is a morbidly obese 63yo male with a PMH of CAD s/p CABG, HTN, DM, CKD, HLD, asthma was BIBA for witnessed cardiac arrest at home. He was discharged from the [facility] ED earlier today for neck pain and SOB. Within 1 hour of arriving home, his and son-in-law noticed an abrupt change in mental status and saw the patient go apneic. Patient was found asystolic by EMS and intubated. CPR/ACLS multiple times en route to ED where it was continued. Patient started on Levophed and treated for hyperkalemia in ED. Patient remains unresponsive on MV support,no fever. As per son patient uses home oxygen and BIPAP at night. Plan: 1 Cardiac arrest,Hypoxic brain injury Patient is unresponsive likely due to hypoxic brain injury On hypothermic protocol rewarming phase continue MV support,IV hydration,Chest x ray without pulmonary congestion,cardiomegaly,poor prognosis Head CT: Diffuse Aguayo matter, loss of aguayo-white matter, hypoxic/ischemic insult 2.NSTMI continue heparin drip,plavix,asprin,metoprolol spoke to Dr Rashid. He spoke to the patient's son Echo 09/26 septal hypokinesia,mild concentric Left ventricular hypertrophy,mild to mod impaired systolic function,mild Pul HTN 3.History of CAD,CABG quadruple bypass in 2012 ,h/o diastolic heart failure 4.Diabetic ketoacidosis-resolved Diabetes mellitus -monitor sugar on insulin drip 5.Acute on chronic renal failure monitor creatinine,follow nephrology continue hydration good urine out put 6.Asthma-stable 7.Leukocytosis,cardiac arrest ,rule out infection no fever,urine and blood cultures no grwoth 24hrs follow culture and continue Zosyn renal dose for possible aspiration pneumonia ' second dose vanco today, Stop vanco 8.DVT prophylaxis is on heparin drip GI prophylaxis is on pepsid continue fluids Prognosis -poor Spoke to his family about his prognosis and medical problem yesterday,
[2018-09-26 16:04] LABS: BASO % 0.1 % (0.0-2.0); HEMOGLOBIN 8.8 g/dL (12.0-18.0); LYMPH # 0.5 K/uL (1.0-4.3); LYMPH % 2.7 % (20.0-40.0); MEAN CELL VOLUME 81.2 fL (80.0-94.0); MEAN CORPUSCULAR HEMOGLOBIN 26.5 pg (27.0-31.0); MEAN CORPUSCULAR HGB CONC 32.6 g/dL (33.0-37.0); MONO # 1.1 K/uL (0.0-0.8); MONO % 5.7 % (0.0-10.0); NEUT # 17.7 K/uL (1.8-7.0); NEUT % 91.5 % (50.0-75.0); PLATELET COUNT 277 K/uL (130-400); RBC 3.31 Mil/uL (4.40-5.90); RED CELL DISTRIBUTION WIDTH 15.8 % (11.5-14.5); WHITE BLOOD COUNT 19.4 K/uL (4.8-10.8)
[2018-09-26 17:01] LABS: CALCIUM 7.7 mg/dl (8.6-10.4)
[2018-09-26] MEDS ORDERED: Ammonium Lactate 12% Lotion (225 g) EXT SCH (18:00)
[2018-09-26] MEDS ORDERED: Sodium Chloride 0.9% 500 ML IV ONE (18:06)
[2018-09-26 20:12] LABS: BANDS 7 % (0-2); LYMPHOCYTE 4 % (20-40); MONOCYTE 2 % (0-10); NEUTROPHIL 87 % (50-75); PLATELET ESTIMATE NORMAL (NORMAL); TOTAL CELLS COUNTED 100
[2018-09-26 22:41] VITALS: BP 117/61
[2018-09-26 22:47] VITALS: PULSE 114; RESP 15; TEMP 97.5
[2018-09-27] MEDS: Albuterol 0.083% Inhal Sol (2.5 mg/3 mL) UD INH SCH (01:22)
[2018-09-27] MEDS: Insulin Human Regular 100 UNIT in Sodium Chloride 0.9% 99 ML IV SCH (02:00)
[2018-09-27] MEDS: Sodium Chloride 0.9% 1,000 ML IV SCH ×3 (03:30→13:48)
[2018-09-27 06:06] LABS: BASO % 0.1 % (0.0-2.0); HEMOGLOBIN 8.1 g/dL (12.0-18.0); LYMPH # 1.2 K/uL (1.0-4.3); LYMPH % 7.8 % (20.0-40.0); MEAN CELL VOLUME 82.7 fL (80.0-94.0); MEAN CORPUSCULAR HGB CONC 32.7 g/dL (33.0-37.0); MEAN PLATELET VOLUME 8.6 fL (7.2-11.7); MONO # 0.8 K/uL (0.0-0.8); NEUT # 13.9 K/uL (1.8-7.0); NEUT % 87.1 % (50.0-75.0); PLATELET COUNT 261 K/uL (130-400); RBC 2.98 Mil/uL (4.40-5.90); RED CELL DISTRIBUTION WIDTH 15.9 % (11.5-14.5); WHITE BLOOD COUNT 15.9 K/uL (4.8-10.8)
[2018-09-27 06:11] LABS: ABG ALLEN TEST POS; ARTERIAL BLOOD GAS HCO3 18.7 mmol/L (21-28); ARTERIAL BLOOD GAS O2 SAT 101.2 % (95-98); ARTERIAL BLOOD GAS PCO2 27 mm/Hg (35-45); ARTERIAL BLOOD GAS PH 7.37 (7.35-7.45); ARTERIAL BLOOD GAS PO2 149 mm/Hg (80-100); ARTERIAL BLOOD GAS TCO2 16.4 mmol/L (22-28)
[2018-09-27 06:24] LABS: ALB/GLOB RATIO 1.1 (1.0-2.1); ALBUMIN 2.5 g/dL (3.5-5.0); CALCIUM 7.5 mg/dl (8.6-10.4)
--- NOTE | 2018-09-27 07:33 | CP.PCM.PN ---
Subjective - Date & Time of Evaluation Date of Evaluation: 09/27/18 Time of Evaluation: 07:30 - Subjective Subjective: on respiratoro comatose no gag or corneal reflex u/o 100 cc/hr labs reviewed EEG ongoing Objective - Vital Signs/Intake and Output Vital Signs (last 24 hours): Temp Pulse Resp BP Pulse Ox 97.5 F L 114 H 15 117/61 99 09/26/18 22:25 09/26/18 22:25 09/26/18 22:25 09/26/18 22:25 09/26/18 22:25 Intake and Output: 09/27/18 09/27/18 06:59 18:59 Intake Total 1375.4 Output Total 360 Balance 1015.4 - Medications Medications: Current Medications Albuterol Sulfate (Albuterol 0.083% Inhal Alicia (2.5 Mg/3 Ml) Ud) 2.5 mg INH RQ6 [facility] Last Admin: 09/27/18 01:22 Dose: 2.5 mg Aspirin (Aspirin Chewable) 81 mg PO DAILY [facility] Last Admin: 09/26/18 09:23 Dose: 81 mg Clopidogrel Bisulfate (Plavix) 75 mg PO DAILY [facility] Dextrose (Dextrose 50% Inj) 0 ml IV STAT PRN; Protocol PRN Reason: Hypoglycemia Protocol Dextrose (Glutose 15) 0 gm PO ONCE PRN; Protocol PRN Reason: Hypoglycemia Protocol Famotidine (Pepcid) 20 mg IVP DAILY [facility] Last Admin: 09/26/18 09:23 Dose: 20 mg Glucagon (Glucagen Diagnostic Kit) 0 mg IM STAT PRN; Protocol PRN Reason: Hypoglycemia Protocol Insulin Human Regular 100 unit (/ Sodium Chloride) 100 mls @ 5 mls/hr IV .Q20H [facility]; Protocol Last Admin: 09/27/18 02:00 Dose: Not Given Heparin Sodium/Sodium Chloride (Heparin 90467 Units/250ml 1/2 Normal Saline) 25,000 units in 250 mls @ 15.513 mls/hr IV .Q16H7M PRN; Protocol PRN Reason: PROTOCOL Last Admin: 09/26/18 12:36 Dose: 6.03 units/kg/hr, 7.795 mls/hr Piperacillin Sod/Tazobactam Sod (Zosyn 2.25 Gm Iv Premix) 2.25 gm in 50 mls @ 100 mls/hr IVPB Q8H [facility]; Protocol Last Admin: 09/26/18 23:47 Dose: 100 mls/hr Sodium Chloride (Sodium Chloride 0.9%) 1,000 mls @ 100 mls/hr IV .Q10H [facility] Last Admin: 09/27/18 06:54 Dose: Not Given Lactic Acid (Lac-Hydrin 12% Lotion (225 G)) 0 gm EXT BID [facility] Last Admin: 09/26/18 17:27 Dose: 1 applic Metoprolol Tartrate (Lopressor) 12.5 mg PO BIDCC [facility] Last Admin: 09/26/18 17:27 Dose: 12.5 mg Rosuvastatin Calcium (Crestor) 10 mg PO HS [facility] Last Admin: 09/26/18 22:11 Dose: 10 mg - Labs Labs: 09/27/18 05:54 09/27/18 05:52 PT 14.7 SECONDS (9.7-12.2) H 09/25/18 18:00 INR 1.3 09/25/18 18:00 APTT 47 SECONDS (21-34) H D 09/27/18 05:54 - Constitutional Appears: In Acute Distress, Other - ENT Exam Additional comments: intubated - Respiratory Exam Respiratory Exam: Decreased Breath Sounds. absent: Accessory Muscle Use - Cardiovascular Exam Cardiovascular Exam: REGULAR RHYTHM. absent: Rubs - GI/Abdominal Exam GI & Abdominal Exam: Distended. absent: Tenderness - Extremities Exam Extremities Exam: Pedal Edema - Neurological Exam Neurological Exam: absent: Alert, Awake Assessment and Plan - Assessment and Plan (Free Text) Assessment: nonoliguric rafael post cardiac arrest worsening azotemia presumed anoxic injury not a dialysis candidate at this time follow neuro recommendation trend creatinine avoid nephrotoxic agents
[2018-09-27] MEDS: Piperacill/Tazo 2.25gm in Dex 2.25 GM/50 ML BAG IVPB SCH (08:08)
[2018-09-27 08:20] LABS: BANDS 1 % (0-2); EOSINOPHIL 1 % (0-4); LYMPHOCYTE 8 % (20-40); MONOCYTE 4 % (0-10); NEUTROPHIL 86 % (50-75); PLATELET ESTIMATE NORMAL (NORMAL); TOTAL CELLS COUNTED 100
[2018-09-27 08:21] LABS: ANISOCYTOSIS SLIGHT; BURR CELLS SLIGHT; HYPOCHROMIC SLIGHT; POIKILOCYTOSIS SLIGHT; TARGET CELLS SLIGHT
--- NOTE | 2018-09-27 08:38 | RAD ---
Date of service: 09/27/2018 HISTORY: eval et tube COMPARISON: Portable chest 09/26/2018, 7:17 a.m.. TECHNIQUE: 1 view obtained. FINDINGS: LUNGS: Endotracheal and nasogastric tubes are not significantly changed in position as well as left central venous line. External pacemaker again identified. Cooling blanket apparently removed. Overlying tubes and catheters as well as telemetry wires obscure the evaluation significantly. No interval changes appreciated in likely pulmonary vascular congestion. No definitive infiltrates bilaterally. No pleural effusions or pneumothoraces. Cardiac size stable. PLEURA: As above. CARDIOVASCULAR: No aortic atherosclerotic calcification present. Also as above. OSSEOUS STRUCTURES: No significant abnormalities. VISUALIZED UPPER ABDOMEN: Normal. OTHER FINDINGS: None. IMPRESSION: Pulmonary vascular congestive pattern is question. No infiltrates, pleural effusion or pneumothoraces. Support devices unchanged in position and appearance with exception of a cooling blanket, which has been removed.
--- NOTE | 2018-09-27 08:39 | CP.PCM.PN ---
Subjective - Date & Time of Evaluation Date of Evaluation: 09/27/18 Time of Evaluation: 08:38 Objective - Vital Signs/Intake and Output Vital Signs (last 24 hours): Temp Pulse Resp BP Pulse Ox 97.5 F L 114 H 15 117/61 99 09/26/18 22:25 09/26/18 22:25 09/26/18 22:25 09/26/18 22:25 09/26/18 22:25 Intake and Output: 09/27/18 09/27/18 06:59 18:59 Intake Total 1375.4 292.6 Output Total 360 13 Balance 1015.4 279.6 - Medications Medications: Current Medications Albuterol Sulfate (Albuterol 0.083% Inhal Alicia (2.5 Mg/3 Ml) Ud) 2.5 mg INH RQ6 [facility]AL[facility] Last Admin: 09/27/18 01:22 Dose: 2.5 mg Aspirin (Aspirin Chewable) 81 mg PO DAILY [facility] Last Admin: 09/26/18 09:23 Dose: 81 mg Clopidogrel Bisulfate (Plavix) 75 mg PO DAILY [facility] Dextrose (Dextrose 50% Inj) 0 ml IV STAT PRN; Protocol PRN Reason: Hypoglycemia Protocol Dextrose (Glutose 15) 0 gm PO ONCE PRN; Protocol PRN Reason: Hypoglycemia Protocol Famotidine (Pepcid) 20 mg IVP DAILY [facility] Last Admin: 09/26/18 09:23 Dose: 20 mg Glucagon (Glucagen Diagnostic Kit) 0 mg IM STAT PRN; Protocol PRN Reason: Hypoglycemia Protocol Insulin Human Regular 100 unit (/ Sodium Chloride) 100 mls @ 5 mls/hr IV .Q20H FIORDALIZA; Protocol Last Titration: 09/27/18 08:06 Dose: 6 units/hr, 6 mls/hr Heparin Sodium/Sodium Chloride (Heparin 13195 Units/250ml 1/2 Normal Saline) 25,000 units in 250 mls @ 15.513 mls/hr IV .Q16H7M PRN; Protocol PRN Reason: PROTOCOL Last Admin: 09/26/18 12:36 Dose: 6.03 units/kg/hr, 7.795 mls/hr Piperacillin Sod/Tazobactam Sod (Zosyn 2.25 Gm Iv Premix) 2.25 gm in 50 mls @ 100 mls/hr IVPB Q8H FIORDALIZA; Protocol Last Admin: 09/27/18 08:08 Dose: 100 mls/hr Sodium Chloride (Sodium Chloride 0.9%) 1,000 mls @ 100 mls/hr IV .Q10H [facility] Last Admin: 09/27/18 06:54 Dose: Not Given Lactic Acid (Lac-Hydrin 12% Lotion (225 G)) 0 gm EXT BID [facility] Last Admin: 09/26/18 17:27 Dose: 1 applic Metoprolol Tartrate (Lopressor) 12.5 mg PO BIDCC [facility] Last Admin: 09/27/18 08:08 Dose: 12.5 mg Rosuvastatin Calcium (Crestor) 10 mg PO HS [facility] Last Admin: 09/26/18 22:11 Dose: 10 mg - Labs Labs: 09/27/18 05:54 09/27/18 05:52 PT 14.7 SECONDS (9.7-12.2) H 09/25/18 18:00 INR 1.3 09/25/18 18:00 APTT 47 SECONDS (21-34) H D 09/27/18 05:54
--- NOTE | 2018-09-27 09:23 | PCM.VEEG ---
Video EEG - Procedure Start Date: 09/26/18 Start Time: 17:25 - Interpretation Description of the study: This is a multichannel inpatient Video-EEG monitoring performed in accordance with recommendations specified by the [place] [employer] (ACNS: Guidelines 1; Section 2, 2006). The 10-20 electrode placement system was utilized in adherence with guidelines detailed by the [employer] (IFCN; Ham TORREZ, 1983). Physiologic EEG data and video was acquired digitally. A minimum of at least 22 channels was used for digital data acquisition. Electrophysiologic data was sampled at a rate of 512 Hz. Digital high and low pass filtering was used where appropriate. Data was formatted to various electrode montages as deemed pertinent. All EEG information was analyzed by spike and seizure detection software. In addition, all EEG information was reviewed by a physician. A bedside event button was used to provide a time stamp for clinical events. EEG Finding during wakefulness: Patient is comatose. There is no wakefulness There is very low voltage activity, however no clear cortical activity seen There is EKG artifact noticed No asymmetries seen No evidence of epileptiform activity No seizures EEG Finding during sleep: Patient is comatose. There is no sleep activity There is very low voltage activity, however no clear cortical activity seen There is EKG artifact noticed No asymmetries seen No evidence of epileptiform activity No seizures Interictal non-epileptiform abnormalities: Patient is comatose. There is very low voltage activity, however no clear cortical activity seen There is EKG artifact noticed No asymmetries seen Interictal epileptiform abnormalities: None Ictal epileptiform abnormalities: None - Impression Impression: Patient is comatose. There is very low voltage activity, however no clear cortical activity seen There is EKG artifact noticed No asymmetries seen No evidence of epileptiform activity No seizures Study reveals no clear cortical activity Brain protocol recommended
[2018-09-27] MEDS ORDERED: (Lantus) Insulin Glargine, Recombinant SC SCH (10:00)
[2018-09-27] MEDS ORDERED: (Novolog) Insulin Aspart, Recombinant 100 u/ml 10 ml vial SC SCH ×4 (13:17→16:30)
[2018-09-27] MEDS ORDERED: (Novolog) Insulin Aspart, Recombinant 100 u/ml 10 ml vial SC ONE (14:12)
--- NOTE | 2018-09-27 17:06 | CARD ---
APPROVED REPORT Date of service: 09/26/2018 EKG Measurement Heart [id number] <Conclusion> Normal sinus rhythm ST & T wave abnormality, consider anterior ischemia Prolonged QT Abnormal ECG
--- NOTE | 2018-09-27 17:22 | CP.CCUPN ---
<Mike Celeste - Last Filed: 09/27/18 17:22> CCU Subjective - Physician Review Subjective (Free Text): Pt seen and examined, s/p cardiac arrest, intubated, Comatose, GCS 3.No response to painful stimuli, no gag or corneal reflex. 09/27/18 12:53 CCU Objective - Vital Signs / Intake & Output Intake and Output (Last 8hrs): Intake & Output 09/26/18 09/27/18 09/27/18 22:59 06:59 14:59 Intake Total 1411.2 912.2 400.4 Output Total 210 270 24 Balance 1201.2 642.2 376.4 Weight 287 lb 1.6 oz Intake: IV 35 67 Intake, IV Amount 1376.2 912.2 333.4 Left Distal Port 20 42 10 Subclavian Left Medial Port 0 0 0 Subclavian Left Proximal Port 400 800 300 Subclavian Right Antecubital 70.2 70.2 23.4 Right Distal Port 36 Internal Jugular Right Proximal Port 850 Internal Jugular Output: Urine 210 270 24 Urethral ([place]) 210 270 24 - Physical Exam Head: Positive for: Atraumatic, Normocephalic Pupils: Positive for: Non-Reactive Extroacular Muscles: Negative for: Gaze Palsy Mouth: Positive for: Dry Respiratory/Chest: Positive for: Rales (BL bases). Negative for: Accessory Muscle Use Cardiovascular: Positive for: Regular Rate and Rhythm. Negative for: Murmurs Abdomen: Positive for: Distention. Negative for: Guarding Upper Extremity: Positive for: Normal Inspection Lower Extremity: Positive for: Edema (+! BL) Neurological: Negative for: GCS=15, CN II-XII Intact Skin: Positive for: Warm Psychiatric: Negative for: Alert (GCS 3) - Medications Active Medications: Active Medications Generic Name Dose Route Start Last Admin Trade Name Freq PRN Reason Stop Dose Admin Albuterol Sulfate 2.5 mg 09/25/18 14:00 09/27/18 01:22 Albuterol 0.083% Inhal Alicia (2.5 Mg/3 Ml) Ud INH 2.5 mg RQ6 FIORDALIZA Administration Aspirin 81 mg 09/26/18 10:00 09/26/18 09:23 Aspirin Chewable PO 81 mg DAILY FIORDALIZA Administration Clopidogrel Bisulfate 75 mg 09/27/18 10:00 Plavix PO DAILY FIORDALIZA Dextrose 0 ml 09/25/18 09:13 Dextrose 50% Inj IV STAT PRN Hypoglycemia Protocol Protocol Dextrose 0 gm 09/25/18 09:13 Glutose 15 PO ONCE PRN Hypoglycemia Protocol Protocol Famotidine 20 mg 09/25/18 10:00 09/26/18 09:23 Pepcid IVP 20 mg DAILY FIORDALIZA Administration Glucagon 0 mg 09/25/18 09:13 Glucagen Diagnostic Kit IM STAT PRN Hypoglycemia Protocol Protocol Heparin Sodium/Sodium Chloride 25,000 units in 250 mls @ 15.513 mls/hr 09/25/18 09:19 09/26/18 12:36 Heparin 88306 Units/250ml 1/2 Normal Saline IV 6.03 units/kg/hr .Q16H7M PRN 7.795 mls/hr PROTOCOL Administration Protocol 12 UNITS/KG/HR Piperacillin Sod/Tazobactam Sod 2.25 gm in 50 mls @ 100 mls/hr 09/26/18 08:00 09/27/18 08:08 Zosyn 2.25 Gm Iv Premix IVPB 100 mls/hr Q8H FIORDALIZA Administration Protocol Sodium Chloride 1,000 mls @ 100 mls/hr 09/26/18 10:45 09/27/18 06:54 Sodium Chloride 0.9% IV Not Given .Q10H FIORDALIZA Lactic Acid 0 gm 09/26/18 18:00 09/26/18 17:27 Lac-Hydrin 12% Lotion (225 G) EXT 1 applic BID FIORDALIZA Administration Metoprolol Tartrate 12.5 mg 09/26/18 17:00 09/27/18 08:08 Lopressor PO 12.5 mg BIDCC FIORDALIZA Administration Rosuvastatin Calcium 10 mg 09/26/18 22:00 09/26/18 22:11 Crestor PO 10 mg HS FIORDALIZA Administration - Patient Studies Lab Studies: Microbiology Studies 09/25/18 06:42 Blood Culture - Preliminary Blood NO GROWTH AFTER 48 HOURS 09/25/18 06:41 Blood Culture - Preliminary Blood NO GROWTH AFTER 48 HOURS 09/25/18 06:51 MRSA Culture (Admit) - Final Nose MRSA NOT DETECTED 09/25/18 01:47 Urine Culture - Final Urine Random No Growth (<1,000 CFU/ML) Lab Studies 09/27/18 09/27/18 09/27/18 Range/Units 09:04 08:00 07:11 WBC (4.8-10.8) K/uL RBC (4.40-5.90) Mil/uL Hgb (12.0-18.0) g/dL Hct (35.0-51.0) % MCV (80.0-94.0) fL MCH (27.0-31.0) pg MCHC (33.0-37.0) g/dL RDW (11.5-14.5) % Plt Count (130-400) K/uL MPV (7.2-11.7) fL Neut % (Auto) (50.0-75.0) % Lymph % (Auto) (20.0-40.0) % [place] % (Auto) (0.0-10.0) % Eos % (Auto) (0.0-4.0) % Baso % (Auto) (0.0-2.0) % Neut # (Auto) (1.8-7.0) K/uL Lymph # (Auto) (1.0-4.3) K/uL [place] # (Auto) (0.0-0.8) K/uL Eos # (Auto) (0.0-0.7) K/uL Baso # (Auto) (0.0-0.2) K/uL Neutrophils % (Manual) (50-75) % Band Neutrophils % (0-2) % Lymphocytes % (Manual) (20-40) % Monocytes % (Manual) (0-10) % Eosinophils % (Manual) (0-4) % Platelet Estimate (NORMAL) Hypochromasia (manual) Poikilocytosis (manual Anisocytosis (manual) Target Cells [place] Cells APTT (21-34) SECONDS Puncture Site pCO2 (35-45) mm/Hg pO2 (80-100) mm/Hg HCO3 (21-28) mmol/L ABG pH (7.35-7.45) ABG Total CO2 (22-28) mmol/L ABG O2 Saturation (95-98) % ABG Base Excess (-2.0-3.0) mmol/L Seth Test ABG Potassium (3.6-5.2) mmol/L A-a O2 Difference mm/Hg Respiratory Index Glucose (75-110) mg/dl Lactate (0.7-2.1) mmol/L Vent Mode Mechanical Rate FiO2 % Tidal Volume PEEP Sodium (132-148) mmol/L Potassium (3.6-5.2) mmol/L Chloride (98-107) mmol/L Carbon Dioxide (22-30) mmol/L Anion Gap (10-20) BUN (9-20) mg/dL Creatinine (0.8-1.5) mg/dL Est GFR ( Amer) Est GFR (Non-Af Amer) POC Glucose (mg/dL) 246 H 253 H 244 H (65-110) mg/dL Random Glucose (75-110) mg/dL Calcium (8.6-10.4) mg/dl Phosphorus (2.5-4.5) mg/dL Magnesium (1.6-2.3) mg/dL Total Bilirubin (0.2-1.3) mg/dL AST (17-59) U/L ALT (21-72) U/L Alkaline Phosphatase (38-126) U/L Total Protein (6.3-8.3) g/dL Albumin (3.5-5.0) g/dL Globulin (2.2-3.9) gm/dL Albumin/Globulin Ratio (1.0-2.1) Arterial Blood Potassium (3.6-5.2) mmol/L Ur Random Creatinine mg/dL U Random Total Protein (0.0-12.0) mg/dL Ur Random Sodium mmol/L Random Vancomycin ug/mL 09/27/18 09/27/18 09/27/18 Range/Units 06:07 05:54 05:54 WBC 15.9 H (4.8-10.8) K/uL RBC 2.98 L (4.40-5.90) Mil/uL Hgb 8.1 L (12.0-18.0) g/dL Hct 24.7 L (35.0-51.0) % MCV 82.7 (80.0-94.0) fL MCH 27.0 (27.0-31.0) pg MCHC 32.7 L (33.0-37.0) g/dL RDW 15.9 H (11.5-14.5) % Plt Count 261 (130-400) K/uL MPV 8.6 (7.2-11.7) fL Neut % (Auto) 87.1 H (50.0-75.0) % Lymph % (Auto) 7.8 L (20.0-40.0) % [place] % (Auto) 5.0 (0.0-10.0) % Eos % (Auto) 0.0 (0.0-4.0) % Baso % (Auto) 0.1 (0.0-2.0) % Neut # (Auto) 13.9 H (1.8-7.0) K/uL Lymph # (Auto) 1.2 (1.0-4.3) K/uL [place] # (Auto) 0.8 (0.0-0.8) K/uL Eos # (Auto) 0.0 (0.0-0.7) K/uL Baso # (Auto) 0.0 (0.0-0.2) K/uL Neutrophils % (Manual) 86 H (50-75) % Band Neutrophils % 1 (0-2) % Lymphocytes % (Manual) 8 L (20-40) % Monocytes % (Manual) 4 (0-10) % Eosinophils % (Manual) 1 (0-4) % Platelet Estimate Normal (NORMAL) Hypochromasia (manual) Slight Poikilocytosis (manual Slight Anisocytosis (manual) Slight Target Cells Slight [place] Cells Slight APTT 47 H D (21-34) SECONDS Puncture Site pCO2 (35-45) mm/Hg pO2 (80-100) mm/Hg HCO3 (21-28) mmol/L ABG pH (7.35-7.45) ABG Total CO2 (22-28) mmol/L ABG O2 Saturation (95-98) % ABG Base Excess (-2.0-3.0) mmol/L Seth Test ABG Potassium (3.6-5.2) mmol/L A-a O2 Difference mm/Hg Respiratory Index Glucose (75-110) mg/dl Lactate (0.7-2.1) mmol/L Vent Mode Mechanical Rate FiO2 % Tidal Volume PEEP Sodium (132-148) mmol/L Potassium (3.6-5.2) mmol/L Chloride (98-107) mmol/L Carbon Dioxide (22-30) mmol/L Anion Gap (10-20) BUN (9-20) mg/dL Creatinine (0.8-1.5) mg/dL Est GFR ( Amer) Est GFR (Non-Af Amer) POC Glucose (mg/dL) 220 H (65-110) mg/dL Random Glucose (75-110) mg/dL Calcium (8.6-10.4) mg/dl Phosphorus (2.5-4.5) mg/dL Magnesium (1.6-2.3) mg/dL Total Bilirubin (0.2-1.3) mg/dL AST (17-59) U/L ALT (21-72) U/L Alkaline Phosphatase (38-126) U/L Total Protein (6.3-8.3) g/dL Albumin (3.5-5.0) g/dL Globulin (2.2-3.9) gm/dL Albumin/Globulin Ratio (1.0-2.1) Arterial Blood Potassium (3.6-5.2) mmol/L Ur Random Creatinine mg/dL U Random Total Protein (0.0-12.0) mg/dL Ur Random Sodium mmol/L Random Vancomycin ug/mL 09/27/18 09/27/18 09/27/18 Range/Units 05:52 05:52 05:24 WBC (4.8-10.8) K/uL RBC (4.40-5.90) Mil/uL Hgb (12.0-18.0) g/dL Hct (35.0-51.0) % MCV (80.0-94.0) fL MCH (27.0-31.0) pg MCHC (33.0-37.0) g/dL RDW (11.5-14.5) % Plt Count (130-400) K/uL MPV (7.2-11.7) fL Neut % (Auto) (50.0-75.0) % Lymph % (Auto) (20.0-40.0) % [place] % (Auto) (0.0-10.0) % Eos % (Auto) (0.0-4.0) % Baso % (Auto) (0.0-2.0) % Neut # (Auto) (1.8-7.0) K/uL Lymph # (Auto) (1.0-4.3) K/uL [place] # (Auto) (0.0-0.8) K/uL Eos # (Auto) (0.0-0.7) K/uL Baso # (Auto) (0.0-0.2) K/uL Neutrophils % (Manual) (50-75) % Band Neutrophils % (0-2) % Lymphocytes % (Manual) (20-40) % Monocytes % (Manual) (0-10) % Eosinophils % (Manual) (0-4) % Platelet Estimate (NORMAL) Hypochromasia (manual) Poikilocytosis (manual Anisocytosis (manual) Target Cells [place] Cells APTT (21-34) SECONDS Puncture Site Rr pCO2 27 L (35-45) mm/Hg pO2 149 H (80-100) mm/Hg HCO3 18.7 L (21-28) mmol/L ABG pH 7.37 (7.35-7.45) ABG Total CO2 16.4 L (22-28) mmol/L ABG O2 Saturation 101.2 H (95-98) % ABG Base Excess -8.1 L (-2.0-3.0) mmol/L Seth Test Pos ABG Potassium 5.9 H (3.6-5.2) mmol/L A-a O2 Difference 174.0 mm/Hg Respiratory Index 1.2 Glucose 242 H (75-110) mg/dl Lactate 1.8 (0.7-2.1) mmol/L Vent Mode Prvc Mechanical Rate 20 FiO2 50.0 % Tidal Volume 500 PEEP 5 Sodium 140 142.0 (132-148) mmol/L Potassium 4.3 (3.6-5.2) mmol/L Chloride 115 H 113.0 H (98-107) mmol/L Carbon Dioxide 17 L (22-30) mmol/L Anion Gap 12 (10-20) BUN 59 H (9-20) mg/dL Creatinine 4.5 H (0.8-1.5) mg/dL Est GFR ( Amer) 16 Est GFR (Non-Af Amer) 13 POC Glucose (mg/dL) (65-110) mg/dL Random Glucose 231 H (75-110) mg/dL Calcium 7.5 L (8.6-10.4) mg/dl Phosphorus 4.6 H (2.5-4.5) mg/dL Magnesium 1.8 (1.6-2.3) mg/dL Total Bilirubin 0.3 (0.2-1.3) mg/dL AST 264 H D (17-59) U/L ALT 688 H D (21-72) U/L Alkaline Phosphatase 139 H (38-126) U/L Total Protein 4.9 L (6.3-8.3) g/dL Albumin 2.5 L (3.5-5.0) g/dL Globulin 2.4 (2.2-3.9) gm/dL Albumin/Globulin Ratio 1.1 (1.0-2.1) Arterial Blood Potassium 5.9 H (3.6-5.2) mmol/L Ur Random Creatinine mg/dL U Random Total Protein (0.0-12.0) mg/dL Ur Random Sodium mmol/L Random Vancomycin 16.6 ug/mL 09/27/18 09/27/18 09/27/18 Range/Units 05:07 04:06 03:06 WBC (4.8-10.8) K/uL RBC (4.40-5.90) Mil/uL Hgb (12.0-18.0) g/dL Hct (35.0-51.0) % MCV (80.0-94.0) fL MCH (27.0-31.0) pg MCHC (33.0-37.0) g/dL RDW (11.5-14.5) % Plt Count (130-400) K/uL MPV (7.2-11.7) fL Neut % (Auto) (50.0-75.0) % Lymph % (Auto) (20.0-40.0) % [place] % (Auto) (0.0-10.0) % Eos % (Auto) (0.0-4.0) % Baso % (Auto) (0.0-2.0) % Neut # (Auto) (1.8-7.0) K/uL Lymph # (Auto) (1.0-4.3) K/uL [place] # (Auto) (0.0-0.8) K/uL Eos # (Auto) (0.0-0.7) K/uL Baso # (Auto) (0.0-0.2) K/uL Neutrophils % (Manual) (50-75) % Band Neutrophils % (0-2) % Lymphocytes % (Manual) (20-40) % Monocytes % (Manual) (0-10) % Eosinophils % (Manual) (0-4) % Platelet Estimate (NORMAL) Hypochromasia (manual) Poikilocytosis (manual Anisocytosis (manual) Target Cells [place] Cells APTT (21-34) SECONDS Puncture Site pCO2 (35-45) mm/Hg pO2 (80-100) mm/Hg HCO3 (21-28) mmol/L ABG pH (7.35-7.45) ABG Total CO2 (22-28) mmol/L ABG O2 Saturation (95-98) % ABG Base Excess (-2.0-3.0) mmol/L Seth Test ABG Potassium (3.6-5.2) mmol/L A-a O2 Difference mm/Hg Respiratory Index Glucose (75-110) mg/dl Lactate (0.7-2.1) mmol/L Vent Mode Mechanical Rate FiO2 % Tidal Volume PEEP Sodium (132-148) mmol/L Potassium (3.6-5.2) mmol/L Chloride (98-107) mmol/L Carbon Dioxide (22-30) mmol/L Anion Gap (10-20) BUN (9-20) mg/dL Creatinine (0.8-1.5) mg/dL Est GFR ( Amer) Est GFR (Non-Af Amer) POC Glucose (mg/dL) 250 H 262 H 263 H (65-110) mg/dL Random Glucose (75-110) mg/dL Calcium (8.6-10.4) mg/dl Phosphorus (2.5-4.5) mg/dL Magnesium (1.6-2.3) mg/dL Total Bilirubin (0.2-1.3) mg/dL AST (17-59) U/L ALT (21-72) U/L Alkaline Phosphatase (38-126) U/L Total Protein (6.3-8.3) g/dL Albumin (3.5-5.0) g/dL Globulin (2.2-3.9) gm/dL Albumin/Globulin Ratio (1.0-2.1) Arterial Blood Potassium (3.6-5.2) mmol/L Ur Random Creatinine mg/dL U Random Total Protein (0.0-12.0) mg/dL Ur Random Sodium mmol/L Random Vancomycin ug/mL 09/27/18 09/27/18 09/26/18 Range/Units 02:00 01:08 23:43 WBC (4.8-10.8) K/uL RBC (4.40-5.90) Mil/uL Hgb (12.0-18.0) g/dL Hct (35.0-51.0) % MCV (80.0-94.0) fL MCH (27.0-31.0) pg MCHC (33.0-37.0) g/dL RDW (11.5-14.5) % Plt Count (130-400) K/uL MPV (7.2-11.7) fL Neut % (Auto) (50.0-75.0) % Lymph % (Auto) (20.0-40.0) % [place] % (Auto) (0.0-10.0) % Eos % (Auto) (0.0-4.0) % Baso % (Auto) (0.0-2.0) % Neut # (Auto) (1.8-7.0) K/uL Lymph # (Auto) (1.0-4.3) K/uL [place] # (Auto) (0.0-0.8) K/uL Eos # (Auto) (0.0-0.7) K/uL Baso # (Auto) (0.0-0.2) K/uL Neutrophils % (Manual) (50-75) % Band Neutrophils % (0-2) % Lymphocytes % (Manual) (20-40) % Monocytes % (Manual) (0-10) % Eosinophils % (Manual) (0-4) % Platelet Estimate (NORMAL) Hypochromasia (manual) Poikilocytosis (manual Anisocytosis (manual) Target Cells [place] Cells APTT (21-34) SECONDS Puncture Site pCO2 (35-45) mm/Hg pO2 (80-100) mm/Hg HCO3 (21-28) mmol/L ABG pH (7.35-7.45) ABG Total CO2 (22-28) mmol/L ABG O2 Saturation (95-98) % ABG Base Excess (-2.0-3.0) mmol/L Seth Test ABG Potassium (3.6-5.2) mmol/L A-a O2 Difference mm/Hg Respiratory Index Glucose (75-110) mg/dl Lactate (0.7-2.1) mmol/L Vent Mode Mechanical Rate FiO2 % Tidal Volume PEEP Sodium (132-148) mmol/L Potassium (3.6-5.2) mmol/L Chloride (98-107) mmol/L Carbon Dioxide (22-30) mmol/L Anion Gap (10-20) BUN (9-20) mg/dL Creatinine (0.8-1.5) mg/dL Est GFR ( Amer) Est GFR (Non-Af Amer) POC Glucose (mg/dL) 246 H 280 H 276 H (65-110) mg/dL Random Glucose (75-110) mg/dL Calcium (8.6-10.4) mg/dl Phosphorus (2.5-4.5) mg/dL Magnesium (1.6-2.3) mg/dL Total Bilirubin (0.2-1.3) mg/dL AST (17-59) U/L ALT (21-72) U/L Alkaline Phosphatase (38-126) U/L Total Protein (6.3-8.3) g/dL Albumin (3.5-5.0) g/dL Globulin (2.2-3.9) gm/dL Albumin/Globulin Ratio (1.0-2.1) Arterial Blood Potassium (3.6-5.2) mmol/L Ur Random Creatinine mg/dL U Random Total Protein (0.0-12.0) mg/dL Ur Random Sodium mmol/L Random Vancomycin ug/mL 09/26/18 09/26/18 09/26/18 Range/Units 22:55 22:00 21:00 WBC (4.8-10.8) K/uL RBC (4.40-5.90) Mil/uL Hgb (12.0-18.0) g/dL Hct (35.0-51.0) % MCV (80.0-94.0) fL MCH (27.0-31.0) pg MCHC (33.0-37.0) g/dL RDW (11.5-14.5) % Plt Count (130-400) K/uL MPV (7.2-11.7) fL Neut % (Auto) (50.0-75.0) % Lymph % (Auto) (20.0-40.0) % [place] % (Auto) (0.0-10.0) % Eos % (Auto) (0.0-4.0) % Baso % (Auto) (0.0-2.0) % Neut # (Auto) (1.8-7.0) K/uL Lymph # (Auto) (1.0-4.3) K/uL [place] # (Auto) (0.0-0.8) K/uL Eos # (Auto) (0.0-0.7) K/uL Baso # (Auto) (0.0-0.2) K/uL Neutrophils % (Manual) (50-75) % Band Neutrophils % (0-2) % Lymphocytes % (Manual) (20-40) % Monocytes % (Manual) (0-10) % Eosinophils % (Manual) (0-4) % Platelet Estimate (NORMAL) Hypochromasia (manual) Poikilocytosis (manual Anisocytosis (manual) Target Cells [place] Cells APTT (21-34) SECONDS Puncture Site pCO2 (35-45) mm/Hg pO2 (80-100) mm/Hg HCO3 (21-28) mmol/L ABG pH (7.35-7.45) ABG Total CO2 (22-28) mmol/L ABG O2 Saturation (95-98) % ABG Base Excess (-2.0-3.0) mmol/L Seth Test ABG Potassium (3.6-5.2) mmol/L A-a O2 Difference mm/Hg Respiratory Index Glucose (75-110) mg/dl Lactate (0.7-2.1) mmol/L Vent Mode Mechanical Rate FiO2 % Tidal Volume PEEP Sodium (132-148) mmol/L Potassium (3.6-5.2) mmol/L Chloride (98-107) mmol/L Carbon Dioxide (22-30) mmol/L Anion Gap (10-20) BUN (9-20) mg/dL Creatinine (0.8-1.5) mg/dL Est GFR ( Amer) Est GFR (Non-Af Amer) POC Glucose (mg/dL) 255 H 201 H 223 H (65-110) mg/dL Random Glucose (75-110) mg/dL Calcium (8.6-10.4) mg/dl Phosphorus (2.5-4.5) mg/dL Magnesium (1.6-2.3) mg/dL Total Bilirubin (0.2-1.3) mg/dL AST (17-59) U/L ALT (21-72) U/L Alkaline Phosphatase (38-126) U/L Total Protein (6.3-8.3) g/dL Albumin (3.5-5.0) g/dL Globulin (2.2-3.9) gm/dL Albumin/Globulin Ratio (1.0-2.1) Arterial Blood Potassium (3.6-5.2) mmol/L Ur Random Creatinine mg/dL U Random Total Protein (0.0-12.0) mg/dL Ur Random Sodium mmol/L Random Vancomycin ug/mL 09/26/18 09/26/18 09/26/18 Range/Units 20:09 19:07 18:06 WBC (4.8-10.8) K/uL RBC (4.40-5.90) Mil/uL Hgb (12.0-18.0) g/dL Hct (35.0-51.0) % MCV (80.0-94.0) fL MCH (27.0-31.0) pg MCHC (33.0-37.0) g/dL RDW (11.5-14.5) % Plt Count (130-400) K/uL MPV (7.2-11.7) fL Neut % (Auto) (50.0-75.0) % Lymph % (Auto) (20.0-40.0) % [place] % (Auto) (0.0-10.0) % Eos % (Auto) (0.0-4.0) % Baso % (Auto) (0.0-2.0) % Neut # (Auto) (1.8-7.0) K/uL Lymph # (Auto) (1.0-4.3) K/uL [place] # (Auto) (0.0-0.8) K/uL Eos # (Auto) (0.0-0.7) K/uL Baso # (Auto) (0.0-0.2) K/uL Neutrophils % (Manual) (50-75) % Band Neutrophils % (0-2) % Lymphocytes % (Manual) (20-40) % Monocytes % (Manual) (0-10) % Eosinophils % (Manual) (0-4) % Platelet Estimate (NORMAL) Hypochromasia (manual) Poikilocytosis (manual Anisocytosis (manual) Target Cells [place] Cells APTT (21-34) SECONDS Puncture Site pCO2 (35-45) mm/Hg pO2 (80-100) mm/Hg HCO3 (21-28) mmol/L ABG pH (7.35-7.45) ABG Total CO2 (22-28) mmol/L ABG O2 Saturation (95-98) % ABG Base Excess (-2.0-3.0) mmol/L Seth Test ABG Potassium (3.6-5.2) mmol/L A-a O2 Difference mm/Hg Respiratory Index Glucose (75-110) mg/dl Lactate (0.7-2.1) mmol/L Vent Mode Mechanical Rate FiO2 % Tidal Volume PEEP Sodium (132-148) mmol/L Potassium (3.6-5.2) mmol/L Chloride (98-107) mmol/L Carbon Dioxide (22-30) mmol/L Anion Gap (10-20) BUN (9-20) mg/dL Creatinine (0.8-1.5) mg/dL Est GFR ( Amer) Est GFR (Non-Af Amer) POC Glucose (mg/dL) 261 H 258 H 263 H (65-110) mg/dL Random Glucose (75-110) mg/dL Calcium (8.6-10.4) mg/dl Phosphorus (2.5-4.5) mg/dL Magnesium (1.6-2.3) mg/dL Total Bilirubin (0.2-1.3) mg/dL AST (17-59) U/L ALT (21-72) U/L Alkaline Phosphatase (38-126) U/L Total Protein (6.3-8.3) g/dL Albumin (3.5-5.0) g/dL Globulin (2.2-3.9) gm/dL Albumin/Globulin Ratio (1.0-2.1) Arterial Blood Potassium (3.6-5.2) mmol/L Ur Random Creatinine mg/dL U Random Total Protein (0.0-12.0) mg/dL Ur Random Sodium mmol/L Random Vancomycin ug/mL 09/26/18 09/26/18 09/26/18 Range/Units 17:05 15:58 15:53 WBC (4.8-10.8) K/uL RBC (4.40-5.90) Mil/uL Hgb (12.0-18.0) g/dL Hct (35.0-51.0) % MCV (80.0-94.0) fL MCH (27.0-31.0) pg MCHC (33.0-37.0) g/dL RDW (11.5-14.5) % Plt Count (130-400) K/uL MPV (7.2-11.7) fL Neut % (Auto) (50.0-75.0) % Lymph % (Auto) (20.0-40.0) % [place] % (Auto) (0.0-10.0) % Eos % (Auto) (0.0-4.0) % Baso % (Auto) (0.0-2.0) % Neut # (Auto) (1.8-7.0) K/uL Lymph # (Auto) (1.0-4.3) K/uL [place] # (Auto) (0.0-0.8) K/uL Eos # (Auto) (0.0-0.7) K/uL Baso # (Auto) (0.0-0.2) K/uL Neutrophils % (Manual) (50-75) % Band Neutrophils % (0-2) % Lymphocytes % (Manual) (20-40) % Monocytes % (Manual) (0-10) % Eosinophils % (Manual) (0-4) % Platelet Estimate (NORMAL) Hypochromasia (manual) Poikilocytosis (manual Anisocytosis (manual) Target Cells [place] Cells APTT (21-34) SECONDS Puncture Site pCO2 (35-45) mm/Hg pO2 (80-100) mm/Hg HCO3 (21-28) mmol/L ABG pH (7.35-7.45) ABG Total CO2 (22-28) mmol/L ABG O2 Saturation (95-98) % ABG Base Excess (-2.0-3.0) mmol/L Seth Test ABG Potassium (3.6-5.2) mmol/L A-a O2 Difference mm/Hg Respiratory Index Glucose (75-110) mg/dl Lactate (0.7-2.1) mmol/L Vent Mode Mechanical Rate FiO2 % Tidal Volume PEEP Sodium 140 (132-148) mmol/L Potassium 4.6 (3.6-5.2) mmol/L Chloride 112 H (98-107) mmol/L Carbon Dioxide 17 L (22-30) mmol/L Anion Gap 15 (10-20) BUN 58 H (9-20) mg/dL Creatinine 3.8 H (0.8-1.5) mg/dL Est GFR ( Amer) 20 Est GFR (Non-Af Amer) 16 POC Glucose (mg/dL) 259 H 254 H (65-110) mg/dL Random Glucose 231 H D (75-110) mg/dL Calcium 7.7 L (8.6-10.4) mg/dl Phosphorus 3.7 (2.5-4.5) mg/dL Magnesium 1.8 (1.6-2.3) mg/dL Total Bilirubin (0.2-1.3) mg/dL AST (17-59) U/L ALT (21-72) U/L Alkaline Phosphatase (38-126) U/L Total Protein (6.3-8.3) g/dL Albumin (3.5-5.0) g/dL Globulin (2.2-3.9) gm/dL Albumin/Globulin Ratio (1.0-2.1) Arterial Blood Potassium (3.6-5.2) mmol/L Ur Random Creatinine mg/dL U Random Total Protein (0.0-12.0) mg/dL Ur Random Sodium mmol/L Random Vancomycin ug/mL 09/26/18 09/26/18 09/26/18 Range/Units 15:53 15:53 15:03 WBC 19.4 H (4.8-10.8) K/uL RBC 3.31 L (4.40-5.90) Mil/uL Hgb 8.8 L (12.0-18.0) g/dL Hct 26.9 L (35.0-51.0) % MCV 81.2 (80.0-94.0) fL MCH 26.5 L (27.0-31.0) pg MCHC 32.6 L (33.0-37.0) g/dL RDW 15.8 H (11.5-14.5) % Plt Count 277 (130-400) K/uL MPV 8.0 (7.2-11.7) fL Neut % (Auto) 91.5 H (50.0-75.0) % Lymph % (Auto) 2.7 L (20.0-40.0) % [place] % (Auto) 5.7 (0.0-10.0) % Eos % (Auto) 0.0 (0.0-4.0) % Baso % (Auto) 0.1 (0.0-2.0) % Neut # (Auto) 17.7 H (1.8-7.0) K/uL Lymph # (Auto) 0.5 L (1.0-4.3) K/uL [place] # (Auto) 1.1 H (0.0-0.8) K/uL Eos # (Auto) 0.0 (0.0-0.7) K/uL Baso # (Auto) 0.0 (0.0-0.2) K/uL Neutrophils % (Manual) 87 H (50-75) % Band Neutrophils % 7 H (0-2) % Lymphocytes % (Manual) 4 L (20-40) % Monocytes % (Manual) 2 (0-10) % Eosinophils % (Manual) (0-4) % Platelet Estimate Normal (NORMAL) Hypochromasia (manual) Poikilocytosis (manual Anisocytosis (manual) Target Cells [place] Cells APTT 58 H D (21-34) SECONDS Puncture Site pCO2 (35-45) mm/Hg pO2 (80-100) mm/Hg HCO3 (21-28) mmol/L ABG pH (7.35-7.45) ABG Total CO2 (22-28) mmol/L ABG O2 Saturation (95-98) % ABG Base Excess (-2.0-3.0) mmol/L Seth Test ABG Potassium (3.6-5.2) mmol/L A-a O2 Difference mm/Hg Respiratory Index Glucose (75-110) mg/dl Lactate (0.7-2.1) mmol/L Vent Mode Mechanical Rate FiO2 % Tidal Volume PEEP Sodium (132-148) mmol/L Potassium (3.6-5.2) mmol/L Chloride (98-107) mmol/L Carbon Dioxide (22-30) mmol/L Anion Gap (10-20) BUN (9-20) mg/dL Creatinine (0.8-1.5) mg/dL Est GFR ( Amer) Est GFR (Non-Af Amer) POC Glucose (mg/dL) 252 H (65-110) mg/dL Random Glucose (75-110) mg/dL Calcium (8.6-10.4) mg/dl Phosphorus (2.5-4.5) mg/dL Magnesium (1.6-2.3) mg/dL Total Bilirubin (0.2-1.3) mg/dL AST (17-59) U/L ALT (21-72) U/L Alkaline Phosphatase (38-126) U/L Total Protein (6.3-8.3) g/dL Albumin (3.5-5.0) g/dL Globulin (2.2-3.9) gm/dL Albumin/Globulin Ratio (1.0-2.1) Arterial Blood Potassium (3.6-5.2) mmol/L Ur Random Creatinine mg/dL U Random Total Protein (0.0-12.0) mg/dL Ur Random Sodium mmol/L Random Vancomycin ug/mL 09/26/18 09/26/18 09/26/18 Range/Units 14:04 12:58 11:59 WBC (4.8-10.8) K/uL RBC (4.40-5.90) Mil/uL Hgb (12.0-18.0) g/dL Hct (35.0-51.0) % MCV (80.0-94.0) fL MCH (27.0-31.0) pg MCHC (33.0-37.0) g/dL RDW (11.5-14.5) % Plt Count (130-400) K/uL MPV (7.2-11.7) fL Neut % (Auto) (50.0-75.0) % Lymph % (Auto) (20.0-40.0) % [place] % (Auto) (0.0-10.0) % Eos % (Auto) (0.0-4.0) % Baso % (Auto) (0.0-2.0) % Neut # (Auto) (1.8-7.0) K/uL Lymph # (Auto) (1.0-4.3) K/uL [place] # (Auto) (0.0-0.8) K/uL Eos # (Auto) (0.0-0.7) K/uL Baso # (Auto) (0.0-0.2) K/uL Neutrophils % (Manual) (50-75) % Band Neutrophils % (0-2) % Lymphocytes % (Manual) (20-40) % Monocytes % (Manual) (0-10) % Eosinophils % (Manual) (0-4) % Platelet Estimate (NORMAL) Hypochromasia (manual) Poikilocytosis (manual Anisocytosis (manual) Target Cells [place] Cells APTT (21-34) SECONDS Puncture Site pCO2 (35-45) mm/Hg pO2 (80-100) mm/Hg HCO3 (21-28) mmol/L ABG pH (7.35-7.45) ABG Total CO2 (22-28) mmol/L ABG O2 Saturation (95-98) % ABG Base Excess (-2.0-3.0) mmol/L Seth Test ABG Potassium (3.6-5.2) mmol/L A-a O2 Difference mm/Hg Respiratory Index Glucose (75-110) mg/dl Lactate (0.7-2.1) mmol/L Vent Mode Mechanical Rate FiO2 % Tidal Volume PEEP Sodium (132-148) mmol/L Potassium (3.6-5.2) mmol/L Chloride (98-107) mmol/L Carbon Dioxide (22-30) mmol/L Anion Gap (10-20) BUN (9-20) mg/dL Creatinine (0.8-1.5) mg/dL Est GFR ( Amer) Est GFR (Non-Af Amer) POC Glucose (mg/dL) 225 H 238 H 234 H (65-110) mg/dL Random Glucose (75-110) mg/dL Calcium (8.6-10.4) mg/dl Phosphorus (2.5-4.5) mg/dL Magnesium (1.6-2.3) mg/dL Total Bilirubin (0.2-1.3) mg/dL AST (17-59) U/L ALT (21-72) U/L Alkaline Phosphatase (38-126) U/L Total Protein (6.3-8.3) g/dL Albumin (3.5-5.0) g/dL Globulin (2.2-3.9) gm/dL Albumin/Globulin Ratio (1.0-2.1) Arterial Blood Potassium (3.6-5.2) mmol/L Ur Random Creatinine mg/dL U Random Total Protein (0.0-12.0) mg/dL Ur Random Sodium mmol/L Random Vancomycin ug/mL 09/26/18 09/26/18 09/26/18 Range/Units 11:13 10:04 10:04 WBC (4.8-10.8) K/uL RBC (4.40-5.90) Mil/uL Hgb (12.0-18.0) g/dL Hct (35.0-51.0) % MCV (80.0-94.0) fL MCH (27.0-31.0) pg MCHC (33.0-37.0) g/dL RDW (11.5-14.5) % Plt Count (130-400) K/uL MPV (7.2-11.7) fL Neut % (Auto) (50.0-75.0) % Lymph % (Auto) (20.0-40.0) % [place] % (Auto) (0.0-10.0) % Eos % (Auto) (0.0-4.0) % Baso % (Auto) (0.0-2.0) % Neut # (Auto) (1.8-7.0) K/uL Lymph # (Auto) (1.0-4.3) K/uL [place] # (Auto) (0.0-0.8) K/uL Eos # (Auto) (0.0-0.7) K/uL Baso # (Auto) (0.0-0.2) K/uL Neutrophils % (Manual) (50-75) % Band Neutrophils % (0-2) % Lymphocytes % (Manual) (20-40) % Monocytes % (Manual) (0-10) % Eosinophils % (Manual) (0-4) % Platelet Estimate (NORMAL) Hypochromasia (manual) Poikilocytosis (manual Anisocytosis (manual) Target Cells [place] Cells APTT 64 H D (21-34) SECONDS Puncture Site pCO2 (35-45) mm/Hg pO2 (80-100) mm/Hg HCO3 (21-28) mmol/L ABG pH (7.35-7.45) ABG Total CO2 (22-28) mmol/L ABG O2 Saturation (95-98) % ABG Base Excess (-2.0-3.0) mmol/L Seth Test ABG Potassium (3.6-5.2) mmol/L A-a O2 Difference mm/Hg Respiratory Index Glucose (75-110) mg/dl Lactate (0.7-2.1) mmol/L Vent Mode Mechanical Rate FiO2 % Tidal Volume PEEP Sodium (132-148) mmol/L Potassium (3.6-5.2) mmol/L Chloride (98-107) mmol/L Carbon Dioxide (22-30) mmol/L Anion Gap (10-20) BUN (9-20) mg/dL Creatinine (0.8-1.5) mg/dL Est GFR ( Amer) Est GFR (Non-Af Amer) POC Glucose (mg/dL) 202 H (65-110) mg/dL Random Glucose (75-110) mg/dL Calcium (8.6-10.4) mg/dl Phosphorus (2.5-4.5) mg/dL Magnesium (1.6-2.3) mg/dL Total Bilirubin (0.2-1.3) mg/dL AST (17-59) U/L ALT (21-72) U/L Alkaline Phosphatase (38-126) U/L Total Protein (6.3-8.3) g/dL Albumin (3.5-5.0) g/dL Globulin (2.2-3.9) gm/dL Albumin/Globulin Ratio (1.0-2.1) Arterial Blood Potassium (3.6-5.2) mmol/L Ur Random Creatinine 18.6 mg/dL U Random Total Protein 51.0 H (0.0-12.0) mg/dL Ur Random Sodium 55 mmol/L Random Vancomycin ug/mL 09/26/18 09/26/18 Range/Units 09:58 09:07 WBC (4.8-10.8) K/uL RBC (4.40-5.90) Mil/uL Hgb (12.0-18.0) g/dL Hct (35.0-51.0) % MCV (80.0-94.0) fL MCH (27.0-31.0) pg MCHC (33.0-37.0) g/dL RDW (11.5-14.5) % Plt Count (130-400) K/uL MPV (7.2-11.7) fL Neut % (Auto) (50.0-75.0) % Lymph % (Auto) (20.0-40.0) % [place] % (Auto) (0.0-10.0) % Eos % (Auto) (0.0-4.0) % Baso % (Auto) (0.0-2.0) % Neut # (Auto) (1.8-7.0) K/uL Lymph # (Auto) (1.0-4.3) K/uL [place] # (Auto) (0.0-0.8) K/uL Eos # (Auto) (0.0-0.7) K/uL Baso # (Auto) (0.0-0.2) K/uL Neutrophils % (Manual) (50-75) % Band Neutrophils % (0-2) % Lymphocytes % (Manual) (20-40) % Monocytes % (Manual) (0-10) % Eosinophils % (Manual) (0-4) % Platelet Estimate (NORMAL) Hypochromasia (manual) Poikilocytosis (manual Anisocytosis (manual) Target Cells [place] Cells APTT (21-34) SECONDS Puncture Site pCO2 (35-45) mm/Hg pO2 (80-100) mm/Hg HCO3 (21-28) mmol/L ABG pH (7.35-7.45) ABG Total CO2 (22-28) mmol/L ABG O2 Saturation (95-98) % ABG Base Excess (-2.0-3.0) mmol/L Seth Test ABG Potassium (3.6-5.2) mmol/L A-a O2 Difference mm/Hg Respiratory Index Glucose (75-110) mg/dl Lactate (0.7-2.1) mmol/L Vent Mode Mechanical Rate FiO2 % Tidal Volume PEEP Sodium (132-148) mmol/L Potassium (3.6-5.2) mmol/L Chloride (98-107) mmol/L Carbon Dioxide (22-30) mmol/L Anion Gap (10-20) BUN (9-20) mg/dL Creatinine (0.8-1.5) mg/dL Est GFR ( Amer) Est GFR (Non-Af Amer) POC Glucose (mg/dL) 250 H 213 H (65-110) mg/dL Random Glucose (75-110) mg/dL Calcium (8.6-10.4) mg/dl Phosphorus (2.5-4.5) mg/dL Magnesium (1.6-2.3) mg/dL Total Bilirubin (0.2-1.3) mg/dL AST (17-59) U/L ALT (21-72) U/L Alkaline Phosphatase (38-126) U/L Total Protein (6.3-8.3) g/dL Albumin (3.5-5.0) g/dL Globulin (2.2-3.9) gm/dL Albumin/Globulin Ratio (1.0-2.1) Arterial Blood Potassium (3.6-5.2) mmol/L Ur Random Creatinine mg/dL U Random Total Protein (0.0-12.0) mg/dL Ur Random Sodium mmol/L Random Vancomycin ug/mL Laboratory Results - last 24 hr 09/26/18 09/26/18 09/26/18 09:07 09:58 10:04 WBC RBC Hgb Hct MCV MCH MCHC RDW Plt Count MPV Neut % (Auto) Lymph % (Auto) [place] % (Auto) Eos % (Auto) Baso % (Auto) Neut # (Auto) Lymph # (Auto) [place] # (Auto) Eos # (Auto) Baso # (Auto) Neutrophils % (Manual) Band Neutrophils % Lymphocytes % (Manual) Monocytes % (Manual) Eosinophils % (Manual) Platelet Estimate Hypochromasia (manual) Poikilocytosis (manual Anisocytosis (manual) Target Cells [place] Cells APTT Puncture Site pCO2 pO2 HCO3 ABG pH ABG Total CO2 ABG O2 Saturation ABG Base Excess Seth Test ABG Potassium A-a O2 Difference Respiratory Index Glucose Lactate Vent Mode Mechanical Rate FiO2 Tidal Volume PEEP Sodium Potassium Chloride Carbon Dioxide Anion Gap BUN Creatinine Est GFR ( Amer) Est GFR (Non-Af Amer) POC Glucose (mg/dL) 213 H 250 H Random Glucose Calcium Phosphorus Magnesium Total Bilirubin AST ALT Alkaline Phosphatase Total Protein Albumin Globulin Albumin/Globulin Ratio Arterial Blood Potassium Ur Random Creatinine 18.6 U Random Total Protein 51.0 H Ur Random Sodium 55 Random Vancomycin 09/26/18 09/26/18 09/26/18 10:04 11:13 11:59 WBC RBC Hgb Hct MCV MCH MCHC RDW Plt Count MPV Neut % (Auto) Lymph % (Auto) [place] % (Auto) Eos % (Auto) Baso % (Auto) Neut # (Auto) Lymph # (Auto) [place] # (Auto) Eos # (Auto) Baso # (Auto) Neutrophils % (Manual) Band Neutrophils % Lymphocytes % (Manual) Monocytes % (Manual) Eosinophils % (Manual) Platelet Estimate Hypochromasia (manual) Poikilocytosis (manual Anisocytosis (manual) Target Cells [place] Cells APTT 64 H D Puncture Site pCO2 pO2 HCO3 ABG pH ABG Total CO2 ABG O2 Saturation ABG Base Excess Seth Test ABG Potassium A-a O2 Difference Respiratory Index Glucose Lactate Vent Mode Mechanical Rate FiO2 Tidal Volume PEEP Sodium Potassium Chloride Carbon Dioxide Anion Gap BUN Creatinine Est GFR ( Amer) Est GFR (Non-Af Amer) POC Glucose (mg/dL) 202 H 234 H Random Glucose Calcium Phosphorus Magnesium Total Bilirubin AST ALT Alkaline Phosphatase Total Protein Albumin Globulin Albumin/Globulin Ratio Arterial Blood Potassium Ur Random Creatinine U Random Total Protein Ur Random Sodium Random Vancomycin 09/26/18 09/26/18 09/26/18 12:58 14:04 15:03 WBC RBC Hgb Hct MCV MCH MCHC RDW Plt Count MPV Neut % (Auto) Lymph % (Auto) [place] % (Auto) Eos % (Auto) Baso % (Auto) Neut # (Auto) Lymph # (Auto) [place] # (Auto) Eos # (Auto) Baso # (Auto) Neutrophils % (Manual) Band Neutrophils % Lymphocytes % (Manual) Monocytes % (Manual) Eosinophils % (Manual) Platelet Estimate Hypochromasia (manual) Poikilocytosis (manual Anisocytosis (manual) Target Cells [place] Cells APTT Puncture Site pCO2 pO2 HCO3 ABG pH ABG Total CO2 ABG O2 Saturation ABG Base Excess Seth Test ABG Potassium A-a O2 Difference Respiratory Index Glucose Lactate Vent Mode Mechanical Rate FiO2 Tidal Volume PEEP Sodium Potassium Chloride Carbon Dioxide Anion Gap BUN Creatinine Est GFR ( Amer) Est GFR (Non-Af Amer) POC Glucose (mg/dL) 238 H 225 H 252 H Random Glucose Calcium Phosphorus Magnesium Total Bilirubin AST ALT Alkaline Phosphatase Total Protein Albumin Globulin Albumin/Globulin Ratio Arterial Blood Potassium Ur Random Creatinine U Random Total Protein Ur Random Sodium Random Vancomycin 09/26/18 09/26/18 09/26/18 15:53 15:53 15:53 WBC 19.4 H RBC 3.31 L Hgb 8.8 L Hct 26.9 L MCV 81.2 MCH 26.5 L MCHC 32.6 L RDW 15.8 H Plt Count 277 MPV 8.0 Neut % (Auto) 91.5 H Lymph % (Auto) 2.7 L [place] % (Auto) 5.7 Eos % (Auto) 0.0 Baso % (Auto) 0.1 Neut # (Auto) 17.7 H Lymph # (Auto) 0.5 L [place] # (Auto) 1.1 H Eos # (Auto) 0.0 Baso # (Auto) 0.0 Neutrophils % (Manual) 87 H Band Neutrophils % 7 H Lymphocytes % (Manual) 4 L Monocytes % (Manual) 2 Eosinophils % (Manual) Platelet Estimate Normal Hypochromasia (manual) Poikilocytosis (manual Anisocytosis (manual) Target Cells [place] Cells APTT 58 H D Puncture Site pCO2 pO2 HCO3 ABG pH ABG Total CO2 ABG O2 Saturation ABG Base Excess Seth Test ABG Potassium A-a O2 Difference Respiratory Index Glucose Lactate Vent Mode Mechanical Rate FiO2 Tidal Volume PEEP Sodium 140 Potassium 4.6 Chloride 112 H Carbon Dioxide 17 L Anion Gap 15 BUN 58 H Creatinine 3.8 H Est GFR ( Amer) 20 Est GFR (Non-Af Amer) 16 POC Glucose (mg/dL) Random Glucose 231 H D Calcium 7.7 L Phosphorus 3.7 Magnesium 1.8 Total Bilirubin AST ALT Alkaline Phosphatase Total Protein Albumin Globulin Albumin/Globulin Ratio Arterial Blood Potassium Ur Random Creatinine U Random Total Protein Ur Random Sodium Random Vancomycin 09/26/18 09/26/18 09/26/18 15:58 17:05 18:06 WBC RBC Hgb Hct MCV MCH MCHC RDW Plt Count MPV Neut % (Auto) Lymph % (Auto) [place] % (Auto) Eos % (Auto) Baso % (Auto) Neut # (Auto) Lymph # (Auto) [place] # (Auto) Eos # (Auto) Baso # (Auto) Neutrophils % (Manual) Band Neutrophils % Lymphocytes % (Manual) Monocytes % (Manual) Eosinophils % (Manual) Platelet Estimate Hypochromasia (manual) Poikilocytosis (manual Anisocytosis (manual) Target Cells [place] Cells APTT Puncture Site pCO2 pO2 HCO3 ABG pH ABG Total CO2 ABG O2 Saturation ABG Base Excess Seth Test ABG Potassium A-a O2 Difference Respiratory Index Glucose Lactate Vent Mode Mechanical Rate FiO2 Tidal Volume PEEP Sodium Potassium Chloride Carbon Dioxide Anion Gap BUN Creatinine Est GFR ( Amer) Est GFR (Non-Af Amer) POC Glucose (mg/dL) 254 H 259 H 263 H Random Glucose Calcium Phosphorus Magnesium Total Bilirubin AST ALT Alkaline Phosphatase Total Protein Albumin Globulin Albumin/Globulin Ratio Arterial Blood Potassium Ur Random Creatinine U Random Total Protein Ur Random Sodium Random Vancomycin 09/26/18 09/26/18 09/26/18 19:07 20:09 21:00 WBC RBC Hgb Hct MCV MCH MCHC RDW Plt Count MPV Neut % (Auto) Lymph % (Auto) [place] % (Auto) Eos % (Auto) Baso % (Auto) Neut # (Auto) Lymph # (Auto) [place] # (Auto) Eos # (Auto) Baso # (Auto) Neutrophils % (Manual) Band Neutrophils % Lymphocytes % (Manual) Monocytes % (Manual) Eosinophils % (Manual) Platelet Estimate Hypochromasia (manual) Poikilocytosis (manual Anisocytosis (manual) Target Cells [place] Cells APTT Puncture Site pCO2 pO2 HCO3 ABG pH ABG Total CO2 ABG O2 Saturation ABG Base Excess Seth Test ABG Potassium A-a O2 Difference Respiratory Index Glucose Lactate Vent Mode Mechanical Rate FiO2 Tidal Volume PEEP Sodium Potassium Chloride Carbon Dioxide Anion Gap BUN Creatinine Est GFR ( Amer) Est GFR (Non-Af Amer) POC Glucose (mg/dL) 258 H 261 H 223 H Random Glucose Calcium Phosphorus Magnesium Total Bilirubin AST ALT Alkaline Phosphatase Total Protein Albumin Globulin Albumin/Globulin Ratio Arterial Blood Potassium Ur Random Creatinine U Random Total Protein Ur Random Sodium Random Vancomycin 09/26/18 09/26/18 09/26/18 22:00 22:55 23:43 WBC RBC Hgb Hct MCV MCH MCHC RDW Plt Count MPV Neut % (Auto) Lymph % (Auto) [place] % (Auto) Eos % (Auto) Baso % (Auto) Neut # (Auto) Lymph # (Auto) [place] # (Auto) Eos # (Auto) Baso # (Auto) Neutrophils % (Manual) Band Neutrophils % Lymphocytes % (Manual) Monocytes % (Manual) Eosinophils % (Manual) Platelet Estimate Hypochromasia (manual) Poikilocytosis (manual Anisocytosis (manual) Target Cells [place] Cells APTT Puncture Site pCO2 pO2 HCO3 ABG pH ABG Total CO2 ABG O2 Saturation ABG Base Excess Seth Test ABG Potassium A-a O2 Difference Respiratory Index Glucose Lactate Vent Mode Mechanical Rate FiO2 Tidal Volume PEEP Sodium Potassium Chloride Carbon Dioxide Anion Gap BUN Creatinine Est GFR ( Amer) Est GFR (Non-Af Amer) POC Glucose (mg/dL) 201 H 255 H 276 H Random Glucose Calcium Phosphorus Magnesium Total Bilirubin AST ALT Alkaline Phosphatase Total Protein Albumin Globulin Albumin/Globulin Ratio Arterial Blood Potassium Ur Random Creatinine U Random Total Protein Ur Random Sodium Random Vancomycin 09/27/18 09/27/18 09/27/18 01:08 02:00 03:06 WBC RBC Hgb Hct MCV MCH MCHC RDW Plt Count MPV Neut % (Auto) Lymph % (Auto) [place] % (Auto) Eos % (Auto) Baso % (Auto) Neut # (Auto) Lymph # (Auto) [place] # (Auto) Eos # (Auto) Baso # (Auto) Neutrophils % (Manual) Band Neutrophils % Lymphocytes % (Manual) Monocytes % (Manual) Eosinophils % (Manual) Platelet Estimate Hypochromasia (manual) Poikilocytosis (manual Anisocytosis (manual) Target Cells [place] Cells APTT Puncture Site pCO2 pO2 HCO3 ABG pH ABG Total CO2 ABG O2 Saturation ABG Base Excess Seth Test ABG Potassium A-a O2 Difference Respiratory Index Glucose Lactate Vent Mode Mechanical Rate FiO2 Tidal Volume PEEP Sodium Potassium Chloride Carbon Dioxide Anion Gap BUN Creatinine Est GFR ( Amer) Est GFR (Non-Af Amer) POC Glucose (mg/dL) 280 H 246 H 263 H Random Glucose Calcium Phosphorus Magnesium Total Bilirubin AST ALT Alkaline Phosphatase Total Protein Albumin Globulin Albumin/Globulin Ratio Arterial Blood Potassium Ur Random Creatinine U Random Total Protein Ur Random Sodium Random Vancomycin 09/27/18 09/27/18 09/27/18 04:06 05:07 05:24 WBC RBC Hgb Hct MCV MCH MCHC RDW Plt Count MPV Neut % (Auto) Lymph % (Auto) [place] % (Auto) Eos % (Auto) Baso % (Auto) Neut # (Auto) Lymph # (Auto) [place] # (Auto) Eos # (Auto) Baso # (Auto) Neutrophils % (Manual) Band Neutrophils % Lymphocytes % (Manual) Monocytes % (Manual) Eosinophils % (Manual) Platelet Estimate Hypochromasia (manual) Poikilocytosis (manual Anisocytosis (manual) Target Cells [place] Cells APTT Puncture Site Rr pCO2 27 L pO2 149 H HCO3 18.7 L ABG pH 7.37 ABG Total CO2 16.4 L ABG O2 Saturation 101.2 H ABG Base Excess -8.1 L Seth Test Pos ABG Potassium 5.9 H A-a O2 Difference 174.0 Respiratory Index 1.2 Glucose 242 H Lactate 1.8 Vent Mode Prvc Mechanical Rate 20 FiO2 50.0 Tidal Volume 500 PEEP 5 Sodium 142.0 Potassium Chloride 113.0 H Carbon Dioxide Anion Gap BUN Creatinine Est GFR ( Amer) Est GFR (Non-Af Amer) POC Glucose (mg/dL) 262 H 250 H Random Glucose Calcium Phosphorus Magnesium Total Bilirubin AST ALT Alkaline Phosphatase Total Protein Albumin Globulin Albumin/Globulin Ratio Arterial Blood Potassium 5.9 H Ur Random Creatinine U Random Total Protein Ur Random Sodium Random Vancomycin 09/27/18 09/27/18 09/27/18 05:52 05:52 05:54 WBC 15.9 H RBC 2.98 L Hgb 8.1 L Hct 24.7 L MCV 82.7 MCH 27.0 MCHC 32.7 L RDW 15.9 H Plt Count 261 MPV 8.6 Neut % (Auto) 87.1 H Lymph % (Auto) 7.8 L [place] % (Auto) 5.0 Eos % (Auto) 0.0 Baso % (Auto) 0.1 Neut # (Auto) 13.9 H Lymph # (Auto) 1.2 [place] # (Auto) 0.8 Eos # (Auto) 0.0 Baso # (Auto) 0.0 Neutrophils % (Manual) 86 H Band Neutrophils % 1 Lymphocytes % (Manual) 8 L Monocytes % (Manual) 4 Eosinophils % (Manual) 1 Platelet Estimate Normal Hypochromasia (manual) Slight Poikilocytosis (manual Slight Anisocytosis (manual) Slight Target Cells Slight [place] Cells Slight APTT Puncture Site pCO2 pO2 HCO3 ABG pH ABG Total CO2 ABG O2 Saturation ABG Base Excess Seth Test ABG Potassium A-a O2 Difference Respiratory Index Glucose Lactate Vent Mode Mechanical Rate FiO2 Tidal Volume PEEP Sodium 140 Potassium 4.3 Chloride 115 H Carbon Dioxide 17 L Anion Gap 12 BUN 59 H Creatinine 4.5 H Est GFR ( Amer) 16 Est GFR (Non-Af Amer) 13 POC Glucose (mg/dL) Random Glucose 231 H Calcium 7.5 L Phosphorus 4.6 H Magnesium 1.8 Total Bilirubin 0.3 AST 264 H D ALT 688 H D Alkaline Phosphatase 139 H Total Protein 4.9 L Albumin 2.5 L Globulin 2.4 Albumin/Globulin Ratio 1.1 Arterial Blood Potassium Ur Random Creatinine U Random Total Protein Ur Random Sodium Random Vancomycin 16.6 09/27/18 09/27/18 09/27/18 05:54 06:07 07:11 WBC RBC Hgb Hct MCV MCH MCHC RDW Plt Count MPV Neut % (Auto) Lymph % (Auto) [place] % (Auto) Eos % (Auto) Baso % (Auto) Neut # (Auto) Lymph # (Auto) [place] # (Auto) Eos # (Auto) Baso # (Auto) Neutrophils % (Manual) Band Neutrophils % Lymphocytes % (Manual) Monocytes % (Manual) Eosinophils % (Manual) Platelet Estimate Hypochromasia (manual) Poikilocytosis (manual Anisocytosis (manual) Target Cells [place] Cells APTT 47 H D Puncture Site pCO2 pO2 HCO3 ABG pH ABG Total CO2 ABG O2 Saturation ABG Base Excess Seth Test ABG Potassium A-a O2 Difference Respiratory Index Glucose Lactate Vent Mode Mechanical Rate FiO2 Tidal Volume PEEP Sodium Potassium Chloride Carbon Dioxide Anion Gap BUN Creatinine Est GFR ( Amer) Est GFR (Non-Af Amer) POC Glucose (mg/dL) 220 H 244 H Random Glucose Calcium Phosphorus Magnesium Total Bilirubin AST ALT Alkaline Phosphatase Total Protein Albumin Globulin Albumin/Globulin Ratio Arterial Blood Potassium Ur Random Creatinine U Random Total Protein Ur Random Sodium Random Vancomycin 09/27/18 09/27/18 08:00 09:04 WBC RBC Hgb Hct MCV MCH MCHC RDW Plt Count MPV Neut % (Auto) Lymph % (Auto) [place] % (Auto) Eos % (Auto) Baso % (Auto) Neut # (Auto) Lymph # (Auto) [place] # (Auto) Eos # (Auto) Baso # (Auto) Neutrophils % (Manual) Band Neutrophils % Lymphocytes % (Manual) Monocytes % (Manual) Eosinophils % (Manual) Platelet Estimate Hypochromasia (manual) Poikilocytosis (manual Anisocytosis (manual) Target Cells [place] Cells APTT Puncture Site pCO2 pO2 HCO3 ABG pH ABG Total CO2 ABG O2 Saturation ABG Base Excess Seth Test ABG Potassium A-a O2 Difference Respiratory Index Glucose Lactate Vent Mode Mechanical Rate FiO2 Tidal Volume PEEP Sodium Potassium Chloride Carbon Dioxide Anion Gap BUN Creatinine Est GFR ( Amer) Est GFR (Non-Af Amer) POC Glucose (mg/dL) 253 H 246 H Random Glucose Calcium Phosphorus Magnesium Total Bilirubin AST ALT Alkaline Phosphatase Total Protein Albumin Globulin Albumin/Globulin Ratio Arterial Blood Potassium Ur Random Creatinine U Random Total Protein Ur Random Sodium Random Vancomycin Radiology Impressions: Radiology Impressions Bladder Ultrasound 09/25/18 13:02 IMPRESSION: No hydronephrosis or obstructing calculus identified. [place] catheter within decompressed urinary bladder. Preliminary impression was provided by MATT Garcia. Chest X-Ray 09/26/18 06:00 IMPRESSION: Limited examination. No acute infiltrate. Chest X-Ray 09/27/18 08:00 IMPRESSION: Pulmonary vascular congestive pattern is question. No infiltrates, pleural effusion or pneumothoraces. Support devices unchanged in position and appearance with exception of a cooling blanket, which has been removed. EKG/Cardiology Studies: Cardiology / EKG Studies 09/27/18 01:45 ELECTROCARDIOGRAM DAILY Comment: Mode Of Transportation: PORTABLE Reason For Exam: mi 09/28/18 01:45 ELECTROCARDIOGRAM DAILY Comment: Mode Of Transportation: PORTABLE Reason For Exam: mn Fingerstick Blood Sugar Results: 253 Critical Care Progress Note - Nutrition Nutrition: Nutrition Category Date Time Status NPO Diet [DIET] Diets 09/25/18 Breakfast Active Assessment/Plan - Assessment and Plan (Free Text) Assessment: Pt is a 63 y/o male with hx of CAD s/p CABG in 2012, HTN, DM, HLD, and recently discharge from [place] ED for unclear reason (LE Vascular procedure/study?) admitted to ICU s/p cardiac arrest in ED. Prior to ED arrival, pt was noted to be unresponsive by family and he was found by EMS to be in PEA. Resuscitation via ACLS protocol was initiated and pt was intubated on the field. ROSC was achieved but on arrival to ED, pt had cardiac arrest for which CPR was initiated and he received 5 xEpi, Calcium Gluconate x3, Kayexalate x1, Bicarb x1, and 3L of NS. ROSC was achieved and pt is now in the ICU, on mechanical ventilation s/p therapeutic hypothermia. Latest Head CT shows anoxic changes. Neuro: - Unresponsive, no corneal or pupillary reflex - Comatose - Head CT: Diffuse [place] matter, loss of caba-white matter, hypoxic/ischemic insult - Neurology, Dr. Callaway; likely brain - Apnea test and/or Brain flow studies for confirmation - Video EEG: Comatose, no clear cortical activity, no seizures Cardio: - S/P Cardiac Arrest - Hemodynamically stable - Troponinemia 2>64>174>221>158. EKG ST Depression V5-V6. NSTEMI vs sequel post cardiac arrest/CPR - CXray; Cardiomegaly - Cardiology Consulted- Dr. Rashid, no intervention - ASA 325mg, Heparin ggt - Echo 09/26 - Mild to mod systolic dysfunction Pulm: - Intubated on mechanical ventilation on 09/24; PRVC mode, FIO2 50 - AM ABG shows improvement in Acid- Base status; Primary Metabolic Acidosis w/ compensatory - pH7.37, pCO2 27, HCO3 18.7 GI: - NPO Renal - Acute Renal Failure - Crea 4.5, BUN 59 - 1L cc/24 hours Endocrine - DKA resolved, Insulin ggt d/c, ISS medium started - Accucheck q6 ID - Afberile on presentation - WBC trending down 21>17> 18.6, Bands 5 - Lactic acidosis resolved 11.8>5>3 - Vanco and Zosyn initiated for empiric coverage - F/U Bcx, Ucx Line: Left IJ triple lumen placed on 09/25/17 Code Status: Full Next of Kin: , Phoebe Brandt, Discussed with Dr. Felix Celeste, PGY2 <[place] - Last Filed: 09/27/18 17:31> CCU Objective - Vital Signs / Intake & Output Intake and Output (Last 8hrs): Intake & Output 09/27/18 09/27/18 09/27/18 06:59 14:59 22:59 Intake Total 912.2 939.4 107.8 Output Total 270 74 3 Balance 642.2 865.4 104.8 Weight 287 lb 1.6 oz Intake: IV 67 Intake, IV Amount 912.2 872.4 107.8 Left Distal Port 42 10 0 Subclavian Left Medial Port 0 0 0 Subclavian Left Proximal Port 800 800 100 Subclavian Right Antecubital 70.2 62.4 7.8 Output: Urine 270 74 3 Urethral (Barre[place]) 270 74 3 Other: # Bowel Movements 1 - Medications Active Medications: Active Medications Generic Name Dose Route Start Last Admin Trade Name Freq PRN Reason Stop Dose Admin Albuterol Sulfate 2.5 mg 09/25/18 14:00 09/27/18 01:22 Albuterol 0.083% Inhal Alicia (2.5 Mg/3 Ml) Ud INH 2.5 mg RQ6 FIORDALIZA Administration Aspirin 81 mg 09/26/18 10:00 09/27/18 13:44 Aspirin Chewable PO 81 mg DAILY FIORDALIZA Administration Clopidogrel Bisulfate 75 mg 09/27/18 10:00 09/27/18 10:15 Plavix PO 75 mg DAILY FIORDALIZA Administration Dextrose 0 ml 09/25/18 09:13 Dextrose 50% Inj IV STAT PRN Hypoglycemia Protocol Protocol Dextrose 0 gm 09/25/18 09:13 Glutose 15 PO ONCE PRN Hypoglycemia Protocol Protocol Famotidine 20 mg 09/25/18 10:00 09/27/18 10:04 Pepcid IVP 20 mg DAILY FIORDALIZA Administration Glucagon 0 mg 09/25/18 09:13 Glucagen Diagnostic Kit IM STAT PRN Hypoglycemia Protocol Protocol Heparin Sodium/Sodium Chloride 25,000 units in 250 mls @ 15.513 mls/hr 09/25/18 09:19 09/26/18 12:36 Heparin 57704 Units/250ml 1/2 Normal Saline IV 6.03 units/kg/hr .Q16H7M PRN 7.795 mls/hr PROTOCOL Administration Protocol 12 UNITS/KG/HR Piperacillin Sod/Tazobactam Sod 2.25 gm in 50 mls @ 100 mls/hr 09/26/18 08:00 09/27/18 08:08 Zosyn 2.25 Gm Iv Premix IVPB 100 mls/hr Q8H FIORDALIZA Administration Protocol Sodium Chloride 1,000 mls @ 100 mls/hr 09/26/18 10:45 09/27/18 13:48 Sodium Chloride 0.9% IV 100 mls/hr .Q10H FIORDALIZA Administration Insulin Aspart 0 unit 09/27/18 14:15 Novolog SC Q4H FIORDALIZA Protocol Lactic Acid 0 gm 09/26/18 18:00 09/26/18 17:27 Lac-Hydrin 12% Lotion (225 G) EXT 1 applic BID FIORDALIZA Administration Metoprolol Tartrate 12.5 mg 09/26/18 17:00 09/27/18 08:08 Lopressor PO 12.5 mg BIDCC FIORDALIZA Administration Rosuvastatin Calcium 10 mg 09/26/18 22:00 09/26/18 22:11 Crestor PO 10 mg HS FIORDALIZA Administration - Patient Studies Lab Studies: Microbiology Studies 09/25/18 06:42 Blood Culture - Preliminary Blood NO GROWTH AFTER 48 HOURS 09/25/18 06:41 Blood Culture - Preliminary Blood NO GROWTH AFTER 48 HOURS Lab Studies 09/27/18 09/27/18 09/27/18 Range/Units 09:04 08:00 07:11 WBC (4.8-10.8) K/uL RBC (4.40-5.90) Mil/uL Hgb (12.0-18.0) g/dL Hct (35.0-51.0) % MCV (80.0-94.0) fL MCH (27.0-31.0) pg MCHC (33.0-37.0) g/dL RDW (11.5-14.5) % Plt Count (130-400) K/uL MPV (7.2-11.7) fL Neut % (Auto) (50.0-75.0) % Lymph % (Auto) (20.0-40.0) % [place] % (Auto) (0.0-10.0) % Eos % (Auto) (0.0-4.0) % Baso % (Auto) (0.0-2.0) % Neut # (Auto) (1.8-7.0) K/uL Lymph # (Auto) (1.0-4.3) K/uL [place] # (Auto) (0.0-0.8) K/uL Eos # (Auto) (0.0-0.7) K/uL Baso # (Auto) (0.0-0.2) K/uL Neutrophils % (Manual) (50-75) % Band Neutrophils % (0-2) % Lymphocytes % (Manual) (20-40) % Monocytes % (Manual) (0-10) % Eosinophils % (Manual) (0-4) % Platelet Estimate (NORMAL) Hypochromasia (manual) Poikilocytosis (manual Anisocytosis (manual) Target Cells [place] Cells APTT (21-34) SECONDS Puncture Site pCO2 (35-45) mm/Hg pO2 (80-100) mm/Hg HCO3 (21-28) mmol/L ABG pH (7.35-7.45) ABG Total CO2 (22-28) mmol/L ABG O2 Saturation (95-98) % ABG Base Excess (-2.0-3.0) mmol/L Seth Test ABG Potassium (3.6-5.2) mmol/L A-a O2 Difference mm/Hg Respiratory Index Glucose (75-110) mg/dl Lactate (0.7-2.1) mmol/L Vent Mode Mechanical Rate FiO2 % [place] Volume PEEP Sodium (132-148) mmol/L Potassium (3.6-5.2) mmol/L Chloride (98-107) mmol/L Carbon Dioxide (22-30) mmol/L Anion Gap (10-20) BUN (9-20) mg/dL Creatinine (0.8-1.5) mg/dL Est GFR ( Amer) Est GFR (Non-Af Amer) POC Glucose (mg/dL) 246 H 253 H 244 H (65-110) mg/dL Random Glucose (75-110) mg/dL Calcium (8.6-10.4) mg/dl Phosphorus (2.5-4.5) mg/dL Magnesium (1.6-2.3) mg/dL Total Bilirubin (0.2-1.3) mg/dL AST (17-59) U/L ALT (21-72) U/L Alkaline Phosphatase (38-126) U/L Total Protein (6.3-8.3) g/dL Albumin (3.5-5.0) g/dL Globulin (2.2-3.9) gm/dL Albumin/Globulin Ratio (1.0-2.1) Arterial Blood Potassium (3.6-5.2) mmol/L Random Vancomycin ug/mL 09/27/18 09/27/18 09/27/18 Range/Units 06:07 05:54 05:54 WBC 15.9 H (4.8-10.8) K/uL RBC 2.98 L (4.40-5.90) Mil/uL Hgb 8.1 L (12.0-18.0) g/dL Hct 24.7 L (35.0-51.0) % MCV 82.7 (80.0-94.0) fL MCH 27.0 (27.0-31.0) pg MCHC 32.7 L (33.0-37.0) g/dL RDW 15.9 H (11.5-14.5) % Plt Count 261 (130-400) K/uL MPV 8.6 (7.2-11.7) fL Neut % (Auto) 87.1 H (50.0-75.0) % Lymph % (Auto) 7.8 L (20.0-40.0) % [place] % (Auto) 5.0 (0.0-10.0) % Eos % (Auto) 0.0 (0.0-4.0) % Baso % (Auto) 0.1 (0.0-2.0) % Neut # (Auto) 13.9 H (1.8-7.0) K/uL Lymph # (Auto) 1.2 (1.0-4.3) K/uL [place] # (Auto) 0.8 (0.0-0.8) K/uL Eos # (Auto) 0.0 (0.0-0.7) K/uL Baso # (Auto) 0.0 (0.0-0.2) K/uL Neutrophils % (Manual) 86 H (50-75) % Band Neutrophils % 1 (0-2) % Lymphocytes % (Manual) 8 L (20-40) % Monocytes % (Manual) 4 (0-10) % Eosinophils % (Manual) 1 (0-4) % Platelet Estimate Normal (NORMAL) Hypochromasia (manual) Slight Poikilocytosis (manual Slight Anisocytosis (manual) Slight Target Cells Slight [place] Cells Slight APTT 47 H D (21-34) SECONDS Puncture Site pCO2 (35-45) mm/Hg pO2 (80-100) mm/Hg HCO3 (21-28) mmol/L ABG pH (7.35-7.45) ABG Total CO2 (22-28) mmol/L ABG O2 Saturation (95-98) % ABG Base Excess (-2.0-3.0) mmol/L Seth Test ABG Potassium (3.6-5.2) mmol/L A-a O2 Difference mm/Hg Respiratory Index Glucose (75-110) mg/dl Lactate (0.7-2.1) mmol/L Vent Mode Mechanical Rate FiO2 % Tidal Volume PEEP Sodium (132-148) mmol/L Potassium (3.6-5.2) mmol/L Chloride (98-107) mmol/L Carbon Dioxide (22-30) mmol/L Anion Gap (10-20) BUN (9-20) mg/dL Creatinine (0.8-1.5) mg/dL Est GFR ( Amer) Est GFR (Non-Af Amer) POC Glucose (mg/dL) 220 H (65-110) mg/dL Random Glucose (75-110) mg/dL Calcium (8.6-10.4) mg/dl Phosphorus (2.5-4.5) mg/dL Magnesium (1.6-2.3) mg/dL Total Bilirubin (0.2-1.3) mg/dL AST (17-59) U/L ALT (21-72) U/L Alkaline Phosphatase (38-126) U/L Total Protein (6.3-8.3) g/dL Albumin (3.5-5.0) g/dL Globulin (2.2-3.9) gm/dL Albumin/Globulin Ratio (1.0-2.1) Arterial Blood Potassium (3.6-5.2) mmol/L Random Vancomycin ug/mL 09/27/18 09/27/18 09/27/18 Range/Units 05:52 05:52 05:24 WBC (4.8-10.8) K/uL RBC (4.40-5.90) Mil/uL Hgb (12.0-18.0) g/dL Hct (35.0-51.0) % MCV (80.0-94.0) fL MCH (27.0-31.0) pg MCHC (33.0-37.0) g/dL RDW (11.5-14.5) % Plt Count (130-400) K/uL MPV (7.2-11.7) fL Neut % (Auto) (50.0-75.0) % Lymph % (Auto) (20.0-40.0) % [place] % (Auto) (0.0-10.0) % Eos % (Auto) (0.0-4.0) % Baso % (Auto) (0.0-2.0) % Neut # (Auto) (1.8-7.0) K/uL Lymph # (Auto) (1.0-4.3) K/uL [place] # (Auto) (0.0-0.8) K/uL Eos # (Auto) (0.0-0.7) K/uL Baso # (Auto) (0.0-0.2) K/uL Neutrophils % (Manual) (50-75) % Band Neutrophils % (0-2) % Lymphocytes % (Manual) (20-40) % Monocytes % (Manual) (0-10) % Eosinophils % (Manual) (0-4) % Platelet Estimate (NORMAL) Hypochromasia (manual) Poikilocytosis (manual Anisocytosis (manual) Target Cells [place] Cells APTT (21-34) SECONDS Puncture Site Rr pCO2 27 L (35-45) mm/Hg pO2 149 H (80-100) mm/Hg HCO3 18.7 L (21-28) mmol/L ABG pH 7.37 (7.35-7.45) ABG Total CO2 16.4 L (22-28) mmol/L ABG O2 Saturation 101.2 H (95-98) % ABG Base Excess -8.1 L (-2.0-3.0) mmol/L Seth Test Pos ABG Potassium 5.9 H (3.6-5.2) mmol/L A-a O2 Difference 174.0 mm/Hg Respiratory Index 1.2 Glucose 242 H (75-110) mg/dl Lactate 1.8 (0.7-2.1) mmol/L Vent Mode Prvc Mechanical Rate 20 FiO2 50.0 % Tidal Volume 500 PEEP 5 Sodium 140 142.0 (132-148) mmol/L Potassium 4.3 (3.6-5.2) mmol/L Chloride 115 H 113.0 H (98-107) mmol/L Carbon Dioxide 17 L (22-30) mmol/L Anion Gap 12 (10-20) BUN 59 H (9-20) mg/dL Creatinine 4.5 H (0.8-1.5) mg/dL Est GFR ( Amer) 16 Est GFR (Non-Af Amer) 13 POC Glucose (mg/dL) (65-110) mg/dL Random Glucose 231 H (75-110) mg/dL Calcium 7.5 L (8.6-10.4) mg/dl Phosphorus 4.6 H (2.5-4.5) mg/dL Magnesium 1.8 (1.6-2.3) mg/dL Total Bilirubin 0.3 (0.2-1.3) mg/dL AST 264 H D (17-59) U/L ALT 688 H D (21-72) U/L Alkaline Phosphatase 139 H (38-126) U/L Total Protein 4.9 L (6.3-8.3) g/dL Albumin 2.5 L (3.5-5.0) g/dL Globulin 2.4 (2.2-3.9) gm/dL Albumin/Globulin Ratio 1.1 (1.0-2.1) Arterial Blood Potassium 5.9 H (3.6-5.2) mmol/L Random Vancomycin 16.6 ug/mL 09/27/18 09/27/18 09/27/18 Range/Units 05:07 04:06 03:06 WBC (4.8-10.8) K/uL RBC (4.40-5.90) Mil/uL Hgb (12.0-18.0) g/dL Hct (35.0-51.0) % MCV (80.0-94.0) fL MCH (27.0-31.0) pg MCHC (33.0-37.0) g/dL RDW (11.5-14.5) % Plt Count (130-400) K/uL MPV (7.2-11.7) fL Neut % (Auto) (50.0-75.0) % Lymph % (Auto) (20.0-40.0) % [place] % (Auto) (0.0-10.0) % Eos % (Auto) (0.0-4.0) % Baso % (Auto) (0.0-2.0) % Neut # (Auto) (1.8-7.0) K/uL Lymph # (Auto) (1.0-4.3) K/uL [place] # (Auto) (0.0-0.8) K/uL Eos # (Auto) (0.0-0.7) K/uL Baso # (Auto) (0.0-0.2) K/uL Neutrophils % (Manual) (50-75) % Band Neutrophils % (0-2) % Lymphocytes % (Manual) (20-40) % Monocytes % (Manual) (0-10) % Eosinophils % (Manual) (0-4) % Platelet Estimate (NORMAL) Hypochromasia (manual) Poikilocytosis (manual Anisocytosis (manual) Target Cells [place] Cells APTT (21-34) SECONDS Puncture Site pCO2 (35-45) mm/Hg pO2 (80-100) mm/Hg HCO3 (21-28) mmol/L ABG pH (7.35-7.45) ABG Total CO2 (22-28) mmol/L ABG O2 Saturation (95-98) % ABG Base Excess (-2.0-3.0) mmol/L Seth Test ABG Potassium (3.6-5.2) mmol/L A-a O2 Difference mm/Hg Respiratory Index Glucose (75-110) mg/dl Lactate (0.7-2.1) mmol/L Vent Mode Mechanical Rate FiO2 % Tidal Volume PEEP Sodium (132-148) mmol/L Potassium (3.6-5.2) mmol/L Chloride (98-107) mmol/L Carbon Dioxide (22-30) mmol/L Anion Gap (10-20) BUN (9-20) mg/dL Creatinine (0.8-1.5) mg/dL Est GFR ( Amer) Est GFR (Non-Af Amer) POC Glucose (mg/dL) 250 H 262 H 263 H (65-110) mg/dL Random Glucose (75-110) mg/dL Calcium (8.6-10.4) mg/dl Phosphorus (2.5-4.5) mg/dL Magnesium (1.6-2.3) mg/dL Total Bilirubin (0.2-1.3) mg/dL AST (17-59) U/L ALT (21-72) U/L Alkaline Phosphatase (38-126) U/L Total Protein (6.3-8.3) g/dL Albumin (3.5-5.0) g/dL Globulin (2.2-3.9) gm/dL Albumin/Globulin Ratio (1.0-2.1) Arterial Blood Potassium (3.6-5.2) mmol/L Random Vancomycin ug/mL 09/27/18 09/27/18 09/26/18 Range/Units 02:00 01:08 23:43 WBC (4.8-10.8) K/uL RBC (4.40-5.90) Mil/uL Hgb (12.0-18.0) g/dL Hct (35.0-51.0) % MCV (80.0-94.0) fL MCH (27.0-31.0) pg MCHC (33.0-37.0) g/dL RDW (11.5-14.5) % Plt Count (130-400) K/uL MPV (7.2-11.7) fL Neut % (Auto) (50.0-75.0) % Lymph % (Auto) (20.0-40.0) % [place] % (Auto) (0.0-10.0) % Eos % (Auto) (0.0-4.0) % Baso % (Auto) (0.0-2.0) % Neut # (Auto) (1.8-7.0) K/uL Lymph # (Auto) (1.0-4.3) K/uL [place] # (Auto) (0.0-0.8) K/uL Eos # (Auto) (0.0-0.7) K/uL Baso # (Auto) (0.0-0.2) K/uL Neutrophils % (Manual) (50-75) % Band Neutrophils % (0-2) % Lymphocytes % (Manual) (20-40) % Monocytes % (Manual) (0-10) % Eosinophils % (Manual) (0-4) % Platelet Estimate (NORMAL) Hypochromasia (manual) Poikilocytosis (manual Anisocytosis (manual) Target Cells [place] Cells APTT (21-34) SECONDS Puncture Site pCO2 (35-45) mm/Hg pO2 (80-100) mm/Hg HCO3 (21-28) mmol/L ABG pH (7.35-7.45) ABG Total CO2 (22-28) mmol/L ABG O2 Saturation (95-98) % ABG Base Excess (-2.0-3.0) mmol/L Seth Test ABG Potassium (3.6-5.2) mmol/L A-a O2 Difference mm/Hg Respiratory Index Glucose (75-110) mg/dl Lactate (0.7-2.1) mmol/L Vent Mode Mechanical Rate FiO2 % Tidal Volume PEEP Sodium (132-148) mmol/L Potassium (3.6-5.2) mmol/L Chloride (98-107) mmol/L Carbon Dioxide (22-30) mmol/L Anion Gap (10-20) BUN (9-20) mg/dL Creatinine (0.8-1.5) mg/dL Est GFR ( Amer) Est GFR (Non-Af Amer) POC Glucose (mg/dL) 246 H 280 H 276 H (65-110) mg/dL Random Glucose (75-110) mg/dL Calcium (8.6-10.4) mg/dl Phosphorus (2.5-4.5) mg/dL Magnesium (1.6-2.3) mg/dL Total Bilirubin (0.2-1.3) mg/dL AST (17-59) U/L ALT (21-72) U/L Alkaline Phosphatase (38-126) U/L Total Protein (6.3-8.3) g/dL Albumin (3.5-5.0) g/dL Globulin (2.2-3.9) gm/dL Albumin/Globulin Ratio (1.0-2.1) Arterial Blood Potassium (3.6-5.2) mmol/L Random Vancomycin ug/mL 09/26/18 09/26/18 09/26/18 Range/Units 22:55 22:00 21:00 WBC (4.8-10.8) K/uL RBC (4.40-5.90) Mil/uL Hgb (12.0-18.0) g/dL Hct (35.0-51.0) % MCV (80.0-94.0) fL MCH (27.0-31.0) pg MCHC (33.0-37.0) g/dL RDW (11.5-14.5) % Plt Count (130-400) K/uL MPV (7.2-11.7) fL Neut % (Auto) (50.0-75.0) % Lymph % (Auto) (20.0-40.0) % [place] % (Auto) (0.0-10.0) % Eos % (Auto) (0.0-4.0) % Baso % (Auto) (0.0-2.0) % Neut # (Auto) (1.8-7.0) K/uL Lymph # (Auto) (1.0-4.3) K/uL [place] # (Auto) (0.0-0.8) K/uL Eos # (Auto) (0.0-0.7) K/uL Baso # (Auto) (0.0-0.2) K/uL Neutrophils % (Manual) (50-75) % Band Neutrophils % (0-2) % Lymphocytes % (Manual) (20-40) % Monocytes % (Manual) (0-10) % Eosinophils % (Manual) (0-4) % Platelet Estimate (NORMAL) Hypochromasia (manual) Poikilocytosis (manual Anisocytosis (manual) Target Cells [place] Cells APTT (21-34) SECONDS Puncture Site pCO2 (35-45) mm/Hg pO2 (80-100) mm/Hg HCO3 (21-28) mmol/L ABG pH (7.35-7.45) ABG Total CO2 (22-28) mmol/L ABG O2 Saturation (95-98) % ABG Base Excess (-2.0-3.0) mmol/L Seth Test ABG Potassium (3.6-5.2) mmol/L A-a O2 Difference mm/Hg Respiratory Index Glucose (75-110) mg/dl Lactate (0.7-2.1) mmol/L Vent Mode Mechanical Rate FiO2 % Tidal Volume PEEP Sodium (132-148) mmol/L Potassium (3.6-5.2) mmol/L Chloride (98-107) mmol/L Carbon Dioxide (22-30) mmol/L Anion Gap (10-20) BUN (9-20) mg/dL Creatinine (0.8-1.5) mg/dL Est GFR ( Amer) Est GFR (Non-Af Amer) POC Glucose (mg/dL) 255 H 201 H 223 H (65-110) mg/dL Random Glucose (75-110) mg/dL Calcium (8.6-10.4) mg/dl Phosphorus (2.5-4.5) mg/dL Magnesium (1.6-2.3) mg/dL Total Bilirubin (0.2-1.3) mg/dL AST (17-59) U/L ALT (21-72) U/L Alkaline Phosphatase (38-126) U/L Total Protein (6.3-8.3) g/dL Albumin (3.5-5.0) g/dL Globulin (2.2-3.9) gm/dL Albumin/Globulin Ratio (1.0-2.1) Arterial Blood Potassium (3.6-5.2) mmol/L Random Vancomycin ug/mL 09/26/18 09/26/18 09/26/18 Range/Units 20:09 19:07 18:06 WBC (4.8-10.8) K/uL RBC (4.40-5.90) Mil/uL Hgb (12.0-18.0) g/dL Hct (35.0-51.0) % MCV (80.0-94.0) fL MCH (27.0-31.0) pg MCHC (33.0-37.0) g/dL RDW (11.5-14.5) % Plt Count (130-400) K/uL MPV (7.2-11.7) fL Neut % (Auto) (50.0-75.0) % Lymph % (Auto) (20.0-40.0) % [place] % (Auto) (0.0-10.0) % Eos % (Auto) (0.0-4.0) % Baso % (Auto) (0.0-2.0) % Neut # (Auto) (1.8-7.0) K/uL Lymph # (Auto) (1.0-4.3) K/uL [place] # (Auto) (0.0-0.8) K/uL Eos # (Auto) (0.0-0.7) K/uL Baso # (Auto) (0.0-0.2) K/uL Neutrophils % (Manual) (50-75) % Band Neutrophils % (0-2) % Lymphocytes % (Manual) (20-40) % Monocytes % (Manual) (0-10) % Eosinophils % (Manual) (0-4) % Platelet Estimate (NORMAL) Hypochromasia (manual) Poikilocytosis (manual Anisocytosis (manual) Target Cells [place] Cells APTT (21-34) SECONDS Puncture Site pCO2 (35-45) mm/Hg pO2 (80-100) mm/Hg HCO3 (21-28) mmol/L ABG pH (7.35-7.45) ABG Total CO2 (22-28) mmol/L ABG O2 Saturation (95-98) % ABG Base Excess (-2.0-3.0) mmol/L Seth Test ABG Potassium (3.6-5.2) mmol/L A-a O2 Difference mm/Hg Respiratory Index Glucose (75-110) mg/dl Lactate (0.7-2.1) mmol/L Vent Mode Mechanical Rate FiO2 % Tidal Volume PEEP Sodium (132-148) mmol/L Potassium (3.6-5.2) mmol/L Chloride (98-107) mmol/L Carbon Dioxide (22-30) mmol/L Anion Gap (10-20) BUN (9-20) mg/dL Creatinine (0.8-1.5) mg/dL Est GFR ( Amer) Est GFR (Non-Af Amer) POC Glucose (mg/dL) 261 H 258 H 263 H (65-110) mg/dL Random Glucose (75-110) mg/dL Calcium (8.6-10.4) mg/dl Phosphorus (2.5-4.5) mg/dL Magnesium (1.6-2.3) mg/dL Total Bilirubin (0.2-1.3) mg/dL AST (17-59) U/L ALT (21-72) U/L Alkaline Phosphatase (38-126) U/L Total Protein (6.3-8.3) g/dL Albumin (3.5-5.0) g/dL Globulin (2.2-3.9) gm/dL Albumin/Globulin Ratio (1.0-2.1) Arterial Blood Potassium (3.6-5.2) mmol/L Random Vancomycin ug/mL 09/26/18 09/26/18 Range/Units 15:53 15:53 WBC 19.4 H (4.8-10.8) K/uL RBC 3.31 L (4.40-5.90) Mil/uL Hgb 8.8 L (12.0-18.0) g/dL Hct 26.9 L (35.0-51.0) % MCV 81.2 (80.0-94.0) fL MCH 26.5 L (27.0-31.0) pg MCHC 32.6 L (33.0-37.0) g/dL RDW 15.8 H (11.5-14.5) % Plt Count 277 (130-400) K/uL MPV 8.0 (7.2-11.7) fL Neut % (Auto) 91.5 H (50.0-75.0) % Lymph % (Auto) 2.7 L (20.0-40.0) % [place] % (Auto) 5.7 (0.0-10.0) % Eos % (Auto) 0.0 (0.0-4.0) % Baso % (Auto) 0.1 (0.0-2.0) % Neut # (Auto) 17.7 H (1.8-7.0) K/uL Lymph # (Auto) 0.5 L (1.0-4.3) K/uL [place] # (Auto) 1.1 H (0.0-0.8) K/uL Eos # (Auto) 0.0 (0.0-0.7) K/uL Baso # (Auto) 0.0 (0.0-0.2) K/uL Neutrophils % (Manual) 87 H (50-75) % Band Neutrophils % 7 H (0-2) % Lymphocytes % (Manual) 4 L (20-40) % Monocytes % (Manual) 2 (0-10) % Eosinophils % (Manual) (0-4) % Platelet Estimate Normal (NORMAL) Hypochromasia (manual) Poikilocytosis (manual Anisocytosis (manual) Target Cells [place] Cells APTT (21-34) SECONDS Puncture Site pCO2 (35-45) mm/Hg pO2 (80-100) mm/Hg HCO3 (21-28) mmol/L ABG pH (7.35-7.45) ABG Total CO2 (22-28) mmol/L ABG O2 Saturation (95-98) % ABG Base Excess (-2.0-3.0) mmol/L Seth Test ABG Potassium (3.6-5.2) mmol/L A-a O2 Difference mm/Hg Respiratory Index Glucose (75-110) mg/dl Lactate (0.7-2.1) mmol/L Vent Mode Mechanical Rate FiO2 % Tidal Volume PEEP Sodium 140 (132-148) mmol/L Potassium 4.6 (3.6-5.2) mmol/L Chloride 112 H (98-107) mmol/L Carbon Dioxide 17 L (22-30) mmol/L Anion Gap 15 (10-20) BUN 58 H (9-20) mg/dL Creatinine 3.8 H (0.8-1.5) mg/dL Est GFR ( Amer) 20 Est GFR (Non-Af Amer) 16 POC Glucose (mg/dL) (65-110) mg/dL Random Glucose 231 H D (75-110) mg/dL Calcium 7.7 L (8.6-10.4) mg/dl Phosphorus 3.7 (2.5-4.5) mg/dL Magnesium 1.8 (1.6-2.3) mg/dL Total Bilirubin (0.2-1.3) mg/dL AST (17-59) U/L ALT (21-72) U/L Alkaline Phosphatase (38-126) U/L Total Protein (6.3-8.3) g/dL Albumin (3.5-5.0) g/dL Globulin (2.2-3.9) gm/dL Albumin/Globulin Ratio (1.0-2.1) Arterial Blood Potassium (3.6-5.2) mmol/L Random Vancomycin ug/mL Laboratory Results - last 24 hr 09/26/18 09/26/18 09/26/18 15:53 15:53 18:06 WBC 19.4 H RBC 3.31 L Hgb 8.8 L Hct 26.9 L MCV 81.2 MCH 26.5 L MCHC 32.6 L RDW 15.8 H Plt Count 277 MPV 8.0 Neut % (Auto) 91.5 H Lymph % (Auto) 2.7 L [place] % (Auto) 5.7 Eos % (Auto) 0.0 Baso % (Auto) 0.1 Neut # (Auto) 17.7 H Lymph # (Auto) 0.5 L [place] # (Auto) 1.1 H Eos # (Auto) 0.0 Baso # (Auto) 0.0 Neutrophils % (Manual) 87 H Band Neutrophils % 7 H Lymphocytes % (Manual) 4 L Monocytes % (Manual) 2 Eosinophils % (Manual) Platelet Estimate Normal Hypochromasia (manual) Poikilocytosis (manual Anisocytosis (manual) Target Cells [place] Cells APTT Puncture Site pCO2 pO2 HCO3 ABG pH ABG Total CO2 ABG O2 Saturation ABG Base Excess Seth Test ABG Potassium A-a O2 Difference Respiratory Index Glucose Lactate Vent Mode Mechanical Rate FiO2 Tidal Volume PEEP Sodium 140 Potassium 4.6 Chloride 112 H Carbon Dioxide 17 L Anion Gap 15 BUN 58 H Creatinine 3.8 H Est GFR ( Amer) 20 Est GFR (Non-Af Amer) 16 POC Glucose (mg/dL) 263 H Random Glucose 231 H D Calcium 7.7 L Phosphorus 3.7 Magnesium 1.8 Total Bilirubin AST ALT Alkaline Phosphatase Total Protein Albumin Globulin Albumin/Globulin Ratio Arterial Blood Potassium Random Vancomycin 09/26/18 09/26/18 09/26/18 19:07 20:09 21:00 WBC RBC Hgb Hct MCV MCH MCHC RDW Plt Count MPV Neut % (Auto) Lymph % (Auto) [place] % (Auto) Eos % (Auto) Baso % (Auto) Neut # (Auto) Lymph # (Auto) [place] # (Auto) Eos # (Auto) Baso # (Auto) Neutrophils % (Manual) Band Neutrophils % Lymphocytes % (Manual) Monocytes % (Manual) Eosinophils % (Manual) Platelet Estimate Hypochromasia (manual) Poikilocytosis (manual Anisocytosis (manual) Target Cells [place] Cells APTT Puncture Site pCO2 pO2 HCO3 ABG pH ABG Total CO2 ABG O2 Saturation ABG Base Excess Seth Test ABG Potassium A-a O2 Difference Respiratory Index Glucose Lactate Vent Mode Mechanical Rate FiO2 Tidal Volume PEEP Sodium Potassium Chloride Carbon Dioxide Anion Gap BUN Creatinine Est GFR ( Amer) Est GFR (Non-Af Amer) POC Glucose (mg/dL) 258 H 261 H 223 H Random Glucose Calcium Phosphorus Magnesium Total Bilirubin AST ALT Alkaline Phosphatase Total Protein Albumin Globulin Albumin/Globulin Ratio Arterial Blood Potassium Random Vancomycin 09/26/18 09/26/18 09/26/18 22:00 22:55 23:43 WBC RBC Hgb Hct MCV MCH MCHC RDW Plt Count MPV Neut % (Auto) Lymph % (Auto) [place] % (Auto) Eos % (Auto) Baso % (Auto) Neut # (Auto) Lymph # (Auto) [place] # (Auto) Eos # (Auto) Baso # (Auto) Neutrophils % (Manual) Band Neutrophils % Lymphocytes % (Manual) Monocytes % (Manual) Eosinophils % (Manual) Platelet Estimate Hypochromasia (manual) Poikilocytosis (manual Anisocytosis (manual) Target Cells [place] Cells APTT Puncture Site pCO2 pO2 HCO3 ABG pH ABG Total CO2 ABG O2 Saturation ABG Base Excess Seth Test ABG Potassium A-a O2 Difference Respiratory Index Glucose Lactate Vent Mode Mechanical Rate FiO2 Tidal Volume PEEP Sodium Potassium Chloride Carbon Dioxide Anion Gap BUN Creatinine Est GFR ( Amer) Est GFR (Non-Af Amer) POC Glucose (mg/dL) 201 H 255 H 276 H Random Glucose Calcium Phosphorus Magnesium Total Bilirubin AST ALT Alkaline Phosphatase Total Protein Albumin Globulin Albumin/Globulin Ratio Arterial Blood Potassium Random Vancomycin 09/27/18 09/27/18 09/27/18 01:08 02:00 03:06 WBC RBC Hgb Hct MCV MCH MCHC RDW Plt Count MPV Neut % (Auto) Lymph % (Auto) [place] % (Auto) Eos % (Auto) Baso % (Auto) Neut # (Auto) Lymph # (Auto) [place] # (Auto) Eos # (Auto) Baso # (Auto) Neutrophils % (Manual) Band Neutrophils % Lymphocytes % (Manual) Monocytes % (Manual) Eosinophils % (Manual) Platelet Estimate Hypochromasia (manual) Poikilocytosis (manual Anisocytosis (manual) Target Cells [place] Cells APTT Puncture Site pCO2 pO2 HCO3 ABG pH ABG Total CO2 ABG O2 Saturation ABG Base Excess Seth Test ABG Potassium A-a O2 Difference Respiratory Index Glucose Lactate Vent Mode Mechanical Rate FiO2 Tidal Volume PEEP Sodium Potassium Chloride Carbon Dioxide Anion Gap BUN Creatinine Est GFR ( Amer) Est GFR (Non-Af Amer) POC Glucose (mg/dL) 280 H 246 H 263 H Random Glucose Calcium Phosphorus Magnesium Total Bilirubin AST ALT Alkaline Phosphatase Total Protein Albumin Globulin Albumin/Globulin Ratio Arterial Blood Potassium Random Vancomycin 09/27/18 09/27/18 09/27/18 04:06 05:07 05:24 WBC RBC Hgb Hct MCV MCH MCHC RDW Plt Count MPV Neut % (Auto) Lymph % (Auto) [place] % (Auto) Eos % (Auto) Baso % (Auto) Neut # (Auto) Lymph # (Auto) [place] # (Auto) Eos # (Auto) Baso # (Auto) Neutrophils % (Manual) Band Neutrophils % Lymphocytes % (Manual) Monocytes % (Manual) Eosinophils % (Manual) Platelet Estimate Hypochromasia (manual) Poikilocytosis (manual Anisocytosis (manual) Target Cells [place] Cells APTT Puncture Site Rr pCO2 27 L pO2 149 H HCO3 18.7 L ABG pH 7.37 ABG Total CO2 16.4 L ABG O2 Saturation 101.2 H ABG Base Excess -8.1 L Seth Test Pos ABG Potassium 5.9 H A-a O2 Difference 174.0 Respiratory Index 1.2 Glucose 242 H Lactate 1.8 Vent Mode Prvc Mechanical Rate 20 FiO2 50.0 Tidal Volume 500 PEEP 5 Sodium 142.0 Potassium Chloride 113.0 H Carbon Dioxide Anion Gap BUN Creatinine Est GFR ( Amer) Est GFR (Non-Af Amer) POC Glucose (mg/dL) 262 H 250 H Random Glucose Calcium Phosphorus Magnesium Total Bilirubin AST ALT Alkaline Phosphatase Total Protein Albumin Globulin Albumin/Globulin Ratio Arterial Blood Potassium 5.9 H Random Vancomycin 09/27/18 09/27/18 09/27/18 05:52 05:52 05:54 WBC 15.9 H RBC 2.98 L Hgb 8.1 L Hct 24.7 L MCV 82.7 MCH 27.0 MCHC 32.7 L RDW 15.9 H Plt Count 261 MPV 8.6 Neut % (Auto) 87.1 H Lymph % (Auto) 7.8 L [place] % (Auto) 5.0 Eos % (Auto) 0.0 Baso % (Auto) 0.1 Neut # (Auto) 13.9 H Lymph # (Auto) 1.2 [place] # (Auto) 0.8 Eos # (Auto) 0.0 Baso # (Auto) 0.0 Neutrophils % (Manual) 86 H Band Neutrophils % 1 Lymphocytes % (Manual) 8 L Monocytes % (Manual) 4 Eosinophils % (Manual) 1 Platelet Estimate Normal Hypochromasia (manual) Slight Poikilocytosis (manual Slight Anisocytosis (manual) Slight Target Cells Slight [place] Cells Slight APTT Puncture Site pCO2 pO2 HCO3 ABG pH ABG Total CO2 ABG O2 Saturation ABG Base Excess Seth Test ABG Potassium A-a O2 Difference Respiratory Index Glucose Lactate Vent Mode Mechanical Rate FiO2 Tidal Volume PEEP Sodium 140 Potassium 4.3 Chloride 115 H Carbon Dioxide 17 L Anion Gap 12 BUN 59 H Creatinine 4.5 H Est GFR ( Amer) 16 Est GFR (Non-Af Amer) 13 POC Glucose (mg/dL) Random Glucose 231 H Calcium 7.5 L Phosphorus 4.6 H Magnesium 1.8 Total Bilirubin 0.3 AST 264 H D ALT 688 H D Alkaline Phosphatase 139 H Total Protein 4.9 L Albumin 2.5 L Globulin 2.4 Albumin/Globulin Ratio 1.1 Arterial Blood Potassium Random Vancomycin 16.6 09/27/18 09/27/18 09/27/18 05:54 06:07 07:11 WBC RBC Hgb Hct MCV MCH MCHC RDW Plt Count MPV Neut % (Auto) Lymph % (Auto) [place] % (Auto) Eos % (Auto) Baso % (Auto) Neut # (Auto) Lymph # (Auto) [place] # (Auto) Eos # (Auto) Baso # (Auto) Neutrophils % (Manual) Band Neutrophils % Lymphocytes % (Manual) Monocytes % (Manual) Eosinophils % (Manual) Platelet Estimate Hypochromasia (manual) Poikilocytosis (manual Anisocytosis (manual) Target Cells [place] Cells APTT 47 H D Puncture Site pCO2 pO2 HCO3 ABG pH ABG Total CO2 ABG O2 Saturation ABG Base Excess Seth Test ABG Potassium A-a O2 Difference Respiratory Index Glucose Lactate Vent Mode Mechanical Rate FiO2 Tidal Volume PEEP Sodium Potassium Chloride Carbon Dioxide Anion Gap BUN Creatinine Est GFR ( Amer) Est GFR (Non-Af Amer) POC Glucose (mg/dL) 220 H 244 H Random Glucose Calcium Phosphorus Magnesium Total Bilirubin AST ALT Alkaline Phosphatase Total Protein Albumin Globulin Albumin/Globulin Ratio Arterial Blood Potassium Random Vancomycin 04/10/19 04/10/19 08:00 09:04 WBC RBC Hgb Hct MCV MCH MCHC RDW Plt Count MPV Neut % (Auto) Lymph % (Auto) [place] % (Auto) Eos % (Auto) Baso % (Auto) Neut # (Auto) Lymph # (Auto) [place] # (Auto) Eos # (Auto) Baso # (Auto) Neutrophils % (Manual) Band Neutrophils % Lymphocytes % (Manual) Monocytes % (Manual) Eosinophils % (Manual) Platelet Estimate Hypochromasia (manual) Poikilocytosis (manual Anisocytosis (manual) Target Cells [place] Cells APTT Puncture Site pCO2 pO2 HCO3 ABG pH ABG Total CO2 ABG O2 Saturation ABG Base Excess Seth Test ABG Potassium A-a O2 Difference Respiratory Index Glucose Lactate Vent Mode Mechanical Rate FiO2 Tidal Volume PEEP Sodium Potassium Chloride Carbon Dioxide Anion Gap BUN Creatinine Est GFR ( Amer) Est GFR (Non-Af Amer) POC Glucose (mg/dL) 253 H 246 H Random Glucose Calcium Phosphorus Magnesium Total Bilirubin AST ALT Alkaline Phosphatase Total Protein Albumin Globulin Albumin/Globulin Ratio Arterial Blood Potassium Random Vancomycin Radiology Impressions: Radiology Impressions Chest X-Ray 09/27/18 08:00 IMPRESSION: Pulmonary vascular congestive pattern is question. No infiltrates, pleural effusion or pneumothoraces. Support devices unchanged in position and appearance with exception of a cooling blanket, which has been removed. EKG/Cardiology Studies: Cardiology / EKG Studies 09/27/18 01:45 ELECTROCARDIOGRAM DAILY Comment: Mode Of Transportation: PORTABLE Reason For Exam: mi 09/28/18 01:45 ELECTROCARDIOGRAM DAILY Comment: Mode Of Transportation: PORTABLE Reason For Exam: mn Critical Care Progress Note - Nutrition Nutrition: Nutrition Category Date Time Status NPO Diet [DIET] Diets 09/25/18 Breakfast Active Attending/Attestation - Attestation I have personally seen and examined this patient.: Yes I have fully participated in the care of the patient.: Yes I have reviewed all pertinent clinical information: Yes Notes (Text): 09/27/18 17:27 I have seen and examined the patient. Medical records, lab studies, and imaging were reviewed by me and a management plan was formulated on multidisciplinary rounds with resident Dr. Celeste. I agree with their documented assessment and plan. EEG showed evidence of brain s/p cardiac arrest. We were in the process of performing the brain apnea test, when the patient became bradycardic and pulseless. I told the family we should not perform CPR as it was medically futile and they agreed. The patient was pronounced at 1540. Critical Care Time 35 minutes. Multi-disciplinary rounds were performed with house staff, nursing, speech therapy, respiratory therapy, pharmacy and nutrition with integrated input from the primary team/attending and other consulting services. The documented time is cumulative and includes review of patient data/exams/labs/chart review and examination of the patient on rounds and throughout the day; time is exclusive of any procedures or teaching time.
--- NOTE | 2018-09-27 17:32 | CP.PCM.PRO ---
<Mike Celeste - Last Filed: 09/27/18 17:23> Pronouncement of Note - Clinical Findings Physical Exam: No Response Verbal/Painful Stimuli, Absent Peripheral Pulses{Carotid & Femoral}, Absent Heart & Breath Sounds, No Pupillary Light Reflex, No Corneal Reflex, Pupils Fixed & Dilated, Absence of Vital Signs - Pronouncement Time Time of Pronouncement of : 15:40 - Notifications Pronouncement Notifications: Family Notified, Atending Notified (Dr. Andrews aware and at bedside to confirm physical exam findings. ) - [place] [id number] <Blake Washington - Last Filed: 09/27/18 19:01> Attending/Attestation - Attestation I have personally seen and examined this patient.: Yes I have fully participated in the care of the patient.: Yes I have reviewed all pertinent clinical information: Yes
--- NOTE | 2018-09-27 18:57 | CP.PCM.DIS ---
Provider - Provider Date of Admission: 09/25/18 01:21 Attending physician: Cristian Loco MD Consults: 09/25/18 08:04 Nephrology Consult Routine Comment: Consulting Provider: Flo Barrientso Consulting Physician: Flo Barrientos Reason for Consult: renal failure 09/25/18 09:02 Physician Consult Routine Comment: Consulting Provider: Billie Callaway Consulting Physician: Billie Callaway Reason for Consult: Cerebral edema/Evaluate anoxic brain injury 09/25/18 09:20 Neurology Consult Routine Comment: Consulting Provider: Billie Callaway Consulting Physician: Billie Callaway Reason for Consult: s/p cardiac arrest 09/25/18 10:00 Nursing Referral for Wound Care Routine Comment: Physician Instructions: Reason For Exam: RIGHT JONAH WOUNDS Nursing Referral for Wound Care Routine Comment: Physician Instructions: Reason For Exam: left foot wounds Social Work Referral Routine Comment: routine Physician Instructions: Reason For Exam: poss. help at home 09/25/18 18:19 Physician Consult Routine Comment: Consulting Provider: Jonathan Rashid Consulting Physician: Jonathan Rashid Reason for Consult: NSTMI,cardiac arrest 09/27/18 08:31 Palliative Care Consult Routine Comment: Consulting Provider: Lacy King Physician Instructions: Reason For Exam: Anoxic brain injury/advance directives Time Spent in preparation of Discharge (in minutes): 40 Hospital Course - Lab Results Lab Results: Micro Results 09/25/18 06:42 Blood Blood Culture - Preliminary NO GROWTH AFTER 48 HOURS 09/25/18 06:41 Blood Blood Culture - Preliminary NO GROWTH AFTER 48 HOURS 09/25/18 06:51 Nose MRSA Culture (Admit) - Final MRSA NOT DETECTED 09/25/18 01:47 Urine Random Urine Culture - Final No Growth (<1,000 CFU/ML) Most Recent Lab Values WBC 15.9 K/uL (4.8-10.8) H 09/27/18 05:54 RBC 2.98 Mil/uL (4.40-5.90) L 09/27/18 05:54 Hgb 8.1 g/dL (12.0-18.0) L 09/27/18 05:54 Hct 24.7 % (35.0-51.0) L 09/27/18 05:54 MCV 82.7 fL (80.0-94.0) 09/27/18 05:54 MCH 27.0 pg (27.0-31.0) 09/27/18 05:54 MCHC 32.7 g/dL (33.0-37.0) L 09/27/18 05:54 RDW 15.9 % (11.5-14.5) H 09/27/18 05:54 Plt Count 261 K/uL (130-400) 09/27/18 05:54 MPV 8.6 fL (7.2-11.7) 09/27/18 05:54 Neut % (Auto) 87.1 % (50.0-75.0) H 09/27/18 05:54 Lymph % (Auto) 7.8 % (20.0-40.0) L 09/27/18 05:54 [place] % (Auto) 5.0 % (0.0-10.0) 09/27/18 05:54 Eos % (Auto) 0.0 % (0.0-4.0) 09/27/18 05:54 Baso % (Auto) 0.1 % (0.0-2.0) 09/27/18 05:54 Neut # (Auto) 13.9 K/uL (1.8-7.0) H 09/27/18 05:54 Lymph # (Auto) 1.2 K/uL (1.0-4.3) 09/27/18 05:54 [place] # (Auto) 0.8 K/uL (0.0-0.8) 09/27/18 05:54 Eos # (Auto) 0.0 K/uL (0.0-0.7) 09/27/18 05:54 Baso # (Auto) 0.0 K/uL (0.0-0.2) 09/27/18 05:54 Neutrophils % (Manual) 86 % (50-75) H 09/27/18 05:54 Band Neutrophils % 1 % (0-2) 09/27/18 05:54 Lymphocytes % (Manual) 8 % (20-40) L 09/27/18 05:54 Monocytes % (Manual) 4 % (0-10) 09/27/18 05:54 Eosinophils % (Manual) 1 % (0-4) 09/27/18 05:54 Hypersegmented Polys Present 09/25/18 18:00 Smudge Cells Present 09/25/18 18:00 Platelet Estimate Normal (NORMAL) 09/27/18 05:54 Large Platelets Present 09/25/18 18:00 Hypochromasia (manual) Slight 09/27/18 05:54 Poikilocytosis (manual Slight 09/27/18 05:54 Anisocytosis (manual) Slight 09/27/18 05:54 Spherocytes Slight 09/25/18 18:00 Target Cells Slight 09/27/18 05:54 [place] Cells Slight 09/27/18 05:54 PT 14.7 SECONDS (9.7-12.2) H 09/25/18 18:00 INR 1.3 09/25/18 18:00 APTT 47 SECONDS (21-34) H D 09/27/18 05:54 Puncture Site Rr 09/27/18 05:24 pCO2 27 mm/Hg (35-45) L 09/27/18 05:24 pO2 149 mm/Hg (80-100) H 09/27/18 05:24 HCO3 18.7 mmol/L (21-28) L 09/27/18 05:24 ABG pH 7.37 (7.35-7.45) 09/27/18 05:24 ABG Total CO2 16.4 mmol/L (22-28) L 09/27/18 05:24 ABG O2 Saturation 101.2 % (95-98) H 09/27/18 05:24 ABG Base Excess -8.1 mmol/L (-2.0-3.0) L 09/27/18 05:24 ABG Hemoglobin 10.3 g/dL (11.7-17.4) L 09/26/18 05:21 ABG Carboxyhemoglobin 0.9 % (0.5-1.5) 09/26/18 05:21 POC ABG HHb (Measured) 0.8 % (0.0-5.0) 09/26/18 05:21 ABG Methemoglobin 0.7 % (0.0-3.0) 09/26/18 05:21 Seth Test Pos 09/27/18 05:24 ABG Potassium 5.9 mmol/L (3.6-5.2) H 09/27/18 05:24 VBG pH < 6.80 (7.32-7.43) L* 09/25/18 00:50 VBG pCO2 84 mmHg (40-60) H* 09/25/18 00:50 VBG O2 Sat (Calc) 89.5 % (40-65) H 09/25/18 00:50 VBG Potassium 5.8 mmol/L (3.6-5.2) H 09/25/18 00:50 A-a O2 Difference 174.0 mm/Hg 09/27/18 05:24 Respiratory Index 1.2 09/27/18 05:24 Hgb O2 Saturation 97.5 % (95.0-98.0) 09/26/18 05:21 Sodium 142.0 mmol/l (132-148) 09/27/18 05:24 Chloride 113.0 mmol/L (98-107) H 09/27/18 05:24 Glucose 242 mg/dl (75-110) H 09/27/18 05:24 Lactate 1.8 mmol/L (0.7-2.1) 09/27/18 05:24 Vent Mode Prvc 09/27/18 05:24 Mechanical Rate 20 09/27/18 05:24 FiO2 50.0 % 09/27/18 05:24 Tidal Volume 500 09/27/18 05:24 PEEP 5 09/27/18 05:24 Crit Value Called To 09/25/18 10:52 Crit Value Called By Sebastian morrissey,mini baccarat dealer 09/25/18 10:52 Crit Value Read Back Y 09/25/18 10:52 Blood Gas Notified Time 1110 09/25/18 10:52 Sodium 140 mmol/L (132-148) 09/27/18 05:52 Potassium 4.3 mmol/L (3.6-5.2) 09/27/18 05:52 Chloride 115 mmol/L (98-107) H 09/27/18 05:52 Carbon Dioxide 17 mmol/L (22-30) L 09/27/18 05:52 Anion Gap 12 (10-20) 09/27/18 05:52 BUN 59 mg/dL (9-20) H 09/27/18 05:52 Creatinine 4.5 mg/dL (0.8-1.5) H 09/27/18 05:52 Est GFR ( Amer) 16 09/27/18 05:52 Est GFR (Non-Af Amer) 13 09/27/18 05:52 POC Glucose (mg/dL) 303 mg/dL (65-110) H 09/27/18 11:34 Random Glucose 231 mg/dL (75-110) H 09/27/18 05:52 Lactic Acid 3.1 mmol/L (0.7-2.1) H 09/25/18 11:15 Calcium 7.5 mg/dl (8.6-10.4) L 09/27/18 05:52 Phosphorus 4.6 mg/dL (2.5-4.5) H 09/27/18 05:52 Magnesium 1.8 mg/dL (1.6-2.3) 09/27/18 05:52 Total Bilirubin 0.3 mg/dL (0.2-1.3) 09/27/18 05:52 Direct Bilirubin 0.7 mg/dL (0.0-0.4) H 09/25/18 05:49 AST 264 U/L (17-59) H D 09/27/18 05:52 ALT 688 U/L (21-72) H D 09/27/18 05:52 Alkaline Phosphatase 139 U/L (38-126) H 09/27/18 05:52 Total Creatine Kinase 1137 U/L (55-170) H 09/25/18 18:00 CK-MB (Mass) 142 ng/mL (0.0-3.38) H 09/25/18 18:00 Troponin I 158.0000 ng/mL (0.00-0.120) H* 09/26/18 05:52 NT-Pro-B Natriuret Pep 2630 pg/mL (0-900) H 09/25/18 00:47 Total Protein 4.9 g/dL (6.3-8.3) L 09/27/18 05:52 Albumin 2.5 g/dL (3.5-5.0) L 09/27/18 05:52 Globulin 2.4 gm/dL (2.2-3.9) 09/27/18 05:52 Albumin/Globulin Ratio 1.1 (1.0-2.1) 09/27/18 05:52 Arterial Blood Potassium 5.9 mmol/L (3.6-5.2) H 09/27/18 05:24 Venous Blood Potassium 5.8 mmol/L (3.6-5.2) H 09/25/18 00:50 Urine Color Yellow (YELLOW) 09/25/18 01:47 Urine Clarity Hazy (Clear) 09/25/18 01:47 Urine pH 5.0 (5.0-8.0) 09/25/18 01:47 Ur Specific [place] 1.012 (1.003-1.030) 09/25/18 01:47 Urine Protein 2+ mg/dL (NEGATIVE) H 09/25/18 01:47 Urine Glucose (UA) 3+ mg/dL (Normal) H 09/25/18 01:47 Urine Ketones Negative mg/dL (NEGATIVE) 09/25/18 01:47 Urine Blood Negative (NEGATIVE) 09/25/18 01:47 Urine Nitrate Negative (NEGATIVE) 09/25/18 01:47 Urine Bilirubin Negative (NEGATIVE) 09/25/18 01:47 Urine Urobilinogen Normal mg/dL (0.2-1.0) 09/25/18 01:47 Ur Leukocyte Esterase Neg [place]/uL (Negative) 09/25/18 01:47 Urine WBC (Auto) 1 /hpf (0-5) 09/25/18 01:47 Urine RBC (Auto) 1 /hpf (0-3) 09/25/18 01:47 Ur Squamous Epith Cells < 1 /hpf (0-5) 09/25/18 01:47 Urine Sperm (Auto) Rare /hpf (NONE) H 09/25/18 01:47 Urine Osmolality 220 mosm/kg (300-1000) L 09/25/18 13:50 Ur Random Creatinine 18.6 mg/dL 09/26/18 10:04 U Random Total Protein 51.0 mg/dL (0.0-12.0) H 09/26/18 10:04 Ur Random Sodium 55 mmol/L 09/26/18 10:04 Ur Random Potassium 10.5 mmol/L 09/25/18 13:50 Random Vancomycin 16.6 ug/mL 09/27/18 05:52 Urine Opiates Screen Positive (NEGATIVE) H 09/25/18 01:47 Urine Methadone Screen Negative (NEGATIVE) 09/25/18 01:47 Ur Barbiturates Screen Negative (NEGATIVE) 09/25/18 01:47 Ur Phencyclidine Scrn Negative (NEGATIVE) 09/25/18 01:47 Ur Amphetamines Screen Negative (NEGATIVE) 09/25/18 01:47 U Benzodiazepines Scrn Negative (NEGATIVE) 09/25/18 01:47 U Oth Cocaine Metabols Negative (NEGATIVE) 09/25/18 01:47 U Cannabinoids Screen Negative (NEGATIVE) 09/25/18 01:47 - Hospital Course Hospital Course: Mr. Rikki Malik is a morbidly obese 63yo male with a PMH of CAD s/p CABG, HTN, DM, CKD, HLD, asthma was BIBA for witnessed cardiac arrest at home. He was discharged from the [place] ED earlier today for neck pain and SOB. Within 1 hour of arriving home, his and son-in-law noticed an abrupt change in mental status and saw the patient go apneic. Patient was found asystolic by EMS and intubated. CPR/ACLS multiple times en route to ED where it was continued. Patient started on Levophed and treated for hyperkalemia in ED. During his ICU days he was treated for DKA,NSTMI,s/p cardiac arrest and acute renal failure. Patient remains unresponsive on MV support.He was on on hypothermic protocol at ICU .Head CT: Diffuse Caba matter, loss of caba-white matter, hypoxic/ischemic insult . Patient was evaluated by Neurologist .EEG shows no brain activity. Patient has no Gag reflex.Pupils dilated and fixed. Dr Callaway spoke to his family . Family was at bedside today. family they decided no CPR when he went into bradycardia. patient and proninced at 3.40pm on 09/27/2018 Discharge Exam - Head Exam Head Exam: ATRAUMATIC, NORMAL INSPECTION, NORMOCEPHALIC Discharge Plan - Follow Up Plan Condition: GOOD Disposition: HOME/ ROUTINE
--- NOTE | 2018-09-27 20:46 | CP.PCM.PN ---
Subjective - Date & Time of Evaluation Date of Evaluation: 09/27/18 Time of Evaluation: 13:00 - Subjective Subjective: neuro status unchanged EEG - no neurological activity Objective - Vital Signs/Intake and Output Vital Signs (last 24 hours): Temp Pulse Resp BP Pulse Ox 97.5 F L 114 H 15 117/61 99 09/26/18 22:25 09/26/18 22:25 09/26/18 22:25 09/26/18 22:25 09/26/18 22:25 Intake and Output: 09/27/18 09/28/18 18:59 06:59 Intake Total 1047.2 Output Total 77 Balance 970.2 - Labs Labs: 09/27/18 05:54 09/27/18 05:52 PT 14.7 SECONDS (9.7-12.2) H 09/25/18 18:00 INR 1.3 09/25/18 18:00 APTT 47 SECONDS (21-34) H D 09/27/18 05:54 - Head Exam Head Exam: ATRAUMATIC, NORMAL INSPECTION, NORMOCEPHALIC - Eye Exam Pupil Exam: Fixed Additional comments: absent corneal reflexes - ENT Exam ENT Exam: Mucous Membranes Moist Additional comments: ETT - Respiratory Exam Respiratory Exam: Clear to Ausculation Bilateral - Cardiovascular Exam Cardiovascular Exam: REGULAR RHYTHM, RRR, +S1, +S2, Murmur - GI/Abdominal Exam GI & Abdominal Exam: Soft Assessment and Plan (1) Coma Assessment & Plan: EEG suggestive of brain dismal prognosis Status: Acute (2) Cardiac arrest Status: Acute (3) CAD (coronary artery disease) Status: Acute (4) DANUTA (acute kidney injury) Status: Acute (5) Encephalopathy Status: Acute (6) Metabolic acidosis Status: Acute (7) Shock Status: Acute (8) Acute coronary syndrome Status: Acute (9) Acute renal insufficiency Status: Acute
[2018-09-28 07:46] VITALS: O2SAT 100
== END 2018-09-27 15:40 ==
LOC: C.ER 00:21 → C.9I 01:21
PROVIDERS: ADMIT Internal Medicine; ATTEND Internal Medicine
PROC: 0BH17EZ Insertion of Endotracheal Airway into Trachea, Via Natural or Artificial Opening (ICD-10-PCS; principal; 2018-09-25)
PROC: 5A1945Z Respiratory Ventilation, 24-96 Consecutive Hours (ICD-10-PCS; 2018-09-25)
PROC: 05HM33Z Insertion of Infusion Device into Right Internal Jugular Vein, Percutaneous Approach (ICD-10-PCS; 2018-09-25)
DX: I21.4 Non-ST elevation (NSTEMI) myocardial infarction (principal); E11.10 Type 2 diabetes mellitus with ketoacidosis without coma; I13.0 Hypertensive heart and chronic kidney disease with heart failure and stage 1 through stage 4 chronic kidney disease, or unspecified chronic kidney disease; N17.9 Acute kidney failure, unspecified; Z68.41 Body mass index [BMI] 40.0-44.9, adult; G93.40 Encephalopathy, unspecified; I25.10 Atherosclerotic heart disease of native coronary artery without angina pectoris; E87.5 Hyperkalemia; E78.5 Hyperlipidemia, unspecified; I46.9 Cardiac arrest, cause unspecified; I48.91 Unspecified atrial fibrillation; I50.9 Heart failure, unspecified; J44.9 Chronic obstructive pulmonary disease, unspecified; N18.9 Chronic kidney disease, unspecified; Z89.422 Acquired absence of other left toe(s); Z95.1 Presence of aortocoronary bypass graft; Z99.81 Dependence on supplemental oxygen; E11.22 Type 2 diabetes mellitus with diabetic chronic kidney disease; E66.01 Morbid (severe) obesity due to excess calories; E11.621 Type 2 diabetes mellitus with foot ulcer; F11.10 Opioid abuse, uncomplicated